=== PATIENT | male | born 1940 | race Caucasian/White ===

== ENCOUNTER → 2016-12-15 | Outpatient (CLI) | payer MEDICARE, OTHER ==
[~2016-12-15] MED LIST: ASPI-587 PO; CLOP75TA PO
== END ==
LOC: CARD 08:43
PROVIDERS: ATTEND Family Medicine
DX: I25.10 Atherosclerotic heart disease of native coronary artery without angina pectoris (principal); R00.1 Bradycardia, unspecified; E03.9 Hypothyroidism, unspecified
CPT/HCPCS: 36415; 84443; 93225; 93226

== ENCOUNTER → 2016-12-23 | Outpatient (CLI) | payer MEDICARE, OTHER | LOC: CARD 08:19 | PROVIDERS: ATTEND Internal Medicine Interventional Cardiology | DX: I49.3 Ventricular premature depolarization (principal); I25.10 Atherosclerotic heart disease of native coronary artery without angina pectoris; E78.5 Hyperlipidemia, unspecified; I70.1 Atherosclerosis of renal artery | CPT/HCPCS: 93225; 93226 ==

== ENCOUNTER 2017-05-19 10:55 | Inpatient (IN) | payer MEDICARE, OTHER ==
[~2017-05-19] VITALS: Ht 190.5 cm; Wt 98.6 kg
[2017-05-19 14:06] VITALS: BP 129/74
[2017-05-19 15:08] VITALS: BP 129/74
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
--- NOTE | 2017-05-19 16:44 | Physical Therapy Evaluation ---
PT Evaluation-General Medical Diagnosis Admission Date May 19, 2017 at 14:00 Medical Diagnosis: s/p subdural hematoma Onset Date: April 07, 2017 Therapy Diagnosis Therapy Diagnosis: impaired mobility, balance, endurance, strength Height/Weight Height (Feet): 6 Height (Inches): 3.00 Weight (Pounds): 224 Weight (Ounces): 0.0 Precautions Precautions/Isolations: Aspiration, Fall Prevention, Standard Precautions, Pressure Ulcer Referral Physician: Tirso Reason for Referral: Evaluation/Treatment Medical History Pertinent Medical History: CAD, HTN, Hypothroidism Additional Medical History CBD, kidney stones, 3rd nerve palsy, surg (carotid endarteretomy, CABG, bladder stone removal, left knee replacement, amputation right thumb) Current History Patient fell, subdural hematoma with evacuation on 04/07/17 Reviewed History: Yes Social History Home: Single Level Current Living Status: Spouse Entry Into Home: Level Entry Prior/Core FIM Prior Level of Function Functional Hawkins Measure 0=Not Assessed/NA 4=Minimal Assistance 1=Total Assistance 5=Supervision or Setup 2=Maximal Assistance 6=Modified Hawkins 3=Moderate Assistance 7=Complete Hawkins Bed Mobility: 7 Transfers (B,C,W/C) (FIM): 7 Gait: 7 PT Evaluation-Current Subjective Patient in bed pre tx, agrees to PT, pleasant and cooperative, no complaints of pain. Pt/Family Goals to be independent at home Objective Patient Orientation: Person, Place, Situation helmet to wear when out of bed ROM/Strength ROM Lower Extremities WNL except patient does not seem to have full knee extension bilaterally Strenght Lower Extremities 4/5 gross bilateral lower extremities Neuromuscular (Tone, Coordination, Reflexes) WNL Sensory Vision: Wears Glasses Hearing: Functional Hand Dominance: Right (but reports he is ambidextrous) Sensation Right Lower Extremit: Intact Sensation Left Lower Extremity: Intact Transfers Functional Hawkins Measure 0=Not Assessed/NA 4=Minimal Assistance 1=Total Assistance 5=Supervision or Setup 2=Maximal Assistance 6=Modified Hawkins 3=Moderate Assistance 7=Complete IndependenceIRFPAI Quality Coding Scale 6 Independent with activity with or without an assistive device 5 Patient requires set up or clean up by helper. Patient completes activity by themselves 4 Supervision or touching assist (CGA). Manson provide cues , steadying assist 3 The helper provides less than half the effort to complete the activity 2 The helper provides more than half the effort to complete the activity 1 Dependent. The helper does all the effort to complete an activity 7 Patient refused to complete or attempt activity 9 The patient did not perform the activity before the current illness or injury 88 Not attempted due to Medical conditions or safety concerns Transfers (B, C, W/C) (FIM): 4 Scootin Rollin Roll Left to Right (QC): 4 Supine to/from Sit: 4 Sit to/from Stand: 3 bed t/f WC(FIM only if WC use): 3 Sit to Lying (QC): 3 Lying to Sitting/Side of Bed(Q: 3 Sit to Stand (QC): 2 Chair/[id number]-Uqpzu Xfer(QC): 2 Car Transfer (QC): 88 Patient performs bed mobility with SBA except for supine <-> sit which is min assist. He can stand with mod to max assist and perform a stand pivot transfer with mod to max assist. Retropulsive and leans a little to the right side. Gait Does the Patient Walk?: Yes Mode of Locomotion: Walk Anticipated Mode of Locomotion: Walk Gait (FIM): 1 Walk 10 feet (QC): 2 Walk 50 ft with 2 Turns(QC): 88 Walk 150 ft (QC): 88 Walking 10ft/uneven surface-QC: 88 Distance: 10' Gait Level of Assist: 2 Gait Persons Needed: 2 Gait Assistive Device: FWW Comments/Gait Description slow, uncoordinated, leans to the right side, needs to sit suddenly so follow with chair Stairs Stairs (FIM): 0 If not tested on admit;explain Patient is not safe to perform stairs due to weakness, balance impairments, and poor mobility Balance Sitting Static: Fair Sitting Dynamic: Fair Standing Static: Poor Standing Dynamic: Poor Picking up an Object (QC): 88 Assessment/Needs Patient has impaired mobility, strength, balance, endurance post subdural hematoma and evacuation. Rehab Potential: Fair PT Short Term Goals Short Term Goals Time Frame: May 26, 2017 Transfers (B,C,W/C) (FIM): 4 Gait (FIM): 2 Gait Distance Comment: 50' Gait Level of Assist: 4 Gait Assistive Device: FWW PT Chcf Goals Chcf Goals PT Chcf Goals Time Frame: Jun 09, 2017 Transfers (B,C,W/C) (FIM): 4 Sit to Lying (QC): 4 Lying-Sitting on Side/Bed(QC): 4 Sit to Stand (QC): 4 Rollin Roll Left to Right (QC): 4 Chair/Drs-df-Koqoz Xfer(QC): 4 Car Transfer (QC): 4 Gait (FIM): 4 Distance: 150' Walk 10 feet (QC): 4 Walk 10ft-Uneven Surface(QC): 4 Walk 50ft with 2 Turns (QC): 4 Walk 150 ft (QC): 4 Gait Level of Assist: 4 Gait Assistive Device: FWW Stairs (FIM): 2 # of Steps: 4 1 Step (curb) (QC): 4 4 Steps (QC): 4 PT Plan Problem List Problem List: Activity Tolerance, Functional Strength, Safety, Balance, Gait, Transfer, Bed Mobility, ROM Treatment/Plan Treatment Plan: Continue Plan of Care Treatment Plan: Bed Mobility, Education, Functional Activity Lela, Functional Strength, Gait, Safety, Therapeutic Exercise, Transfers Treatment Duration: Jun 09, 2017 # of days/week 5-6 Visits Per Week: 10-11 Minutes/Day (M-F): 60-90 Minutes/Day (Sat/Johnson): 15-30 Pt/Family Agrees w/Plan: Yes Safety Risks/Education Patient Education: Gait Training, Transfer Techniques, Correct Positioning, Safety Issues Teaching Recipient: Patient Teaching Methods: Demonstration, Discussion Response to Teaching: Reinforcement Needed Discharge Recommendations Plan Patient will perform bed mobility and transfer training, balance and endurance training, functional strengthening, stair training, gait training, and education , to improve functional mobility and independence at home. Therapy D/C Recommendations: Home w/ Family Support Time/GCodes Time In: 1600 Time Out: 1630 Total Billed Treatment Time: 30 Total Billed Treatment 1 visit EVL20' GT 10' JOSÉ MANUEL WHEELER PT May 19, 2017 16:44
[2017-05-19 18:00] VITALS: BP 130/72
[2017-05-19] MEDS ORDERED: TAMSULOSIN 0.4 MG (FLOMAX) CAP PO SCH (18:00)
[2017-05-19] MEDS: CARVEDILOL 12.5 MG (COREG) TABLET GT SCH (20:37)
[2017-05-19] MEDS: ENOXAPARIN 40 MG/0.4 ML (LOVENOX) SYR SC SCH (20:37)
[2017-05-19] MEDS: FAMOTIDINE 20 MG (PEPCID) TABLET GT SCH (20:37)
[2017-05-19] MEDS: LACTOBACILLUS Acidoph/Bulgar (LACTINEX/FLORANEX) TAB PEG SCH (20:38)
[2017-05-19] MEDS: hydrALAZINE (APRESOLINE) 25 MG TAB GT SCH (20:38)
[2017-05-19] MEDS: guaiFENesin (MUCINEX) 600 MG TAB PO SCH (20:38)
[2017-05-19] MEDS: cloNIDine 0.1 MG (CATAPRES) TAB GT SCH (20:38)
[2017-05-19] MEDS: ALFUZOSIN HCL 10 MG TAB (UROXATRAL) PO SCH (20:38)
[2017-05-19] MEDS: LEVETIRACETAM 500 MG (KEPPRA) TAB PO SCH (20:38)
[2017-05-19] MEDS: POLYETHYLENE GLYCOL 17 GM (MIRALAX) PACK GT SCH (20:47)
[2017-05-19] MEDS: DOCUSATE SODIUM 10 MG/ML 10 ML UDC (COLACE) GT SCH (20:47)
[2017-05-19] MEDS: inSUlin ASPART (NovoLOG) 1 UNIT/0.01 ML (CHARGE PER UNIT) SC SCH (20:53)
[2017-05-19] MEDS: ARTIFICIAL TEARS OINT (LACRI-LUBE) 3.5 GM TUBE OU SCH (20:56)
[2017-05-19] MEDS ORDERED: inSUlin ASPART (NovoLOG) 1 UNIT/0.01 ML (CHARGE PER UNIT) SC SCH (21:00)
[2017-05-20 05:35] VITALS: BP 136/76
[2017-05-20] MEDS: inSUlin ASPART (NovoLOG) 1 UNIT/0.01 ML (CHARGE PER UNIT) SC SCH ×4 (05:54→21:58)
[2017-05-20] MEDS: MULTIVIT W/MINERALS TAB (THERAGRAN M) GT SCH (06:11)
[2017-05-20] MEDS: LEVOTHYROXINE 125 MCG (LEVOTHROID) TABLET GT SCH (06:11)
[2017-05-20 06:16] LABS: BASOPHILS # (AUTO) 0.1 10^3/uL (0.0-0.1); BASOPHILS % (AUTO) 1 % (0-10); EOSINOPHILS # (AUTO) 0.3 10^3/uL (0.0-0.3); EOSINOPHILS % (AUTO) 5 % (0-10); LYMPHOCYTES # (AUTO) 1.3 X 10^3 (1.0-4.0); LYMPHOCYTES % (AUTO) 26 % (12-44); MEAN CORPUSCULAR HEMOGLOBIN 30 PG (25-34); MEAN CORPUSCULAR HGB CONC 33 G/DL (32-36); MEAN CORPUSCULAR VOLUME 93 FL (80-99); MEAN PLATELET VOLUME 9.8 FL (7.4-10.4); MONOCYTES # (AUTO) 0.9 X 10^3 (0.0-1.0); MONOCYTES % (AUTO) 17 % (0-12); NEUTROPHILS # (AUTO) 2.7 X 10^3 (1.8-7.8); NEUTROPHILS % (AUTO) 51 % (42-75); PLATELET COUNT 274 10^3/uL (130-400); RED BLOOD COUNT 3.79 10^6/uL (4.35-5.85); RED CELL DISTRIBUTION WIDTH 14.5 % (10.0-14.5); WHITE BLOOD COUNT 5.2 10^3/uL (4.3-11.0)
[2017-05-20] MEDS ORDERED: LEVOTHYROXINE 150 MCG (LEVOTHROID) TAB PO SCH (06:30)
[2017-05-20 06:44] LABS: ALANINE AMINOTRANSFERASE 89 U/L (0-55); ALBUMIN 3.4 GM/DL (3.2-4.5); ANION GAP 9 MMOL/L (5-14); ASPARTATE AMINO TRANSFERASE 30 U/L (5-34); BILIRUBIN,TOTAL 0.6 MG/DL (0.1-1.0); BLOOD UREA NITROGEN 12 MG/DL (7-18); BUN/CREATININE RATIO 16 (0-20); CALCIUM 9.7 MG/DL (8.5-10.1); CARBON DIOXIDE 28 MMOL/L (21-32); CHLORIDE 102 MMOL/L (98-107); CREATININE SERUM 0.76 MG/DL (0.60-1.30); GFR ESTIMATED > 60; GLUCOSE 102 MG/DL (70-105); HEMOLYSIS 5 (-100-29); ICTERUS 0.9 (-100-1.9); LIPEMIA 3 (-100-49); POTASSIUM 3.5 MMOL/L (3.6-5.0); SODIUM 139 MMOL/L (135-145); TOTAL PROTEIN 6.8 GM/DL (6.4-8.2)
[2017-05-20] MEDS: LEVETIRACETAM 500 MG (KEPPRA) TAB PO SCH ×2 (08:42→20:07)
[2017-05-20] MEDS: LACTOBACILLUS Acidoph/Bulgar (LACTINEX/FLORANEX) TAB PEG SCH ×2 (08:42→20:08)
[2017-05-20] MEDS: FAMOTIDINE 20 MG (PEPCID) TABLET GT SCH ×2 (08:42→20:08)
[2017-05-20] MEDS: FUROSEMIDE 40 MG (LASIX) TAB GT SCH (08:42)
[2017-05-20] MEDS: cloNIDine 0.1 MG (CATAPRES) TAB GT SCH ×3 (08:43→20:07)
[2017-05-20] MEDS: DOCUSATE SODIUM 10 MG/ML 10 ML UDC (COLACE) GT SCH ×2 (08:43→20:08)
[2017-05-20] MEDS: amLODIPine 5 MG (NORVASC) TAB GT SCH (08:43)
[2017-05-20] MEDS: CARVEDILOL 12.5 MG (COREG) TABLET GT SCH ×2 (08:43→20:07)
[2017-05-20] MEDS: guaiFENesin (MUCINEX) 600 MG TAB PO SCH ×2 (08:43→20:07)
[2017-05-20] MEDS: hydrALAZINE (APRESOLINE) 25 MG TAB GT SCH ×3 (08:43→20:08)
--- NOTE | 2017-05-20 08:43 | PM&R Post Admission Assessment ---
Post Admission Physician Asses The preadmission screen agrees with the post admission assessment that the patient is a good candidate for inpatient rehabilitation. The patient will have a comprehensive program of inpatient rehabilitation with a goal of maximizing level of functional independence prior to discharge home with family and HHC. The patient will have PT/OT ninety minutes per day, each discipline, five days a week for gait, strengthening, conditioning, balance, ADLs, any patient/family/caregiver training necessary. Speech therapy to do cognitive,speech and swallow assessment and treat 5 days a week for 30-45 minutes a day for 2-3 weeks. Rehabilitation nursing to assist with bowel, bladder, skin, wound care, medication administration, pain management. [employer] Supervisor to assist with discharge planning, community reentry. SCD's for DVT prophylaxis.Continue with Lovenox for DVT prophylaxis. He appears to be well motivated to participate in three hours of therapy a day. He should be able to tolerate three hours of therapy a day from a medical standpoint.and surgical standpoint. He should benefit from the three hours of therapy a day. He has a reasonable discharge plan, reasonable discharge rehabilitation goals and a supportive family. He has various comorbidities that need to be closely monitored with medications and treatments adjusted on a daily basis as needed. These include: HTN Coronary Art D Barriers to discharge for this patient who had been independent prior to this are for him to be modified independent to supervision for ADLs and mobility skills prior to discharge home with family and HHC, so as to lessen the burden of the caregivers. Risks for this patient include: 1. Fall 2. Fracture 3. DVT 4. Pulmonary embolism 5. Wound infection 6. Skin breakdown 7. Contractures 8. Poorly controlled pain 9. Urinary retention 10. UTI 11. Respiratory infection 12. Aspiration 13. Poorly controlled HTN 14. Angina 15. Cardiac arrythmia Estimated Length of Stay: 21 days Prognosis: Rehab prognosis appears good for goal of discharge home with family and HHC modified independent to supervision for ADLs and mobility skills. SHAHZAD BARROW MD May 20, 2017 08:43
[2017-05-20] MEDS: ARTIFICIAL TEARS OINT (LACRI-LUBE) 3.5 GM TUBE OU SCH ×2 (08:44→20:08)
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
--- NOTE | 2017-05-20 09:57 | Pulmonary Consultation ---
History of Present Illness History of Present Illness Date of Consultation 05/20/17 09:49 Time Seen by Provider: 09:50 Date of Admission History of Present Illness 76 yo with recent hx of acute respiratory failure requiring tracheostomy tube transferred here for inpatient rehabilitation. Pt was s/p fall hitting head and developed a subdural hematoma. Pt underwent surgery and is scheduled for repeat neuro surgery. Pt currently has a size 6.0 cuffless tracheostomy tube in place. He is not requiring supplemental oxygen. There is no current CXR to evaluate. Allergies and Home Medications Allergies Coded Allergies: No Known Drug Allergies (Unverified , 03/30/15) Home Medications Alfuzosin HCl 10 Mg Tab.er.24h, 10 MG PO DAILY@1800 for 30 Days, #30 Prescribed by: SHAHZAD BARROW on 06/08/17 1620 Amlodipine Besylate 5 Mg Tablet, 10 MG PO DAILY for 30 Days, #30 Prescribed by: SHAHZAD BARROW on 06/08/17 1620 Cholecalciferol (Vitamin D3) 2,000 Unit Capsule, 2,000 UNIT PO DAILY, (Reported) Clonidine HCl 0.1 Mg Tablet, 0.1 MG PO TID for 30 Days, #90 Prescribed by: SHAHZAD BARROW on 06/08/17 1620 Clotrimazole/Betamethasone Dip 15 Gm Cream..g., 0 GM TP BID for 30 Days, #1 Prescribed by: SHAHZAD BARROW on 06/08/17 1620 Docusate Sodium 100 Mg Capsule, 100 MG PO BID for 30 Days, #60 Prescribed by: SHAHZAD BARROW on 06/08/17 1620 Famotidine 20 Mg Tablet, 20 MG PO BID for 30 Days, #60 Prescribed by: SHAHZAD BARROW on 06/08/17 1620 Furosemide 40 Mg Tablet, 40 MG PO DAILY for 30 Days, #30 Prescribed by: SHAHZAD BARROW on 06/08/17 1620 Guaifenesin 600 Mg Tab.er.12h, 600 MG PO BID for 30 Days, #60 Prescribed by: SHAHZAD BARROW on 06/08/17 1620 Hydralazine HCl 25 Mg Tablet, 75 MG PO TID for 30 Days, #150 Prescribed by: SHAHZAD BARROW on 06/08/17 1620 L. Acidophilus/Bulgaricus 1 Each Tablet, 1 TAB.CHEW PO BID for 30 Days, #60 Prescribed by: SHAHZAD BARROW on 06/08/17 1620 Levetiracetam 500 Mg Tablet, 500 MG PO BID for 30 Days, #60 Prescribed by: SHAHZAD BARROW on 06/08/17 1620 Levothyroxine Sodium 125 Mcg Tablet, 250 MCG PO DAILY@0630 for 30 Days, #30 Prescribed by: SHAHZAD BARROW on 06/08/17 1620 Mineral Oil/Petrolatum,White 3.5 Gm Oint...g., 0 GM OU BID for 30 Days, #1 Prescribed by: SHAHZAD BARROW on 06/08/17 1620 Multivitamin 1 Each Tablet, 1 TAB PO DAILY, (Reported) [place]-3 Acid Ethyl Esters 1 Gm Capsule, 1 GM PO TID, (Reported) Potassium Chloride 10 Meq Tablet.er, 30 MEQ PO DAILY@0700 for 30 Days, #30 Prescribed by: SHAHZAD BARROW on 06/08/17 1620 Rosuvastatin Calcium 40 Mg Tablet, 40 MG PO HS, (Reported) Past Wvajqza-Zpcyij-Lveubz Hx Patient Social History Alcohol Use: Regular Use Recreational Drug Use: No Smoking Status: Former Smoker Type Used: Cigarettes Recent Foreign Travel: No Contact w/Someone Who Travel: No Recent Infectious Disease Expo: No Recent Hopitalizations: Yes Physical Abuse Screen: No Sexual Abuse: No Immunizations Up To Date Tetanus Booster (TDap): Unknown PED Vaccines UTD: Yes Seasonal Allergies Seasonal Allergies: No Surgeries Surgeries: CABG Respiratory Hx Respiratory Disorders: No Respiratory Disorders: Pneumonia Cardiovascular Hx Cardiac Disorders: Yes Cardiac Disorders: Hypertension Neurological Hx Neurological Disorders: No Reproductive System Hx Reproductive Disorders: No Sexually Transmitted Disease: No HIV/AIDS: No Genitourinary Hx Genitourinary Disorders: No Genitourinary Disorders: Kidney Stones Gastrointestinal Hx Gastrointestinal Disorders: No Gastrointestinal Disorders: Gastroesophageal Reflux Musculoskeletal Hx Musculoskeletal Disorders: No Musculoskeletal Disorders: Amputee Endocrine Hx Endocrine Disorders: No HEENT HX ENT Disorders: No Loss of Vision: Bilateral Hearing Impairment: Hard of Hearing Cancer Hx Cancer: No Psychosocial Hx Psychiatric Problems: No Blood Transfusions Hx Blood Disorders: No Adverse Reaction to a Blood Tr: No Family Medical History Family Medial History: Patient reports no known family medical history. Review of Systems Time Seen by Provider: 13:19 Constitutional: Fever Eyes: Pain Exam Exam Vital Signs Date Time Temp Pulse Resp B/P (MAP) Pulse Ox O2 Delivery O2 Flow Rate FiO2 6/22/17 09:08 94 Room Air 05/20/17 05:35 97.9 67 18 136/76 Room Air 05/19/17 23:32 95 Room Air 05/19/17 20:15 Room Air 05/19/17 19:48 93 Room Air 05/19/17 18:00 98.6 72 18 130/72 93 Room Air 05/19/17 16:07 Room Air 05/19/17 15:15 Room Air 05/19/17 15:08 98.7 70 24 129/74 92 Room Air 05/19/17 14:06 98.7 70 18 129/74 92 Nasal Cannula I & O 05/20/17 07:00 Intake Total 620 ml Output Total 1100 ml Balance -480 ml General Appearance: No Apparent Distress, WD/WN Results Lab Laboratory Tests 05/20/17 06:06 Assessment/Plan Assessment/Plan hx of acute respiratory failure s/p tracheostomy -Check CXR Pt is on RA oxygen -If CXR shows no acute process will d/c tracheostomy 255 45min spent with patient and health care team. Clinical Quality Measures DVT/VTE Risk/Contraindication: Risk Factor Score Per Nursin RFS Level Per Nursing on Admit: 4+=Very High CARLYN NIEVES DO May 20, 2017 09:57
[2017-05-20] MEDS ORDERED: CLOP75TA28 PO (10:15)
[2017-05-20] MEDS ORDERED: ROSU40TA20 PO (10:15)
[2017-05-20] MEDS ORDERED: AMLO5TAB2 PO (10:15)
[2017-05-20] MEDS ORDERED: RAMI5CAP PO (10:15)
[2017-05-20] MEDS ORDERED: MULT1TAB69 PO (10:15)
[2017-05-20] MEDS ORDERED: CHOL20003 PO (10:15)
[2017-05-20] MEDS ORDERED: OMEG-105 PO (10:15)
[2017-05-20] MEDS ORDERED: HYDR12.56 PO (10:15)
[2017-05-20] MEDS ORDERED: CARV6.252 PO (10:15)
[2017-05-20] MEDS ORDERED: LEVO200T6 PO (10:15)
--- NOTE | 2017-05-20 10:21 | PM & R (SOAP) Progress Note ---
Subjective Time Seen by Provider: 08:15 Subjective/Events-last exam Patient was seen in his room this AM Discussed case with ST.She will f/u re need for any modification in diet or need for Meds thru Peg.Mod assist for transfers Objective Exam Last Set of Vital Signs Vital Signs Date Time Temp Pulse Resp B/P (MAP) Pulse Ox O2 Delivery O2 Flow Rate FiO2 05/20/17 09:08 94 Room Air 05/20/17 05:35 97.9 67 18 136/76 Capillary Refill : I&O Bad tableGeneral: Alert, Cooperative, No Acute Distress HEENT: EOMI, Mucous Memb Moist/[place], Other (Rt Crani site healing well) Neck: Supple, No JVD Lungs: Clear to Auscultation Heart: Regular Rate Abdomen: Normal Bowel Sounds, Soft, No Tenderness Extremities: No Edema Neuro: Other (generalized weakness Mild cognitive impairment) Results Lab Laboratory Tests 05/19/17 20:16: Glucometer 179H 05/20/17 04:51: Glucometer 96 05/20/17 06:06: White Blood Count 5.2, Red Blood Count 3.79L, Hemoglobin 11.4L, Hematocrit 35L, Mean Corpuscular Volume 93, Mean Corpuscular Hemoglobin 30, Mean Corpuscular Hemoglobin Concent 33, Red Cell Distribution Width 14.5, Platelet Count 274, Mean Platelet Volume 9.8, Neutrophils (%) (Auto) 51, Lymphocytes (%) (Auto) 26, Monocytes (%) (Auto) 17H, Eosinophils (%) (Auto) 5, Basophils (%) (Auto) 1, Neutrophils # (Auto) 2.7, Lymphocytes # (Auto) 1.3, Monocytes # (Auto) 0.9, Eosinophils # (Auto) 0.3, Basophils # (Auto) 0.1, Sodium Level 139, Potassium Level 3.5L, Chloride Level 102, Carbon Dioxide Level 28, Anion Gap 9, Blood Urea Nitrogen 12, Creatinine 0.76, Estimat Glomerular Filtration Rate > 60, BUN/ Creatinine Ratio 16, Glucose Level 102, Calcium Level 9.7, Total Bilirubin 0.6, Aspartate Amino Transf (AST/SGOT) 30, Alanine Aminotransferase (ALT/SGPT) 89H, Alkaline Phosphatase 75, Total Protein 6.8, Albumin 3.4 Assessment/Plan Assessment Rt SDH s/p evacuation with gait imbalance Blurred vision S/P Trach S/P feeding tube HTN controlled Plan Continue PT/OT/ST Discussed case with Pulm- he will check cxr and then decannulate tomorrow most likely F/U with DR Dowling as per his schedule Appreciate current labs F/U with SHAHZAD Schultz MD May 20, 2017 10:21
--- NOTE | 2017-05-20 11:38 | Physical Therapy Daily Note ---
PT Daily Note-Current Subjective Patient in wheelchair from xray pre tx, has to transfer to a rehab chair. Patient has no complaints of pain. Appearance Patient in wheelchair at bedside with speech post tx. Mental Status Patient Orientation: Person, Place, Situation patient wears helmet when out of bed. Transfers Functional Reynolds Measure 0=Not Assessed/NA 4=Minimal Assistance 1=Total Assistance 5=Supervision or Setup 2=Maximal Assistance 6=Modified Reynolds 3=Moderate Assistance 7=Complete IndependenceIRFPAI Quality Coding Scale 6 Independent with activity with or without an assistive device 5 Patient requires set up or clean up by helper. Patient completes activity by themselves 4 Supervision or touching assist (CGA). [place] provide cues , steadying assist 3 The helper provides less than half the effort to complete the activity 2 The helper provides more than half the effort to complete the activity 1 Dependent. The helper does all the effort to complete an activity 7 Patient refused to complete or attempt activity 9 The patient did not perform the activity before the current illness or injury 88 Not attempted due to Medical conditions or safety concerns Transfers (B, C, W/C) (FIM): 2 Sit to/from Stand: 2 Patient stands with max assist, needs max cues for safety and hand placement. Gait Training Gait (FIM): 1 Distance: 10', 15' Gait Level of Assist: 3 Gait Assistive Device: FWW Patient ambulates slowly, uncoordinated, tends to try to use walker too far out in front of him. Poor safety. Wheelchair Training Wheelchair (FIM): 4 Distance: 150'x2 Wheelchair Level of Assist: 4 Type of Wheelchair: Manual Patient uses both legs to propel. Treatments transfers, wheelchair mobility, ambulation Assessment Current Status: Poor Progress Patient has extremely poor motivation and asked over and over to go back to bed. He needs max encouragement to participate. A lot of time was spent just trying to get the patient to participate. PT Short Term Goals Short Term Goals Time Frame: May 26, 2017 Transfers (B,C,W/C) (FIM): 4 Gait (FIM): 2 Gait Distance Comment: 50' Gait Level of Assist: 4 Gait Assistive Device: FWW PT Alf Goals Production Controller Goals PT Production Controller Goals Time Frame: Jun 09, 2017 Transfers (B,C,W/C) (FIM): 4 Sit to Lying (QC): 4 Lying-Sitting on Side/Bed(QC): 4 Sit to Stand (QC): 4 Rollin Roll Left to Right (QC): 4 Chair/Cfy-oa-Cswoi Xfer(QC): 4 Car Transfer (QC): 4 Gait (FIM): 4 Distance: 150' Walk 10 feet (QC): 4 Walk 10ft-Uneven Surface(QC): 4 Walk 50ft with 2 Turns (QC): 4 Walk 150 ft (QC): 4 Gait Level of Assist: 4 Gait Assistive Device: FWW Stairs (FIM): 2 # of Steps: 4 1 Step (curb) (QC): 4 4 Steps (QC): 4 PT Plan Problem List Problem List: Activity Tolerance, Functional Strength, Safety, Balance, Gait, Transfer, Bed Mobility Treatment/Plan Treatment Plan: Continue Plan of Care Treatment Plan: Bed Mobility, Education, Functional Activity Lela, Functional Strength, Gait, Safety, Therapeutic Exercise, Transfers Treatment Duration: Jun 09, 2017 Visits Per Week: 10-11 Minutes/Day (M-F): 60-90 Minutes/Day (Sat/Johnson): 15-30 Safety Risks/Education Patient Education: Gait Training, Transfer Techniques, Correct Positioning, W/ C Management, Safety Issues Teaching Recipient: Patient Teaching Methods: Demonstration, Discussion Response to Teaching: Reinforcement Needed Time/GCodes Time In: 1045 Time Out: 1130 Total Billed Treatment Time: 45 Total Billed Treatment 1 visit GT 15' [facility] 15' FA 15' JOSÉ MANUEL WHEELER PT May 20, 2017 11:38
--- NOTE | 2017-05-20 12:25 | Consultation ---
History of Present Illness History of Present Illness Patient Consulted On(josue/time) 05/20/17 12:19 Date of Admission History of Present Illness [place] to the emergency room there and had an elevated troponin. Patient was sent to the hospital and refused angiography and stated he'll get up at home . Patient at home had a fall and hit his shoulder but not is head. Patient went to the emergency room and had a large subdural hematoma and had surgery for this. Patient was in respiratory failure and had a trach and PEG tube put in at [facility]. Patient transferred to [place]. Patient now here for rehabilitation. Patient has history of coronary artery disease Allergies and Home Medications Allergies Coded Allergies: No Known Drug Allergies (Unverified , 03/30/15) Home Medications Amlodipine Besylate 5 Mg Tablet, 5 MG PO DAILY, (Reported) Aspirin 81 Mg Tablet.dr, 81 MG PO DAILY, (Reported) Carvedilol 6.25 Mg Tablet, 6.25 MG PO BID, (Reported) Cholecalciferol (Vitamin D3) 2,000 Unit Capsule, 2,000 UNIT PO DAILY, (Reported) Clopidogrel Bisulfate 75 Mg Tablet, 75 MG PO DAILY, (Reported) Hydrochlorothiazide 12.5 Mg Tablet, 12.5 MG PO DAILY, (Reported) Levothyroxine Sodium 200 Mcg Tablet, 200 MCG PO DAILY, (Reported) Multivitamin 1 Each Tablet, 1 TAB PO DAILY, (Reported) [place]-3 Acid Ethyl Esters 1 Gm Capsule, 1 GM PO TID, (Reported) Ramipril 5 Mg Capsule, 10 MG PO DAILY, (Reported) TAKES 2 (5 MG) CAPSULES Rosuvastatin Calcium 40 Mg Tablet, 40 MG PO HS, (Reported) Past Plcjxhf-Sguhcc-Bubbhg Hx Patient Social History Alcohol Use: Regular Use Recreational Drug Use: No Smoking Status: Former Smoker Type Used: Cigarettes Recent Foreign Travel: No Contact w/Someone Who Travel: No Recent Infectious Disease Expo: No Recent Hopitalizations: Yes Physical Abuse Screen: No Sexual Abuse: No Immunizations Up To Date Tetanus Booster (TDap): Unknown PED Vaccines UTD: Yes Seasonal Allergies Seasonal Allergies: No Surgeries Surgeries: CABG Respiratory Hx Respiratory Disorders: No Respiratory Disorders: Pneumonia Cardiovascular Hx Cardiac Disorders: Yes Cardiac Disorders: Hypertension Neurological Hx Neurological Disorders: No Reproductive System Hx Reproductive Disorders: No Sexually Transmitted Disease: No HIV/AIDS: No Genitourinary Hx Genitourinary Disorders: No Genitourinary Disorders: Kidney Stones Gastrointestinal Hx Gastrointestinal Disorders: No Gastrointestinal Disorders: Gastroesophageal Reflux Musculoskeletal Hx Musculoskeletal Disorders: No Musculoskeletal Disorders: Amputee Endocrine Hx Endocrine Disorders: No HEENT HX ENT Disorders: No Loss of Vision: Bilateral Hearing Impairment: Hard of Hearing Cancer Hx Cancer: No Psychosocial Hx Psychiatric Problems: No Blood Transfusions Hx Blood Disorders: No Adverse Reaction to a Blood Tr: No Family Medical History Family Medial History: Patient reports no known family medical history. 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) Genitourinary: other Physical Exam-General Problems Physical Exam Vital Signs Vital Sign - Last 12Hours 05/19/17 14:06 Temp 98.7 Pulse 70 Resp 18 B/P (MAP) 129/74 Pulse Ox 92 O2 Delivery Nasal Cannula Capillary Refill : General Appearance: WD/WN Eyes: Bilateral Eye Normal Inspection HEENT: normal ENT inspection Neck: full range of motion, normal inspection, other (trach) Respiratory: chest non-tender, lungs clear, normal breath sounds, no respiratory distress, no accessory muscle use Cardiovascular: regular rate, rhythm, no murmur Gastrointestinal: non tender, soft, other (PEG tube) Assessment/Plan Assessment/Plan Admission Diagnosis/Plan debility. Trach. PEG tube. Subdural hematoma. Coronary artery disease Clinical Quality Measures DVT/VTE Risk/Contraindication: Risk Factor Score Per Nursin RFS Level Per Nursing on Admit: 4+=Very High JR FUENTES DO May 20, 2017 12:25
--- NOTE | 2017-05-20 13:30 | Diagnostic Imaging Report ---
PA and lateral views of the chest. INDICATION: Shortness of breath. Findings: The heart is moderately enlarged. There is no significant vascular congestion or pulmonary edema. Mild opacity in the left lung base adjacent to the cardiac apex could relate to atelectasis or prominent pericardial fat pad. There is no effusion or pneumothorax. The mediastinum and leeanna appear unremarkable. Post CABG changes with sternotomy wires and tracheostomy tube are seen. Impression: Cardiomegaly. Dictated by: Dictated on workstation # [id number]
--- NOTE | 2017-05-20 13:45 | Consultation-Cardiology ---
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 He had an angiogram a few years with no interventions. He also has history CEA and Renal intervention. He was found to have sinus bradycardia with frequent PVCs. Lowest heart rate was 47bpm on holter monitor. according to the patient, he went to [place] two weeks ago and had chest pain and palpitations and was in atrial fibrillation and had a "heart attack" however the patient did not want angiogram and wanted to come back to [place]. He was started on eliquis. However, on his return, he had a mechanical fall in which he injured his shoulder and had severe headache and was found to have subdural hematoma and surgery was performed. with trach and PEG. all antiplatelet agents and eliquis discontinued. He denies any chest symptoms. Review of Systems-Cardiology Review of Systems Date Seen by Provider: May 20, 2017 Time Seen by Provider: 13:45 Constitutional: No As described under HPI, No no symptoms reported, No chills, No fever, No lightheadedness, No malaise, No tiredness, No weight loss, No weight gain, No other Eyes: No As described under HPI, No no symptoms reported, No blindness, No blurred vision, No contact lenses, No drainage, No decreased acuity, No foreign body sensation, No glasses, No inflammation, No pain, No photophobia, No previous injury, No shadows, No tunnel vision, No other, No vision change Ears/Nose/Throat: No As described under HPI, No no symptoms reported, No chronic hearing loss, No epistaxis, No ear discharge, No ear pain, No loose teeth, No mouth pain, No mouth swelling, No nasal drainage, No nose pain, No recent hearing loss, No throat pain, No throat swelling, No ulcerations, No other Respiratory: No no symptoms reported, No As described under HPI, No cough, No orthopnea, No shortness of breath, No SOB with excertion, No SOB at rest, No stridor, No wheezing, No other Cardiovascular: No no symptoms reported, No As described under HPI, No chest pain, No edema, No irregular heart rate, No lightheadedness, No palpitations, No syncope, No other Gastrointestinal: No no symptoms reported, No As described under HPI, No abdomen distended, No abdominal pain, No blood streaked bowels, No constipation , No diarrhea, No difficulty swallowing, No nausea, No poor appetite, No poor fluid intake, No rectal bleeding, No vomiting, No other, No nausea/vomiting/ diarrhea, No stool coloration changes Genitourinary: No no symptoms reported, No As described under HPI, No burning, No dysuria, No discharge, No frequency, No flank pain, No hematuria, No incontinence, No pain, No urgency, No other, No urine frequency changes, No urine coloration changes Musculoskeletal: No no symptoms reported, No As describe under HPI, No back pain, No gout, No joint pain, No joint swelling, No muscle pain, No muscle stiffness, No neck pain, No other JIJ-Pnlpep-Wnrbds Hx Patient Social History Alcohol Use: Regular Use Recreational Drug Use: No Smoking Status: Former Smoker Type Used: Cigarettes Recent Foreign Travel: No Recent Infectious Disease Expo: No Hospitalization with Isolation: Denies Physical Abuse Screen: No Sexual Abuse: No Immunizations Up To Date Tetanus Booster (TDap): Unknown Past Medical History PMH As described under Assessment. Family Medical History Family History: Patient reports no known family medical history. Allergies and Home Medications Allergies Coded Allergies: No Known Drug Allergies (Unverified , 03/30/15) Home Medications Amlodipine Besylate 5 Mg Tablet, 5 MG PO DAILY, (Reported) Aspirin 81 Mg Tablet.dr, 81 MG PO DAILY, (Reported) Carvedilol 6.25 Mg Tablet, 6.25 MG PO BID, (Reported) Cholecalciferol (Vitamin D3) 2,000 Unit Capsule, 2,000 UNIT PO DAILY, (Reported) Clopidogrel Bisulfate 75 Mg Tablet, 75 MG PO DAILY, (Reported) Hydrochlorothiazide 12.5 Mg Tablet, 12.5 MG PO DAILY, (Reported) Levothyroxine Sodium 200 Mcg Tablet, 200 MCG PO DAILY, (Reported) Multivitamin 1 Each Tablet, 1 TAB PO DAILY, (Reported) Page-3 Acid Ethyl Esters 1 Gm Capsule, 1 GM PO TID, (Reported) Ramipril 5 Mg Capsule, 10 MG PO DAILY, (Reported) TAKES 2 (5 MG) CAPSULES Rosuvastatin Calcium 40 Mg Tablet, 40 MG PO HS, (Reported) Physical Exam-Cardiology Physical Exam Vital Signs/I&O Vital Sign - Last 12Hours 05/20/17 05/20/17 05/20/17 05:35 09:00 09:08 Temp 97.9 Pulse 67 Resp 18 B/P (MAP) 136/76 Pulse Ox 94 O2 Delivery Room Air Room Air Room Air Intake and Output 05/20/17 00:00 Intake Total 120 ml Output Total 100 ml Balance 20 ml Capillary Refill : Constitutional: No appears stated age, No AAO x 3, No apparent distress, No PERRL, No well-developed, No well-nourished, No other HEENT: No PERRL, No normal ENT inspection, No TMs normal, No pharynx normal, No scleral icterus (R), No scleral icterus (L), No pale conjunctivae (R), No pale conjunctivae (L), No photophobia, No TM abnormal (R), No TM abnormal (L), No pharyngeal erythema, No tonsillar exudate, No other, No discharge, No EOMI, No hearing is well preserved, No hard of hearing, No oral hygience is good, No ulceration, No xanthelasmas are seen Neck: other (trach) Respiratory: No accessory muscle use, No respiratory distress, No chest tender , No chest expansion is symmetric, No chest is bilaterally symmetric, No lungs clear to percussion, No lungs clear to auscultation, No crackles, No rhonchi, No rales, No stridor, No wheezing, No pleural rub, No other Cardiovascular: No regular rate-rhythm, No irregularly irregular, No extra beats, No parasternal heave is noted, No JVD, No edema, No bradycardia, No tachycardia, No point of maximal impulse, No cardiac thrills are palpable, No S1 and S2, No gallop/S3, No gallop/S4, No diastolic murmur, No systolic murmur, No friction rub, No click, No other Gastrointestinal: No tender, No soft, No round, No distended, No pulsatile mass , No organomegaly, No guarding, No rebound, No tenderness, No hernia, No mass, No audible bowel sounds, No abnormal bowel sounds, No abdominal bruits, No spleenomegaly, other (PEG) Rectal: deferred Extremities: No normal range of motion, No non-tender, No normal inspection, No pedal edema, No calf tenderness, No normal capillary refill, No pelvis stable , No calf tenderness, No inflammation, No pedal edema, No slow capillary refill , No swelling, No other, No abrasion, No clubbing, No cyanosis, No ecchymosis, No laceration, No no lower extremity edema bilateral, No significant edema, No tenderness, No wound Neurologic/Psychiatric: No professor of journalism II-XII nml as tested, No no motor/sensory deficits, No alert, No normal mood/affect, No oriented x 3, No abnormal cerebellar tests, No abnormal professor of journalism II-XII, No abnormal gait, No aphasia, No EOM palsy, No facial droop, No motor weakness, No sensory deficit, No depressed affect, No disoriented x 3, No other, No grossly intact, No power is 5/5 both on sides Data Review Labs Laboratory Tests 05/19/17 20:16: Glucometer 179H 05/20/17 04:51: Glucometer 96 05/20/17 06:06: White Blood Count 5.2, Red Blood Count 3.79L, Hemoglobin 11.4L, Hematocrit 35L, Mean Corpuscular Volume 93, Mean Corpuscular Hemoglobin 30, Mean Corpuscular Hemoglobin Concent 33, Red Cell Distribution Width 14.5, Platelet Count 274, Mean Platelet Volume 9.8, Neutrophils (%) (Auto) 51, Lymphocytes (%) (Auto) 26, Monocytes (%) (Auto) 17H, Eosinophils (%) (Auto) 5, Basophils (%) (Auto) 1, Neutrophils # (Auto) 2.7, Lymphocytes # (Auto) 1.3, Monocytes # (Auto) 0.9, Eosinophils # (Auto) 0.3, Basophils # (Auto) 0.1, Sodium Level 139, Potassium Level 3.5L, Chloride Level 102, Carbon Dioxide Level 28, Anion Gap 9, Blood Urea Nitrogen 12, Creatinine 0.76, Estimat Glomerular Filtration Rate > 60, BUN/ Creatinine Ratio 16, Glucose Level 102, Calcium Level 9.7, Total Bilirubin 0.6, Aspartate Amino Transf (AST/SGOT) 30, Alanine Aminotransferase (ALT/SGPT) 89H, Alkaline Phosphatase 75, Total Protein 6.8, Albumin 3.4 05/20/17 11:48: Glucometer 140H A/P-Cardiology Assessment/Admission Diagnosis Recent subdural hematoma, recent ACS, AFIB, history of CAD, Carotid disease, renal disease, PVCs Plan We will get all his records from the hospital in [place]. Due to the subdural hematoma, no antiplatelet or oral anticoagulants. He is on low dose enoxaparin. Continue BP meds. no cardiac symptoms, therefore, will defer any invasive cardiac evaluation. will follow. Thank you for your consultation. Please call me if you have any questions. Gisele Melgar MD, FACP, FACC, FSCAI, FHRS, CCDS Interventional Cardiology Cardiac Electrophysiology Vascular Medicine and Endovascular Interventions Clinical Quality Measures DVT/VTE Risk/Contraindication: Risk Factor Score Per Nursin RFS Level Per Nursing on Admit: 4+=Very High Barry MELGAR MD May 20, 2017 13:44
--- NOTE | 2017-05-20 14:04 | Physical Therapy Daily Note ---
PT Daily Note-Current Subjective Agreeable to PT. Reports he is worn out from this morning. "I wish you could feel how I feel, so you would understand when I'm tired. " Transfers Functional [place] Measure 0=Not Assessed/NA 4=Minimal Assistance 1=Total Assistance 5=Supervision or Setup 2=Maximal Assistance 6=Modified [place] 3=Moderate Assistance 7=Complete IndependenceIRFPAI Quality Coding Scale 6 Independent with activity with or without an assistive device 5 Patient requires set up or clean up by helper. Patient completes activity by themselves 4 Supervision or touching assist (CGA). [place] provide cues , steadying assist 3 The helper provides less than half the effort to complete the activity 2 The helper provides more than half the effort to complete the activity 1 Dependent. The helper does all the effort to complete an activity 7 Patient refused to complete or attempt activity 9 The patient did not perform the activity before the current illness or injury 88 Not attempted due to Medical conditions or safety concerns Transfers (B, C, W/C) (FIM): 3 Supine to/from Sit: 3 (assist to lift and lower trunk.) Sit to Stand (QC): 2 (assist of 2 with skilled cues to sequence and place hands correctly.) Chair/Kjr-ix-Nxygf Xfer(QC): 2 (max assist to stand and min assist to transfer ; did not fully turn and sat on the edge of the bed unsafely.) Gait Training Does the Patient Walk?: Yes Gait (FIM): 2 Distance: 10 ft, 15ft, 5 ft. Gait Assistive Device: FWW Tends to walk with forward flexion at hips and head down with short step length and decreased foot clearance. Requires cuing 90% of the time to correct posture and step length. He is able to straighten but needs cues. Treatments Helmet on throughout treatment. Assessment Current Status: Good Progress Talks throughout treatment and needs cues to stay on task. Unsafe with gait without close assist and wheelchair nearby. PT Short Term Goals Short Term Goals Time Frame: May 26, 2017 Transfers (B,C,W/C) (FIM): 4 Gait (FIM): 2 Gait Distance Comment: 50' Gait Level of Assist: 4 Gait Assistive Device: FWW Wheelchair Distance: 150'x2 PT Senior Care Goals Senior Care Goals PT Pediatric Nurse Goals Time Frame: Jun 09, 2017 Transfers (B,C,W/C) (FIM): 4 Sit to Lying (QC): 4 Lying-Sitting on Side/Bed(QC): 4 Sit to Stand (QC): 4 Rollin Roll Left to Right (QC): 4 Chair/Qda-os-Jhjsj Xfer(QC): 4 Car Transfer (QC): 4 Gait (FIM): 4 Distance: 150' Walk 10 feet (QC): 4 Walk 10ft-Uneven Surface(QC): 4 Walk 50ft with 2 Turns (QC): 4 Walk 150 ft (QC): 4 Gait Level of Assist: 4 Gait Assistive Device: FWW Stairs (FIM): 2 # of Steps: 4 1 Step (curb) (QC): 4 4 Steps (QC): 4 PT Plan Problem List Problem List: Activity Tolerance, Functional Strength, Safety, Balance, Gait, Transfer, Bed Mobility Treatment/Plan Treatment Plan: Continue Plan of Care Treatment Plan: Bed Mobility, Education, Functional Activity Lela, Functional Strength, Gait, Safety, Therapeutic Exercise, Transfers Treatment Duration: Jun 09, 2017 Visits Per Week: 10-11 Minutes/Day (M-F): 60-90 Minutes/Day (Sat/Johnson): 15-30 Safety Risks/Education Patient Education: Transfer Techniques, Safety Issues Teaching Recipient: Patient Teaching Methods: Demonstration, Discussion Response to Teaching: Reinforcement Needed Time/GCodes Time In: 1330 Time Out: 1400 Total Billed Treatment Time: 30 Total Billed Treatment visit GT 30 RUMA ABREU PT May 20, 2017 14:04
--- NOTE | 2017-05-20 15:09 | Occupational Ther Daily Note ---
OT Current Status-Daily Note Subjective Pt seen in room, up in bed, agreeable to OT. No pain mentioned. Appearance Alert, cooperative with encouragement Mental Status/Objective Functional [place] Measure 0=Not Assessed/NA 4=Minimal Assistance 1=Total Assistance 5=Supervision or Setup 2=Maximal Assistance 6=Modified [place] 3=Moderate Assistance 7=Complete [place] ADL-Treatment Pt's helmet applied before getting him up and on throughout tx. All ADLs required skilled cueing, some help initiating steps, constant supervision. He tends to "pick at" PEG and helmet and responds to redirection. Pt also needed encouragement to sit back up to EOB to complete tasks. Functional [place] Measure 0=Not Assessed/NA 4=Minimal Assistance 1=Total Assistance 5=Supervision or Setup 2=Maximal Assistance 6=Modified [place] 3=Moderate Assistance 7=Complete IndependenceIRFPAI Quality Coding Scale 6 Independent with activity with or without an assistive device 5 Patient requires set up or clean up by helper. Patient completes activity by themselves 4 Supervision or touching assist (CGA). [place] provide cues , steadying assist 3 The helper provides less than half the effort to complete the activity 2 The helper provides more than half the effort to complete the activity 1 Dependent. The helper does all the effort to complete an activity 7 Patient refused to complete or attempt activity 9 The patient did not perform the activity before the current illness or injury 88 Not attempted due to Medical conditions or safety concerns Bathing (FIM): 4 (Sponge bath, sitting EOB. Pt needed skilled cues for sequencing and for initiation of steps. Able to lean forward to wash shins but not feet. Leaded side to side to wash sagar area and bottom. Cont with catheter with external shield) Bathing Location: L Arm, R Arm, L Upper Leg, R Upper Leg, Chest, Abdomen, Buttocks, Perineal Area Shower/Bathe Self (QC): 3 Upper Body (FIM): 2 (Max assist to don button up shirt, to find sleeve holes, to get shirt over head, to pull it down, to unbutton and button shirt) Upper Body Dressing (QC): 2 Lower Body Dressing (FIM): 1 (Pt was able to lift feet to thread them in pants and to pull pants up to thighs. Unable to take slipper socks off, to put socks on or to put shoes on. Two person help to stand to pull pants up ) Lower Body Dressing (QC): 1 (two person) On/Off Footwear (QC): 1 Toileting (FIM): 1 (Unable to manage clothing or hygiene. Has Brennan. Per nursing) Toileting Hygiene (QC): 1 Transfers (B, C, W/C) (FIM): 1 (Initially mod assist to move from supine to sit EOB Skilled cues and education on how to get up. Pt layed down several times throughout ADLs and had some carryover with getting up, with improvement to closer to min assist. Stood max assist and used FWW to standpivot transfer to w/c at end of tx. Required at least one person to stand by. Cues throughout.) Toilet/Commode Transfer (FIM): 1 (Per nursing) Toilet Transfer (QC): 1 Pt was transferred to w/c at end of tx and taken to radiology. Radiology staff education on his transfers Education OT Patient Education: Modified ADL techniques, Progress toward Goal/Update tx plan, Purpose of tx/functional activities, Reviewed precautions, Safety issues, Transfer techniques Teaching Recipient: Patient, Family Teaching Methods: Discussion Response to Teaching: Verbalize Understanding, Reinforcement Needed OT Short Term Goals Short Term Goals Time Frame: Jun 02, 2017 Grooming(FIM): 5 Upper Body Dressing(FIM): 5 Lower Body Dressing(FIM): 3 Toileting(FIM): 3 Transfers (B,C,W/C) (FIM): 4 Additional Short Term Goals: 2-Verbalize Understanding, 3-ImproveStrength/Lela 1=Demonstrate adherence to instructed precautions during ADL tasks. 2=Patient will verbalize/demonstrate understanding of assistive devices/ modifications for ADL. 3=Patient will improve strength/tolerance for activity to enable patient to perform ADL's. OT Correction Goals Medical Historian Goals Time Frame: Jun 16, 2017 Eating (FIM): 6 Eating (QC): 6 Groomin Oral Hygiene (QC): 6 Bathing(FIM): 6 Shower/Bathe Self (QC): 6 Upper Body Dressing(FIM): 6 Upper Body Dressing (QC): 6 Lower Body Dressing(FIM): 6 Lower Body Dressing (QC): 6 On/Off Footwear (QC): 6 Toileting(FIM): 6 Toileting Hygiene (QC): 6 Toilet/Commode Transfer(FIM): 6 Toilet/Commode Transfer (QC): 6 Shower Transfer(FIM): 6 Additional Goals: 2-Verbalize Understanding, 3-ImproveStrength/Lela 1=Demonstrate adherence to instructed precautions during ADL tasks. 2=Patient will verbalize/demonstrate understanding of assistive devices/ modifications for ADL. 3=Patient will improve strength/tolerance for activity to enable patient to perform ADL's. OT Education/Plan Problem List/Assessment Pt would benefit from skilled OT to increase his independence in basic self care to allow him to safely return to his home to live with his and to decrease caregiver burden. Discharge Recommendations Plan/Recommendations: Continue POC Treatment Plan/Plan of Care Patient would benefit from OT for education, treatment and training to promote independence in ADL's, mobility, safety and/or upper extremity function for ADL' s. Plan of Care: ADL Retraining, Caregiver Training, Functional Mobility, Group Exercise/Act as Ind (education, exercise, socialization, funct activities, activity tolerance), UE Funct Exercise/Act, UE Neuromus Re-Ed/Coord, Visual/ Perceptual Retrain Treatment Duration: Jun 16, 2017 Visits Per Week: 10-11 Minutes/Day (M-F): 75-90 Minutes/Day (Sat/Johnson): PRN Agreement: Yes Rehab Potential: Fair Time/GCodes Start Time: 09:30 Stop Time: 10:30 Total Time Billed (hr/min): 60 Billed Treatment Time visit, 60 minutes ADL JED HAN OT May 20, 2017 15:08
--- NOTE | 2017-05-20 15:27 | Occupational Ther Daily Note ---
OT Current Status-Daily Note Subjective Pt seen in room, up in bed, reluctantly agreeable to OT. No pain mentioned Appearance Alert Mental Status/Objective Functional [place] Measure 0=Not Assessed/NA 4=Minimal Assistance 1=Total Assistance 5=Supervision or Setup 2=Maximal Assistance 6=Modified [place] 3=Moderate Assistance 7=Complete [place] ADL-Treatment Pt's helmet applied before getting him up to sit EOB. Pt was able to get up with min assist and also to scoot himself up in bed. Functional [place] Measure 0=Not Assessed/NA 4=Minimal Assistance 1=Total Assistance 5=Supervision or Setup 2=Maximal Assistance 6=Modified [place] 3=Moderate Assistance 7=Complete IndependenceIRFPAI Quality Coding Scale 6 Independent with activity with or without an assistive device 5 Patient requires set up or clean up by helper. Patient completes activity by themselves 4 Supervision or touching assist (CGA). [place] provide cues , steadying assist 3 The helper provides less than half the effort to complete the activity 2 The helper provides more than half the effort to complete the activity 1 Dependent. The helper does all the effort to complete an activity 7 Patient refused to complete or attempt activity 9 The patient did not perform the activity before the current illness or injury 88 Not attempted due to Medical conditions or safety concerns Eating (FIM): 5 (Pt needed setup to open packages. Food was pureed so no cutting needed. He fed himself with R hand and regular spoon, scooping food and getting it to mouth. He also picked up a glass of juice and was able to drink ( glass only half full) and could drink coffee from cup and with a straw. Sometimes uses two hands. Supervision) Eating (QC): 4 (Supervision) Grooming (FIM): 4 (Able to brush teeth with R hand but had difficulty opening toothpaste and putting it on toothbrush. Could hold cup to rinse mouth. Does not shave. Washed face and hands this am. Able to comb hair.) Oral Hygiene (QC): 3 Pt needed encouragement to get up to EOB and laid himself down twice. Pt was left up in bed, finishing coffee, 4 rails up, bed alarm on, call light present. Education OT Patient Education: Modified ADL techniques, Progress toward Goal/Update tx plan, Safety issues, Transfer techniques Teaching Recipient: Patient Teaching Methods: Discussion Response to Teaching: Verbalize Understanding OT Short Term Goals Short Term Goals Time Frame: Jun 02, 2017 Grooming(FIM): 5 Upper Body Dressing(FIM): 5 Lower Body Dressing(FIM): 3 Toileting(FIM): 3 Transfers (B,C,W/C) (FIM): 4 Additional Short Term Goals: 2-Verbalize Understanding, 3-ImproveStrength/Lela 1=Demonstrate adherence to instructed precautions during ADL tasks. 2=Patient will verbalize/demonstrate understanding of assistive devices/ modifications for ADL. 3=Patient will improve strength/tolerance for activity to enable patient to perform ADL's. OT Assisted Goals Vice President Sales And Marketing Goals Time Frame: Jun 16, 2017 Eating (FIM): 6 Eating (QC): 6 Groomin Oral Hygiene (QC): 6 Bathing(FIM): 6 Shower/Bathe Self (QC): 6 Upper Body Dressing(FIM): 6 Upper Body Dressing (QC): 6 Lower Body Dressing(FIM): 6 Lower Body Dressing (QC): 6 On/Off Footwear (QC): 6 Toileting(FIM): 6 Toileting Hygiene (QC): 6 Toilet/Commode Transfer(FIM): 6 Toilet/Commode Transfer (QC): 6 Shower Transfer(FIM): 6 Additional Goals: 2-Verbalize Understanding, 3-ImproveStrength/Lela 1=Demonstrate adherence to instructed precautions during ADL tasks. 2=Patient will verbalize/demonstrate understanding of assistive devices/ modifications for ADL. 3=Patient will improve strength/tolerance for activity to enable patient to perform ADL's. OT Education/Plan Problem List/Assessment Pt would benefit from skilled OT to increase his independence in basic self care to allow him to safely return to his home to live with his and to decrease caregiver burden. Discharge Recommendations Plan/Recommendations: Continue POC Treatment Plan/Plan of Care Patient would benefit from OT for education, treatment and training to promote independence in ADL's, mobility, safety and/or upper extremity function for ADL' s. Plan of Care: ADL Retraining, Caregiver Training, Functional Mobility, Group Exercise/Act as Ind (education, exercise, socialization, funct activities, activity tolerance), UE Funct Exercise/Act, UE Neuromus Re-Ed/Coord, Visual/ Perceptual Retrain Treatment Duration: Jun 16, 2017 Visits Per Week: 10-11 Minutes/Day (M-F): 75-90 Minutes/Day (Sat/Johnson): PRN Agreement: Yes Rehab Potential: Fair Time/GCodes Start Time: 14:05 Stop Time: 14:55 Total Time Billed (hr/min): 45 Billed Treatment Time visit, 45 minutes ADL JED HAN OT May 20, 2017 15:27
--- NOTE | 2017-05-20 15:34 | ST Cognitive Linguistic Eval ---
Speech Evaluation-General Medical Diagnosis s/p subdural hematoma Onset Date: April 07, 2017 Therapy Diagnosis Therapy Diagnosis: Moderate Cognitive Impairment Precautions Precautions/Isolations: Aspiration, Fall Prevention, Standard Precautions Referral Referring Physician: Dr. Holden Chahal Reason for Referral: Evaluation/Treatment Cognitive Evaluation Medical History Pertinent Medical History: CAD, HTN, Hypothroidism Reviewed History: Yes Social History Current Living Status: Spouse Speech PLF-Current Status Prior Level of Function The patient and denied changes or decreases in the patient's current cognition, speech, language, or swallowing abilities. Subjective The patient was recently admitted to [facility] following evacuation (craniotomy) of a subdural hematoma. The patient greeted the clinician appropriately and was agreeable to participation in the cognitive evaluation. The patient reported frequent fatigue throughout the assessment stating, "Man, I have just never had this happen to me. I am tired and it's like I can't think. " Language Eval: Auditory Comprehends Simple Yes/No Ques: Functional Indent/Objects Multiple Ellis: Functional Ident/Pics in Multiple Ellis: Functional Follows 1-Step Commands: Mild Follows Complex Directions: Moderate Follows General Conversations: Mild Language Eval: Verbal Language Completes Spontaneous Greeting: Functional Produces Auto, Serial Info: Functional Imitates Simple Words/Phrases: Functional Word Finding: Moderate Requests Basic Needs: Functional States Basic Personal Info: Functional Expresses Complex Ideas: Mild Cognitive Patient Orientation The patient was oriented to month, only. The patient was unable to state the city, location, or year. Objective Cognitive Domain Attention: Moderate Memory: Moderate Problem Solving: Moderate Objective Impression The patient demonstrated a moderate cognitive impairment in the areas of functional memory (immediate and delayed recall), problem solving, executive functioning, and attention. The patient's deficits may have been compounded by his verbalized and observed fatigue. Communication/Social Cognition Comprehension: 4 Expression: 5 Social Interaction: 4 Problem Solvin Memory: 3 Speech Patient Assess Expression of Ideas/Wants: Expression (4) Understanding Vebal Content: Usually Understands (3) Brief Interview-Mental Status: Yes Repetition of Three Words: Three (3) Temporal Orientation: Year: Missed by more than 5 yrs (0) Temporal Orientation: Month: Accurate within 5 days(2) Temporal Orientation: Day: Incorrect or No Answer(0) Recall : Wear to say "Sock": No, could not recall (0) Recall : Color: Yes, after cueing (1) Recall : Bed: Yes,after cueing (1) Speech Short Term Goals Short Term Goals Short Term Goals 1. The patient will demonstrate 90% accuracy with simple orientation information with mild clinician verbal prompting. 2. The patient will remain on task for a duration of five minutes with minimal clinician verbal prompting/redirection. 3. The patient will demonstrate adequate sequencing and recall of ADL procedures with 90% accuracy and mild clinician cueing. Time Frame-ST days Speech Mcc Goals Laundry Operator Goals 1. The patient will demonstrate improved cognitive linguistic skills for increased function and safety with ADL's in the least restrictive setting. Time Frame: Two Weeks Comprehension: 5 Expression: 6 Social Interaction: 5 Problem Solvin Memory: 4 Speech-Plan Treatment Plan Speech Therapy Treatment Plan: Continue Plan of Care Continue skilled speech pathology to target functional safety problem solving and memory. Treatment Duration: Jun 03, 2017 # of days/week Five. Visits Per Week: Five. Minutes/Day (M-F): 30 Rehab Potential: Fair Safety Risks/Education Teaching Recipient: Patient Teaching Methods: Discussion Response to Teaching: Reinforcement Needed Education Topics Provided: Results, Recommendations, Plan of Care Time Speech Therapy Time In: 11:30 Speech Therapy Time Out: 11:45 Total Billed Time: 15 Billed Treatment Time 1, AMRIK HAMM May 20, 2017 15:34
--- NOTE | 2017-05-20 15:41 | ST Dysphagia Evaluation ---
Speech Evaluation-General Medical Diagnosis s/p subdural hematoma Onset Date: April 07, 2017 Therapy Diagnosis Therapy Diagnosis: Oropharyngeal Swallow WFL Precautions Precautions/Isolations: Aspiration, Fall Prevention, Standard Precautions Referral Referring Physician: Dr. Holden Chahal Reason for Referral: Evaluation/Treatment Clinical Bedside Swallowing Evaluation Medical History Pertinent Medical History: CAD, HTN, Hypothroidism Reviewed History: Yes Social History Current Living Status: Spouse Speech PLF/Current-Dysphagia Prior Level of Function While the patient has a PEG tube in place, the patient and states the PEG tube is only "flushed" at this time. Per patient, he receives a regular diet with thin liquids and does not report signs/symptoms of aspiration upon consumption. Cognitive Status Patient Orientation: Person, Time, Situation Oral Motor Skills Dentition: Natural Current Food Consistancy: Regular, Thin Liquids Ability to Follow Directions: Good Oral Expression Ability: Mild Impairment Tracheostomy Type: Plugged (The patient's tracheostomy is currently undergoing capping trials.) Other Contributing Factors: PEG Tube (The patient's PEG tube is currently receiving "flushes," only.) Voice Voice Phonatory-Based Quality: Normal Voice Pitch: Normal Voice Loudness: Normal Face Facial Symmetry: Symmetrical Oral-Facial Assessment Oral-Facial Dentition: Normal Labial Seal Description: Normal Smile: Normal Puff Cheeks: Normal Lingual Protrusion: Normal Lingual ROM: Normal Lingual Strength: Normal Pharynx Velopharyngeal Move.: Normal Volitional Dry Swallow: Yes Voluntary Cough: Yes Dysphagia Evaluation Consistencies Presented: Regular, Thin Liquid, Pureed No oral impairments were noted throughout the evaluation. No pharyngeal impairments were noted throughout the evaluation. - No signs/symptoms of aspiration were demonstrated with multiple boluses of thin liquid (water, soda; teaspoon, cup sip, straw), puree, or solid consistencies tested. The patient's vocal quality remained clear throughout the assessment. Dietary Recommendations: Regular Liquid Recommendations: Thin Swallowing Precautions: Small Bites and Sips, Sitting 90 Degrees 30 Post Intake Dysphagia Evaluation Summary The patient demonstrated an oropharyngeal swallow WFL. Speech Short Term Goals Short Term Goals Short Term Goals 1. The patient will demonstrate 90% accuracy with simple orientation information with mild clinician verbal prompting. 2. The patient will remain on task for a duration of five minutes with minimal clinician verbal prompting/redirection. 3. The patient will demonstrate adequate sequencing and recall of ADL procedures with 90% accuracy and mild clinician cueing. Time Frame-ST days Speech Drafter Tool Design Goals Residential Goals 1. The patient will demonstrate improved cognitive linguistic skills for increased function and safety with ADL's in the least restrictive setting. Time Frame: Two Weeks Comprehension: 5 Expression: 6 Social Interaction: 5 Problem Solvin Memory: 4 Speech-Plan Treatment Plan Speech Therapy Treatment Plan: Discontinue ST Evaluation, only. The patient will continue to receive speech pathology cognitive treatment services. Treatment Duration: Jun 03, 2017 # of days/week Five. Visits Per Week: Five. Minutes/Day (M-F): 30 Rehab Potential: Fair Safety Risks/Education Teaching Recipient: Patient Teaching Methods: Discussion Response to Teaching: Verbalize Understanding Education Topics Provided: Recommendations, Plan of Care, Results, Signs/Symptoms of Aspiration, Swallowing Strategies Time Speech Therapy Time In: 11:45 Speech Therapy Time Out: 12:00 Total Billed Time: 15 Billed Treatment Time 1EBEN AMRIK LOMAX May 20, 2017 15:41
[2017-05-20] MEDS: OMEGA 3 (FISH OIL) 1000 MG CAP PO SCH (17:00)
[2017-05-20 18:00] VITALS: BP 120/74
[2017-05-20] MEDS: ALFUZOSIN HCL 10 MG TAB (UROXATRAL) PO SCH (20:07)
[2017-05-20] MEDS: ENOXAPARIN 40 MG/0.4 ML (LOVENOX) SYR SC SCH (20:07)
[2017-05-20] MEDS: POLYETHYLENE GLYCOL 17 GM (MIRALAX) PACK GT SCH (20:08)
[2017-05-21 05:41] VITALS: BP 126/71
[2017-05-21] MEDS: inSUlin ASPART (NovoLOG) 1 UNIT/0.01 ML (CHARGE PER UNIT) SC SCH (06:19)
[2017-05-21] MEDS: OMEGA 3 (FISH OIL) 1000 MG CAP PO SCH ×2 (06:19→18:47)
[2017-05-21] MEDS: MULTIVIT W/MINERALS TAB (THERAGRAN M) GT SCH (06:19)
[2017-05-21] MEDS: LEVOTHYROXINE 125 MCG (LEVOTHROID) TABLET GT SCH (06:19)
[2017-05-21] MEDS: DOCUSATE SODIUM 10 MG/ML 10 ML UDC (COLACE) GT SCH ×3 (07:49→21:47)
[2017-05-21] MEDS: LACTOBACILLUS Acidoph/Bulgar (LACTINEX/FLORANEX) TAB PEG SCH ×2 (07:50→21:41)
[2017-05-21] MEDS: amLODIPine 5 MG (NORVASC) TAB GT SCH (07:50)
[2017-05-21] MEDS: FAMOTIDINE 20 MG (PEPCID) TABLET GT SCH ×2 (07:50→21:44)
[2017-05-21] MEDS: guaiFENesin (MUCINEX) 600 MG TAB PO SCH ×2 (07:50→21:40)
[2017-05-21] MEDS: hydrALAZINE (APRESOLINE) 25 MG TAB GT SCH ×3 (07:50→21:41)
[2017-05-21] MEDS: FUROSEMIDE 40 MG (LASIX) TAB GT SCH (07:50)
[2017-05-21] MEDS: LEVETIRACETAM 500 MG (KEPPRA) TAB PO SCH ×2 (07:50→21:41)
[2017-05-21] MEDS: CARVEDILOL 12.5 MG (COREG) TABLET GT SCH ×2 (07:51→21:41)
[2017-05-21] MEDS: cloNIDine 0.1 MG (CATAPRES) TAB GT SCH ×3 (07:51→21:41)
[2017-05-21] MEDS: ARTIFICIAL TEARS OINT (LACRI-LUBE) 3.5 GM TUBE OU SCH ×2 (07:51→21:46)
--- NOTE | 2017-05-21 08:13 | PM & R (SOAP) Progress Note ---
Subjective Time Seen by Provider: 08:00 Subjective/Events-last exam Patient was seen in his room this AM Appreciate DR Hodgson note Patient decannulated and [place] catheter d/cd Patient using bathroom for toileting.Patient mod assist for transfers.Appreciate ST Notes and dysphagia recs Swallow within functional limits and patient can be on regular consistency solids and thin liquids.Overall progressing well Objective Exam Last Set of Vital Signs Vital Signs Date Time Temp Pulse Resp B/P (MAP) Pulse Ox O2 Delivery O2 Flow Rate FiO2 05/21/17 07:49 92 Room Air 05/21/17 05:41 98.4 63 18 126/71 05/20/17 20:11 2.00 Capillary Refill : I&O Intake and Output 05/21/17 00:00 Intake Total 1220 ml Output Total 2325 ml Balance -1105 ml Intake Oral 1220 ml Output Urine Total 2325 ml # Bowel Movements 2 General: Alert, Cooperative, No Acute Distress HEENT: EOMI, Mucous Memb Moist/[place], Other (Rt Crani site healing well) Neck: Supple, No JVD, Other (decannulated with drssing in place) Lungs: Clear to Auscultation Heart: Regular Rate Abdomen: Normal Bowel Sounds, Soft, No Tenderness Extremities: No Edema Neuro: Other (generalized weakness Mild cognitive impairment) Results Lab Laboratory Tests 05/19/17 20:16: Glucometer 179H 05/20/17 04:51: Glucometer 96 05/20/17 06:06: White Blood Count 5.2, Red Blood Count 3.79L, Hemoglobin 11.4L, Hematocrit 35L, Mean Corpuscular Volume 93, Mean Corpuscular Hemoglobin 30, Mean Corpuscular Hemoglobin Concent 33, Red Cell Distribution Width 14.5, Platelet Count 274, Mean Platelet Volume 9.8, Neutrophils (%) (Auto) 51, Lymphocytes (%) (Auto) 26, Monocytes (%) (Auto) 17H, Eosinophils (%) (Auto) 5, Basophils (%) (Auto) 1, Neutrophils # (Auto) 2.7, Lymphocytes # (Auto) 1.3, Monocytes # (Auto) 0.9, Eosinophils # (Auto) 0.3, Basophils # (Auto) 0.1, Sodium Level 139, Potassium Level 3.5L, Chloride Level 102, Carbon Dioxide Level 28, Anion Gap 9, Blood Urea Nitrogen 12, Creatinine 0.76, Estimat Glomerular Filtration Rate > 60, BUN/ Creatinine Ratio 16, Glucose Level 102, Calcium Level 9.7, Total Bilirubin 0.6, Aspartate Amino Transf (AST/SGOT) 30, Alanine Aminotransferase (ALT/SGPT) 89H, Alkaline Phosphatase 75, Total Protein 6.8, Albumin 3.4 05/20/17 11:48: Glucometer 140H 05/20/17 21:04: Glucometer 198H 05/21/17 05:30: Glucometer 91 Assessment/Plan Assessment Rt SDH s/p evacuation with gait imbalance Blurred vision S/P Trach-decannulation 05/21/17 today S/P feeding tube now on po feeds HTN controlled Dysphagia improved Plan Continue PT/OT/ST F/U with DR Turcios PRJay F/U with DR Dowling as per his schedule Appreciate current labs Team Conference next week SHAHZAD BARROW MD May 21, 2017 08:13
--- NOTE | 2017-05-21 08:24 | Progress Note (SOAP) ---
Subjective Time Seen by Provider: 08:20 Subjective/Events-last exam debility. Trach removed. PEG tube. Subdural hematoma. Coronary artery disease. Patient feeling better today. Patient did a lot of physical therapy and occupational therapy yesterday. Patient pleased with the results Objective Exam Vital Signs Date Time Temp Pulse Resp B/P (MAP) Pulse Ox O2 Delivery O2 Flow Rate FiO2 05/21/17 07:49 92 Room Air 05/21/17 05:41 98.4 63 18 126/71 95 Room Air 05/20/17 20:11 Nasal Cannula 2.00 05/20/17 20:05 Room Air 05/20/17 18:00 98.9 67 18 120/74 90 Room Air 05/20/17 09:08 94 Room Air 05/20/17 09:00 Room Air I & O 05/21/17 07:00 Intake Total 1370 ml Output Total 1825 ml Balance -455 ml Capillary Refill : General Appearance: No Apparent Distress, WD/WN Neck: Full Range of Motion, Normal Inspection Respiratory: Chest Non Tender, Lungs Clear, Normal Breath Sounds, No Accessory Muscle Use, No Respiratory Distress Cardiovascular: Regular Rate, Rhythm, No Murmur Gastrointestinal: non tender, soft, other (PEG tube) Results Lab Laboratory Tests 05/20/17 11:48: Glucometer 140H 05/20/17 21:04: Glucometer 198H 05/21/17 05:30: Glucometer 91 Assessment/Plan Assessment/Plan Assess & Plan/Chief Complaint debility. Trach. PEG tube. Subdural hematoma. Coronary artery disease. . 05/21/17. Debility. Trach. PEG tube. SUBDURAL HEMATOMA Clinical Quality Measures DVT/VTE Risk/Contraindication: Risk Factor Score Per Nursin RFS Level Per Nursing on Admit: 4+=Very High JR FUENTES DO May 21, 2017 08:24
--- NOTE | 2017-05-21 08:28 | Individualized Plan of Care ---
Individualized Plan of Care Rehab Nursing IPOC Order Admission Date May 19, 2017 at 14:00 Current Orders Orders Consult Pulmonology (05/20/17 08:54) [place] 3 Capsule (Fish Oil Capsule) (05/20/17 17:00) Consult Physician (05/20/17 08:54) Chest Pa/Lat (2 View) (05/20/17 09:48) Nursing Communication (Patient (05/20/17 12:24) Patient Visit (05/20/17 ) Dysphagia Evaluation Std (05/20/17 ) Speech Sound Lang Comp (05/20/17 ) Patient Visit (05/20/17 ) Functional Activities, Ea 15 (05/20/17 ) Wheelchair Mgmt/Propulsn 15min (05/20/17 ) Gait Training, Ea 15 Min (05/20/17 ) Patient Visit (05/20/17 ) Gait Training, Ea 15 Min (05/20/17 ) Rehab Nursing Orders: Diseage Management, Edu in Press Rel Techn, Hydration Management, Nutrition Management, Pain Management Toilet every (bladder): (hrs): 2 hours while awake prn PT IPOC Problem List: Activity Tolerance, Functional Strength, Safety, Balance, Gait, Transfer, Bed Mobility Treatment Plan: Continue Plan of Care Bed Mobility, Education, Functional Activity Lela, Functional Strength, Gait, Safety, Therapeutic Exercise, Transfers Treatment Duration: Jun 09, 2017 Visits Per Week: 10-11 Minutes/Day (M-F): 60-90 Minutes/Day (Sat/Johnson): 15-30 OT IPOC Problems: Decreased Activ Tolerance, Decreased Safety Aware, Decreased UE Strength, Dependent Transfers, Impaired Bed Mobility, Impaired Coordination, Impaired Funct Balance, Impaired Self-Care Skills, Restricted Funct UE ROM, Visual-Perceptual Deficit OT Problems Pt would benefit from skilled OT to increase his independence in basic self care to allow him to safely return to his home to live with his and to decrease caregiver burden. Plan of Care: ADL Retraining, Caregiver Training, Functional Mobility, Group Exercise/Act as Ind (education, exercise, socialization, funct activities, activity tolerance), UE Funct Exercise/Act, UE Neuromus Re-Ed/Coord, Visual/ Perceptual Retrain Treatment Duration: Jun 16, 2017 Visits Per Week: 10-11 Minutes/Day (M-F): 75-90 Minutes/Day (Sat/Johnson): PRN ST IPOC Speech Therapy Treatment Plan: Discontinue ST Treatment Duration: Jun 03, 2017 Visits Per Week: Five. Minutes/Day (M-F): 30 Physician IPOC Medical Issues being managed closely and that require the 24 hour availability of a physician:Dyshagia Decannulation of trach HTN Medical Issues: Bowel/Bladder Function, DVT Prophylaxis, Falls Precautions, Fluid/Electrolyte/Nutrition Balance, Infection Protection, Pain Management, Swallowing Precautions, Other (List) (as per above) Brief Synthesis of Preadmission Screen, Post-Admission Evaluation, and Therapy Evaluations: 76 yo male who had been Independent and living with spouse who developed a SDH requiring a Crani and Evac at OSH Postop had resp failure and required trach and Tube feedings Went to [place] for vent weaning and now to [facility] to be closer to home for ongoing Neurorehab.Dr Karolina Calles just decannulated this AM Patient tolerated well [employer] D/cd as well and patient using Bathroom for toileting,Passed Dysphagia eval as well with ST and Feeding tube no longer being used and Diet upgraded to Regular solids and thin liquids.Has a supportive . Medical Prognosis: Good Anticipated Length of Stay: 7-17 Rehab Goals Modified Independent to supervsion for adls and mobility skills with improved cognition and vision Anticipated discharge destinat: Home with spouse and [facility] SHAHZAD BARROW MD May 21, 2017 08:28
--- NOTE | 2017-05-21 09:41 | Cardiology Progress Note ---
Cardiology SOAP Progress Note Subjective: No complaints Objective: I&O/Vital Signs Vital Sign - Last 12Hours 05/21/17 05/21/17 05:41 07:49 Temp 98.4 Pulse 63 Resp 18 B/P (MAP) 126/71 Pulse Ox 95 92 O2 Delivery Room Air Room Air Intake and Output 05/21/17 00:00 Intake Total 720 ml Output Total 1325 ml Balance -605 ml Weight (Pounds): 224 Weight (Ounces): 0.0 Weight (Calculated Kilograms): 101.139346 Constitutional: No appears stated age, No AAO x 3, No apparent distress, No PERRL, No well-developed, No well-nourished, No other Respiratory: No accessory muscle use, No respiratory distress, No chest tender , No chest expansion is symmetric, No chest is bilaterally symmetric, No lungs clear to percussion, No lungs clear to auscultation, No crackles, No rhonchi, No rales, No stridor, No wheezing, No pleural rub, No other Cardiovascular: No regular rate-rhythm, No irregularly irregular, No extra beats, No parasternal heave is noted, No JVD, No edema, No bradycardia, No tachycardia, No point of maximal impulse, No cardiac thrills are palpable, No S1 and S2, No gallop/S3, No gallop/S4, No diastolic murmur, No systolic murmur, No friction rub, No click, No other Gastrointestional: No tender, No soft, No round, No distended, No pulsatile mass, No organomegaly, No guarding, No rebound, No tenderness, No hernia, No mass, No audible bowel sounds, No abnormal bowel sounds, No abdominal bruits, No spleenomegaly, other (PEG) Extremities: No normal range of motion, No non-tender, No normal inspection, No pedal edema, No calf tenderness, No normal capillary refill, No pelvis stable , No calf tenderness, No inflammation, No pedal edema, No slow capillary refill , No swelling, No other, No abrasion, No clubbing, No cyanosis, No ecchymosis, No laceration, No no lower extremity edema bilateral, No significant edema, No tenderness, No wound Neurologic/Psychiatric: No hot kettle tender II-XII nml as tested, No no motor/sensory deficits, No alert, No normal mood/affect, No oriented x 3, No abnormal cerebellar tests, No abnormal hot kettle tender II-XII, No abnormal gait, No aphasia, No EOM palsy, No facial droop, No motor weakness, No sensory deficit, No depressed affect, No disoriented x 3, No other, No grossly intact, No power is 5/5 both on sides Results/Procedures: Labs Laboratory Tests 05/20/17 11:48: Glucometer 140H 05/20/17 21:04: Glucometer 198H 05/21/17 05:30: Glucometer 91 A/P: Assessment/Dx: Recent subdural hematoma, recent ACS, AFIB, history of CAD, Carotid disease, renal disease, PVCs Plan: We will get all his records from the hospital in [place]. Due to the subdural hematoma, no antiplatelet or oral anticoagulants. He is on low dose enoxaparin. Continue BP meds. no cardiac symptoms, therefore, will defer any invasive cardiac evaluation. Dr Lai will cover Cardiology services. Thank you for your consultation. Please call me if you have any questions. Gisele Melgar MD, FACP, FACC, FSCAI, FHRS, CCDS Interventional Cardiology Cardiac Electrophysiology Vascular Medicine and Endovascular Interventions Barry MELGAR MD May 21, 2017 9:41 am
--- NOTE | 2017-05-21 10:33 | Physical Therapy Daily Note ---
PT Daily Note-Current Subjective Patient in bed pre tx, agrees reluctantly to PT, needs max encouragement. Patient has no complaints of pain. Patient needs dressed. Appearance Patient in bed post tx with nurse call, phone, tray, bed alarm on, all needs met. Mental Status Patient Orientation: Person, Place, Situation helmet on when out of bed Transfers Functional Wake Measure 0=Not Assessed/NA 4=Minimal Assistance 1=Total Assistance 5=Supervision or Setup 2=Maximal Assistance 6=Modified Wake 3=Moderate Assistance 7=Complete IndependenceIRFPAI Quality Coding Scale 6 Independent with activity with or without an assistive device 5 Patient requires set up or clean up by helper. Patient completes activity by themselves 4 Supervision or touching assist (CGA). [place] provide cues , steadying assist 3 The helper provides less than half the effort to complete the activity 2 The helper provides more than half the effort to complete the activity 1 Dependent. The helper does all the effort to complete an activity 7 Patient refused to complete or attempt activity 9 The patient did not perform the activity before the current illness or injury 88 Not attempted due to Medical conditions or safety concerns Transfers (B, C, W/C) (FIM): 2 Scootin Rollin Supine to/from Sit: 3 Sit to/from Stand: 2 Bed to/from Chair: 2 cues for safety and hand placement Gait Training Gait (FIM): 1 Distance: 20'x2 Gait Level of Assist: 4 Gait Persons Needed: 1 Gait Assistive Device: FWW wheelchair follow, cues for keeping walker closer to him Wheelchair Training Does the Pt Use a Wheelchair?: Yes Wheelchair (FIM): 5 Distance: 150'x2 Wheelchair Level of Assist: 5 Type of Wheelchair: Manual Cues for direction and safety, patient wanted to propel the wheelchair backward because it requires less effort on his legs. Of course he ran into obstacles but his safety awareness is so poor that he needed cues to turn back around so he can see where he was going. Treatments bed mobility and transfers, ambulation, wheelchair mobility, patient dressed upper and lower (mod assist) Assessment Current Status: Poor Progress Patient has made slight improvements in endurance but his motivation is so poor that he spends a lot of time needing to be encouraged to participate. He always tries to trick the therapist into getting him to lay down. PT Short Term Goals Short Term Goals Time Frame: May 26, 2017 Transfers (B,C,W/C) (FIM): 4 Gait (FIM): 2 Gait Distance Comment: 50' Gait Level of Assist: 4 Gait Assistive Device: FWW Wheelchair Distance: 150'x2 PT Jail Goals Plasterer Spray Gun Goals PT Jail Goals Time Frame: Jun 09, 2017 Transfers (B,C,W/C) (FIM): 4 Sit to Lying (QC): 4 Lying-Sitting on Side/Bed(QC): 4 Sit to Stand (QC): 4 Rollin Roll Left to Right (QC): 4 Chair/[id number]-Zgtlj Xfer(QC): 4 Car Transfer (QC): 4 Gait (FIM): 4 Distance: 150' Walk 10 feet (QC): 4 Walk 10ft-Uneven Surface(QC): 4 Walk 50ft with 2 Turns (QC): 4 Walk 150 ft (QC): 4 Gait Level of Assist: 4 Gait Assistive Device: FWW Stairs (FIM): 2 # of Steps: 4 1 Step (curb) (QC): 4 4 Steps (QC): 4 PT Plan Problem List Problem List: Activity Tolerance, Functional Strength, Safety, Balance, Gait, Transfer, Bed Mobility Treatment/Plan Treatment Plan: Continue Plan of Care Treatment Plan: Bed Mobility, Education, Functional Activity Leal, Functional Strength, Gait, Safety, Therapeutic Exercise, Transfers Treatment Duration: Jun 09, 2017 Visits Per Week: 10-11 Minutes/Day (M-F): 60-90 Minutes/Day (Sat/Johnson): 15-30 Safety Risks/Education Patient Education: Gait Training, Transfer Techniques, Correct Positioning, W/ C Management, Safety Issues Teaching Recipient: Patient Teaching Methods: Demonstration, Discussion Response to Teaching: Reinforcement Needed Time/GCodes Time In: 945 Time Out: 1030 Total Billed Treatment Time: 45 Total Billed Treatment 1 visit FA 15' GT 15' WC 15' JOSÉ MANUEL WHEELER PT May 21, 2017 10:33
--- NOTE | 2017-05-21 11:31 | Speech Therapy Daily Note ---
Speech Daily Progress Note Subjective Date Seen by Provider: May 21, 2017 Time Seen by Provider: 08:45 The patient was laying in bed upon entrance. The patient greeted the clinician appropriately and was agreeable to participation in the cognitive treatment session. Objective Due to the patient's significant fatigue throughout the session on the prior date, the clinician required additional documentation to set additional treatment goals based on the patient's cognitive function, therefore, a standardized screening tool was provided. The patient completed the [place] Cognitive Assessment (MoCA) with the below results. - Naming/Language: The patient was able to name three black and white photographs, as well as, repeat single phrases and provide similarities between two items. - Attention: The patient was able to repeat five digits forward, three digits in reverse, and identify a specific letter in a string of letters. The patient demonstrated two errors with serial seven subtraction. - Memory: The patient was able to recall four of five single words immediately and zero of five following a five minute delay. The patient could identify four of five providing a category cue by the clinician. - Orientation: The patient was oriented to month, day, place, and city. The patient was unable to identify the date or year. The patient displayed a result of + correlating to a moderate cognitive impairment. Assessment Assessment Current Status: Fair Progress Treatment Plan Continue Plan of Care Communication Comprehension: 4 Expression: 5 Social Cognition Social Interaction: 4 Problem Solvin Memory: 3 Speech Short Term Goals Short Term Goals Short Term Goals 1. The patient will demonstrate 90% accuracy with simple orientation information with mild clinician verbal prompting. 2. The patient will remain on task for a duration of five minutes with minimal clinician verbal prompting/redirection. 3. The patient will demonstrate adequate sequencing and recall of ADL procedures with 90% accuracy and mild clinician cueing. Time Frame-ST days Speech Long-Term Goals Long-Term Goals 1. The patient will demonstrate improved cognitive linguistic skills for increased function and safety with ADL's in the least restrictive setting. Time Frame: Two Weeks Comprehension: 5 Expression: 6 Social Interaction: 5 Problem Solvin Memory: 4 Speech-Plan Treatment Plan Speech Therapy Treatment Plan: Continue Plan of Care Continue skilled speech pathology to target functional safety problem solving, attention, and memory. Treatment Duration: Jun 03, 2017 # of days/week Five. Visits Per Week: Five. Minutes/Day (M-F): 30 Rehab Potential: Fair Safety Risks/Education Teaching Recipient: Patient Teaching Methods: Discussion Response to Teaching: Verbalize Understanding Education Topics Provided: Plan of Care, Results Time Speech Therapy Time In: 08:45 Speech Therapy Time Out: 09:15 Total Billed Time: 30 Billed Treatment Time 1[facility] [facility] May 21, 2017 11:31
--- NOTE | 2017-05-21 11:32 | Pulmonary Progress Note ---
Subjective Date Seen by Provider: May 21, 2017 Time Seen by Provider: 11:25 Subjective/Events-last exam Pt was awakened for assessment. Pt states he was not short of breath when he did his PT this morning. He denies any cough and currently is on RA. Exam Exam Vital Signs Date Time Temp Pulse Resp B/P (MAP) Pulse Ox O2 Delivery O2 Flow Rate FiO2 05/21/17 07:49 92 Room Air 05/21/17 05:41 98.4 63 18 126/71 95 Room Air 05/20/17 20:11 Nasal Cannula 2.00 05/20/17 20:05 Room Air 05/20/17 18:00 98.9 67 18 120/74 90 Room Air I & O 05/21/17 07:00 Intake Total 1370 ml Output Total 1825 ml Balance -455 ml General Appearance: No Apparent Distress, WD/WN Neck: Full Range of Motion, Normal Inspection, Other (stoma clean, dry ) Respiratory: Chest Non Tender, Lungs Clear, Normal Breath Sounds, No Accessory Muscle Use, No Respiratory Distress Cardiovascular: Regular Rate, Rhythm, No Murmur Gastrointestinal: normal bowel sounds, non tender, soft, other (PEG tube) Extremity: Normal Capillary Refill Neurologic/Psychiatric: Alert, Oriented x3 Skin: Normal Color, Warm/Dry Results Lab Laboratory Tests 05/20/17 06:06 Assessment/Plan Assessment/Plan hx of acute respiratory failure s/p tracheostomy -CXR- reviewed by Dr. Turcios -Pt is on RA -tracheostomy removed w/o complication Clinical Quality Measures DVT/VTE Risk/Contraindication: Risk Factor Score Per Nursin RFS Level Per Nursing on Admit: 4+=Very High FILOMENA LIMA APRN May 21, 2017 11:32
--- NOTE | 2017-05-21 12:47 | Occupational Ther Daily Note ---
OT Current Status-Daily Note Subjective Pt seen in room, initially agreeable to OT, then needing rest breaks and lots of encouragement to continue. Mental Status/Objective Functional [place] Measure 0=Not Assessed/NA 4=Minimal Assistance 1=Total Assistance 5=Supervision or Setup 2=Maximal Assistance 6=Modified [place] 3=Moderate Assistance 7=Complete [place] ADL-Treatment Pt said he wanted to take a shower and things were set up for him to use wheeled shower chair and go to large shower room. Helmet put on, pt needed mod assist to transfer to edge of bed (he did not recall technique from yesterday). Pt prepped for transfer to shower chair and then he laid himself down with head at foot of bed. He refused to shower but did agree to change clothes if we did it in stages so that he could rest between steps. As he got up and down several times, needed less help and last supine to sit was SBA. He also was able to scoot himself up in bed, with skilled cues for bending knees to push up. He needed mod assist to doff dirty shirt and put clean one on and was unable to manage buttons to take shirt off or put clean one on. He bridged to get pants off his hips and pushed pants down over feet, kicking them off. He was unable to reach far enough to get clean pants over feet but could pull the pants up to hips. Skilled cues for sequencing and participation to roll side to side to pull pants up but he was eventually able to do it. Pt was very interested in talking about jewelry making during dressing. He was also able to brush his teeth with setup and sequence activity correctly with only cues to initiate process. Pt refused to order lunch. Pt left up in bed, helmet off, 4 rails up, bed alarm on, call light in place, all needs met. Functional [place] Measure 0=Not Assessed/NA 4=Minimal Assistance 1=Total Assistance 5=Supervision or Setup 2=Maximal Assistance 6=Modified [place] 3=Moderate Assistance 7=Complete IndependenceIRFPAI Quality Coding Scale 6 Independent with activity with or without an assistive device 5 Patient requires set up or clean up by helper. Patient completes activity by themselves 4 Supervision or touching assist (CGA). [place] provide cues , steadying assist 3 The helper provides less than half the effort to complete the activity 2 The helper provides more than half the effort to complete the activity 1 Dependent. The helper does all the effort to complete an activity 7 Patient refused to complete or attempt activity 9 The patient did not perform the activity before the current illness or injury 88 Not attempted due to Medical conditions or safety concerns Grooming (FIM): 5 Upper Body (FIM): 2 Lower Body Dressing (FIM): 3 Education OT Patient Education: Progress toward Goal/Update tx plan, Purpose of tx/ functional activities, Safety issues Teaching Recipient: Patient Teaching Methods: Discussion Response to Teaching: Verbalize Understanding, Reinforcement Needed OT Short Term Goals Short Term Goals Time Frame: Jun 02, 2017 Grooming(FIM): 5 Upper Body Dressing(FIM): 5 Lower Body Dressing(FIM): 3 Toileting(FIM): 3 Transfers (B,C,W/C) (FIM): 4 Additional Short Term Goals: 2-Verbalize Understanding, 3-ImproveStrength/Lela 1=Demonstrate adherence to instructed precautions during ADL tasks. 2=Patient will verbalize/demonstrate understanding of assistive devices/ modifications for ADL. 3=Patient will improve strength/tolerance for activity to enable patient to perform ADL's. OT M[place] Miner Goals [facility] Goals Time Frame: Jun 16, 2017 Eating (FIM): 6 Eating (QC): 6 Groomin Oral Hygiene (QC): 6 Bathing(FIM): 6 Shower/Bathe Self (QC): 6 Upper Body Dressing(FIM): 6 Upper Body Dressing (QC): 6 Lower Body Dressing(FIM): 6 Lower Body Dressing (QC): 6 On/Off Footwear (QC): 6 Toileting(FIM): 6 Toileting Hygiene (QC): 6 Toilet/Commode Transfer(FIM): 6 Toilet/Commode Transfer (QC): 6 Shower Transfer(FIM): 6 Comprehension(FIM): 5 Expression (FIM): 6 Social Interaction(FIM): 5 Problem Solving(FIM): 4 Memory(FIM): 4 Additional Goals: 2-Verbalize Understanding, 3-ImproveStrength/Lela 1=Demonstrate adherence to instructed precautions during ADL tasks. 2=Patient will verbalize/demonstrate understanding of assistive devices/ modifications for ADL. 3=Patient will improve strength/tolerance for activity to enable patient to perform ADL's. OT Education/Plan Problem List/Assessment Pt would benefit from skilled OT to increase his independence in basic self care to allow him to safely return to his home to live with his and to decrease caregiver burden. Discharge Recommendations Plan/Recommendations: Continue POC Treatment Plan/Plan of Care Patient would benefit from OT for education, treatment and training to promote independence in ADL's, mobility, safety and/or upper extremity function for ADL' s. Plan of Care: ADL Retraining, Caregiver Training, Functional Mobility, Group Exercise/Act as Ind (education, exercise, socialization, funct activities, activity tolerance), UE Funct Exercise/Act, UE Neuromus Re-Ed/Coord, Visual/ Perceptual Retrain Treatment Duration: Jun 16, 2017 Visits Per Week: 10-11 Minutes/Day (M-F): 75-90 Minutes/Day (Sat/Johnson): PRN Agreement: Yes Rehab Potential: Fair Time/GCodes Start Time: 11:15 Stop Time: 12:00 Total Time Billed (hr/min): 45 Billed Treatment Time visit, 45 minutes ADL JED HAN OT May 21, 2017 12:47
--- NOTE | 2017-05-21 14:55 | Occupational Ther Daily Note ---
OT Current Status-Daily Note Subjective Pt refused to go to OT/PT group. Pt wanted to find his so she could take him home. Pt wanted to leave the floor and go home. and NEGRO attempted to redirect pt, pt would not be redirected then reiterated that pt was in the hospital to get better and he needed to stay. Mental Status/Objective Functional [place] Measure 0=Not Assessed/NA 4=Minimal Assistance 1=Total Assistance 5=Supervision or Setup 2=Maximal Assistance 6=Modified [place] 3=Moderate Assistance 7=Complete [place] ADL-Treatment Functional [place] Measure 0=Not Assessed/NA 4=Minimal Assistance 1=Total Assistance 5=Supervision or Setup 2=Maximal Assistance 6=Modified [place] 3=Moderate Assistance 7=Complete IndependenceIRFPAI Quality Coding Scale 6 Independent with activity with or without an assistive device 5 Patient requires set up or clean up by helper. Patient completes activity by themselves 4 Supervision or touching assist (CGA). Bath provide cues , steadying assist 3 The helper provides less than half the effort to complete the activity 2 The helper provides more than half the effort to complete the activity 1 Dependent. The helper does all the effort to complete an activity 7 Patient refused to complete or attempt activity 9 The patient did not perform the activity before the current illness or injury 88 Not attempted due to Medical conditions or safety concerns Other Treatment Pt worked w/c mobility throughout [facility]. Pt fatigued easily required multiple rest breaks, requested that NEGRO push him around. He continued to perseverate on going downstairs and leaving the hospital. Pt could be redirected for 2 min then would be trying to get his keys and find his car. Pt was able to read the signs and knew where to go to get to the elevator and understood what each sign meant. 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 Pt then was tired and decided to go lay down in his bed. Pt was max A x2 for stand pivot transfer from w/c to bed. After therapy, pt lying in bed with call light/phone in reach. All needs met in room. OT Short Term Goals Short Term Goals Time Frame: Jun 02, 2017 Grooming(FIM): 5 Upper Body Dressing(FIM): 5 Lower Body Dressing(FIM): 3 Toileting(FIM): 3 Transfers (B,C,W/C) (FIM): 4 Additional Short Term Goals: 2-Verbalize Understanding, 3-ImproveStrength/Lela 1=Demonstrate adherence to instructed precautions during ADL tasks. 2=Patient will verbalize/demonstrate understanding of assistive devices/ modifications for ADL. 3=Patient will improve strength/tolerance for activity to enable patient to perform ADL's. OT Bulker Goals Bulker Goals Time Frame: Jun 16, 2017 Eating (FIM): 6 Eating (QC): 6 Groomin Oral Hygiene (QC): 6 Bathing(FIM): 6 Shower/Bathe Self (QC): 6 Upper Body Dressing(FIM): 6 Upper Body Dressing (QC): 6 Lower Body Dressing(FIM): 6 Lower Body Dressing (QC): 6 On/Off Footwear (QC): 6 Toileting(FIM): 6 Toileting Hygiene (QC): 6 Toilet/Commode Transfer(FIM): 6 Toilet/Commode Transfer (QC): 6 Shower Transfer(FIM): 6 Comprehension(FIM): 5 Expression (FIM): 6 Social Interaction(FIM): 5 Problem Solving(FIM): 4 Memory(FIM): 4 Additional Goals: 2-Verbalize Understanding, 3-ImproveStrength/Lela 1=Demonstrate adherence to instructed precautions during ADL tasks. 2=Patient will verbalize/demonstrate understanding of assistive devices/ modifications for ADL. 3=Patient will improve strength/tolerance for activity to enable patient to perform ADL's. OT Education/Plan Problem List/Assessment Pt would benefit from skilled OT to increase his independence in basic self care to allow him to safely return to his home to live with his and to decrease caregiver burden. Discharge Recommendations Plan/Recommendations: Continue POC Treatment Plan/Plan of Care Patient would benefit from OT for education, treatment and training to promote independence in ADL's, mobility, safety and/or upper extremity function for ADL' s. Plan of Care: ADL Retraining, Caregiver Training, Functional Mobility, Group Exercise/Act as Ind (education, exercise, socialization, funct activities, activity tolerance), UE Funct Exercise/Act, UE Neuromus Re-Ed/Coord, Visual/ Perceptual Retrain Treatment Duration: Jun 16, 2017 Visits Per Week: 10-11 Minutes/Day (M-F): 75-90 Minutes/Day (Sat/Johnson): PRN Agreement: Yes Rehab Potential: Fair Time/GCodes Start Time: 13:00 Stop Time: 14:10 Total Time Billed (hr/min): 70 Billed Treatment Time 1 visit-FA 5 (70 min) RUMA MALAVE May 21, 2017 14:55
[2017-05-21 17:25] VITALS: BP 124/77
[2017-05-21] MEDS: ALFUZOSIN HCL 10 MG TAB (UROXATRAL) PO SCH (18:48)
[2017-05-21] MEDS: ENOXAPARIN 40 MG/0.4 ML (LOVENOX) SYR SC SCH (18:48)
[2017-05-21] MEDS: POLYETHYLENE GLYCOL 17 GM (MIRALAX) PACK GT SCH (21:41)
[2017-05-22 06:18] VITALS: BP 90/52
[2017-05-22] MEDS: OMEGA 3 (FISH OIL) 1000 MG CAP PO SCH ×2 (06:37→17:32)
[2017-05-22] MEDS: LEVOTHYROXINE 125 MCG (LEVOTHROID) TABLET GT SCH (06:37)
[2017-05-22] MEDS: MULTIVIT W/MINERALS TAB (THERAGRAN M) GT SCH (06:37)
[2017-05-22] MEDS: LEVETIRACETAM 500 MG (KEPPRA) TAB PO SCH ×2 (09:37→20:57)
[2017-05-22] MEDS: guaiFENesin (MUCINEX) 600 MG TAB PO SCH ×2 (09:37→20:56)
[2017-05-22] MEDS: LACTOBACILLUS Acidoph/Bulgar (LACTINEX/FLORANEX) TAB PEG SCH ×2 (09:37→20:57)
[2017-05-22] MEDS: FUROSEMIDE 40 MG (LASIX) TAB GT SCH (09:37)
[2017-05-22] MEDS: DOCUSATE SODIUM 10 MG/ML 10 ML UDC (COLACE) GT SCH ×2 (09:37→20:43)
[2017-05-22] MEDS: amLODIPine 5 MG (NORVASC) TAB GT SCH (09:37)
[2017-05-22] MEDS: FAMOTIDINE 20 MG (PEPCID) TABLET GT SCH ×2 (09:37→20:56)
[2017-05-22] MEDS: cloNIDine 0.1 MG (CATAPRES) TAB GT SCH ×3 (09:37→20:57)
[2017-05-22] MEDS: ARTIFICIAL TEARS OINT (LACRI-LUBE) 3.5 GM TUBE OU SCH ×2 (09:38→20:43)
[2017-05-22] MEDS: CARVEDILOL 12.5 MG (COREG) TABLET GT SCH ×2 (09:38→20:56)
[2017-05-22] MEDS: hydrALAZINE (APRESOLINE) 25 MG TAB GT SCH ×3 (09:45→20:56)
--- NOTE | 2017-05-22 10:02 | Occupational Ther Daily Note ---
OT Current Status-Daily Note Subjective Pt in bed, states he is tired, but agrees to therapy. Pt has no c/o pain. Mental Status/Objective Functional [place] Measure 0=Not Assessed/NA 4=Minimal Assistance 1=Total Assistance 5=Supervision or Setup 2=Maximal Assistance 6=Modified [place] 3=Moderate Assistance 7=Complete [place] ADL-Treatment Pt completed grooming tasks while in bed with HOB raised. Pt able to place toothpaste on toothbrush with cues only for initiation. Pt then able to complete task with SBA. Pt washed face with set up and increased time. Pt then states he is tired and requests to lower HOB to rest. Pt declined further activity. Pt in bed with needs met after session. Functional [place] Measure 0=Not Assessed/NA 4=Minimal Assistance 1=Total Assistance 5=Supervision or Setup 2=Maximal Assistance 6=Modified [place] 3=Moderate Assistance 7=Complete IndependenceIRFPAI Quality Coding Scale 6 Independent with activity with or without an assistive device 5 Patient requires set up or clean up by helper. Patient completes activity by themselves 4 Supervision or touching assist (CGA). [place] provide cues , steadying assist 3 The helper provides less than half the effort to complete the activity 2 The helper provides more than half the effort to complete the activity 1 Dependent. The helper does all the effort to complete an activity 7 Patient refused to complete or attempt activity 9 The patient did not perform the activity before the current illness or injury 88 Not attempted due to Medical conditions or safety concerns Grooming (FIM): 5 OT Short Term Goals Short Term Goals Time Frame: Jun 02, 2017 Grooming(FIM): 5 Upper Body Dressing(FIM): 5 Lower Body Dressing(FIM): 3 Toileting(FIM): 3 Transfers (B,C,W/C) (FIM): 4 Additional Short Term Goals: 2-Verbalize Understanding, 3-ImproveStrength/Lela 1=Demonstrate adherence to instructed precautions during ADL tasks. 2=Patient will verbalize/demonstrate understanding of assistive devices/ modifications for ADL. 3=Patient will improve strength/tolerance for activity to enable patient to perform ADL's. OT [facility] Goals [employer] Goals Time Frame: Jun 16, 2017 Eating (FIM): 6 Eating (QC): 6 Groomin Oral Hygiene (QC): 6 Bathing(FIM): 6 Shower/Bathe Self (QC): 6 Upper Body Dressing(FIM): 6 Upper Body Dressing (QC): 6 Lower Body Dressing(FIM): 6 Lower Body Dressing (QC): 6 On/Off Footwear (QC): 6 Toileting(FIM): 6 Toileting Hygiene (QC): 6 Toilet/Commode Transfer(FIM): 6 Toilet/Commode Transfer (QC): 6 Shower Transfer(FIM): 6 Comprehension(FIM): 5 Expression (FIM): 6 Social Interaction(FIM): 5 Problem Solving(FIM): 4 Memory(FIM): 4 Additional Goals: 2-Verbalize Understanding, 3-ImproveStrength/Lela 1=Demonstrate adherence to instructed precautions during ADL tasks. 2=Patient will verbalize/demonstrate understanding of assistive devices/ modifications for ADL. 3=Patient will improve strength/tolerance for activity to enable patient to perform ADL's. OT Education/Plan Problem List/Assessment Pt would benefit from skilled OT to increase his independence in basic self care to allow him to safely return to his home to live with his and to decrease caregiver burden. Discharge Recommendations Plan/Recommendations: Continue POC Treatment Plan/Plan of Care Patient would benefit from OT for education, treatment and training to promote independence in ADL's, mobility, safety and/or upper extremity function for ADL' s. Plan of Care: ADL Retraining, Caregiver Training, Functional Mobility, Group Exercise/Act as Ind (education, exercise, socialization, funct activities, activity tolerance), UE Funct Exercise/Act, UE Neuromus Re-Ed/Coord, Visual/ Perceptual Retrain Treatment Duration: Jun 16, 2017 Visits Per Week: 10-11 Minutes/Day (M-F): 75-90 Minutes/Day (Sat/Johnson): PRN Agreement: Yes Rehab Potential: Fair Time/GCodes Start Time: 08:30 Stop Time: 08:43 Total Time Billed (hr/min): 13 Billed Treatment Time 1 visit, ADL(13minutes) PHOEBE RAVI OT May 22, 2017 10:02
--- NOTE | 2017-05-22 11:48 | Physical Therapy Daily Note ---
PT Daily Note-Current Subjective Pt sleeping soundly upon arrival. Pt agrees to PT with much coaxing and encouragement. Pt c/o poor strength in his legs. Pt denies pain other than "That knee is grinding" while he is ambulating. Mental Status Patient Orientation: Person, Place, Situation Donned helmet with assist to secure. Transfers Functional [place] Measure 0=Not Assessed/NA 4=Minimal Assistance 1=Total Assistance 5=Supervision or Setup 2=Maximal Assistance 6=Modified [place] 3=Moderate Assistance 7=Complete IndependenceIRFPAI Quality Coding Scale 6 Independent with activity with or without an assistive device 5 Patient requires set up or clean up by helper. Patient completes activity by themselves 4 Supervision or touching assist (CGA). [place] provide cues , steadying assist 3 The helper provides less than half the effort to complete the activity 2 The helper provides more than half the effort to complete the activity 1 Dependent. The helper does all the effort to complete an activity 7 Patient refused to complete or attempt activity 9 The patient did not perform the activity before the current illness or injury 88 Not attempted due to Medical conditions or safety concerns Min A to CGA initially for supine->sit. Pt lay himself back down twice before he would comply with gait training and both bouts was able to transfer to EOB without assist. Pt requires Mod A of 2 for sit->stand transfers due to (B) LE weakness. Gait Training Gait Assistive Device: FWW Pt amb with FWW, CGA and f/u of w/c 1 x 30', 1 x 70ft, 1 x 30ft Wheelchair Training Type of Wheelchair: Manual Pt self propelled w/c in hallway x 120ft with (B) LE Assessment Current Status: Good Progress Pt back to bed with call light, bed rails up and ambu alarm activated. All needs met. Pt able to ambulate further distance today before his legs fatigued. Pt dependent with sit to stand transfers due to LE weakness. Pt able to manage turns during ambulation well. PT Short Term Goals Short Term Goals Time Frame: May 26, 2017 Transfers (B,C,W/C) (FIM): 4 Gait (FIM): 2 Gait Distance Comment: 50' Gait Level of Assist: 4 Gait Assistive Device: FWW Wheelchair Distance: 150'x2 PT Skilled Nursing Goals Skilled Nursing Goals PT High Rigger Goals Time Frame: Jun 09, 2017 Transfers (B,C,W/C) (FIM): 4 Sit to Lying (QC): 4 Lying-Sitting on Side/Bed(QC): 4 Sit to Stand (QC): 4 Rollin Roll Left to Right (QC): 4 Chair/Iis-dj-Vpzch Xfer(QC): 4 Car Transfer (QC): 4 Gait (FIM): 4 Distance: 150' Walk 10 feet (QC): 4 Walk 10ft-Uneven Surface(QC): 4 Walk 50ft with 2 Turns (QC): 4 Walk 150 ft (QC): 4 Gait Level of Assist: 4 Gait Assistive Device: FWW Stairs (FIM): 2 # of Steps: 4 1 Step (curb) (QC): 4 4 Steps (QC): 4 PT Plan Treatment/Plan Treatment Plan: Continue Plan of Care Treatment Plan: Bed Mobility, Education, Functional Activity Lela, Functional Strength, Gait, Safety, Therapeutic Exercise, Transfers Treatment Duration: Jun 09, 2017 Visits Per Week: 10-11 Minutes/Day (M-F): 60-90 Minutes/Day (Sat/Johnson): 15-30 Time/GCodes Time In: 955 Time Out: 1020 Total Billed Treatment Time: 25 Total Billed Treatment 1, gait x 25 min MILAGROS MORGAN CPTA May 22, 2017 11:48
[2017-05-22 17:08] VITALS: BP 132/80
[2017-05-22] MEDS: ALFUZOSIN HCL 10 MG TAB (UROXATRAL) PO SCH (17:32)
[2017-05-22] MEDS: ENOXAPARIN 40 MG/0.4 ML (LOVENOX) SYR SC SCH (18:33)
[2017-05-22] MEDS: POLYETHYLENE GLYCOL 17 GM (MIRALAX) PACK GT SCH (20:43)
[2017-05-23 05:48] VITALS: BP 146/82
[2017-05-23] MEDS: MULTIVIT W/MINERALS TAB (THERAGRAN M) GT SCH (06:25)
[2017-05-23] MEDS: LEVOTHYROXINE 125 MCG (LEVOTHROID) TABLET GT SCH (06:25)
[2017-05-23] MEDS: OMEGA 3 (FISH OIL) 1000 MG CAP PO SCH ×2 (06:25→17:04)
[2017-05-23 08:44] VITALS: BP 142/91
[2017-05-23] MEDS: FUROSEMIDE 40 MG (LASIX) TAB GT SCH (08:45)
[2017-05-23] MEDS: guaiFENesin (MUCINEX) 600 MG TAB PO SCH ×2 (08:45→20:17)
[2017-05-23] MEDS: amLODIPine 5 MG (NORVASC) TAB GT SCH (08:45)
[2017-05-23] MEDS: LACTOBACILLUS Acidoph/Bulgar (LACTINEX/FLORANEX) TAB PEG SCH ×2 (08:45→20:17)
[2017-05-23] MEDS: LEVETIRACETAM 500 MG (KEPPRA) TAB PO SCH ×2 (08:45→20:17)
[2017-05-23] MEDS: FAMOTIDINE 20 MG (PEPCID) TABLET GT SCH ×2 (08:45→20:17)
[2017-05-23] MEDS: cloNIDine 0.1 MG (CATAPRES) TAB GT SCH ×3 (08:45→20:17)
[2017-05-23] MEDS: CARVEDILOL 12.5 MG (COREG) TABLET GT SCH ×2 (08:45→20:17)
[2017-05-23] MEDS: DOCUSATE SODIUM 10 MG/ML 10 ML UDC (COLACE) GT SCH ×2 (08:49→20:17)
[2017-05-23] MEDS: hydrALAZINE (APRESOLINE) 25 MG TAB GT SCH ×3 (08:49→20:17)
[2017-05-23] MEDS: ARTIFICIAL TEARS OINT (LACRI-LUBE) 3.5 GM TUBE OU SCH ×3 (08:51→20:18)
[2017-05-23 13:10] VITALS: BP 115/68
[2017-05-23] MEDS: ALFUZOSIN HCL 10 MG TAB (UROXATRAL) PO SCH (17:04)
[2017-05-23 18:30] VITALS: BP 115/78
[2017-05-23] MEDS: ENOXAPARIN 40 MG/0.4 ML (LOVENOX) SYR SC SCH (18:32)
[2017-05-23] MEDS: POLYETHYLENE GLYCOL 17 GM (MIRALAX) PACK GT SCH (20:18)
[2017-05-24 04:48] VITALS: BP 116/69
[2017-05-24] MEDS: LEVOTHYROXINE 125 MCG (LEVOTHROID) TABLET GT SCH (06:34)
[2017-05-24] MEDS: OMEGA 3 (FISH OIL) 1000 MG CAP PO SCH ×2 (06:34→17:22)
[2017-05-24] MEDS: MULTIVIT W/MINERALS TAB (THERAGRAN M) GT SCH (06:34)
[2017-05-24] MEDS: FAMOTIDINE 20 MG (PEPCID) TABLET GT SCH ×2 (08:22→21:13)
[2017-05-24] MEDS: LEVETIRACETAM 500 MG (KEPPRA) TAB PO SCH ×2 (08:22→21:12)
[2017-05-24] MEDS: cloNIDine 0.1 MG (CATAPRES) TAB GT SCH ×3 (08:22→21:13)
[2017-05-24] MEDS: FUROSEMIDE 40 MG (LASIX) TAB GT SCH (08:22)
[2017-05-24] MEDS: guaiFENesin (MUCINEX) 600 MG TAB PO SCH ×2 (08:22→21:13)
[2017-05-24] MEDS: CARVEDILOL 12.5 MG (COREG) TABLET GT SCH ×2 (08:22→21:12)
[2017-05-24] MEDS: LACTOBACILLUS Acidoph/Bulgar (LACTINEX/FLORANEX) TAB PEG SCH ×2 (08:23→21:12)
[2017-05-24] MEDS: amLODIPine 5 MG (NORVASC) TAB GT SCH (08:25)
[2017-05-24] MEDS: ARTIFICIAL TEARS OINT (LACRI-LUBE) 3.5 GM TUBE OU SCH ×2 (08:25→21:13)
[2017-05-24] MEDS: DOCUSATE SODIUM 10 MG/ML 10 ML UDC (COLACE) GT SCH (08:29)
--- NOTE | 2017-05-24 08:54 | Progress Note (SOAP) ---
Subjective Time Seen by Provider: 08:55 Subjective/Events-last exam patient hallucinated Wednesday and today. Trach. PEG tube. Coronary artery disease. Patient confused today Objective Exam Vital Signs Date Time Temp Pulse Resp B/P (MAP) Pulse Ox O2 Delivery O2 Flow Rate FiO2 05/24/17 04:48 98.9 61 18 116/69 93 Room Air 05/23/17 20:20 Room Air 05/23/17 18:30 98.0 60 14 115/78 96 Room Air 05/23/17 13:10 64 115/68 94 Room Air 05/23/17 09:00 Room Air I & O 05/24/17 07:00 Intake Total 690 ml Output Total 900 ml Balance -210 ml Capillary Refill : General Appearance: No Apparent Distress, WD/WN HEENT: Normal ENT Inspection Neck: Full Range of Motion Respiratory: Chest Non Tender, Lungs Clear, No Accessory Muscle Use, No Respiratory Distress Cardiovascular: Regular Rate, Rhythm, No Murmur Gastrointestinal: other (2) Results Lab Laboratory Tests 05/23/17 18:39: Glucometer 101 Assessment/Plan Assessment/Plan Assess & Plan/Chief Complaint debility. Trach. PEG tube. Subdural hematoma. Coronary artery disease. . 05/21/17. Debility. Trach. PEG tube. SUBDURAL HEMATOMA. . 05/24/17. Debility. Trach. PEG tube. subdural hematoma. Patient confused and hallucinating Clinical Quality Measures DVT/VTE Risk/Contraindication: Risk Factor Score Per Nursin RFS Level Per Nursing on Admit: 4+=Very High JR FUENTES DO May 24, 2017 08:53
--- OUTSIDE RECORDS SUMMARY | 2017-05-24 08:57 | XMS REPORT | Continuity of Care Document ---
Author Author [facility] Organization [facility] Address Unknown Phone Unavailable Allergies Active Description Code Type Severity Reaction Onset Reported/Identified Relationship to Patient Clinical Status Yes No Known Drug Allergies [id number] Drug Allergy Unknown N/ A 03/30/2015 Medications Problems Date Dx Coded Attending Type Code Diagnosis Diagnosed By 03/30/2015 LEATHA LACY APRN Ot 883.1 OPEN WOUND FINGER-COMPL 03/30/2015 LEATHA LACY APRN Ot E000.8 OTHER EXTERNAL CAUSE STATUS 03/30/2015 LEATHA LACY APRN Ot E849.0 ACCIDENT IN HOME 03/30/2015 LEATHA LACY APRN Ot E920.8 ACC-CUTTING INSTRUM NEC 03/30/2015 LEATHA LACY APRN Ot V06.1 [id number], COMBINED [ 12/15/2016 GELLENDER DO, JR Hastings Ot R00.1 BRADYCARDIA, UNSPECIFIED 12/16/2016 GELLENDER JR TANG Ot E03.9 HYPOTHYROIDISM, UNSPECIFIED 12/16/2016 GELLENDER DOJR Ot I25.10 ATHSCL HEART DISEASE OF [place] CORONARY 12/16/2016 GELLENDER DOJR Ot R00.1 BRADYCARDIA, UNSPECIFIED 12/16/2016 GELLENDER JR TANG Ot E03.9 HYPOTHYROIDISM, UNSPECIFIED 12/16/2016 GELLENDER DOJR Ot I25.10 ATHSCL HEART DISEASE OF [place] CORONARY 12/16/2016 GELLENDER DOJR Ot R00.1 BRADYCARDIA, UNSPECIFIED 12/17/2016 ISRRAEL LUCAS, Barry SHANKAR Ot I49.3 VENTRICULAR PREMATURE DEPOLARIZATION 12/23/2016 ISRRAEL LUCAS, Barry SHANKAR Ot E78.5 HYPERLIPIDEMIA, UNSPECIFIED 12/23/2016 ISRRAEL LUCAS, Barry SHANKAR Ot I25.10 ATHSCL HEART DISEASE OF [place] CORONARY 12/23/2016 Barry ARCOS MD Ot I49.3 VENTRICULAR PREMATURE DEPOLARIZATION 12/23/2016 Barry ARCOS MD Ot I70.1 ATHEROSCLEROSIS OF RENAL ARTERY 12/25/2016 Barry ARCOS MD Ot E78.5 HYPERLIPIDEMIA, UNSPECIFIED 12/25/2016 Barry ARCOS MD Ot I25.10 ATHSCL HEART DISEASE OF [place] CORONARY 12/25/2016 Barry ARCOS MD Ot I49.3 VENTRICULAR PREMATURE DEPOLARIZATION 12/25/2016 Barry ARCOS MD Ot I70.1 ATHEROSCLEROSIS OF RENAL ARTERY 01/08/2017 GELLENDER DO, JR A Ot E03.9 HYPOTHYROIDISM, UNSPECIFIED 01/08/2017 GELLENDER DO, JR A Ot I25.10 ATHSCL HEART DISEASE OF [place] CORONARY 01/08/2017 GELLENDER DO, JR A Ot R00.1 BRADYCARDIA, UNSPECIFIED 01/13/2017 Barry ARCOS MD, Ot E78.5 HYPERLIPIDEMIA, UNSPECIFIED 01/13/2017 Barry ARCOS MD, Ot I25.10 ATHSCL HEART DISEASE OF [place] CORONARY 01/13/2017 Barry ARCOS MD Ot I49.3 VENTRICULAR PREMATURE DEPOLARIZATION 01/13/2017 Barry ARCOS MD, Ot I70.1 ATHEROSCLEROSIS OF RENAL ARTERY Procedures Results Test Result Range THYROID STIMULATING HORMONE - 12/15/16 09:01 THYROID STIMULATING HORMONE 0.59 u[iU]/mL 0.35-4.94 Capillary blood glucose measurement by glucometer (mass/volume) - 05/19/17 20: 16 Capillary blood glucose measurement by glucometer (mass/volume) 179 mg/dL 70-110 Capillary blood glucose measurement by glucometer (mass/volume) - 05/20/17 04: 51 Capillary blood glucose measurement by glucometer (mass/volume) 96 mg/dL 70-110 Complete blood count (CBC) with automated white blood cell (WBC) differential - 05/20/17 06:06 Blood leukocytes automated count (number/volume) 5.2 10*3/ uL 4.3-11.0 Blood erythrocytes automated count (number/volume) 3.79 10*6 /uL 4.35-5.85 Venous blood hemoglobin measurement (mass/volume) 11.4 g/dL 13.3-17.7 Blood hematocrit (volume fraction) 35 % 40-54 Automated erythrocyte mean corpuscular volume 93 [foz_us] 80-99 Automated erythrocyte mean corpuscular hemoglobin (mass per erythrocyte) 30 pg 25-34 Automated erythrocyte mean corpuscular hemoglobin concentration measurement ( mass/volume) 33 g/dL 32-36 Automated erythrocyte distribution width ratio 14.5 % 10.0-14.5 Automated blood platelet count (count/volume) 274 10*3/uL 130-400 Automated blood platelet mean volume measurement 9.8 [foz_us ] 7.4-10.4 Automated blood neutrophils/100 leukocytes 51 % 42-75 Automated blood lymphocytes/100 leukocytes 26 % 12-44 Blood monocytes/100 leukocytes 17 % 0-12 Automated blood eosinophils/100 leukocytes 5 % 0-10 Automated blood basophils/100 leukocytes 1 % 0-10 Blood neutrophils automated count (number/volume) 2.7 10*3 1.8-7.8 Blood lymphocytes automated count (number/volume) 1.3 10*3 1.0-4.0 Blood monocytes automated count (number/volume) 0.9 10*3 0.0-1.0 Automated eosinophil count 0.3 10*3/uL 0.0-0.3 Automated blood basophil count (count/volume) 0.1 10*3/uL 0.0-0.1 Comprehensive metabolic panel - 05/20/17 06:06 Serum or plasma sodium measurement (moles/volume) 139 mmol/ L 135-145 Serum or plasma potassium measurement (moles/volume) 3.5 mmol/L 3.6-5.0 Serum or plasma chloride measurement (moles/volume) 102 mmol /L 98-107 Carbon dioxide 28 mmol/L 21-32 Serum or plasma anion gap determination (moles/volume) 9 mmol/L 5-14 Serum or plasma urea nitrogen measurement (mass/volume) 12 mg/dL 7-18 Serum or plasma creatinine measurement (mass/volume) 0.76 mg /dL 0.60-1.30 Serum or plasma urea nitrogen/creatinine mass ratio 16 0-20 Serum or plasma creatinine measurement with calculation of estimated glomerular filtration rate > NRG Serum or plasma glucose measurement (mass/volume) 102 mg/dL 70-105 Serum or plasma calcium measurement (mass/volume) 9.7 mg/dL 8.5-10.1 Serum or plasma total bilirubin measurement (mass/volume) 0.6 mg/dL 0.1-1.0 Serum or plasma alkaline phosphatase measurement (enzymatic activity/volume) 75 U/L 40-136 Serum or plasma aspartate aminotransferase measurement (enzymatic activity/ volume) 30 U/L 5-34 Serum or plasma alanine aminotransferase measurement (enzymatic activity/volume ) 89 U/L 0-55 Serum or plasma protein measurement (mass/volume) 6.8 g/dL 6.4-8.2 Serum or plasma albumin measurement (mass/volume) 3.4 g/dL 3.2-4.5 Capillary blood glucose measurement by glucometer (mass/volume) - 05/20/17 11: 48 Capillary blood glucose measurement by glucometer (mass/volume) 140 mg/dL 70-110 Capillary blood glucose measurement by glucometer (mass/volume) - 05/20/17 21: 04 Capillary blood glucose measurement by glucometer (mass/volume) 198 mg/dL 70-110 Capillary blood glucose measurement by glucometer (mass/volume) - 05/21/17 05: 30 Capillary blood glucose measurement by glucometer (mass/volume) 91 mg/dL 70-110 Encounters ACCT No. Visit Date/Time Discharge Status Pt. Type Provider Facility Loc./Unit Complaint [id number] 03/30/2015 11:50:00 2014 12:10:00 DIS Emergency LEATHA LACY APRN [facility] ER [place] IN HAND [id number] 05/19/2017 14:00:00 ACT Inpatient SHAHZAD BARROW MD [facility] IRF TRACH/PEG [id number] 12/23/2016 08:19:00 ACT Outpatient Barry ARCOS MD [facility] CARD CAD,CAROTID ARTERY STENOSIS,HYPERLIPIDEMIA [id number] 12/15/2016 08:43:00 ACT Outpatient JR FUENTES DO [facility] CARD BRADYCARDIA,HYPOTHYROID
--- NOTE | 2017-05-24 09:00 | Pulmonary Progress Note ---
Standard Progress Note Progress Notes Time Seen by Provider: 08:59 No complications noted Assessment & Plan hx of acute respiratory failure s/p tracheostomy -Pt is on RA -tracheostomy removed w/o complication 231 CARLYN NIEVES DO May 24, 2017 09:00
[2017-05-24 09:19] LABS: MEAN PLATELET VOLUME 9.9 FL (7.4-10.4); RED BLOOD COUNT 4.13 10^6/uL (4.35-5.85); RED CELL DISTRIBUTION WIDTH 14.5 % (10.0-14.5)
[2017-05-24 09:37] LABS: ALANINE AMINOTRANSFERASE 111 U/L (0-55); ALBUMIN 3.5 GM/DL (3.2-4.5); ANION GAP 11 MMOL/L (5-14); ASPARTATE AMINO TRANSFERASE 36 U/L (5-34); BILIRUBIN,TOTAL 0.6 MG/DL (0.1-1.0); BLOOD UREA NITROGEN 12 MG/DL (7-18); BUN/CREATININE RATIO 14 (0-20); CALCIUM 9.9 MG/DL (8.5-10.1); CARBON DIOXIDE 28 MMOL/L (21-32); CHLORIDE 100 MMOL/L (98-107); CREATININE SERUM 0.88 MG/DL (0.60-1.30); GFR ESTIMATED > 60; GLUCOSE 163 MG/DL (70-105); HEMOLYSIS 19 (-100-29); ICTERUS 0.7 (-100-1.9); LIPEMIA 2 (-100-49); POTASSIUM 3.2 MMOL/L (3.6-5.0); SODIUM 139 MMOL/L (135-145)
[2017-05-24] MEDS: DOCUSATE SODIUM 100 MG (COLACE) CAP PO SCH ×2 (10:07→21:13)
--- NOTE | 2017-05-24 10:07 | Diagnostic Imaging Report ---
PROCEDURE: CT head without contrast. TECHNIQUE: Multiple contiguous axial images were obtained through the brain without the use of intravenous contrast. INDICATION: Altered mental status. Confusion. No prior studies are available for comparison. There is a report of a CT head however for correlation dated 05/11/2017. FINDINGS: There is evidence of prior right frontoparietal craniectomy. This is associated with slight brain tissue herniation through the craniectomy defect outside the contour of the intracranial cavity noted. This however doesn't appear to be associated with an acute intracranial hemorrhage and a small chronic subdural hematoma on the right side with maximum thickness of 7 mm appears to be present. Tiny left frontal subdural hygroma is also seen. There is suggestion of a seroma or other fluid attenuation collection measuring 6.3 x 1.9 CM and relatively deep but extra cranial tissues along the right parietal region. This is presumably a postoperative finding. There is no hydrocephalus. There is minimal shift of the midline structures to the right side of about 3 mm. There is no brain edema or mass, mass effect within the parenchyma seen. The visualized portions of the paranasal sinuses and orbits appear grossly unremarkable. When correlated with CT head report dated 05/13/2017, the description of findings is similar overall to the current exam. IMPRESSION: Post right frontoparietal craniectomy findings with a fluid collection along the right operative site seen as described. There is also bilateral relatively small subdural hygromas or chronic hematomas. No evidence of acute intracranial hemorrhage. Dictated by: Dictated on workstation # [id number]
[2017-05-24] MEDS: hydrALAZINE (APRESOLINE) 25 MG TAB GT SCH ×3 (12:09→21:12)
--- NOTE | 2017-05-24 12:21 | Occupational Ther Daily Note ---
OT Current Status-Daily Note Subjective Pt seen in room, in bed, eyes closed. Opened them and agreed to ADLs. No pain mentoned. Mental Status/Objective Functional [place] Measure 0=Not Assessed/NA 4=Minimal Assistance 1=Total Assistance 5=Supervision or Setup 2=Maximal Assistance 6=Modified [place] 3=Moderate Assistance 7=Complete [place] ADL-Treatment Pt needed skilled initiation cues and setup for sponge bath, mostly done supine in bed. He washed different body parts, needing encouragement and skilled cues for bathing each section. He was able to reach both feet to wash them, which he hasn't been able to do before, and rolled side to side to wash backside, with cues. He argued about not putting helmet on when sitting EOB but was compliance. He sat EOB to don shirt and needed max assist to get shirt over head , pulled down in back and buttoned (unable to do any buttons). He moved to supine to put pants on and could get them on over his feet, pull them up over hips while bridging. Needed cues to roll side to side to help with getting pants up. Pt left up in bed, 4 rails up, bed alarm on, all needs met. Functional [place] Measure 0=Not Assessed/NA 4=Minimal Assistance 1=Total Assistance 5=Supervision or Setup 2=Maximal Assistance 6=Modified [place] 3=Moderate Assistance 7=Complete IndependenceIRFPAI Quality Coding Scale 6 Independent with activity with or without an assistive device 5 Patient requires set up or clean up by helper. Patient completes activity by themselves 4 Supervision or touching assist (CGA). [place] provide cues , steadying assist 3 The helper provides less than half the effort to complete the activity 2 The helper provides more than half the effort to complete the activity 1 Dependent. The helper does all the effort to complete an activity 7 Patient refused to complete or attempt activity 9 The patient did not perform the activity before the current illness or injury 88 Not attempted due to Medical conditions or safety concerns Bathing (FIM): 5 (Help washing back, which has a red rash and is itchy, per his report) Upper Body Dressing (QC): 2 Lower Body Dressing (QC): 5 (No socks or shoes today) Education OT Patient Education: Modified ADL techniques, Purpose of tx/functional activities, Safety issues, Transfer techniques Teaching Recipient: Patient Teaching Methods: Discussion Response to Teaching: Verbalize Understanding, Reinforcement Needed OT Short Term Goals Short Term Goals Time Frame: Jun 02, 2017 Grooming(FIM): 5 Upper Body Dressing(FIM): 5 Lower Body Dressing(FIM): 3 Toileting(FIM): 3 Transfers (B,C,W/C) (FIM): 4 Additional Short Term Goals: 2-Verbalize Understanding, 3-ImproveStrength/Lela 1=Demonstrate adherence to instructed precautions during ADL tasks. 2=Patient will verbalize/demonstrate understanding of assistive devices/ modifications for ADL. 3=Patient will improve strength/tolerance for activity to enable patient to perform ADL's. OT Hearing Instrument Specialist Goals Hearing Instrument Specialist Goals Time Frame: Jun 16, 2017 Eating (FIM): 6 Eating (QC): 6 Groomin Oral Hygiene (QC): 6 Bathing(FIM): 6 Shower/Bathe Self (QC): 6 Upper Body Dressing(FIM): 6 Upper Body Dressing (QC): 6 Lower Body Dressing(FIM): 6 Lower Body Dressing (QC): 6 On/Off Footwear (QC): 6 Toileting(FIM): 6 Toileting Hygiene (QC): 6 Toilet/Commode Transfer(FIM): 6 Toilet/Commode Transfer (QC): 6 Shower Transfer(FIM): 6 Comprehension(FIM): 5 Expression (FIM): 6 Social Interaction(FIM): 5 Problem Solving(FIM): 4 Memory(FIM): 4 Additional Goals: 2-Verbalize Understanding, 3-ImproveStrength/Lela 1=Demonstrate adherence to instructed precautions during ADL tasks. 2=Patient will verbalize/demonstrate understanding of assistive devices/ modifications for ADL. 3=Patient will improve strength/tolerance for activity to enable patient to perform ADL's. OT Education/Plan Problem List/Assessment Pt would benefit from skilled OT to increase his independence in basic self care to allow him to safely return to his home to live with his and to decrease caregiver burden. Discharge Recommendations Plan/Recommendations: Continue POC Treatment Plan/Plan of Care Patient would benefit from OT for education, treatment and training to promote independence in ADL's, mobility, safety and/or upper extremity function for ADL' s. Plan of Care: ADL Retraining, Caregiver Training, Functional Mobility, Group Exercise/Act as Ind (education, exercise, socialization, funct activities, activity tolerance), UE Funct Exercise/Act, UE Neuromus Re-Ed/Coord, Visual/ Perceptual Retrain Treatment Duration: Jun 16, 2017 Visits Per Week: 10-11 Minutes/Day (M-F): 75-90 Minutes/Day (Sat/Johnson): PRN Agreement: Yes Rehab Potential: Fair Time/GCodes Start Time: 11:05 Stop Time: 11:50 Total Time Billed (hr/min): 45 Billed Treatment Time visit, 45 min ADL JED HAN OT May 24, 2017 12:21
--- NOTE | 2017-05-24 14:09 | Speech Therapy Daily Note ---
Speech Daily Progress Note Subjective Date Seen by Provider: May 24, 2017 Time Seen by Provider: 09:00 The patient was laying in bed upon entrance. The patient greeted the clinician and intermittently opened eyes. The patient's eyes remained close for a majority of the session. The patient was agreeable to cognitive services on this date. Objective The patient was greatly confused and, somewhat, paranoid on this date. The patient continued to report the clinician the wifi access at the hospital was "tapping" into his phone purposefully. Additionally, the wifi service was "scrambling his phone" which did not allow his phone to work. The patient continuously demonstrated poor topic maintenance, requiring maximum redirection to therapy task and conversation. Conversation frequently returned to the presence of his house being built in the [employer] parking lot. The patient participated in a repeat head CT, however, results demonstrated stability. - Orientation: The patient stated he was at [facility] in [place], [place]. The patient was able to accurately state the month, year, and date. The patient was unable to state the day of week. The patient had "no idea what time it is, between two and four" (the time was 1045). The patient was able to state the appropriate time of day once the accurate time was provided by the clinician (am). Assessment Assessment Current Status: Poor Progress Treatment Plan Continue Plan of Care Communication Comprehension: 2 Expression: 3 Social Cognition Social Interaction: 2 Problem Solvin Memory: 2 Speech Short Term Goals Short Term Goals Short Term Goals 1. The patient will demonstrate 90% accuracy with simple orientation information with mild clinician verbal prompting. 2. The patient will remain on task for a duration of five minutes with minimal clinician verbal prompting/redirection. 3. The patient will demonstrate adequate sequencing and recall of ADL procedures with 90% accuracy and mild clinician cueing. Time Frame-ST days Speech Care Home Goals Insurance Policy Clerk Goals 1. The patient will demonstrate improved cognitive linguistic skills for increased function and safety with ADL's in the least restrictive setting. Time Frame: Two Weeks Comprehension: 5 Expression: 6 Social Interaction: 5 Problem Solvin Memory: 4 Speech-Plan Treatment Plan Speech Therapy Treatment Plan: Continue Plan of Care Continue skilled speech pathology to target functional cognitive skills. Treatment Duration: Jun 03, 2017 # of days/week Five. Visits Per Week: Five. Minutes/Day (M-F): 30 Rehab Potential: Fair Safety Risks/Education Teaching Recipient: Patient Teaching Methods: Discussion Response to Teaching: Reinforcement Needed Education Topics Provided: Orientation Strategies Time Speech Therapy Time In: 09:00 Speech Therapy Time Out: 09:15 Total Billed Time: 30 Billed Treatment Time 1SONNY (8:45 to 9:15 and 10:45 to 11:00) AMRIK LOMAX May 24, 2017 14:09
--- NOTE | 2017-05-24 14:16 | Occupational Ther Daily Note ---
OT Current Status-Daily Note Subjective Pt seen in room, in bed with hospital gown on. Agreeable to ADLs. No pain mentioned. Mental Status/Objective Functional [place] Measure 0=Not Assessed/NA 4=Minimal Assistance 1=Total Assistance 5=Supervision or Setup 2=Maximal Assistance 6=Modified [place] 3=Moderate Assistance 7=Complete [place] ADL-Treatment Pt thought he had wet his shorts and took them off. He reluctantly donned helmet to sit EOB to remove shirt with mod assist and was able to get to EOB with SBA. He continued to report that his back itched and found some relief with OT rubbing lower back, middle part. OT tried three different lotions on his hack to find one that he thought relieved the itching on his back. [employer] senior officer present briefly to check skin on his back. He was able to roll side to side, with cues, for skin inspection, including one reddened area on L buttock. Pt refused to put helmet on to sit EOB to brush teeth so setup provided to pt in bed. He was unable to squeeze toothpaste tube with L hand but, with skilled cue, tried it successfully with R hand. Brushed teeth thoroughly with R hand and rinsed with no difficulty. Pt was able to use urinal without spilling but unable to dump it. All ADLs took longer than usual due to required cues. Pt left up in room, all needs met, 4 rails up, bed alarm on. Functional [place] Measure 0=Not Assessed/NA 4=Minimal Assistance 1=Total Assistance 5=Supervision or Setup 2=Maximal Assistance 6=Modified [place] 3=Moderate Assistance 7=Complete IndependenceIRFPAI Quality Coding Scale 6 Independent with activity with or without an assistive device 5 Patient requires set up or clean up by helper. Patient completes activity by themselves 4 Supervision or touching assist (CGA). [place] provide cues , steadying assist 3 The helper provides less than half the effort to complete the activity 2 The helper provides more than half the effort to complete the activity 1 Dependent. The helper does all the effort to complete an activity 7 Patient refused to complete or attempt activity 9 The patient did not perform the activity before the current illness or injury 88 Not attempted due to Medical conditions or safety concerns Grooming (FIM): 5 Other Treatment Pt refused to do any fine motor coordination activities, even after noting that he couldn't open toothpaste with L hand, Education OT Patient Education: Modified ADL techniques, Purpose of tx/functional activities Teaching Recipient: Patient Teaching Methods: Demonstration, Discussion Response to Teaching: Verbalize Understanding, Reinforcement Needed OT Short Term Goals Short Term Goals Time Frame: Jun 02, 2017 Grooming(FIM): 5 Upper Body Dressing(FIM): 5 Lower Body Dressing(FIM): 3 Toileting(FIM): 3 Transfers (B,C,W/C) (FIM): 4 Additional Short Term Goals: 2-Verbalize Understanding, 3-ImproveStrength/Lela 1=Demonstrate adherence to instructed precautions during ADL tasks. 2=Patient will verbalize/demonstrate understanding of assistive devices/ modifications for ADL. 3=Patient will improve strength/tolerance for activity to enable patient to perform ADL's. OT Skilled Nursing Goals Skilled Nursing Goals Time Frame: Jun 16, 2017 Eating (FIM): 6 Eating (QC): 6 Groomin Oral Hygiene (QC): 6 Bathing(FIM): 6 Shower/Bathe Self (QC): 6 Upper Body Dressing(FIM): 6 Upper Body Dressing (QC): 6 Lower Body Dressing(FIM): 6 Lower Body Dressing (QC): 6 On/Off Footwear (QC): 6 Toileting(FIM): 6 Toileting Hygiene (QC): 6 Toilet/Commode Transfer(FIM): 6 Toilet/Commode Transfer (QC): 6 Shower Transfer(FIM): 6 Comprehension(FIM): 5 Expression (FIM): 6 Social Interaction(FIM): 5 Problem Solving(FIM): 4 Memory(FIM): 4 Additional Goals: 2-Verbalize Understanding, 3-ImproveStrength/Lela 1=Demonstrate adherence to instructed precautions during ADL tasks. 2=Patient will verbalize/demonstrate understanding of assistive devices/ modifications for ADL. 3=Patient will improve strength/tolerance for activity to enable patient to perform ADL's. OT Education/Plan Problem List/Assessment Pt would benefit from skilled OT to increase his independence in basic self care to allow him to safely return to his home to live with his and to decrease caregiver burden. Discharge Recommendations Plan/Recommendations: Continue POC Treatment Plan/Plan of Care Patient would benefit from OT for education, treatment and training to promote independence in ADL's, mobility, safety and/or upper extremity function for ADL' s. Plan of Care: ADL Retraining, Caregiver Training, Functional Mobility, Group Exercise/Act as Ind (education, exercise, socialization, funct activities, activity tolerance), UE Funct Exercise/Act, UE Neuromus Re-Ed/Coord, Visual/ Perceptual Retrain Treatment Duration: Jun 16, 2017 Visits Per Week: 10-11 Minutes/Day (M-F): 75-90 Minutes/Day (Sat/Johnson): PRN Agreement: Yes Rehab Potential: Fair Time/GCodes Start Time: 13:00 Stop Time: 14:00 Total Time Billed (hr/min): 60 Billed Treatment Time visit,60 min ADL JED HAN OT May 24, 2017 14:16
--- NOTE | 2017-05-24 15:13 | Physical Therapy Daily Note ---
PT Daily Note-Current Subjective Pt laying Supine in bed upon arrival with helmet on. Pt needs encouragement to participate during tx. Pt gets off task easily. Pt agrees to PT. Mental Status Patient Orientation: Person, Confused Attachments: Other-See Comments (Helmet to protect head) Transfers Functional [place] Measure 0=Not Assessed/NA 4=Minimal Assistance 1=Total Assistance 5=Supervision or Setup 2=Maximal Assistance 6=Modified [place] 3=Moderate Assistance 7=Complete IndependenceIRFPAI Quality Coding Scale 6 Independent with activity with or without an assistive device 5 Patient requires set up or clean up by helper. Patient completes activity by themselves 4 Supervision or touching assist (CGA). [place] provide cues , steadying assist 3 The helper provides less than half the effort to complete the activity 2 The helper provides more than half the effort to complete the activity 1 Dependent. The helper does all the effort to complete an activity 7 Patient refused to complete or attempt activity 9 The patient did not perform the activity before the current illness or injury 88 Not attempted due to Medical conditions or safety concerns Scootin Rollin Roll Left to Right (QC): 4 Supine to/from Sit: 4 Sit to/from Stand: 4 Sit to Lying (QC): 4 Sit to Stand (QC): 4 Weight Bearing Weight Bearing Restriction: Full Weight Bearing Location Restriction: LE Bilateral Gait Training Does the Patient Walk?: Yes Distance (FIM): 4=998-01 ft Distance: 50' Walk 10 feet (QC): 4 Walk 50 ft with 2 Turns(QC): 4 Walk 150 ft (QC): 88 Gait Level of Assist: 4 Gait Persons Needed: 1 Gait Assistive Device: FWW Pt walks with a slow and unsteady gait pattern. Pt fatigues easy and has to sit after just walking a short distance. Wheelchair Training Does the Pt Use a Wheelchair?: Yes Wheelchair Distance: 3=150 ft Distance: 150' Wheelchair Level of Assist: 4 Wheel 50 ft with 2 turns (QC): 4 Wheel 150 ft (QC): 4 Type of Wheelchair: Manual Pt can only propel WCH for short distance before needing PT to wheel pt back to room. Treatments Pt asks PT to help position helmet better on pt's head because it is sliding and will not stay out of pt's eyes. PT and pt work to position using towels. Pt transfers from Supine to EOB at [facility] then EOB to Standing using FWW at CGA- Min A. Pt ambulates in room before needing to transfer back to [facility] due to fatigue. Pt propels [facility] in hallway before needing PT to wheel pt back to room to rest. Assessment Current Status: Fair Progress Pt is confused and easily distracted during tx. Pt needs encouragement to participate in tx. Pt lacks social awareness and fatigues easy. PT Short Term Goals Short Term Goals Time Frame: May 26, 2017 Transfers (B,C,W/C) (FIM): 4 Gait (FIM): 2 Gait Distance Comment: 50' Gait Level of Assist: 4 Gait Assistive Device: FWW Wheelchair Distance: 150'x2 PT Sewing Demonstrator Goals Sewing Demonstrator Goals PT Halfway Goals Time Frame: Jun 09, 2017 Transfers (B,C,W/C) (FIM): 4 Sit to Lying (QC): 4 Lying-Sitting on Side/Bed(QC): 4 Sit to Stand (QC): 4 Rollin Roll Left to Right (QC): 4 Chair/Gll-bs-[place] Xfer(QC): 4 Car Transfer (QC): 4 Gait (FIM): 4 Distance: 150' Walk 10 feet (QC): 4 Walk 10ft-Uneven Surface(QC): 4 Walk 50ft with 2 Turns (QC): 4 Walk 150 ft (QC): 4 Gait Level of Assist: 4 Gait Assistive Device: FWW Stairs (FIM): 2 # of Steps: 4 1 Step (curb) (QC): 4 4 Steps (QC): 4 PT Plan Problem List Problem List: Activity Tolerance, Functional Strength, Safety, Balance, Gait, Transfer, Bed Mobility Treatment/Plan Treatment Plan: Continue Plan of Care Treatment Plan: Bed Mobility, Education, Functional Activity Lela, Functional Strength, Gait, Safety, Therapeutic Exercise, Transfers Treatment Duration: Jun 09, 2017 Visits Per Week: 10-11 Minutes/Day (M-F): 60-90 Minutes/Day (Sat/Johnson): 15-30 Safety Risks/Education Patient Education: Gait Training, Transfer Techniques, Correct Positioning, Safety Issues Teaching Recipient: Patient Teaching Methods: Discussion Response to Teaching: Reinforcement Needed Time/GCodes Time In: 930 Time Out: 1015 Total Billed Treatment Time: 45 Total Billed Treatment visit, GT (15m), [facility] (15m) & FA (15m) FERNANDO VARGAS INTERIOR DESIGN ASSISTANT May 24, 2017 15:13
[2017-05-24] MEDS: ENOXAPARIN 40 MG/0.4 ML (LOVENOX) SYR SC SCH (17:22)
[2017-05-24] MEDS: ALFUZOSIN HCL 10 MG TAB (UROXATRAL) PO SCH (17:22)
[2017-05-24 17:46] VITALS: BP 113/67
[2017-05-24 19:34] VITALS: BP 121/73
[2017-05-24] MEDS: BETAMETHASONE/CLOTRIM CREAM (LOTRISONE) 45 GM TP SCH (21:13)
[2017-05-24] MEDS: POLYETHYLENE GLYCOL 17 GM (MIRALAX) PACK GT SCH (21:14)
--- NOTE | 2017-05-24 21:30 | PM & R (SOAP) Progress Note ---
Subjective Time Seen by Provider: 20:10 Subjective/Events-last exam Patient was seen in his room this evening RN reports that patient fell to floor while attempting transfer on his own Did not hit head CT Head earlier today showed no rebleed Patient confused and impulsive at times Alarmbot placed in room for patients protection.Patient min assist for transfers Objective Exam Last Set of Vital Signs Vital Signs Date Time Temp Pulse Resp B/P (MAP) Pulse Ox O2 Delivery O2 Flow Rate FiO2 05/24/17 19:34 98.6 74 12 121/73 95 Room Air 05/20/17 20:11 2.00 Capillary Refill : I&O Intake and Output 05/24/17 00:00 Intake Total 1090 ml Output Total 950 ml Balance 140 ml Intake Oral 1090 ml Output Urine Total 950 ml # Voids 3 # Bowel Movements 2 General: Alert, Cooperative, No Acute Distress HEENT: EOMI, Mucous Memb Moist/[place], Other (Rt Crani site healing well) Neck: Supple, No JVD, Other (decannulated with drssing in place) Lungs: Clear to Auscultation Heart: Regular Rate Abdomen: Normal Bowel Sounds, Soft, No Tenderness Extremities: No Edema Neuro: Other (generalized weakness Mild cognitive impairment) Results Lab Laboratory Tests 05/22/17 21:00: Glucometer 139H 05/23/17 18:39: Glucometer 101 05/24/17 09:13: White Blood Count 3.0L, Red Blood Count 4.13L, Hemoglobin 12.4L, Hematocrit 38L , Mean Corpuscular Volume 91, Mean Corpuscular Hemoglobin 30, Mean Corpuscular Hemoglobin Concent 33, Red Cell Distribution Width 14.5, Platelet Count 256, Mean Platelet Volume 9.9, Sodium Level 139, Potassium Level 3.2L, Chloride Level 100, Carbon Dioxide Level 28, Anion Gap 11, Blood Urea Nitrogen 12, Creatinine 0.88, Estimat Glomerular Filtration Rate > 60, BUN/Creatinine Ratio 14, Glucose Level 163H, Calcium Level 9.9, Total Bilirubin 0.6, Aspartate Amino Transf (AST/SGOT) 36H, Alanine Aminotransferase (ALT/SGPT) 111H, Alkaline Phosphatase 68, Total Protein 7.0, Albumin 3.5 Assessment/Plan Assessment Rt SDH s/p evacuation with gait imbalance Blurred vision S/P Trach-decannulation 05/21/17 today S/P feeding tube now on po feeds HTN controlled Dysphagia improved Fall no injury sustained Plan Continue PT/OT/ST F/U with DR Turcios PRN=Appreciate his note F/U with DR Dowling as per his schedule Appreciate current labs Team Conference 05/26/17 Alarmbot for patients protection SHAHZAD BARROW MD May 24, 2017 21:30
--- NOTE | 2017-05-25 08:32 | Progress Note (SOAP) ---
Subjective Time Seen by Provider: 08:30 Subjective/Events-last exam patient has confusion. Patient had CAT scan yesterday of the head. To get in touch with neurosurgeon. Objective Exam Vital Signs Date Time Temp Pulse Resp B/P (MAP) Pulse Ox O2 Delivery O2 Flow Rate FiO2 05/24/17 21:00 Room Air 05/24/17 19:34 98.6 74 12 121/73 95 Room Air 05/24/17 18:56 92 Room Air 05/24/17 17:46 98.4 65 18 113/67 91 Room Air 05/24/17 16:10 92 Room Air 05/24/17 09:00 Room Air I & O 05/25/17 07:00 Intake Total 1400 ml Output Total 1150 ml Balance 250 ml Capillary Refill : General Appearance: No Apparent Distress, WD/WN HEENT: Normal ENT Inspection Respiratory: Chest Non Tender, Lungs Clear, No Accessory Muscle Use, No Respiratory Distress Cardiovascular: Regular Rate, Rhythm, No Murmur Results Lab Laboratory Tests 05/24/17 09:13 Laboratory Tests 05/24/17 09:13: White Blood Count 3.0L, Red Blood Count 4.13L, Hemoglobin 12.4L, Hematocrit 38L , Mean Corpuscular Volume 91, Mean Corpuscular Hemoglobin 30, Mean Corpuscular Hemoglobin Concent 33, Red Cell Distribution Width 14.5, Platelet Count 256, Mean Platelet Volume 9.9, Sodium Level 139, Potassium Level 3.2L, Chloride Level 100, Carbon Dioxide Level 28, Anion Gap 11, Blood Urea Nitrogen 12, Creatinine 0.88, Estimat Glomerular Filtration Rate > 60, BUN/Creatinine Ratio 14, Glucose Level 163H, Calcium Level 9.9, Total Bilirubin 0.6, Aspartate Amino Transf (AST/SGOT) 36H, Alanine Aminotransferase (ALT/SGPT) 111H, Alkaline Phosphatase 68, Total Protein 7.0, Albumin 3.5 Assessment/Plan Assessment/Plan Assess & Plan/Chief Complaint debility. Trach. PEG tube. Subdural hematoma. Coronary artery disease. . 05/21/17. Debility. Trach. PEG tube. SUBDURAL HEMATOMA. . 05/24/17. Debility. Trach. PEG tube. subdural hematoma. Patient confused and hallucinating.. . 05/25/17. Debility. Trach removed. Subdural hematoma.. patient has confusion. Spoke to son Luis about dad Clinical Quality Measures DVT/VTE Risk/Contraindication: Risk Factor Score Per Nursin RFS Level Per Nursing on Admit: 4+=Very High JR FUENTES DO May 25, 2017 08:32
[2017-05-25] MEDS: DOCUSATE SODIUM 100 MG (COLACE) CAP PO SCH ×2 (08:36→20:42)
[2017-05-25] MEDS: LEVOTHYROXINE 125 MCG (LEVOTHROID) TABLET GT SCH (08:36)
[2017-05-25] MEDS: hydrALAZINE (APRESOLINE) 25 MG TAB GT SCH ×3 (08:37→20:42)
[2017-05-25] MEDS: guaiFENesin (MUCINEX) 600 MG TAB PO SCH ×2 (08:37→20:42)
[2017-05-25] MEDS: LACTOBACILLUS Acidoph/Bulgar (LACTINEX/FLORANEX) TAB PEG SCH ×2 (08:37→20:45)
[2017-05-25] MEDS: OMEGA 3 (FISH OIL) 1000 MG CAP PO SCH ×2 (08:37→17:42)
[2017-05-25] MEDS: FUROSEMIDE 40 MG (LASIX) TAB GT SCH (08:38)
[2017-05-25] MEDS: LEVETIRACETAM 500 MG (KEPPRA) TAB PO SCH ×2 (08:38→20:42)
[2017-05-25] MEDS: CARVEDILOL 12.5 MG (COREG) TABLET GT SCH ×2 (08:38→20:42)
[2017-05-25] MEDS: FAMOTIDINE 20 MG (PEPCID) TABLET GT SCH ×2 (08:38→20:42)
[2017-05-25] MEDS: cloNIDine 0.1 MG (CATAPRES) TAB GT SCH ×3 (08:38→20:42)
[2017-05-25] MEDS: amLODIPine 5 MG (NORVASC) TAB GT SCH (08:38)
[2017-05-25] MEDS: MULTIVIT W/MINERALS TAB (THERAGRAN M) GT SCH (08:38)
[2017-05-25 08:40] VITALS: BP 113/84
[2017-05-25] MEDS: BETAMETHASONE/CLOTRIM CREAM (LOTRISONE) 45 GM TP SCH ×2 (09:00→20:47)
[2017-05-25] MEDS: ARTIFICIAL TEARS OINT (LACRI-LUBE) 3.5 GM TUBE OU SCH ×2 (09:00→21:00)
--- NOTE | 2017-05-25 10:43 | Physical Therapy Daily Note ---
PT Daily Note-Current Subjective Pt sitting in recliner upon arrival. Pt agrees to PT. Pt's sp arrives shortly after starting PT. Pain Numeric Pain Scale: 5-Moderate Pain Location: Lower, Dorsal Location Body Site: Back Pain Description: Tightness Comment: Pt reports tightness and fatigue of back especially after upright activity. Mental Status Patient Orientation: Person, Confused Transfers Functional [place] Measure 0=Not Assessed/NA 4=Minimal Assistance 1=Total Assistance 5=Supervision or Setup 2=Maximal Assistance 6=Modified [place] 3=Moderate Assistance 7=Complete IndependenceIRFPAI Quality Coding Scale 6 Independent with activity with or without an assistive device 5 Patient requires set up or clean up by helper. Patient completes activity by themselves 4 Supervision or touching assist (CGA). [place] provide cues , steadying assist 3 The helper provides less than half the effort to complete the activity 2 The helper provides more than half the effort to complete the activity 1 Dependent. The helper does all the effort to complete an activity 7 Patient refused to complete or attempt activity 9 The patient did not perform the activity before the current illness or injury 88 Not attempted due to Medical conditions or safety concerns Scootin Rollin Roll Left to Right (QC): 5 Supine to/from Sit: 5 Sit to/from Stand: 4 Sit to Lying (QC): 5 Sit to Stand (QC): 4 Chair/Vch-bm-Kvzbu Xfer(QC): 4 Bed to/from Chair: 4 Weight Bearing Weight Bearing Restriction: Full Weight Bearing Location Restriction: LE Bilateral Gait Training Does the Patient Walk?: Yes Distance (FIM): 3=150 ft Distance: 350' Walk 10 feet (QC): 4 Walk 50 ft with 2 Turns(QC): 4 Walk 150 ft (QC): 4 Gait Level of Assist: 4 Gait Persons Needed: 1 Gait Assistive Device: FWW Pt has slow alba but steady, no LOB. Pt has improved since yesterday with activity tolerance and balance although still has social awareness deficits. Wheelchair Training Does the Pt Use a Wheelchair?: Yes Wheelchair Distance: 9=274-60 ft Distance: 100' Wheelchair Level of Assist: 5 Wheel 50 ft with 2 turns (QC): 5 Type of Wheelchair: Manual Treatments Pt transferred from recliner to standing using FWW at [facility]-Min A. Pt ambulates in hallway using FWW at [facility]. Pt transferred to [facility] when pt would fatigue to rest after approx. 75-100'. Pt returned to room to rest. Pt transferred from [facility] to standing at SPT to EOB then supine to rest. Pt resting supine in bed at end of tx with all needs met. Assessment Current Status: Fair Progress Pt has improved with activity tolerance and balance but continues to demonstrate social awareness deficits associated with head trauma. PT Short Term Goals Short Term Goals Time Frame: May 26, 2017 Transfers (B,C,W/C) (FIM): 4 Gait (FIM): 2 Gait Distance Comment: 50' Gait Level of Assist: 4 Gait Assistive Device: FWW Wheelchair Distance: 150' PT Jail Goals Jail Goals PT Psychiatry Teacher Goals Time Frame: Jun 09, 2017 Transfers (B,C,W/C) (FIM): 4 Sit to Lying (QC): 4 Lying-Sitting on Side/Bed(QC): 4 Sit to Stand (QC): 4 Rollin Roll Left to Right (QC): 4 Chair/Lea-qj-Cdccf Xfer(QC): 4 Car Transfer (QC): 4 Gait (FIM): 4 Distance: 150' Walk 10 feet (QC): 4 Walk 10ft-Uneven Surface(QC): 4 Walk 50ft with 2 Turns (QC): 4 Walk 150 ft (QC): 4 Gait Level of Assist: 4 Gait Assistive Device: FWW Stairs (FIM): 2 # of Steps: 4 1 Step (curb) (QC): 4 4 Steps (QC): 4 PT Plan Problem List Problem List: Activity Tolerance, Functional Strength, Safety, Balance, Gait, Transfer Treatment/Plan Treatment Plan: Continue Plan of Care Treatment Plan: Bed Mobility, Education, Functional Activity Lela, Functional Strength, Gait, Safety, Therapeutic Exercise, Transfers Treatment Duration: Jun 09, 2017 Visits Per Week: 10-11 Minutes/Day (M-F): 60-90 Minutes/Day (Sat/Johnson): 15-30 Safety Risks/Education Patient Education: Gait Training, Transfer Techniques, Correct Positioning, Safety Issues Teaching Recipient: Patient, Significant Other Teaching Methods: Discussion Response to Teaching: Reinforcement Needed Time/GCodes Time In: 930 Time Out: 1015 Total Billed Treatment Time: 45 Total Billed Treatment visit, FA (15m) & GT x2 (30m) FERNANDO VARGAS ACADEMIC ADMINISTRATOR May 25, 2017 10:43
--- NOTE | 2017-05-25 11:11 | Speech Therapy Daily Note ---
Speech Daily Progress Note Subjective Date Seen by Provider: May 25, 2017 Time Seen by Provider: 08:30 The patient was seated upright in recliner upon entrance. The patient greeted the clinician (by name) and was agreeable to cognitive therapy on this date. The patient was not wearing his helmet as recommended by staff. The patient was asked to wear helmet and politely refused on several occasions. Objective - The patient continues to demonstrate confusion and hallucinations. At this time, the patient's most recent CT scan (05/24/17) will be transported to [facility] for comparison. The patient continues to report his house is built in the parking lot of [place]. He also states he has been "out and about, driving all morning" upon entrance into his room. The patient continues to report his GPS is recording false information and his phone is no longer working because of "the wifi interference." - Orientation: The patient is able to state the month, year, and day of week. The patient stated, "According to you, I am in [place]. According to me, I am in [place], at my home, in the kitchen." The patient was able to recall his recent fall the night prior, as well as, the reasoning behind why he was attempting to move around the room alone. Safety awareness and cues were discussed and reviewed with the patient. Per patient, "I can't stay locked up in here. I'm going to continue to move around. I'm an adult." - Telling Time: The patient displayed 100% accuracy with simple reading of an analog clock (10/10) on this date, independently. Assessment Assessment Current Status: Fair Progress Treatment Plan Continue Plan of Care Communication Comprehension: 2 Expression: 3 Social Cognition Social Interaction: 3 Problem Solvin Memory: 2 Speech Short Term Goals Short Term Goals Short Term Goals 1. The patient will demonstrate 90% accuracy with simple orientation information with mild clinician verbal prompting. 2. The patient will remain on task for a duration of five minutes with minimal clinician verbal prompting/redirection. 3. The patient will demonstrate adequate sequencing and recall of ADL procedures with 90% accuracy and mild clinician cueing. Time Frame-ST days Speech Half-Way Goals Roller Coaster Engineer Goals 1. The patient will demonstrate improved cognitive linguistic skills for increased function and safety with ADL's in the least restrictive setting. Time Frame: Two Weeks Comprehension: 5 Expression: 6 Social Interaction: 5 Problem Solvin Memory: 4 Speech-Plan Treatment Plan Speech Therapy Treatment Plan: Continue Plan of Care Continue skilled speech pathology intervention to target functional problem solving and orientation. Treatment Duration: Jun 03, 2017 # of days/week Five. Visits Per Week: Five. Minutes/Day (M-F): 30 Rehab Potential: Fair Safety Risks/Education Teaching Recipient: Patient Teaching Methods: Demonstration, Discussion Response to Teaching: Reinforcement Needed Education Topics Provided: Orientation Strategies Time Speech Therapy Time In: 08:30 Speech Therapy Time Out: 09:00 Total Billed Time: 30 Billed Treatment Time NurysSONNY ELIZABETH ST May 25, 2017 11:11
[2017-05-25] MEDS: KCL 10 MEQ TAB (MICRO K) PO SCH (11:53)
--- NOTE | 2017-05-25 14:50 | Occupational Ther Daily Note ---
OT Current Status-Daily Note Subjective Pt seen in room, up in bed, agreeable to OT. No pain mentioned. Appearance Alert, cooperative, confused Mental Status/Objective Functional [place] Measure 0=Not Assessed/NA 4=Minimal Assistance 1=Total Assistance 5=Supervision or Setup 2=Maximal Assistance 6=Modified [place] 3=Moderate Assistance 7=Complete [place] ADL-Treatment Pt was agreeable to go to gym but, once he was sitting at EOB, he had to have a BM. Pt stood min assist and did a stand pivot transfer to BSC, needing skilled cues for hand placement, walker management. Min assist on and off BSC, FWW. Pt transferred back to EOB with min assist and few cues. Pt was able to squeeze toothpaste with L hand and brush teeth with SBA, including rinssing mouth and washing face. He transitioned to supine and took helmet off. Helmet continues to not fit well and he pads inside with a towel to be more comfortable. Pt left up in bed, 4 rails up, bed alarm on. Functional [place] Measure 0=Not Assessed/NA 4=Minimal Assistance 1=Total Assistance 5=Supervision or Setup 2=Maximal Assistance 6=Modified [place] 3=Moderate Assistance 7=Complete IndependenceIRFPAI Quality Coding Scale 6 Independent with activity with or without an assistive device 5 Patient requires set up or clean up by helper. Patient completes activity by themselves 4 Supervision or touching assist (CGA). [place] provide cues , steadying assist 3 The helper provides less than half the effort to complete the activity 2 The helper provides more than half the effort to complete the activity 1 Dependent. The helper does all the effort to complete an activity 7 Patient refused to complete or attempt activity 9 The patient did not perform the activity before the current illness or injury 88 Not attempted due to Medical conditions or safety concerns Grooming (FIM): 5 Toileting (FIM): 3 (Pt was able to manage hygiene for BM on BSC but was not thorough. Able to manage clothing) Education OT Patient Education: Modified ADL techniques, Purpose of tx/functional activities, Safety issues, Transfer techniques, Use of adapted equipment Teaching Recipient: Patient Teaching Methods: Demonstration, Discussion Response to Teaching: Reinforcement Needed OT Short Term Goals Short Term Goals Time Frame: Jun 02, 2017 Grooming(FIM): 5 Upper Body Dressing(FIM): 5 Lower Body Dressing(FIM): 3 Toileting(FIM): 3 Transfers (B,C,W/C) (FIM): 4 Additional Short Term Goals: 2-Verbalize Understanding, 3-ImproveStrength/Lela 1=Demonstrate adherence to instructed precautions during ADL tasks. 2=Patient will verbalize/demonstrate understanding of assistive devices/ modifications for ADL. 3=Patient will improve strength/tolerance for activity to enable patient to perform ADL's. OT Mcfp Goals Mcfp Goals Time Frame: Jun 16, 2017 Eating (FIM): 6 Eating (QC): 6 Groomin Oral Hygiene (QC): 6 Bathing(FIM): 6 Shower/Bathe Self (QC): 6 Upper Body Dressing(FIM): 6 Upper Body Dressing (QC): 6 Lower Body Dressing(FIM): 6 Lower Body Dressing (QC): 6 On/Off Footwear (QC): 6 Toileting(FIM): 6 Toileting Hygiene (QC): 6 Toilet/Commode Transfer(FIM): 6 Toilet/Commode Transfer (QC): 6 Shower Transfer(FIM): 6 Comprehension(FIM): 5 Expression (FIM): 6 Social Interaction(FIM): 5 Problem Solving(FIM): 4 Memory(FIM): 4 Additional Goals: 2-Verbalize Understanding, 3-ImproveStrength/Lela 1=Demonstrate adherence to instructed precautions during ADL tasks. 2=Patient will verbalize/demonstrate understanding of assistive devices/ modifications for ADL. 3=Patient will improve strength/tolerance for activity to enable patient to perform ADL's. OT Education/Plan Problem List/Assessment Pt would benefit from skilled OT to increase his independence in basic self care to allow him to safely return to his home to live with his and to decrease caregiver burden. Discharge Recommendations Plan/Recommendations: Continue POC Treatment Plan/Plan of Care Patient would benefit from OT for education, treatment and training to promote independence in ADL's, mobility, safety and/or upper extremity function for ADL' s. Plan of Care: ADL Retraining, Caregiver Training, Functional Mobility, Group Exercise/Act as Ind (education, exercise, socialization, funct activities, activity tolerance), UE Funct Exercise/Act, UE Neuromus Re-Ed/Coord, Visual/ Perceptual Retrain Treatment Duration: Jun 16, 2017 Visits Per Week: 10-11 Minutes/Day (M-F): 75-90 Minutes/Day (Sat/Johnson): PRN Agreement: Yes Rehab Potential: Fair Time/GCodes Start Time: 14:00 Stop Time: 14:30 Total Time Billed (hr/min): 30 Billed Treatment Time visit, ADL 30 minutes JED HAN OT May 25, 2017 14:50
--- NOTE | 2017-05-25 16:24 | Physical Therapy Daily Note ---
PT Daily Note-Current Subjective Pt is laying Supine in bed upon arrival. Pt continues to be confused. Pt agrees to PT. Mental Status Patient Orientation: Person, Confused Transfers Functional [place] Measure 0=Not Assessed/NA 4=Minimal Assistance 1=Total Assistance 5=Supervision or Setup 2=Maximal Assistance 6=Modified [place] 3=Moderate Assistance 7=Complete IndependenceIRFPAI Quality Coding Scale 6 Independent with activity with or without an assistive device 5 Patient requires set up or clean up by helper. Patient completes activity by themselves 4 Supervision or touching assist (CGA). [place] provide cues , steadying assist 3 The helper provides less than half the effort to complete the activity 2 The helper provides more than half the effort to complete the activity 1 Dependent. The helper does all the effort to complete an activity 7 Patient refused to complete or attempt activity 9 The patient did not perform the activity before the current illness or injury 88 Not attempted due to Medical conditions or safety concerns Scootin Exercises Supine Ex: Ankle pumps, Quad Set, Heel Slides, Straight leg raise, Hip abd/add Supine Reps: 20 Treatments Pt completes Supine Ex due to being agitated during tx and wanting to remain in bed. Pt remains Supine at end of tx with all needs met. Assessment Current Status: Fair Progress Pt has moments of agitation and confusion due to Head Trauma. PT Short Term Goals Short Term Goals Time Frame: May 26, 2017 Transfers (B,C,W/C) (FIM): 4 Gait (FIM): 2 Gait Distance Comment: 50' Gait Level of Assist: 4 Gait Assistive Device: FWW Wheelchair Distance: 100' PT Aed Trainer Goals Fci Goals PT Fci Goals Time Frame: Jun 09, 2017 Transfers (B,C,W/C) (FIM): 4 Sit to Lying (QC): 4 Lying-Sitting on Side/Bed(QC): 4 Sit to Stand (QC): 4 Rollin Roll Left to Right (QC): 4 Chair/Kln-sv-Ltfet Xfer(QC): 4 Car Transfer (QC): 4 Gait (FIM): 4 Distance: 150' Walk 10 feet (QC): 4 Walk 10ft-Uneven Surface(QC): 4 Walk 50ft with 2 Turns (QC): 4 Walk 150 ft (QC): 4 Gait Level of Assist: 4 Gait Assistive Device: FWW Stairs (FIM): 2 # of Steps: 4 1 Step (curb) (QC): 4 4 Steps (QC): 4 PT Plan Problem List Problem List: Activity Tolerance, Functional Strength, Safety, Balance, Gait, Transfer Treatment/Plan Treatment Plan: Continue Plan of Care Treatment Plan: Bed Mobility, Education, Functional Activity Lela, Functional Strength, Gait, Safety, Therapeutic Exercise, Transfers Treatment Duration: Jun 09, 2017 Visits Per Week: 10-11 Minutes/Day (M-F): 60-90 Minutes/Day (Sat/Johnson): 15-30 Safety Risks/Education Patient Education: Transfer Techniques, Correct Positioning, Safety Issues Teaching Recipient: Patient Teaching Methods: Discussion Response to Teaching: Verbalize Understanding Time/GCodes Time In: 1430 Time Out: 1500 Total Billed Treatment Time: 30 Total Billed Treatment visit, EX x2 (30m) FERNANDO VARGAS PTA May 25, 2017 16:24
--- NOTE | 2017-05-25 17:23 | Occupational Ther Daily Note ---
OT Current Status-Daily Note Subjective Pt seen in room, in bed, agreeable to OT and shower. No pain mentioned. Appearance Alert, confused at times Mental Status/Objective Functional [place] Measure 0=Not Assessed/NA 4=Minimal Assistance 1=Total Assistance 5=Supervision or Setup 2=Maximal Assistance 6=Modified [place] 3=Moderate Assistance 7=Complete [place] ADL-Treatment Pt wanted to shower in room and was positive he could walk to the bathroom to shower in his room. He had walked farther than that with PT earlier today. Supine to sit EOB with SBA (pt always wants help). Sit to stand with min assist and walked min assist, FWW to bathroom. Shower transfer mod assist in to shower , mod-max out of shower (due to fatigue and bench is lower than bed). Pt was able to wash and dry all parts with close SBA and supervision and skilled initiation cues. Leaned side to side to wash bottom. Pt seated to wash hair, then helmet reapplied. Shower bench, grab bars, hand held shower. Pt required mod assist to walk back to bed, FWW and impulsively attempted to sit before he was positioned safely. Pt needed mod assist to dress lower body in shower and elected not to don shirt at this time. He was able to move to supine without help but some cues to get positioned. Wile in room, bed alarm on, 4 rails up, telesitter on. Functional [place] Measure 0=Not Assessed/NA 4=Minimal Assistance 1=Total Assistance 5=Supervision or Setup 2=Maximal Assistance 6=Modified [place] 3=Moderate Assistance 7=Complete IndependenceIRFPAI Quality Coding Scale 6 Independent with activity with or without an assistive device 5 Patient requires set up or clean up by helper. Patient completes activity by themselves 4 Supervision or touching assist (CGA). [place] provide cues , steadying assist 3 The helper provides less than half the effort to complete the activity 2 The helper provides more than half the effort to complete the activity 1 Dependent. The helper does all the effort to complete an activity 7 Patient refused to complete or attempt activity 9 The patient did not perform the activity before the current illness or injury 88 Not attempted due to Medical conditions or safety concerns Bathing (FIM): 5 Lower Body Dressing (FIM): 3 Transfers (B, C, W/C) (FIM): 4 Shower Transfer(FIM): 2 Education OT Patient Education: Modified ADL techniques, Purpose of tx/functional activities, Transfer techniques Teaching Recipient: Patient Teaching Methods: Demonstration, Discussion Response to Teaching: Reinforcement Needed OT Short Term Goals Short Term Goals Time Frame: Jun 02, 2017 Grooming(FIM): 5 Upper Body Dressing(FIM): 5 Lower Body Dressing(FIM): 3 Toileting(FIM): 3 Transfers (B,C,W/C) (FIM): 4 Additional Short Term Goals: 2-Verbalize Understanding, 3-ImproveStrength/Lela 1=Demonstrate adherence to instructed precautions during ADL tasks. 2=Patient will verbalize/demonstrate understanding of assistive devices/ modifications for ADL. 3=Patient will improve strength/tolerance for activity to enable patient to perform ADL's. OT Fci Goals Fiberglass Product Tester Goals Time Frame: Jun 16, 2017 Eating (FIM): 6 Eating (QC): 6 Groomin Oral Hygiene (QC): 6 Bathing(FIM): 6 Shower/Bathe Self (QC): 6 Upper Body Dressing(FIM): 6 Upper Body Dressing (QC): 6 Lower Body Dressing(FIM): 6 Lower Body Dressing (QC): 6 On/Off Footwear (QC): 6 Toileting(FIM): 6 Toileting Hygiene (QC): 6 Toilet/Commode Transfer(FIM): 6 Toilet/Commode Transfer (QC): 6 Shower Transfer(FIM): 6 Comprehension(FIM): 5 Expression (FIM): 6 Social Interaction(FIM): 5 Problem Solving(FIM): 4 Memory(FIM): 4 Additional Goals: 2-Verbalize Understanding, 3-ImproveStrength/Lela 1=Demonstrate adherence to instructed precautions during ADL tasks. 2=Patient will verbalize/demonstrate understanding of assistive devices/ modifications for ADL. 3=Patient will improve strength/tolerance for activity to enable patient to perform ADL's. OT Education/Plan Problem List/Assessment Pt would benefit from skilled OT to increase his independence in basic self care to allow him to safely return to his home to live with his and to decrease caregiver burden. Discharge Recommendations Plan/Recommendations: Continue POC Treatment Plan/Plan of Care Patient would benefit from OT for education, treatment and training to promote independence in ADL's, mobility, safety and/or upper extremity function for ADL' s. Plan of Care: ADL Retraining, Caregiver Training, Functional Mobility, Group Exercise/Act as Ind (education, exercise, socialization, funct activities, activity tolerance), UE Funct Exercise/Act, UE Neuromus Re-Ed/Coord, Visual/ Perceptual Retrain Treatment Duration: Jun 16, 2017 Visits Per Week: 10-11 Minutes/Day (M-F): 75-90 Minutes/Day (Sat/Johnson): PRN Agreement: Yes Rehab Potential: Fair Time/GCodes Start Time: 10:15 Stop Time: 11:00 Total Time Billed (hr/min): 45 Billed Treatment Time visit, ADL 45 minutes JED HAN OT May 25, 2017 17:23
[2017-05-25] MEDS: ENOXAPARIN 40 MG/0.4 ML (LOVENOX) SYR SC SCH (17:40)
[2017-05-25] MEDS: ALFUZOSIN HCL 10 MG TAB (UROXATRAL) PO SCH (17:42)
[2017-05-25 19:00] VITALS: BP 105/63
--- NOTE | 2017-05-25 19:48 | PM & R (SOAP) Progress Note ---
Subjective Time Seen by Provider: 07:55 Subjective/Events-last exam Patient was seen in in his room Patient doesnt track well and confusion appears worse.Discussed case with DR Dowling and RN and SW and patients son Patients neurosurgeon in [place] will review films done here with his films and f/u re any further recs.Patient SBA for transfers but has impaired safety judgement and is a fall rsik .Robositter in room. Review of Systems Neurological: Confusion Objective Exam Last Set of Vital Signs Vital Signs Date Time Temp Pulse Resp B/P (MAP) Pulse Ox O2 Delivery O2 Flow Rate FiO2 05/25/17 09:43 95 Room Air 05/25/17 08:40 98.9 78 20 113/84 05/20/17 20:11 2.00 Capillary Refill : I&O Intake and Output 05/25/17 00:00 Intake Total 1350 ml Output Total 1350 ml Balance 0 ml Intake Oral 1350 ml Output Urine Total 1350 ml General: Alert, Cooperative, No Acute Distress HEENT: EOMI, Mucous Memb Moist/[place], Other (Rt Crani site healing well) Neck: Supple, No JVD, Other (decannulated with drssing in place) Lungs: Clear to Auscultation Heart: Regular Rate Abdomen: Normal Bowel Sounds, Soft, No Tenderness Extremities: No Edema Neuro: Other (generalized weakness Mild cognitive impairment) Psych/Mental Status: Other (Confused at times) Results Lab Laboratory Tests 05/22/17 21:00: Glucometer 139H 05/23/17 18:39: Glucometer 101 05/24/17 09:13: White Blood Count 3.0L, Red Blood Count 4.13L, Hemoglobin 12.4L, Hematocrit 38L , Mean Corpuscular Volume 91, Mean Corpuscular Hemoglobin 30, Mean Corpuscular Hemoglobin Concent 33, Red Cell Distribution Width 14.5, Platelet Count 256, Mean Platelet Volume 9.9, Sodium Level 139, Potassium Level 3.2L, Chloride Level 100, Carbon Dioxide Level 28, Anion Gap 11, Blood Urea Nitrogen 12, Creatinine 0.88, Estimat Glomerular Filtration Rate > 60, BUN/Creatinine Ratio 14, Glucose Level 163H, Calcium Level 9.9, Total Bilirubin 0.6, Aspartate Amino Transf (AST/SGOT) 36H, Alanine Aminotransferase (ALT/SGPT) 111H, Alkaline Phosphatase 68, Total Protein 7.0, Albumin 3.5 Assessment/Plan Assessment Rt SDH s/p evacuation with gait imbalance Blurred vision S/P Trach-decannulation 05/21/17 S/P feeding tube now on po feeds HTN controlled Dysphagia improved Fall no injury sustained Progressive confusion Hypokalemia Plan Continue PT/OT/ST F/U with DR Turcios PRN=Appreciate his note F/U with DR Dowling as per his schedule Appreciate current labs Team Conference tomorrow 05/26/17 Alarmbot( ramana) for patients protection Replace K F/U with DR Jessica mistry Neurosurgeon in [facility] SHAHZAD Crain MD May 25, 2017 19:48
[2017-05-25] MEDS: POLYETHYLENE GLYCOL 17 GM (MIRALAX) PACK GT SCH (20:41)
[2017-05-26 06:01] VITALS: BP 106/63
[2017-05-26] MEDS: OMEGA 3 (FISH OIL) 1000 MG CAP PO SCH ×2 (06:20→07:59)
[2017-05-26] MEDS: LEVOTHYROXINE 125 MCG (LEVOTHROID) TABLET GT SCH (06:20)
[2017-05-26] MEDS: MULTIVIT W/MINERALS TAB (THERAGRAN M) GT SCH (06:20)
[2017-05-26] MEDS: KCL 10 MEQ TAB (MICRO K) PO SCH (06:20)
[2017-05-26] MEDS: CARVEDILOL 12.5 MG (COREG) TABLET GT SCH ×2 (07:59→20:59)
[2017-05-26] MEDS: guaiFENesin (MUCINEX) 600 MG TAB PO SCH ×2 (07:59→20:58)
[2017-05-26] MEDS: cloNIDine 0.1 MG (CATAPRES) TAB GT SCH ×3 (07:59→21:00)
[2017-05-26] MEDS: amLODIPine 5 MG (NORVASC) TAB GT SCH (07:59)
[2017-05-26] MEDS: FAMOTIDINE 20 MG (PEPCID) TABLET GT SCH ×2 (08:00→21:00)
[2017-05-26] MEDS: FUROSEMIDE 40 MG (LASIX) TAB GT SCH (08:00)
[2017-05-26] MEDS: LACTOBACILLUS Acidoph/Bulgar (LACTINEX/FLORANEX) TAB PEG SCH ×2 (08:00→20:58)
[2017-05-26] MEDS: DOCUSATE SODIUM 100 MG (COLACE) CAP PO SCH ×2 (08:00→20:59)
[2017-05-26] MEDS: hydrALAZINE (APRESOLINE) 25 MG TAB GT SCH ×3 (08:00→20:59)
[2017-05-26] MEDS: LEVETIRACETAM 500 MG (KEPPRA) TAB PO SCH ×2 (08:00→21:00)
--- NOTE | 2017-05-26 08:31 | Progress Note (SOAP) ---
Subjective Time Seen by Provider: 08:30 Subjective/Events-last exam patient is confused today. Patient Thinks he is in [place] Patient feels he has a shop 30 feet from his bed. Objective Exam Vital Signs Date Time Temp Pulse Resp B/P (MAP) Pulse Ox O2 Delivery O2 Flow Rate FiO2 05/26/17 06:01 98.3 69 16 106/63 94 Room Air 05/25/17 20:45 Room Air 05/25/17 19:00 98.6 68 16 105/63 92 Room Air 05/25/17 18:59 Room Air 05/25/17 09:43 95 Room Air 05/25/17 09:00 Room Air 05/25/17 08:40 98.9 78 20 113/84 95 Room Air I & O 05/26/17 07:00 Intake Total 1200 ml Output Total 875 ml Balance 325 ml Capillary Refill : General Appearance: No Apparent Distress, WD/WN, Other (Confusion) HEENT: Normal ENT Inspection Neck: Full Range of Motion, Normal Inspection Respiratory: No Accessory Muscle Use, No Respiratory Distress Assessment/Plan Assessment/Plan Assess & Plan/Chief Complaint debility. Trach. PEG tube. Subdural hematoma. Coronary artery disease. . 05/21/17. Debility. Trach. PEG tube. SUBDURAL HEMATOMA. . 05/24/17. Debility. Trach. PEG tube. subdural hematoma. Patient confused and hallucinating.. . 05/25/17. Debility. Trach removed. Subdural hematoma.. patient has confusion. Spoke to son Luis about dad . 05/26/17. Debility. Confusion. coronary artery disease. Subdural hematoma Clinical Quality Measures DVT/VTE Risk/Contraindication: Risk Factor Score Per Nursin RFS Level Per Nursing on Admit: 4+=Very High JR FUENTES DO May 26, 2017 08:31
--- NOTE | 2017-05-26 08:48 | PM & R (SOAP) Progress Note ---
Subjective Time Seen by Provider: 08:40 Subjective/Events-last exam Patient was seen in his room with ST Quite confused but nonagiated Discussed case with Dr Nitesh Khan Neurosurgery in [place] to review our CT scan and DR Contreras to compare their films here.Patient SBA for transfers Objective Exam Last Set of Vital Signs Vital Signs Date Time Temp Pulse Resp B/P (MAP) Pulse Ox O2 Delivery O2 Flow Rate FiO2 05/26/17 06:01 98.3 69 16 106/63 94 Room Air 05/20/17 20:11 2.00 Capillary Refill : I&O Intake and Output 05/26/17 00:00 Intake Total 700 ml Output Total 575 ml Balance 125 ml Intake Oral 700 ml Output Urine Total 575 ml # Bowel Movements 2 General: Alert, Cooperative, No Acute Distress HEENT: EOMI, Mucous Memb Moist/[place], Other (Rt Crani site healing well) Neck: Supple, No JVD, Other (decannulated with drssing in place) Lungs: Clear to Auscultation Heart: Regular Rate Abdomen: Normal Bowel Sounds, Soft, No Tenderness Extremities: No Edema Neuro: Other (generalized weakness Mild cognitive impairment) Psych/Mental Status: Other (Confused at times) Results Lab Laboratory Tests 05/23/17 18:39: Glucometer 101 05/24/17 09:13: White Blood Count 3.0L, Red Blood Count 4.13L, Hemoglobin 12.4L, Hematocrit 38L , Mean Corpuscular Volume 91, Mean Corpuscular Hemoglobin 30, Mean Corpuscular Hemoglobin Concent 33, Red Cell Distribution Width 14.5, Platelet Count 256, Mean Platelet Volume 9.9, Sodium Level 139, Potassium Level 3.2L, Chloride Level 100, Carbon Dioxide Level 28, Anion Gap 11, Blood Urea Nitrogen 12, Creatinine 0.88, Estimat Glomerular Filtration Rate > 60, BUN/Creatinine Ratio 14, Glucose Level 163H, Calcium Level 9.9, Total Bilirubin 0.6, Aspartate Amino Transf (AST/SGOT) 36H, Alanine Aminotransferase (ALT/SGPT) 111H, Alkaline Phosphatase 68, Total Protein 7.0, Albumin 3.5 Assessment/Plan Assessment Rt SDH s/p evacuation with gait imbalance Blurred vision S/P Trach-decannulation 05/21/17 S/P feeding tube now on po feeds HTN controlled Dysphagia improved Fall no injury sustained Post-op confusion Hypokalemia-replaced Plan Continue PT/OT/ST F/U with DR Turcios PRN=Appreciate his note F/U with DR Dowling as per his schedule Appreciate current labs Alarmbot( robositter) for patients protection Replaced K F/U with DR Jessica mistry Neurosurgeon in [facility] Consult [facility] Check TSH See orders Team Conference to be held later today See report for full functional update and POC SHAHZAD BARROW MD May 26, 2017 08:48
[2017-05-26] MEDS: BETAMETHASONE/CLOTRIM CREAM (LOTRISONE) 45 GM TP SCH ×2 (09:00→19:29)
[2017-05-26] MEDS: ARTIFICIAL TEARS OINT (LACRI-LUBE) 3.5 GM TUBE OU SCH ×2 (09:00→21:00)
[2017-05-26] MEDS ORDERED: ARTIFICAL TEARS 0.4 ML UNIT DOSE (REFRESH PLUS) ONE (11:06)
--- NOTE | 2017-05-26 11:24 | Speech Therapy Daily Note ---
Speech Daily Progress Note Subjective Date Seen by Provider: May 26, 2017 Time Seen by Provider: 08:30 The patient was seated upright in bed for the treatment session. The patient greeted the clinician (by name) and was agreeable to participation in the cognitive treatment session. The patient refused to place helmet on for the clinician. Objective The patient continues to demonstrate increased confusion, poor topic maintenance , impulsivity, and poor safety awareness. The patient required frequent redirection to task and topic, as well as, consistent cues throughout the session for safety recall. - Solving Daily Math Problems: The patient was asked to complete daily simple math problems, such as, figuring a tip, deciding when property taxes were due, paying bills, etc. The patient demonstrated great difficulty with this task, requiring increased time for completion, as well as, frequent repetition of the question by the clinician. The patient stated he was unable to read due to "double vision," however, consistently read the question accurately to the clinician. With the use of pen and paper, the patient demonstrated 64% accuracy with maximum clinician cueing. - Orientation: The patient was oriented to month, year, day of week, and city. The patient continues to state he does not believe he is at [facility] , he is in the middle of [facility] at his home. Assessment Assessment Current Status: Poor Progress Treatment Plan Continue Plan of Care Communication Comprehension: 2 Expression: 3 Social Cognition Social Interaction: 3 Problem Solvin Memory: 2 Speech Short Term Goals Short Term Goals Short Term Goals 1. The patient will demonstrate 90% accuracy with simple orientation information with mild clinician verbal prompting. 2. The patient will remain on task for a duration of five minutes with minimal clinician verbal prompting/redirection. 3. The patient will demonstrate adequate sequencing and recall of ADL procedures with 90% accuracy and mild clinician cueing. Time Frame-ST days Speech Halfway Goals Halfway Goals 1. The patient will demonstrate improved cognitive linguistic skills for increased function and safety with ADL's in the least restrictive setting. Time Frame: Two Weeks Comprehension: 5 Expression: 6 Social Interaction: 5 Problem Solvin Memory: 4 Speech-Plan Treatment Plan Speech Therapy Treatment Plan: Continue Plan of Care Continue skilled speech pathology to target safety problem solving and increased attention. Treatment Duration: Jun 03, 2017 # of days/week Five. Visits Per Week: Five. Minutes/Day (M-F): 30 Rehab Potential: Fair Safety Risks/Education Teaching Recipient: Patient Teaching Methods: Discussion Response to Teaching: Reinforcement Needed Education Topics Provided: Orientation Strategies Time Speech Therapy Time In: 08:30 Speech Therapy Time Out: 09:00 Total Billed Time: 30 Billed Treatment Time SONNY Nuno ELIZABETH ST May 26, 2017 11:24
--- NOTE | 2017-05-26 11:34 | Physical Therapy Daily Note ---
PT Daily Note-Current Subjective Patient in wheelchair pre tx, just got through with OT, in gym. Patient has no complaints of pain. Appearance Patient in wheelchair post tx, behavioral health came to see him so I have to hand him off to her for now. Mental Status Patient Orientation: Confused helmet Transfers Functional [place] Measure 0=Not Assessed/NA 4=Minimal Assistance 1=Total Assistance 5=Supervision or Setup 2=Maximal Assistance 6=Modified [place] 3=Moderate Assistance 7=Complete IndependenceIRFPAI Quality Coding Scale 6 Independent with activity with or without an assistive device 5 Patient requires set up or clean up by helper. Patient completes activity by themselves 4 Supervision or touching assist (CGA). [place] provide cues , steadying assist 3 The helper provides less than half the effort to complete the activity 2 The helper provides more than half the effort to complete the activity 1 Dependent. The helper does all the effort to complete an activity 7 Patient refused to complete or attempt activity 9 The patient did not perform the activity before the current illness or injury 88 Not attempted due to Medical conditions or safety concerns Transfers (B, C, W/C) (FIM): 4 Sit to/from Stand: 4 (CGA) Bed to/from Chair: 4 (CGA) cues for safety and hand placement Gait Training Gait (FIM): 2 Distance: 120' Gait Level of Assist: 4 Gait Persons Needed: 1 Gait Assistive Device: FWW Patient ambulated 120' with a rolling walker with CGA and cues for safety, wheelchair follow. Wheelchair Training Patient had a different wheelchair so I got him a new seat cushion. Treatments transfers, ambulation Assessment Current Status: Fair Progress improved endurance. Patient has poor safety awareness, he has a pair of [place] crutches that apparently his brought and he wants to use them. PT Short Term Goals Short Term Goals Time Frame: May 26, 2017 Transfers (B,C,W/C) (FIM): 4 Gait (FIM): 2 Gait Distance Comment: 50' Gait Level of Assist: 4 Gait Assistive Device: FWW Wheelchair Distance: 100' PT Fixture Relamper Goals Fixture Relamper Goals PT Fixture Relamper Goals Time Frame: Jun 09, 2017 Transfers (B,C,W/C) (FIM): 4 Sit to Lying (QC): 4 Lying-Sitting on Side/Bed(QC): 4 Sit to Stand (QC): 4 Rollin Roll Left to Right (QC): 4 Chair/Xfc-ke-Zmyjl Xfer(QC): 4 Car Transfer (QC): 4 Gait (FIM): 4 Distance: 150' Walk 10 feet (QC): 4 Walk 10ft-Uneven Surface(QC): 4 Walk 50ft with 2 Turns (QC): 4 Walk 150 ft (QC): 4 Gait Level of Assist: 4 Gait Assistive Device: FWW Stairs (FIM): 2 # of Steps: 4 1 Step (curb) (QC): 4 4 Steps (QC): 4 PT Plan Problem List Problem List: Activity Tolerance, Functional Strength, Safety, Balance, Gait, Transfer, Bed Mobility Treatment/Plan Treatment Plan: Continue Plan of Care Treatment Plan: Bed Mobility, Education, Functional Activity Lela, Functional Strength, Gait, Safety, Therapeutic Exercise, Transfers Treatment Duration: Jun 09, 2017 Visits Per Week: 10-11 Minutes/Day (M-F): 60-90 Minutes/Day (Sat/Johnson): 15-30 Safety Risks/Education Patient Education: Gait Training, Transfer Techniques, Safety Issues Teaching Recipient: Patient Teaching Methods: Demonstration, Discussion Response to Teaching: Reinforcement Needed Time/GCodes Time In: 1100 Time Out: 1115 Total Billed Treatment Time: 15 Total Billed Treatment 1 visit GT 15' JOSÉ MANUEL WHEELER PT May 26, 2017 11:34
--- NOTE | 2017-05-26 12:50 | Physical Therapy Daily Note ---
PT Daily Note-Current Subjective Patient pre tx, trying to get back into bed and his is trying to stop him. He just got through with behavioral health. Patient has no complaints of pain. Appearance Patient in bed post tx, has nurse call, phone, tray, all needs met. Mental Status Patient Orientation: Person, Confused Attachments: PEG Tube helmet Transfers Functional [place] Measure 0=Not Assessed/NA 4=Minimal Assistance 1=Total Assistance 5=Supervision or Setup 2=Maximal Assistance 6=Modified [place] 3=Moderate Assistance 7=Complete IndependenceIRFPAI Quality Coding Scale 6 Independent with activity with or without an assistive device 5 Patient requires set up or clean up by helper. Patient completes activity by themselves 4 Supervision or touching assist (CGA). [place] provide cues , steadying assist 3 The helper provides less than half the effort to complete the activity 2 The helper provides more than half the effort to complete the activity 1 Dependent. The helper does all the effort to complete an activity 7 Patient refused to complete or attempt activity 9 The patient did not perform the activity before the current illness or injury 88 Not attempted due to Medical conditions or safety concerns Transfers (B, C, W/C) (FIM): 4 Scootin Rollin Supine to/from Sit: 5 Sit to/from Stand: 4 Bed to/from Chair: 4 Gait Training Gait (FIM): 4 Distance: 200' Gait Level of Assist: 4 Gait Persons Needed: 1 Gait Assistive Device: FWW CGA, wheelchair follow Exercises Standing: Mini squats Standing Reps: 10 LAQ alternating for 5 min Treatments bed mobility and transfers, ambulation, functional strengthening Assessment Current Status: Fair Progress improving endurance, still poor motivation, a lot of time is spent just trying to get the patient to participate, poor safety awareness PT Short Term Goals Short Term Goals Time Frame: May 26, 2017 Transfers (B,C,W/C) (FIM): 4 Gait (FIM): 2 Gait Distance Comment: 50' Gait Level of Assist: 4 Gait Assistive Device: FWW Wheelchair Distance: 100' PT Assisted Goals Substance Abuse Nurse Goals PT Assisted Goals Time Frame: Jun 09, 2017 Transfers (B,C,W/C) (FIM): 4 Sit to Lying (QC): 4 Lying-Sitting on Side/Bed(QC): 4 Sit to Stand (QC): 4 Rollin Roll Left to Right (QC): 4 Chair/[id number] Xfer(QC): 4 Car Transfer (QC): 4 Gait (FIM): 4 Distance: 150' Walk 10 feet (QC): 4 Walk 10ft-Uneven Surface(QC): 4 Walk 50ft with 2 Turns (QC): 4 Walk 150 ft (QC): 4 Gait Level of Assist: 4 Gait Assistive Device: FWW Stairs (FIM): 2 # of Steps: 4 1 Step (curb) (QC): 4 4 Steps (QC): 4 PT Plan Problem List Problem List: Activity Tolerance, Functional Strength, Safety, Balance, Gait, Transfer, Bed Mobility Treatment/Plan Treatment Plan: Continue Plan of Care Treatment Plan: Bed Mobility, Education, Functional Activity Lela, Functional Strength, Gait, Safety, Therapeutic Exercise, Transfers Treatment Duration: Jun 09, 2017 Visits Per Week: 10-11 Minutes/Day (M-F): 60-90 Minutes/Day (Sat/Johnson): 15-30 Safety Risks/Education Patient Education: Gait Training, Transfer Techniques, Safety Issues Teaching Recipient: Patient Teaching Methods: Demonstration, Discussion Response to Teaching: Reinforcement Needed Time/GCodes Time In: 1135 Time Out: 1205 Total Billed Treatment Time: 30 Total Billed Treatment 1 visit GT 20' EX 10' JOSÉ MANUEL WHEELER PT May 26, 2017 12:50
--- NOTE | 2017-05-26 12:59 | Occupational Ther Daily Note ---
OT Current Status-Daily Note Mental Status/Objective Functional [place] Measure 0=Not Assessed/NA 4=Minimal Assistance 1=Total Assistance 5=Supervision or Setup 2=Maximal Assistance 6=Modified [place] 3=Moderate Assistance 7=Complete [place] ADL-Treatment Discussion with patient and his that she needs to be able to manage him in order to take him home, not just physically but behaviorally. Pt does ADLs best if verbally plan tasks before doing them, such as get dressed, get up in w/c, brush teeth. Pt acknowledges that he was impulsive before surgery and is even more now. Pt transported per w/c to gym and started fine motor activity before care transferred to PT. Functional [place] Measure 0=Not Assessed/NA 4=Minimal Assistance 1=Total Assistance 5=Supervision or Setup 2=Maximal Assistance 6=Modified [place] 3=Moderate Assistance 7=Complete IndependenceIRFPAI Quality Coding Scale 6 Independent with activity with or without an assistive device 5 Patient requires set up or clean up by helper. Patient completes activity by themselves 4 Supervision or touching assist (CGA). Gird[place] provide cues , steadying assist 3 The helper provides less than half the effort to complete the activity 2 The helper provides more than half the effort to complete the activity 1 Dependent. The helper does all the effort to complete an activity 7 Patient refused to complete or attempt activity 9 The patient did not perform the activity before the current illness or injury 88 Not attempted due to Medical conditions or safety concerns Grooming (FIM): 5 (Supervision, seated in w/c at sink. Pt sequenced task correctly, able to squeeze toothpaste) Lower Body Dressing (FIM): 5 (Pt put slacks on in bed, pulling them up over hips, rolled and bridging as needed. Unable to put socks on in bed but sat EOB, leaned forward to get socks over toes, then crossed legs to get them up ( struggled a little)) Transfers (B, C, W/C) (FIM): 4 (CGA, FWW. from bed to w/c. Bed elevated) Education OT Patient Education: Modified ADL techniques, Purpose of tx/functional activities, Transfer techniques Teaching Recipient: Patient, Significant Other () Response to Teaching: Reinforcement Needed OT Short Term Goals Short Term Goals Time Frame: Jun 02, 2017 Grooming(FIM): 5 Upper Body Dressing(FIM): 5 Lower Body Dressing(FIM): 3 Toileting(FIM): 3 Transfers (B,C,W/C) (FIM): 4 Additional Short Term Goals: 2-Verbalize Understanding, 3-ImproveStrength/Lela 1=Demonstrate adherence to instructed precautions during ADL tasks. 2=Patient will verbalize/demonstrate understanding of assistive devices/ modifications for ADL. 3=Patient will improve strength/tolerance for activity to enable patient to perform ADL's. OT Deck Engineer Goals Deck Engineer Goals Time Frame: Jun 16, 2017 Eating (FIM): 6 Eating (QC): 6 Groomin Oral Hygiene (QC): 6 Bathing(FIM): 6 Shower/Bathe Self (QC): 6 Upper Body Dressing(FIM): 6 Upper Body Dressing (QC): 6 Lower Body Dressing(FIM): 6 Lower Body Dressing (QC): 6 On/Off Footwear (QC): 6 Toileting(FIM): 6 Toileting Hygiene (QC): 6 Toilet/Commode Transfer(FIM): 6 Toilet/Commode Transfer (QC): 6 Shower Transfer(FIM): 6 Comprehension(FIM): 5 Expression (FIM): 6 Social Interaction(FIM): 5 Problem Solving(FIM): 4 Memory(FIM): 4 Additional Goals: 2-Verbalize Understanding, 3-ImproveStrength/Lela 1=Demonstrate adherence to instructed precautions during ADL tasks. 2=Patient will verbalize/demonstrate understanding of assistive devices/ modifications for ADL. 3=Patient will improve strength/tolerance for activity to enable patient to perform ADL's. OT Education/Plan Problem List/Assessment Pt would benefit from skilled OT to increase his independence in basic self care to allow him to safely return to his home to live with his and to decrease caregiver burden. Discharge Recommendations Plan/Recommendations: Continue POC Treatment Plan/Plan of Care Patient would benefit from OT for education, treatment and training to promote independence in ADL's, mobility, safety and/or upper extremity function for ADL' s. Plan of Care: ADL Retraining, Caregiver Training, Functional Mobility, Group Exercise/Act as Ind (education, exercise, socialization, funct activities, activity tolerance), UE Funct Exercise/Act, UE Neuromus Re-Ed/Coord, Visual/ Perceptual Retrain Treatment Duration: Jun 16, 2017 Visits Per Week: 10-11 Minutes/Day (M-F): 75-90 Minutes/Day (Sat/Johnson): PRN Agreement: Yes Rehab Potential: Fair Time/GCodes Start Time: 10:15 Stop Time: 11:00 Total Time Billed (hr/min): 45 Billed Treatment Time visit, 40 minutes ADL, 5 minutes neuromotor JED HAN OT May 26, 2017 12:59
--- NOTE | 2017-05-26 15:06 | Therapy Group Daily Note ---
Therapy Daily Group Note Patient Education Topic Other List Below Exercises LE Seated Exercise, UE Exercise Other/Notes Prior to group, OT talked with patient about specific goals for group - to be able to be up out of his room and participate for an hour, to walk to and from group and to socialize appropriately with other members of the group. He walked from his room to group with CGA, FWW and skilled cues for walker placement. During group, he introduced himself by naming his favorite summertime activity and then later recalled activities of other participants. He participated in group education/discussion on memory strategies and was able to identify one strategy that he uses successfully. He was able to be up for an hour, walked to and from group and behaved appropriately throughout group, displaying his sense of humor. He was able to stay awake throughout but closed his eyes briefly a couple of times. He walked back to his room after the hour, with CGA and skilled cues to keep walker closer to him. He got back into bed with SBA, took helmet off in bed, was left with 4 rails up and bed alarm on, all needs met. Start Time: 13:00 Stop Time: 14:00 Total Billed Treatment Time: 60 Total Billed Treatment visit, 60 minutes group JED HAN OT May 26, 2017 15:06
[2017-05-26 18:00] VITALS: BP 114/70
[2017-05-26] MEDS: ALFUZOSIN HCL 10 MG TAB (UROXATRAL) PO SCH (18:36)
[2017-05-26] MEDS: ENOXAPARIN 40 MG/0.4 ML (LOVENOX) SYR SC SCH (18:36)
[2017-05-26] MEDS: POLYETHYLENE GLYCOL 17 GM (MIRALAX) PACK GT SCH (19:29)
[2017-05-27] MEDS: MULTIVIT W/MINERALS TAB (THERAGRAN M) GT SCH (05:58)
[2017-05-27] MEDS: OMEGA 3 (FISH OIL) 1000 MG CAP PO SCH ×2 (05:58→16:54)
[2017-05-27] MEDS: KCL 10 MEQ TAB (MICRO K) PO SCH (05:59)
[2017-05-27] MEDS: LEVOTHYROXINE 125 MCG (LEVOTHROID) TABLET GT SCH (05:59)
[2017-05-27 06:14] LABS: ALANINE AMINOTRANSFERASE 74 U/L (0-55); ALBUMIN 3.4 GM/DL (3.2-4.5); ANION GAP 11 MMOL/L (5-14); ASPARTATE AMINO TRANSFERASE 19 U/L (5-34); BILIRUBIN,TOTAL 0.5 MG/DL (0.1-1.0); BLOOD UREA NITROGEN 12 MG/DL (7-18); BUN/CREATININE RATIO 17; CALCIUM 9.4 MG/DL (8.5-10.1); CARBON DIOXIDE 25 MMOL/L (21-32); CHLORIDE 104 MMOL/L (98-107); CREATININE SERUM 0.72 MG/DL (0.60-1.30); GFR ESTIMATED > 60; GLUCOSE 95 MG/DL (70-105); POTASSIUM 3.5 MMOL/L (3.6-5.0); SODIUM 140 MMOL/L (135-145); TOTAL PROTEIN 6.4 GM/DL (6.4-8.2)
[2017-05-27 06:22] VITALS: BP 122/77
--- NOTE | 2017-05-27 08:24 | Progress Note (SOAP) ---
Subjective Time Seen by Provider: 08:15 Subjective/Events-last exam patient talked about 2 houses in [facility] in 1 has in [place] that looks like. Coronary artery disease. Debility. Objective Exam Vital Signs Date Time Temp Pulse Resp B/P (MAP) Pulse Ox O2 Delivery O2 Flow Rate FiO2 05/27/17 06:22 99.6 59 20 122/77 93 Room Air 05/26/17 21:24 Room Air 05/26/17 18:00 98.4 65 20 114/70 96 Room Air 05/26/17 09:00 Room Air I & O 05/27/17 07:00 Intake Total 900 ml Output Total 1450 ml Balance -550 ml Capillary Refill : General Appearance: No Apparent Distress, WD/WN Neck: Normal Inspection Results Lab Laboratory Tests 05/26/17 08:54: Thyroid Stimulating Hormone (TSH) 1.82 05/27/17 05:46: Sodium Level 140, Potassium Level 3.5L, Chloride Level 104, Carbon Dioxide Level 25, Anion Gap 11, Blood Urea Nitrogen 12, Creatinine 0.72, Estimat Glomerular Filtration Rate > 60, BUN/Creatinine Ratio 17, Glucose Level 95, Calcium Level 9.4, Total Bilirubin 0.5, Aspartate Amino Transf (AST/SGOT) 19, Alanine Aminotransferase (ALT/SGPT) 74H, Alkaline Phosphatase 59, Total Protein 6.4, Albumin 3.4 Assessment/Plan Assessment/Plan Assess & Plan/Chief Complaint debility. Trach. PEG tube. Subdural hematoma. Coronary artery disease. . 05/21/17. Debility. Trach. PEG tube. SUBDURAL HEMATOMA. . 05/24/17. Debility. Trach. PEG tube. subdural hematoma. Patient confused and hallucinating.. . 05/25/17. Debility. Trach removed. Subdural hematoma.. patient has confusion. Spoke to son Luis about dad . 05/26/17. Debility. Confusion. coronary artery disease. Subdural hematoma. . 05/27/17 debility. Confusion. Coronary artery disease. Subdural hematoma Clinical Quality Measures DVT/VTE Risk/Contraindication: Risk Factor Score Per Nursin RFS Level Per Nursing on Admit: 4+=Very High JR FUENTES DO May 27, 2017 08:24
[2017-05-27] MEDS ORDERED: KCL 10 MEQ TAB (MICRO K) PO ONE (08:30)
--- NOTE | 2017-05-27 08:53 | PM & R (SOAP) Progress Note ---
Subjective Time Seen by Provider: 08:15 Subjective/Events-last exam Patient was seen in his room this AM More appropriate and less confused Discussed with Dr Dowling who agrees Dr Rahman Radiolgy to compare outside CT head images and compare to ours done at a later time.St indicates that patient also doing better less concused and cognition improving Patient min assist for transfers Objective Exam Last Set of Vital Signs Vital Signs Date Time Temp Pulse Resp B/P (MAP) Pulse Ox O2 Delivery O2 Flow Rate FiO2 05/27/17 06:22 99.6 59 20 122/77 93 Room Air Capillary Refill : I&O Intake and Output 05/27/17 00:00 Intake Total 1300 ml Output Total 1250 ml Balance 50 ml Intake Oral 1300 ml Output Urine Total 1250 ml General: Alert, Cooperative, No Acute Distress HEENT: EOMI, Mucous Memb Moist/[place], Other (Rt Crani site healing well) Neck: Supple, No JVD, Other (decannulated with drssing in place) Lungs: Clear to Auscultation Heart: Regular Rate Abdomen: Normal Bowel Sounds, Soft, No Tenderness Extremities: No Edema Neuro: Other (generalized weakness Mild cognitive impairment) Psych/Mental Status: Other (Confused at times) Results Lab Laboratory Tests 05/24/17 09:13: White Blood Count 3.0L, Red Blood Count 4.13L, Hemoglobin 12.4L, Hematocrit 38L , Mean Corpuscular Volume 91, Mean Corpuscular Hemoglobin 30, Mean Corpuscular Hemoglobin Concent 33, Red Cell Distribution Width 14.5, Platelet Count 256, Mean Platelet Volume 9.9, Sodium Level 139, Potassium Level 3.2L, Chloride Level 100, Carbon Dioxide Level 28, Anion Gap 11, Blood Urea Nitrogen 12, Creatinine 0.88, Estimat Glomerular Filtration Rate > 60, BUN/Creatinine Ratio 14, Glucose Level 163H, Calcium Level 9.9, Total Bilirubin 0.6, Aspartate Amino Transf (AST/SGOT) 36H, Alanine Aminotransferase (ALT/SGPT) 111H, Alkaline Phosphatase 68, Total Protein 7.0, Albumin 3.5 05/26/17 08:54: Thyroid Stimulating Hormone (TSH) 1.82 05/27/17 05:46: Sodium Level 140, Potassium Level 3.5L, Chloride Level 104, Carbon Dioxide Level 25, Anion Gap 11, Blood Urea Nitrogen 12, Creatinine 0.72, Estimat Glomerular Filtration Rate > 60, BUN/Creatinine Ratio 17, Glucose Level 95, Calcium Level 9.4, Total Bilirubin 0.5, Aspartate Amino Transf (AST/SGOT) 19, Alanine Aminotransferase (ALT/SGPT) 74H, Alkaline Phosphatase 59, Total Protein 6.4, Albumin 3.4 Assessment/Plan Assessment Rt SDH s/p evacuation with gait imbalance Blurred vision S/P Trach-decannulation 05/21/17 S/P feeding tube now on po feeds HTN controlled Dysphagia improved Fall no injury sustained Post-op confusion-improving Hypokalemia-replaced Plan Continue PT/OT/ST F/U with DR Turcios PRN=Appreciate his note F/U with DR Dowling as per his schedule Appreciate current labs Alarmbot( robositter) for patients protection Replaced K F/U with DR Jessica mistry Neurosurgeon in [facility] and DR rahman Radiology here for comparison of CT images Consult [facility]-done Checked TSH-WNL See orders Team Conference held yesterday See report for full functional update and POC Patients delirium appears to be much improved SHAHZAD BARROW MD May 27, 2017 08:53
[2017-05-27] MEDS: guaiFENesin (MUCINEX) 600 MG TAB PO SCH ×2 (09:22→20:58)
[2017-05-27] MEDS: FUROSEMIDE 40 MG (LASIX) TAB GT SCH (09:23)
[2017-05-27] MEDS: DOCUSATE SODIUM 100 MG (COLACE) CAP PO SCH ×2 (09:23→20:58)
[2017-05-27] MEDS: amLODIPine 5 MG (NORVASC) TAB GT SCH (09:23)
[2017-05-27] MEDS: FAMOTIDINE 20 MG (PEPCID) TABLET GT SCH ×2 (09:23→21:00)
[2017-05-27] MEDS: cloNIDine 0.1 MG (CATAPRES) TAB GT SCH ×3 (09:23→20:58)
[2017-05-27] MEDS: LEVETIRACETAM 500 MG (KEPPRA) TAB PO SCH ×2 (09:23→20:58)
[2017-05-27] MEDS: hydrALAZINE (APRESOLINE) 25 MG TAB GT SCH ×3 (09:23→20:59)
[2017-05-27] MEDS: LACTOBACILLUS Acidoph/Bulgar (LACTINEX/FLORANEX) TAB PEG SCH ×2 (09:23→20:58)
[2017-05-27] MEDS: CARVEDILOL 12.5 MG (COREG) TABLET GT SCH ×2 (09:23→20:58)
[2017-05-27] MEDS: BETAMETHASONE/CLOTRIM CREAM (LOTRISONE) 45 GM TP SCH ×2 (09:26→21:00)
--- NOTE | 2017-05-27 09:53 | Speech Therapy Daily Note ---
Speech Daily Progress Note Subjective Date Seen by Provider: May 27, 2017 Time Seen by Provider: 08:20 The patient was laying in bed upon entrance. The patient greeted the clinician ( by name) and was agreeable to participation in the cognitive treatment session. The patient politely refused to wear the helmet that was present. Objective - Orientation: The patient remains oriented to simple information (month, day of the week, year), as well as, was able to state his physical location was [place] (first time patient has been able to state his location throughout his stay). The patient stated his was able to clarify his confusion surrounding the GPS, however, his retelling of his explanation continues to demonstrate confusion. The patient additionally recalled his phone call to the Psychodramatist's office and was able to accurately recall why he was confused during the interaction. - Safety Awareness: As the patient consistently requests to leave the Rehabilitation floor and return home, safety precautions and procedures at home were discussed (as well as, barriers to current discharge). The patient stated his confusion was "probably keeping him here." The patient and clinician reviewed his physical strength and the necessity of the patient being able to care for himself (transfer, toilet, dress) for discharge home (per statement). The patient continued to state that there was "zero barriers" to safety at home (poor insight). With moderate clinician verbal prompting, the patient was able to identify safety concerns with his "shop space." The patient stated he has several items on the floor that he will need to organize to avoid tripping and falling. Additionally, the patient was able to identify specific items in the kitchen that are helpful to safe cooking routines, including an induction burner and a freezer located at eye level to avoid bending down to reach for items. Assessment Assessment Current Status: Poor Progress Treatment Plan Continue Plan of Care Communication Comprehension: 2 Expression: 3 Social Cognition Social Interaction: 3 Problem Solvin Memory: 2 Speech Short Term Goals Short Term Goals Short Term Goals 1. The patient will demonstrate 90% accuracy with simple orientation information with mild clinician verbal prompting. 2. The patient will remain on task for a duration of five minutes with minimal clinician verbal prompting/redirection. 3. The patient will demonstrate adequate sequencing and recall of ADL procedures with 90% accuracy and mild clinician cueing. Time Frame-ST days Speech Lathe Setup Operator Goals Prison Goals 1. The patient will demonstrate improved cognitive linguistic skills for increased function and safety with ADL's in the least restrictive setting. Time Frame: Two Weeks Comprehension: 5 Expression: 6 Social Interaction: 5 Problem Solvin Memory: 4 Speech-Plan Treatment Plan Speech Therapy Treatment Plan: Continue Plan of Care Continue skilled speech pathology to target functional problem solving, improved attention, and increased safety awareness. Treatment Duration: Jun 03, 2017 # of days/week Five. Visits Per Week: Five. Minutes/Day (M-F): 30 Rehab Potential: Fair Safety Risks/Education Teaching Recipient: Patient Teaching Methods: Discussion Response to Teaching: Reinforcement Needed Education Topics Provided: Safety Awareness Time Speech Therapy Time In: 08:20 Speech Therapy Time Out: 08:50 Total Billed Time: 30 Billed Treatment Time 1SON[address] EL[address] ST May 27, 2017 09:53
[2017-05-27] MEDS: ARTIFICIAL TEARS OINT (LACRI-LUBE) 3.5 GM TUBE OU SCH ×2 (10:24→21:00)
--- NOTE | 2017-05-27 10:45 | Occupational Ther Daily Note ---
OT Current Status-Daily Note Subjective Pt seen in room, up in bed, agreeable to OT. Pt argues about wearing helmet but responds well to matter of fact explanations. Appearance Pt became confused at the end of tx, talking about having a plank and several boxes in his chest, from building and experiments he did in college. He assured OT that it would be visible in his x rays. 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 Mental Status/Objective Functional [place] Measure 0=Not Assessed/NA 4=Minimal Assistance 1=Total Assistance 5=Supervision or Setup 2=Maximal Assistance 6=Modified [place] 3=Moderate Assistance 7=Complete [place] ADL-Treatment Pt was able to move from supine to sit EOB with SBA and skilled cues for technique (he struggled a little). Sit to stand with min assist. Walked with min assist (help steering FWW), to bathroom. Pt was able to get on low toilet with min assist (cues to use grab bar) but needed mod-max assistance to get off toilet (has difficulty pulling up vs pushing up). Managed hygiene (clothing taken off for shower). Pt walked min assist to shower and needed min assist to sit down on shower bench, using grab bar. Washed and dried all parts except back. He required mod-max assist to get up off shower bench because it required pulling up. Pt also stood mod-max assist to get off bench and then with min assist for balance to wash bottom and sagar area. He was able to problem solve to bring feet closer to bench when standing to dry bottom. Pt's helmet was on throughout except it was taken off for him to wash his hair. After shower, pt needed to toilet again and, with BSC placed over toilet, was able to get on and off with min assist. Pt walked with min assist, skilled cues, back to bed. He laid down to rest and thought his heart was "feeling funny" so nursing checked vitals. Pt able to put shorts on while in bed and role side to side or bridge to pull them up. He was able to get slipper socks on one foot but not the other. At end of tx, while concerned about heart, he talked about plank and boxes in his chest. Otherwise made sense throughout treatment. Care transferred to PT. Functional [place] Measure 0=Not Assessed/NA 4=Minimal Assistance 1=Total Assistance 5=Supervision or Setup 2=Maximal Assistance 6=Modified [place] 3=Moderate Assistance 7=Complete IndependenceIRFPAI Quality Coding Scale 6 Independent with activity with or without an assistive device 5 Patient requires set up or clean up by helper. Patient completes activity by themselves 4 Supervision or touching assist (CGA). [place] provide cues , steadying assist 3 The helper provides less than half the effort to complete the activity 2 The helper provides more than half the effort to complete the activity 1 Dependent. The helper does all the effort to complete an activity 7 Patient refused to complete or attempt activity 9 The patient did not perform the activity before the current illness or injury 88 Not attempted due to Medical conditions or safety concerns Bathing (FIM): 2 (Washed and dried all parts except back, min assist when standing but max-mod assist needed to come to stand to wash sagar and bottom) Lower Body Dressing (FIM): 4 Toileting (FIM): 2 (Managed hygiene but required mod-max assist to get off toilet.) Toilet/Commode Transfer (FIM): 2 Shower Transfer(FIM): 2 Education OT Patient Education: Modified ADL techniques, Purpose of tx/functional activities, Safety issues, Transfer techniques, Use of adapted equipment Teaching Recipient: Patient Teaching Methods: Demonstration, Discussion Response to Teaching: Reinforcement Needed OT Short Term Goals Short Term Goals Time Frame: Jun 02, 2017 Grooming(FIM): 5 Upper Body Dressing(FIM): 5 Lower Body Dressing(FIM): 3 Toileting(FIM): 3 Transfers (B,C,W/C) (FIM): 4 Additional Short Term Goals: 2-Verbalize Understanding, 3-ImproveStrength/Lela 1=Demonstrate adherence to instructed precautions during ADL tasks. 2=Patient will verbalize/demonstrate understanding of assistive devices/ modifications for ADL. 3=Patient will improve strength/tolerance for activity to enable patient to perform ADL's. OT Customer Experience Analyst Goals Customer Experience Analyst Goals Time Frame: Jun 16, 2017 Eating (FIM): 6 Eating (QC): 6 Groomin Oral Hygiene (QC): 6 Bathing(FIM): 6 Shower/Bathe Self (QC): 6 Upper Body Dressing(FIM): 6 Upper Body Dressing (QC): 6 Lower Body Dressing(FIM): 6 Lower Body Dressing (QC): 6 On/Off Footwear (QC): 6 Toileting(FIM): 6 Toileting Hygiene (QC): 6 Toilet/Commode Transfer(FIM): 6 Toilet/Commode Transfer (QC): 6 Shower Transfer(FIM): 6 Comprehension(FIM): 5 Expression (FIM): 6 Social Interaction(FIM): 5 Problem Solving(FIM): 4 Memory(FIM): 4 Additional Goals: 2-Verbalize Understanding, 3-ImproveStrength/Lela 1=Demonstrate adherence to instructed precautions during ADL tasks. 2=Patient will verbalize/demonstrate understanding of assistive devices/ modifications for ADL. 3=Patient will improve strength/tolerance for activity to enable patient to perform ADL's. OT Education/Plan Problem List/Assessment Pt would benefit from skilled OT to increase his independence in basic self care to allow him to safely return to his home to live with his and to decrease caregiver burden. Discharge Recommendations Plan/Recommendations: Continue POC Treatment Plan/Plan of Care Patient would benefit from OT for education, treatment and training to promote independence in ADL's, mobility, safety and/or upper extremity function for ADL' s. Plan of Care: ADL Retraining, Caregiver Training, Functional Mobility, Group Exercise/Act as Ind (education, exercise, socialization, funct activities, activity tolerance), UE Funct Exercise/Act, UE Neuromus Re-Ed/Coord, Visual/ Perceptual Retrain Treatment Duration: Jun 16, 2017 Visits Per Week: 10-11 Minutes/Day (M-F): 75-90 Minutes/Day (Sat/Johnson): PRN Agreement: Yes Rehab Potential: Fair Time/GCodes Start Time: 09:15 Stop Time: 10:15 Total Time Billed (hr/min): 60 Billed Treatment Time visit, 60 minutes ADL JED HAN OT May 27, 2017 10:45
--- NOTE | 2017-05-27 11:22 | Physical Therapy Daily Note ---
PT Daily Note-Current Subjective Pt. needs some encouragement to participate alexandra to stay sitting up after at EOB. pt explains that this really is not a new problem and that he has history of back issues including "blown disc: and now has pain and weakness in his back as well as nueropathy in LEs alexandra RLE. Pain Numeric Pain Scale: 4 Location: Right Location Body Site: Knee Pain Description: Pressure Comment: points to lateral condyle area to show where he has pain in RLE Appearance pt. c/o he cant see with the helmet on and that it pushes his glasses down and worsens his double vision Mental Status Patient Orientation: Person Transfers Functional [place] Measure 0=Not Assessed/NA 4=Minimal Assistance 1=Total Assistance 5=Supervision or Setup 2=Maximal Assistance 6=Modified [place] 3=Moderate Assistance 7=Complete IndependenceIRFPAI Quality Coding Scale 6 Independent with activity with or without an assistive device 5 Patient requires set up or clean up by helper. Patient completes activity by themselves 4 Supervision or touching assist (CGA). [place] provide cues , steadying assist 3 The helper provides less than half the effort to complete the activity 2 The helper provides more than half the effort to complete the activity 1 Dependent. The helper does all the effort to complete an activity 7 Patient refused to complete or attempt activity 9 The patient did not perform the activity before the current illness or injury 88 Not attempted due to Medical conditions or safety concerns Transfers (B, C, W/C) (FIM): 5 Scootin Rollin Supine to/from Sit: 5 Sit to/from Stand: 4 Gait Training Does the Patient Walk?: Yes Gait (FIM): 4 Distance (FIM): 3=150 ft (175x2,100) Gait Level of Assist: 4 Gait Persons Needed: 1 Gait Assistive Device: FWW sloppy this Rx, poor heels strike, likely nueropathy Exercises Supine Ex: Bridging, Ankle pumps, Quad Set, Rolling, Glut sets, Heel Slides, Short Arc Quads, Scooting, Straight leg raise, Hip abd/add Supine Reps: 15 NuStep Minutes: 15 NuStep Workload: 3 Assessment Current Status: Good Progress pt. has difficulty staying upright, wants to lay down frequently but if he is distracted by conversation he enjoys he stays upright and works. Enjoyed Nustep. Nustep for LE reciprocal movement as well as LE ex for coordination to enhance gait safety PT Short Term Goals Short Term Goals Time Frame: May 26, 2017 Transfers (B,C,W/C) (FIM): 4 Gait (FIM): 2 Gait Distance Comment: 50' Gait Level of Assist: 4 Gait Assistive Device: FWW Wheelchair Distance: 100' PT Residential Goals User Experience Researcher Goals PT User Experience Researcher Goals Time Frame: Jun 09, 2017 Transfers (B,C,W/C) (FIM): 4 Sit to Lying (QC): 4 Lying-Sitting on Side/Bed(QC): 4 Sit to Stand (QC): 4 Rollin Roll Left to Right (QC): 4 Chair/Cjr-bl-Ucvwy Xfer(QC): 4 Car Transfer (QC): 4 Gait (FIM): 4 Distance: 150' Walk 10 feet (QC): 4 Walk 10ft-Uneven Surface(QC): 4 Walk 50ft with 2 Turns (QC): 4 Walk 150 ft (QC): 4 Gait Level of Assist: 4 Gait Assistive Device: FWW Stairs (FIM): 2 # of Steps: 4 1 Step (curb) (QC): 4 4 Steps (QC): 4 PT Plan Treatment/Plan Treatment Plan: Continue Plan of Care Treatment Plan: Bed Mobility, Education, Functional Activity Lela, Functional Strength, Gait, Safety, Therapeutic Exercise, Transfers Treatment Duration: Jun 09, 2017 Visits Per Week: 10-11 Minutes/Day (M-F): 60-90 Minutes/Day (Sat/Johnson): 15-30 Safety Risks/Education Patient Education: Gait Training, Transfer Techniques, Reviewed Precautions, Correct Positioning, Reviewed Don/Doff Brace (helmet), Safety Issues Teaching Recipient: Patient Teaching Methods: Demonstration, Discussion Response to Teaching: Unable to Return Demonstration, Unable to Comprehend, Reinforcement Needed Time/GCodes Time In: 1015 Time Out: 1115 Total Billed Treatment Time: 60 Total Billed Treatment 1,EX30m,GT15m,FA15m G Codes Necessary: ISABELLA Lowry VMWARE ADMINISTRATOR May 27, 2017 11:22
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
--- NOTE | 2017-05-27 15:20 | Occupational Ther Daily Note ---
OT Current Status-Daily Note Subjective Pt seen in room, no pain mentioned. Mental Status/Objective Functional [place] Measure 0=Not Assessed/NA 4=Minimal Assistance 1=Total Assistance 5=Supervision or Setup 2=Maximal Assistance 6=Modified [place] 3=Moderate Assistance 7=Complete [place] ADL-Treatment Functional [place] Measure 0=Not Assessed/NA 4=Minimal Assistance 1=Total Assistance 5=Supervision or Setup 2=Maximal Assistance 6=Modified [place] 3=Moderate Assistance 7=Complete IndependenceIRFPAI Quality Coding Scale 6 Independent with activity with or without an assistive device 5 Patient requires set up or clean up by helper. Patient completes activity by themselves 4 Supervision or touching assist (CGA). [place] provide cues , steadying assist 3 The helper provides less than half the effort to complete the activity 2 The helper provides more than half the effort to complete the activity 1 Dependent. 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 Explained to patient multiple times that his needs to be able to manage him physically as well as behaviorally before he could go home. She was present part of the tx time and reiterated same message. He would not do fine motor task brought to his room. He also argued that he could get stronger if he wasn't "in bed 20 hours a day" but would not get up in recliner because he'd have to wear his helmet and have telesitter and chair alarms on (he does not recognize that he is unsafe to walk by himself). Pt left up in bed, 4 rails up, bed alarm on, in room. Education Teaching Recipient: Patient Response to Teaching: Reinforcement Needed OT Short Term Goals Short Term Goals Time Frame: Jun 02, 2017 Grooming(FIM): 5 Upper Body Dressing(FIM): 5 Lower Body Dressing(FIM): 3 Toileting(FIM): 3 Transfers (B,C,W/C) (FIM): 4 Additional Short Term Goals: 2-Verbalize Understanding, 3-ImproveStrength/Lela 1=Demonstrate adherence to instructed precautions during ADL tasks. 2=Patient will verbalize/demonstrate understanding of assistive devices/ modifications for ADL. 3=Patient will improve strength/tolerance for activity to enable patient to perform ADL's. OT [place] Supervisor Goals [place] Supervisor Goals Time Frame: Jun 16, 2017 Eating (FIM): 6 Eating (QC): 6 Groomin Oral Hygiene (QC): 6 Bathing(FIM): 6 Shower/Bathe Self (QC): 6 Upper Body Dressing(FIM): 6 Upper Body Dressing (QC): 6 Lower Body Dressing(FIM): 6 Lower Body Dressing (QC): 6 On/Off Footwear (QC): 6 Toileting(FIM): 6 Toileting Hygiene (QC): 6 Toilet/Commode Transfer(FIM): 6 Toilet/Commode Transfer (QC): 6 Shower Transfer(FIM): 6 Comprehension(FIM): 5 Expression (FIM): 6 Social Interaction(FIM): 5 Problem Solving(FIM): 4 Memory(FIM): 4 Additional Goals: 2-Verbalize Understanding, 3-ImproveStrength/Lela 1=Demonstrate adherence to instructed precautions during ADL tasks. 2=Patient will verbalize/demonstrate understanding of assistive devices/ modifications for ADL. 3=Patient will improve strength/tolerance for activity to enable patient to perform ADL's. OT Education/Plan Problem List/Assessment Pt would benefit from skilled OT to increase his independence in basic self care to allow him to safely return to his home to live with his and to decrease caregiver burden. Discharge Recommendations Plan/Recommendations: Continue POC Treatment Plan/Plan of Care Patient would benefit from OT for education, treatment and training to promote independence in ADL's, mobility, safety and/or upper extremity function for ADL' s. Plan of Care: ADL Retraining, Caregiver Training, Functional Mobility, Group Exercise/Act as Ind (education, exercise, socialization, funct activities, activity tolerance), UE Funct Exercise/Act, UE Neuromus Re-Ed/Coord, Visual/ Perceptual Retrain Treatment Duration: Jun 16, 2017 Visits Per Week: 10-11 Minutes/Day (M-F): 75-90 Minutes/Day (Sat/Johnson): PRN Agreement: Yes Rehab Potential: Fair Time/GCodes Start Time: 13:30 Stop Time: 13:45 Total Time Billed (hr/min): 15 Billed Treatment Time visit, 15 minutes functional activity JED HAN OT May 27, 2017 15:20
[2017-05-27 16:49] VITALS: BP 118/66
[2017-05-27] MEDS: ALFUZOSIN HCL 10 MG TAB (UROXATRAL) PO SCH (16:55)
[2017-05-27] MEDS: ENOXAPARIN 40 MG/0.4 ML (LOVENOX) SYR SC SCH (18:02)
[2017-05-27] MEDS: POLYETHYLENE GLYCOL 17 GM (MIRALAX) PACK GT SCH (19:45)
[2017-05-28] MEDS: LEVOTHYROXINE 125 MCG (LEVOTHROID) TABLET GT SCH (05:55)
[2017-05-28] MEDS: MULTIVIT W/MINERALS TAB (THERAGRAN M) GT SCH (05:55)
[2017-05-28] MEDS: OMEGA 3 (FISH OIL) 1000 MG CAP PO SCH ×2 (05:55→17:56)
[2017-05-28] MEDS: KCL 10 MEQ TAB (MICRO K) PO SCH (05:55)
[2017-05-28 05:56] VITALS: BP 114/70
--- NOTE | 2017-05-28 08:18 | PM & R (SOAP) Progress Note ---
Subjective Time Seen by Provider: 07:35 Subjective/Events-last exam Patient was seen in his room this AM Patient alert and oriented Doing much better Patient indicates that he slept well Patieny CGA for transfers and gait Objective Exam Last Set of Vital Signs Vital Signs Date Time Temp Pulse Resp B/P (MAP) Pulse Ox O2 Delivery O2 Flow Rate FiO2 05/28/17 05:56 97.6 59 16 114/70 94 Room Air Capillary Refill : I&O Intake and Output 05/28/17 00:00 Intake Total 2780 ml Output Total 1200 ml Balance 1580 ml Intake Oral 2780 ml Output Urine Total 1200 ml # Voids 4 General: Alert, Cooperative, No Acute Distress HEENT: EOMI, Mucous Memb Moist/[place], Other (Rt Crani site healing well) Neck: Supple, No JVD, Other (decannulated with drssing in place) Lungs: Clear to Auscultation Heart: Regular Rate Abdomen: Normal Bowel Sounds, Soft, No Tenderness Extremities: No Edema Neuro: Other (generalized weakness Mild cognitive impairment) Psych/Mental Status: Other (Confused at times) Results Lab Laboratory Tests 05/26/17 08:54: Thyroid Stimulating Hormone (TSH) 1.82 05/27/17 05:46: Sodium Level 140, Potassium Level 3.5L, Chloride Level 104, Carbon Dioxide Level 25, Anion Gap 11, Blood Urea Nitrogen 12, Creatinine 0.72, Estimat Glomerular Filtration Rate > 60, BUN/Creatinine Ratio 17, Glucose Level 95, Calcium Level 9.4, Total Bilirubin 0.5, Aspartate Amino Transf (AST/SGOT) 19, Alanine Aminotransferase (ALT/SGPT) 74H, Alkaline Phosphatase 59, Total Protein 6.4, Albumin 3.4 Assessment/Plan Assessment Rt SDH s/p evacuation with gait imbalance Blurred vision-improving S/P Trach-decannulation 05/21/17 S/P feeding tube now on po feeds HTN controlled Dysphagia improved Fall no injury sustained Post-op confusion-much improved Vbfpefoyzxf-odojwfuv-jvdjbakto Plan Continue PT/OT/ST F/U with DR Turcios PRN=Appreciate his note F/U with DR Dowling as per his schedule Appreciate current labs Alarmbot( robositter) for patients protection Replaced K F/U with DR Jessica mistry Neurosurgeon in [facility] and DR suwan Radiology here for comparison of CT images although patient much improved Consult [facility]-done Checked TSH-WNL See orders Team Conference held 05-26-17 See report for full functional update and POC Patients delirium much improved SHAHZAD BARROW MD May 28, 2017 08:18
--- NOTE | 2017-05-28 08:31 | Progress Note (SOAP) ---
Subjective Time Seen by Provider: 08:25 Subjective/Events-last exam PEG tube.. confusion Abdominal hematoma.. Objective Exam Vital Signs Date Time Temp Pulse Resp B/P (MAP) Pulse Ox O2 Delivery O2 Flow Rate FiO2 05/28/17 05:56 97.6 59 16 114/70 94 Room Air 05/27/17 20:46 Room Air 05/27/17 16:49 98.8 67 18 118/66 94 Room Air 05/27/17 09:00 93 Room Air I & O 05/28/17 07:00 Intake Total 2730 ml Output Total 900 ml Balance 1830 ml Capillary Refill : General Appearance: No Apparent Distress, WD/WN HEENT: Normal ENT Inspection Neck: Normal Inspection Cardiovascular: Regular Rate, Rhythm Gastrointestinal: No no organomegaly Assessment/Plan Assessment/Plan Assess & Plan/Chief Complaint debility. Trach. PEG tube. Subdural hematoma. Coronary artery disease. . 05/21/17. Debility. Trach. PEG tube. SUBDURAL HEMATOMA. . 05/24/17. Debility. Trach. PEG tube. subdural hematoma. Patient confused and hallucinating.. . 05/25/17. Debility. Trach removed. Subdural hematoma.. patient has confusion. Spoke to son Luis about dad . 05/26/17. Debility. Confusion. coronary artery disease. Subdural hematoma. . 05/27/17 debility. Confusion. Coronary artery disease. Subdural hematoma. . 05/28/17. Debility. Confusion. coronary artery disease. Subdural hematoma. Patient gets confused at times Patient talked about diplopia today Clinical Quality Measures DVT/VTE Risk/Contraindication: Risk Factor Score Per Nursin RFS Level Per Nursing on Admit: 4+=Very High JR FUENTES DO May 28, 2017 08:31
[2017-05-28] MEDS: LACTOBACILLUS Acidoph/Bulgar (LACTINEX/FLORANEX) TAB PEG SCH ×2 (09:01→20:25)
[2017-05-28] MEDS: guaiFENesin (MUCINEX) 600 MG TAB PO SCH ×2 (09:01→20:25)
[2017-05-28] MEDS: LEVETIRACETAM 500 MG (KEPPRA) TAB PO SCH ×2 (09:01→20:25)
[2017-05-28] MEDS: FUROSEMIDE 40 MG (LASIX) TAB GT SCH (09:01)
[2017-05-28] MEDS: hydrALAZINE (APRESOLINE) 25 MG TAB GT SCH ×3 (09:01→20:25)
[2017-05-28] MEDS: cloNIDine 0.1 MG (CATAPRES) TAB GT SCH ×3 (09:01→20:25)
[2017-05-28] MEDS: amLODIPine 5 MG (NORVASC) TAB GT SCH (09:01)
[2017-05-28] MEDS: DOCUSATE SODIUM 100 MG (COLACE) CAP PO SCH ×2 (09:01→20:25)
[2017-05-28] MEDS: CARVEDILOL 12.5 MG (COREG) TABLET GT SCH ×2 (09:02→20:25)
[2017-05-28] MEDS: BETAMETHASONE/CLOTRIM CREAM (LOTRISONE) 45 GM TP SCH ×2 (09:02→20:25)
[2017-05-28] MEDS: FAMOTIDINE 20 MG (PEPCID) TABLET GT SCH ×2 (09:02→20:25)
[2017-05-28] MEDS: ARTIFICIAL TEARS OINT (LACRI-LUBE) 3.5 GM TUBE OU SCH ×2 (09:06→20:26)
--- NOTE | 2017-05-28 10:31 | Speech Therapy Daily Note ---
Speech Daily Progress Note Subjective Date Seen by Provider: May 28, 2017 Time Seen by Provider: 08:00 The patient was seated upright in bed upon entrance, eating breakfast. The patient greeted the clinician (by name) and was agreeable to the cognitive treatment session. The patient stated he slept well and was "feeling great!" Objective - The patient required maximum redirection throughout the session to maintain topic maintenance for a brief amount of time. The patient demonstrated increased confusion on this date which fluctuates from his level of confusion throughout the prior treatment session. The patient continued to discuss his "GPS" and how "[place]" has built on his land (he believes he owns the land the hospital is currently build on). The patient consistently returned to his "GPS" conversation and how while we continue to insist he is in [place], he knows he is currently in [place], [place]. Dr. Dowling was present for portions of this conversation and attempted to correct the patient's spatial and temporal orientation, as well. 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 Dowling is aware of the patient's reports. Following his vision conversation, the patient requested a knife to alter his helmet. Safety decision making and awareness was discussed in length with this patient. Possible safety concerns with knife use was discussed and reviewed by the clinician, however, the patient was unable to gain insight towards why his vision complaint and current impulsiveness may be unsafe in correlation to using a knife. Nursing staff and the physician are aware of the patient's knife request. The clinician brainstormed additional options for modification of his helmet including the presence of towels to fill the "gap" he explains at the top. This suggestion appeared to satisfy the patient at the current time and he agreed with this plan of care. Assessment Assessment Current Status: Poor Progress Treatment Plan Continue Plan of Care Communication Comprehension: 2 Expression: 3 Social Cognition Social Interaction: 3 Problem Solvin Memory: 2 Speech Short Term Goals Short Term Goals Short Term Goals 1. The patient will demonstrate 90% accuracy with simple orientation information with mild clinician verbal prompting. 2. The patient will remain on task for a duration of five minutes with minimal clinician verbal prompting/redirection. 3. The patient will demonstrate adequate sequencing and recall of ADL procedures with 90% accuracy and mild clinician cueing. Time Frame-ST days Speech Mcfp Goals Electrician Bus Goals 1. The patient will demonstrate improved cognitive linguistic skills for increased function and safety with ADL's in the least restrictive setting. Time Frame: Two Weeks Comprehension: 5 Expression: 6 Social Interaction: 5 Problem Solvin Memory: 4 Speech-Plan Treatment Plan Speech Therapy Treatment Plan: Continue Plan of Care Continue skilled speech pathology to target functional safety problem solving and reduced impulsiveness. Treatment Duration: Jun 03, 2017 # of days/week Five. Visits Per Week: Five. Minutes/Day (M-F): 30 Rehab Potential: Fair Safety Risks/Education Teaching Recipient: Patient Teaching Methods: Discussion Response to Teaching: Unable to Comprehend Education Topics Provided: Spatial Orientation Time Speech Therapy Time In: 08:00 Speech Therapy Time Out: 08:30 Total Billed Time: 30 Billed Treatment Time 1, AMRIK HERMAN May 28, 2017 10:31
--- NOTE | 2017-05-28 11:08 | Physical Therapy Daily Note ---
PT Daily Note-Current Subjective Pt. agrees to Rx. Requires many cues and reminders for TRF technique and safety and to stay sitting up as pt. lays back down many times Pain Numeric Pain Scale: 0-No Pain Mental Status Patient Orientation: Confused Attachments: Other-See Comments (helmet with extra padding again today with pt. stating the fit is finally good) Transfers Functional [place] Measure 0=Not Assessed/NA 4=Minimal Assistance 1=Total Assistance 5=Supervision or Setup 2=Maximal Assistance 6=Modified [place] 3=Moderate Assistance 7=Complete IndependenceIRFPAI Quality Coding Scale 6 Independent with activity with or without an assistive device 5 Patient requires set up or clean up by helper. Patient completes activity by themselves 4 Supervision or touching assist (CGA). [place] provide cues , steadying assist 3 The helper provides less than half the effort to complete the activity 2 The helper provides more than half the effort to complete the activity 1 Dependent. The helper does all the effort to complete an activity 7 Patient refused to complete or attempt activity 9 The patient did not perform the activity before the current illness or injury 88 Not attempted due to Medical conditions or safety concerns Transfers (B, C, W/C) (FIM): 5 Scootin Rollin Supine to/from Sit: 5 Sit to/from Stand: 5 Gait Training Does the Patient Walk?: Yes Gait (FIM): 4 Distance (FIM): 3=150 ft (175x2) Gait Level of Assist: 4 Gait Persons Needed: 1 Gait Assistive Device: FWW kyphotic, needs cues to position self inside the walker correctly, heavy wt bearing onto FWW Exercises Supine Ex: Bridging, Ankle pumps, Pelvic tilt, Quad Set, Rolling, Glut sets, Lower trunk rotation, Heel Slides, Short Arc Quads, Scooting, Straight leg raise , Hip abd/add Supine Reps: 15 worked on core activation and incorporating LE activity in conjunction Assessment Current Status: Good Progress pt. still wants to lay down all the time. still confused at times PT Short Term Goals Short Term Goals Time Frame: May 26, 2017 Transfers (B,C,W/C) (FIM): 4 Gait (FIM): 2 Gait Distance Comment: 50' Gait Level of Assist: 4 Gait Assistive Device: FWW Wheelchair Distance: 100' PT Java Application Developer Goals Shelter Goals PT Shelter Goals Time Frame: Jun 09, 2017 Transfers (B,C,W/C) (FIM): 4 Sit to Lying (QC): 4 Lying-Sitting on Side/Bed(QC): 4 Sit to Stand (QC): 4 Rollin Roll Left to Right (QC): 4 Chair/Kpf-zi-Osztk Xfer(QC): 4 Car Transfer (QC): 4 Gait (FIM): 4 Distance: 150' Walk 10 feet (QC): 4 Walk 10ft-Uneven Surface(QC): 4 Walk 50ft with 2 Turns (QC): 4 Walk 150 ft (QC): 4 Gait Level of Assist: 4 Gait Assistive Device: FWW Stairs (FIM): 2 # of Steps: 4 1 Step (curb) (QC): 4 4 Steps (QC): 4 PT Plan Treatment/Plan Treatment Plan: Continue Plan of Care Treatment Plan: Bed Mobility, Education, Functional Activity Lela, Functional Strength, Gait, Safety, Therapeutic Exercise, Transfers Treatment Duration: Jun 09, 2017 Visits Per Week: 10-11 Minutes/Day (M-F): 60-90 Minutes/Day (Sat/Johnson): 15-30 Safety Risks/Education Patient Education: Gait Training, Transfer Techniques, Reviewed Precautions, Correct Positioning, Safety Issues Teaching Recipient: Patient Teaching Methods: Demonstration, Discussion Response to Teaching: Verbalize Understanding, Return Demonstration, Reinforcement Needed attempted donning of helmet , still needs min assist Time/GCodes Time In: 1000 Time Out: 1100 Total Billed Treatment Time: 60 Total Billed Treatment 1,FA25m,EX20m.GT15m G Codes Necessary: ISABELLA Lowry SALES AND MARKETING DIRECTOR May 28, 2017 11:08
--- NOTE | 2017-05-28 11:19 | Occupational Ther Daily Note ---
OT Current Status-Daily Note Subjective Pt seen in room, up in bed, agreeable to OT. Pt said he was ready for a shower. No pain reported but he said his back was "done" by the end of his shower Appearance Alert, cooperative, occasionally confused but responds to [id number] Mental Status/Objective Functional [place] Measure 0=Not Assessed/NA 4=Minimal Assistance 1=Total Assistance 5=Supervision or Setup 2=Maximal Assistance 6=Modified [place] 3=Moderate Assistance 7=Complete [place] ADL-Treatment Pt had helmet on whenever he was up out of bed except when he was sitting on shower bench to wash hair. Functional [place] Measure 0=Not Assessed/NA 4=Minimal Assistance 1=Total Assistance 5=Supervision or Setup 2=Maximal Assistance 6=Modified [place] 3=Moderate Assistance 7=Complete IndependenceIRFPAI Quality Coding Scale 6 Independent with activity with or without an assistive device 5 Patient requires set up or clean up by helper. Patient completes activity by themselves 4 Supervision or touching assist (CGA). [place] provide cues , steadying assist 3 The helper provides less than half the effort to complete the activity 2 The helper provides more than half the effort to complete the activity 1 Dependent. The helper does all the effort to complete an activity 7 Patient refused to complete or attempt activity 9 The patient did not perform the activity before the current illness or injury 88 Not attempted due to Medical conditions or safety concerns Eating (FIM): 5 (Pt reported his breakfast was "delicious". He has been eating well.) Bathing (FIM): 4 (Pt was able to wash and dry all parts but needed min assist to stand and CGA when standing, along with verbal cues. Folded blanket placed on bench to raise seat about 2 inches and make it easier for sit to stand. Washed hair and then put helmet back on. Shower bench, grab bar, hand held shower. Required supervision and sksilled cues for sequencing and safety) Upper Body (FIM): 5 (Able to get shirt off with SBA and to unbutton shirt) Lower Body Dressing (FIM): 5 (Able to put slippers on, lean forward sitting at EOB to put pants on over feet, pulled pants up while supine in bed. Did not wear slipper socks today) Toileting (FIM): 4 (Managed clothing and hygiene. BSC over toilet. Needed CGA when standing to manage clothing. ) Toilet/Commode Transfer (FIM): 4 (CGA, BSC over toilet, grab bar. Skilled cues for hand and foot placement) Shower Transfer(FIM): 4 (CGA getting in and out of shower. Min assist sit to stand on shower bench, with bedspread on bench, addiing 2" to height. Skilled cues) Pt needed min to CGA when walking to bathroom, FWW and skilled cues to get closer to FWW. Pt left up in bed, 4 rails up, bed alarm on, all needs met. Education OT Patient Education: Modified ADL techniques, Progress toward Goal/Update tx plan, Transfer techniques Teaching Recipient: Patient Teaching Methods: Demonstration, Discussion Response to Teaching: Reinforcement Needed OT Short Term Goals Short Term Goals Time Frame: Jun 02, 2017 Grooming(FIM): 5 Upper Body Dressing(FIM): 5 Lower Body Dressing(FIM): 3 Toileting(FIM): 3 Transfers (B,C,W/C) (FIM): 4 Additional Short Term Goals: 2-Verbalize Understanding, 3-ImproveStrength/Lela 1=Demonstrate adherence to instructed precautions during ADL tasks. 2=Patient will verbalize/demonstrate understanding of assistive devices/ modifications for ADL. 3=Patient will improve strength/tolerance for activity to enable patient to perform ADL's. OT Oracle Hrms Consultant Goals Oracle Hrms Consultant Goals Time Frame: Jun 16, 2017 Eating (FIM): 6 Eating (QC): 6 Groomin Oral Hygiene (QC): 6 Bathing(FIM): 6 Shower/Bathe Self (QC): 6 Upper Body Dressing(FIM): 6 Upper Body Dressing (QC): 6 Lower Body Dressing(FIM): 6 Lower Body Dressing (QC): 6 On/Off Footwear (QC): 6 Toileting(FIM): 6 Toileting Hygiene (QC): 6 Toilet/Commode Transfer(FIM): 6 Toilet/Commode Transfer (QC): 6 Shower Transfer(FIM): 6 Comprehension(FIM): 5 Expression (FIM): 6 Social Interaction(FIM): 5 Problem Solving(FIM): 4 Memory(FIM): 4 Additional Goals: 2-Verbalize Understanding, 3-ImproveStrength/Lela 1=Demonstrate adherence to instructed precautions during ADL tasks. 2=Patient will verbalize/demonstrate understanding of assistive devices/ modifications for ADL. 3=Patient will improve strength/tolerance for activity to enable patient to perform ADL's. OT Education/Plan Problem List/Assessment Pt would benefit from skilled OT to increase his independence in basic self care to allow him to safely return to his home to live with his and to decrease caregiver burden. Discharge Recommendations Plan/Recommendations: Continue POC Treatment Plan/Plan of Care Patient would benefit from OT for education, treatment and training to promote independence in ADL's, mobility, safety and/or upper extremity function for ADL' s. Plan of Care: ADL Retraining, Caregiver Training, Functional Mobility, Group Exercise/Act as Ind (education, exercise, socialization, funct activities, activity tolerance), UE Funct Exercise/Act, UE Neuromus Re-Ed/Coord, Visual/ Perceptual Retrain Treatment Duration: Jun 16, 2017 Visits Per Week: 10-11 Minutes/Day (M-F): 75-90 Minutes/Day (Sat/[place]): PRN Agreement: Yes Rehab Potential: Fair Time/GCodes Start Time: 09:00 Stop Time: 10:00 Total Time Billed (hr/min): 60 Billed Treatment Time visit, 60 minutes ADL JED HAN OT May 28, 2017 11:19
--- NOTE | 2017-05-28 14:44 | Therapy Group Daily Note ---
Therapy Daily Group Note Patient Education Topic Other List Below (nutrition) Exercises LE Seated Exercise, UE Exercise Other/Notes Pt. attended group PT OT session this date. Pt needed much persuasion and encouragement. Pt. ambulated with FWW and needed assist to marli helmet.Pt introduced himself and shared where he lived and commented after that he really enjoyed the social aspect of group etc. Pt. participated in seated U&L extremity ther ex as well as seated activity group for volleyball activity incorporating hand eye coordination and core strengthening. Pt. became restless and asked to get up and walk in the final few minutes and was guided back to his room with assist to bed. [place] at hand, needs met. Start Time: 13:00 Stop Time: 14:15 Total Billed Treatment Time: 75 Total Billed Treatment 1,GRP ISABELLA GEORGE LAY OUT MAKER May 28, 2017 14:44
[2017-05-28] MEDS: ENOXAPARIN 40 MG/0.4 ML (LOVENOX) SYR SC SCH (17:56)
[2017-05-28] MEDS: ALFUZOSIN HCL 10 MG TAB (UROXATRAL) PO SCH (17:56)
[2017-05-28 18:31] VITALS: BP 107/65
[2017-05-28] MEDS: POLYETHYLENE GLYCOL 17 GM (MIRALAX) PACK GT SCH (20:26)
[2017-05-29 04:09] VITALS: BP 116/73
[2017-05-29] MEDS: MULTIVIT W/MINERALS TAB (THERAGRAN M) GT SCH (06:30)
[2017-05-29] MEDS: LEVOTHYROXINE 125 MCG (LEVOTHROID) TABLET GT SCH (06:30)
[2017-05-29] MEDS: OMEGA 3 (FISH OIL) 1000 MG CAP PO SCH ×2 (06:30→17:38)
[2017-05-29] MEDS: KCL 10 MEQ TAB (MICRO K) PO SCH (06:30)
[2017-05-29 08:52] VITALS: BP 124/80
[2017-05-29] MEDS: FUROSEMIDE 40 MG (LASIX) TAB GT SCH (08:53)
[2017-05-29] MEDS: amLODIPine 5 MG (NORVASC) TAB GT SCH (08:53)
[2017-05-29] MEDS: guaiFENesin (MUCINEX) 600 MG TAB PO SCH ×2 (08:53→20:26)
[2017-05-29] MEDS: cloNIDine 0.1 MG (CATAPRES) TAB GT SCH ×3 (08:54→20:26)
[2017-05-29] MEDS: hydrALAZINE (APRESOLINE) 25 MG TAB GT SCH ×3 (08:54→20:26)
[2017-05-29] MEDS: CARVEDILOL 12.5 MG (COREG) TABLET GT SCH ×2 (08:54→20:26)
[2017-05-29] MEDS: LEVETIRACETAM 500 MG (KEPPRA) TAB PO SCH ×2 (08:54→20:26)
[2017-05-29] MEDS: DOCUSATE SODIUM 100 MG (COLACE) CAP PO SCH ×2 (08:54→20:26)
[2017-05-29] MEDS: LACTOBACILLUS Acidoph/Bulgar (LACTINEX/FLORANEX) TAB PEG SCH ×2 (08:54→20:26)
[2017-05-29] MEDS: ARTIFICIAL TEARS OINT (LACRI-LUBE) 3.5 GM TUBE OU SCH ×2 (08:55→20:26)
[2017-05-29] MEDS: BETAMETHASONE/CLOTRIM CREAM (LOTRISONE) 45 GM TP SCH ×2 (08:56→20:27)
[2017-05-29] MEDS: FAMOTIDINE 20 MG (PEPCID) TABLET GT SCH ×2 (08:57→20:26)
--- NOTE | 2017-05-29 13:24 | Physical Therapy Daily Note ---
PT Daily Note-Current Subjective Pt in bed, agreeable. Anxious to get OOB. "I can't just lie here for 23 hours a day. I'm ready to move!" Mental Status Patient Orientation: Person, Place, Time, Situation Helmet Transfers Functional [place] Measure 0=Not Assessed/NA 4=Minimal Assistance 1=Total Assistance 5=Supervision or Setup 2=Maximal Assistance 6=Modified [place] 3=Moderate Assistance 7=Complete IndependenceIRFPAI Quality Coding Scale 6 Independent with activity with or without an assistive device 5 Patient requires set up or clean up by helper. Patient completes activity by themselves 4 Supervision or touching assist (CGA). [place] provide cues , steadying assist 3 The helper provides less than half the effort to complete the activity 2 The helper provides more than half the effort to complete the activity 1 Dependent. The helper does all the effort to complete an activity 7 Patient refused to complete or attempt activity 9 The patient did not perform the activity before the current illness or injury 88 Not attempted due to Medical conditions or safety concerns Transfers (B, C, W/C) (FIM): 5 Supine to/from Sit: 5 Sit to/from Stand: 5 Sit to Lying (QC): 5 Sit to Stand (QC): 5 Weight Bearing Weight Bearing Restriction: Full Weight Bearing Location Restriction: LE Bilateral Gait Training Does the Patient Walk?: Yes Gait (FIM): 4 Distance (FIM): 3=150 ft Distance: 200 Walk 10 feet (QC): 4 Walk 50 ft with 2 Turns(QC): 4 Walk 150 ft (QC): 4 Gait Level of Assist: 4 Gait Persons Needed: 1 Gait Assistive Device: FWW Pt ambulates with SBA->CGA for safety with FWW. Flexed posture, narrow base of support, frequently scuffing feet on one another during swing phase. Quick to turn with walker at times but self-corrected and without LOB. Wheelchair Training Does the Pt Use a Wheelchair?: No Exercises NuStep Minutes: 15 NuStep Workload: 6 Treatments Gait training/safety with FWW, NuStep for functional activity tolerance, functional strengthening. Pt returned to bed with rails up, bed alarm activated and all needs met. Assessment Current Status: Good Progress Pt tolerated very well. Very motivated to get OOB this date. PT Short Term Goals Short Term Goals Time Frame: May 26, 2017 Transfers (B,C,W/C) (FIM): 4 Gait (FIM): 2 Gait Distance Comment: 50' Gait Level of Assist: 4 Gait Assistive Device: FWW Wheelchair Distance: 100' PT Snf Goals Regional Director Of Finance Goals PT Regional Director Of Finance Goals Time Frame: Jun 09, 2017 Transfers (B,C,W/C) (FIM): 4 Sit to Lying (QC): 4 Lying-Sitting on Side/Bed(QC): 4 Sit to Stand (QC): 4 Rollin Roll Left to Right (QC): 4 Chair/Ndr-aw-Cctvu Xfer(QC): 4 Car Transfer (QC): 4 Gait (FIM): 4 Distance: 150' Walk 10 feet (QC): 4 Walk 10ft-Uneven Surface(QC): 4 Walk 50ft with 2 Turns (QC): 4 Walk 150 ft (QC): 4 Gait Level of Assist: 4 Gait Assistive Device: FWW Stairs (FIM): 2 # of Steps: 4 1 Step (curb) (QC): 4 4 Steps (QC): 4 PT Plan Problem List Problem List: Activity Tolerance, Functional Strength, Safety, Balance, Gait, Transfer, Bed Mobility Treatment/Plan Treatment Plan: Continue Plan of Care Treatment Plan: Bed Mobility, Education, Functional Activity Lela, Functional Strength, Gait, Safety, Therapeutic Exercise, Transfers Treatment Duration: Jun 09, 2017 Visits Per Week: 10-11 Minutes/Day (M-F): 60-90 Minutes/Day (Sat/Johnson): 15-30 Pt/Family Agrees w/Plan: Yes Safety Risks/Education Patient Education: Gait Training Teaching Recipient: Patient Teaching Methods: Discussion Response to Teaching: Verbalize Understanding, Reinforcement Needed Time/GCodes Time In: 1146 Time Out: 1220 Total Billed Treatment Time: 34 Total Billed Treatment 1, Gt x 19', Ex x 15' G Codes Necessary: MARILU Randolph DPKeo May 29, 2017 13:24
[2017-05-29 13:43] VITALS: BP 104/66
[2017-05-29] MEDS: ALFUZOSIN HCL 10 MG TAB (UROXATRAL) PO SCH (17:38)
[2017-05-29] MEDS: ENOXAPARIN 40 MG/0.4 ML (LOVENOX) SYR SC SCH (17:38)
[2017-05-29 18:00] VITALS: BP 108/69
[2017-05-29] MEDS: POLYETHYLENE GLYCOL 17 GM (MIRALAX) PACK GT SCH (20:26)
[2017-05-30 04:24] VITALS: BP 129/78
[2017-05-30] MEDS: KCL 10 MEQ TAB (MICRO K) PO SCH (06:07)
[2017-05-30] MEDS: MULTIVIT W/MINERALS TAB (THERAGRAN M) GT SCH (06:07)
[2017-05-30] MEDS: LEVOTHYROXINE 125 MCG (LEVOTHROID) TABLET GT SCH (06:07)
[2017-05-30] MEDS: OMEGA 3 (FISH OIL) 1000 MG CAP PO SCH ×2 (06:07→17:36)
[2017-05-30 09:13] VITALS: BP 122/75
[2017-05-30] MEDS: guaiFENesin (MUCINEX) 600 MG TAB PO SCH ×2 (09:13→19:53)
[2017-05-30] MEDS: LACTOBACILLUS Acidoph/Bulgar (LACTINEX/FLORANEX) TAB PEG SCH ×2 (09:13→19:52)
[2017-05-30] MEDS: amLODIPine 5 MG (NORVASC) TAB GT SCH (09:14)
[2017-05-30] MEDS: LEVETIRACETAM 500 MG (KEPPRA) TAB PO SCH ×2 (09:14→19:52)
[2017-05-30] MEDS: CARVEDILOL 12.5 MG (COREG) TABLET GT SCH ×2 (09:14→19:53)
[2017-05-30] MEDS: hydrALAZINE (APRESOLINE) 25 MG TAB GT SCH ×3 (09:14→19:52)
[2017-05-30] MEDS: FAMOTIDINE 20 MG (PEPCID) TABLET GT SCH ×2 (09:14→19:52)
[2017-05-30] MEDS: cloNIDine 0.1 MG (CATAPRES) TAB GT SCH ×3 (09:14→19:52)
[2017-05-30] MEDS: FUROSEMIDE 40 MG (LASIX) TAB GT SCH (09:14)
[2017-05-30] MEDS: DOCUSATE SODIUM 100 MG (COLACE) CAP PO SCH ×2 (09:14→19:53)
[2017-05-30] MEDS: ARTIFICIAL TEARS OINT (LACRI-LUBE) 3.5 GM TUBE OU SCH ×2 (09:15→19:40)
[2017-05-30] MEDS: BETAMETHASONE/CLOTRIM CREAM (LOTRISONE) 45 GM TP SCH ×2 (09:15→19:54)
[2017-05-30 13:38] VITALS: BP 130/84
[2017-05-30] MEDS: ALFUZOSIN HCL 10 MG TAB (UROXATRAL) PO SCH (17:36)
[2017-05-30] MEDS: ENOXAPARIN 40 MG/0.4 ML (LOVENOX) SYR SC SCH (17:36)
[2017-05-30 17:49] VITALS: BP 118/73
[2017-05-30] MEDS: POLYETHYLENE GLYCOL 17 GM (MIRALAX) PACK GT SCH (19:40)
[2017-05-31 05:04] VITALS: BP 129/75
[2017-05-31] MEDS: OMEGA 3 (FISH OIL) 1000 MG CAP PO SCH ×2 (06:26→17:34)
[2017-05-31] MEDS: LEVOTHYROXINE 125 MCG (LEVOTHROID) TABLET GT SCH (06:26)
[2017-05-31] MEDS: KCL 10 MEQ TAB (MICRO K) PO SCH (06:26)
[2017-05-31] MEDS: MULTIVIT W/MINERALS TAB (THERAGRAN M) GT SCH (06:26)
[2017-05-31 08:50] VITALS: BP 144/81
[2017-05-31] MEDS: LEVETIRACETAM 500 MG (KEPPRA) TAB PO SCH ×2 (08:53→20:11)
[2017-05-31] MEDS: FAMOTIDINE 20 MG (PEPCID) TABLET GT SCH ×2 (08:53→20:11)
[2017-05-31] MEDS: hydrALAZINE (APRESOLINE) 25 MG TAB GT SCH ×3 (08:54→20:11)
[2017-05-31] MEDS: guaiFENesin (MUCINEX) 600 MG TAB PO SCH ×2 (08:54→20:11)
[2017-05-31] MEDS: DOCUSATE SODIUM 100 MG (COLACE) CAP PO SCH ×3 (08:54→20:11)
[2017-05-31] MEDS: CARVEDILOL 12.5 MG (COREG) TABLET GT SCH ×2 (08:54→20:11)
[2017-05-31] MEDS: cloNIDine 0.1 MG (CATAPRES) TAB GT SCH ×3 (08:54→20:11)
[2017-05-31] MEDS: amLODIPine 5 MG (NORVASC) TAB GT SCH (08:54)
[2017-05-31] MEDS: FUROSEMIDE 40 MG (LASIX) TAB GT SCH (08:54)
[2017-05-31] MEDS: LACTOBACILLUS Acidoph/Bulgar (LACTINEX/FLORANEX) TAB PEG SCH ×2 (08:54→20:11)
[2017-05-31] MEDS: ARTIFICIAL TEARS OINT (LACRI-LUBE) 3.5 GM TUBE OU SCH ×2 (09:00→20:12)
[2017-05-31] MEDS: BETAMETHASONE/CLOTRIM CREAM (LOTRISONE) 45 GM TP SCH ×2 (09:00→20:12)
--- NOTE | 2017-05-31 10:45 | Occupational Ther Daily Note ---
OT Current Status-Daily Note Subjective Pt seen in room, up in bed, agreeable to OT. No pain mentioned. Appearance Alert, cooperative. Responds best to matter of fact Mental Status/Objective Patient Orientation: Person, Place, Situation Functional [place] Measure 0=Not Assessed/NA 4=Minimal Assistance 1=Total Assistance 5=Supervision or Setup 2=Maximal Assistance 6=Modified [place] 3=Moderate Assistance 7=Complete [place] ADL-Treatment Functional [place] Measure 0=Not Assessed/NA 4=Minimal Assistance 1=Total Assistance 5=Supervision or Setup 2=Maximal Assistance 6=Modified [place] 3=Moderate Assistance 7=Complete IndependenceIRFPAI Quality Coding Scale 6 Independent with activity with or without an assistive device 5 Patient requires set up or clean up by helper. Patient completes activity by themselves 4 Supervision or touching assist (CGA). [place] provide cues , steadying assist 3 The helper provides less than half the effort to complete the activity 2 The helper provides more than half the effort to complete the activity 1 Dependent. The helper does all the effort to complete an activity 7 Patient refused to complete or attempt activity 9 The patient did not perform the activity before the current illness or injury 88 Not attempted due to Medical conditions or safety concerns Grooming (FIM): 5 (Brushed teeth with setup, sitting EOB. Combed hair setup. Washed face and hands in shower. Has a jeronimo so doesn't shave) Bathing (FIM): 5 (Supervision throughout. Pt was able to wash and dry all parts but needs skilled cues, for example, "Dry your legs before you get up." "Oh yeah, OK. That makes sense." Shower bench, grab bars, hand held shower. He turned water on and off and washed hair. Helmet reapplied. ) Upper Body (FIM): 5 (Pt was able to doff and don t-shirt with setup, supervision. ) Lower Body Dressing (FIM): 5 (Setup, supervision. Pt took shorts off in bed and put them back on in bed. Took socks off in bed. Pt verbalized interest in sock aid) Transfers (B, C, W/C) (FIM): 4 (CGA when getting in and out of bed. Skilled cues to not get up until helmet is on, shoes are on or gait belt is in place. ) Shower Transfer(FIM): 3 (Pt needed CGA when stepping in to shower, used grab bars to sit and stand CGA (did not need additional height on seat) but lost his balance turning to reach for walker and required mod assist to correct. helmet was in place, as well as gait belt. ) At end of tx, pt left up in bed, helmet off, 4 rails up, bed alarm on, telesitter operating, all needs met. Education OT Patient Education: Modified ADL techniques, Safety issues, Transfer techniques Teaching Recipient: Patient Teaching Methods: Discussion Response to Teaching: Verbalize Understanding, Reinforcement Needed OT Short Term Goals Short Term Goals Time Frame: Jun 02, 2017 Grooming(FIM): 5 Upper Body Dressing(FIM): 5 Lower Body Dressing(FIM): 3 Toileting(FIM): 3 Transfers (B,C,W/C) (FIM): 4 Additional Short Term Goals: 2-Verbalize Understanding, 3-ImproveStrength/Lela 1=Demonstrate adherence to instructed precautions during ADL tasks. 2=Patient will verbalize/demonstrate understanding of assistive devices/ modifications for ADL. 3=Patient will improve strength/tolerance for activity to enable patient to perform ADL's. OT Chest Painting And Sealing Supervisor Goals Senior Care Goals Time Frame: Jun 16, 2017 Eating (FIM): 6 Eating (QC): 6 Groomin Oral Hygiene (QC): 6 Bathing(FIM): 6 Shower/Bathe Self (QC): 6 Upper Body Dressing(FIM): 6 Upper Body Dressing (QC): 6 Lower Body Dressing(FIM): 6 Lower Body Dressing (QC): 6 On/Off Footwear (QC): 6 Toileting(FIM): 6 Toileting Hygiene (QC): 6 Toilet/Commode Transfer(FIM): 6 Toilet/Commode Transfer (QC): 6 Shower Transfer(FIM): 6 Comprehension(FIM): 5 Expression (FIM): 6 Social Interaction(FIM): 5 Problem Solving(FIM): 4 Memory(FIM): 4 Additional Goals: 2-Verbalize Understanding, 3-ImproveStrength/Lela 1=Demonstrate adherence to instructed precautions during ADL tasks. 2=Patient will verbalize/demonstrate understanding of assistive devices/ modifications for ADL. 3=Patient will improve strength/tolerance for activity to enable patient to perform ADL's. OT Education/Plan Problem List/Assessment Pt would benefit from skilled OT to increase his independence in basic self care to allow him to safely return to his home to live with his and to decrease caregiver burden. Discharge Recommendations Plan/Recommendations: Continue POC Treatment Plan/Plan of Care Patient would benefit from OT for education, treatment and training to promote independence in ADL's, mobility, safety and/or upper extremity function for ADL' s. Plan of Care: ADL Retraining, Caregiver Training, Functional Mobility, Group Exercise/Act as Ind (education, exercise, socialization, funct activities, activity tolerance), UE Funct Exercise/Act, UE Neuromus Re-Ed/Coord, Visual/ Perceptual Retrain Treatment Duration: Jun 16, 2017 Visits Per Week: 10-11 Minutes/Day (M-F): 75-90 Minutes/Day (Sat/Johnson): PRN Agreement: Yes Rehab Potential: Fair Time/GCodes Start Time: 08:30 Stop Time: 09:15 Total Time Billed (hr/min): 45 Billed Treatment Time visit, 45 minutes ADL JED HAN OT May 31, 2017 10:45
--- NOTE | 2017-05-31 11:00 | Physical Therapy Daily Note ---
PT Daily Note-Current Subjective Pt. continues impulsive and needs constant direction and explanation for activity. pt. found with bed chun in his bed beside him stating this is necessary if he has an urge for BM. present with this BEAN SORTER explaining that the goal of indep includes measurement of the burden of care to others and that he might consider using a brief vs bed chun. agrees. Pt. is given 3 briefs to utilize for poor control. pt. insists on attempting to walk without the FWW and state he needs to use something like the sit to stand to walk. This BEAN SORTER introduced the Solo step Mental Status Patient Orientation: Confused Attachments: Other-See Comments (helmet) Transfers Functional [place] Measure 0=Not Assessed/NA 4=Minimal Assistance 1=Total Assistance 5=Supervision or Setup 2=Maximal Assistance 6=Modified [place] 3=Moderate Assistance 7=Complete IndependenceIRFPAI Quality Coding Scale 6 Independent with activity with or without an assistive device 5 Patient requires set up or clean up by helper. Patient completes activity by themselves 4 Supervision or touching assist (CGA). [place] provide cues , steadying assist 3 The helper provides less than half the effort to complete the activity 2 The helper provides more than half the effort to complete the activity 1 Dependent. The helper does all the effort to complete an activity 7 Patient refused to complete or attempt activity 9 The patient did not perform the activity before the current illness or injury 88 Not attempted due to Medical conditions or safety concerns Transfers (B, C, W/C) (FIM): 4 Scootin Rollin Supine to/from Sit: 4 Sit to/from Stand: 4 still needs occas assist sit to stnad and sup to sit Gait Training Does the Patient Walk?: Yes Gait (FIM): 3 Distance (FIM): 3=150 ft (x3) Gait Level of Assist: 3 Gait Persons Needed: 1 Gait Assistive Device: FWW pt. utilizing FWW states he thinks its time to just walk without a device. This BEAN SORTER gives him a trial of this . Pt has LOB , points to sit to stand lift ans states he wants to use it to walk. This BEAN SORTER then initiating the Solo step . Pt. needing min to mod assist alexandra at turns with glut med gait and fatiguing quickly. then discussed that he needs to master the FWW for safety first. Pt. agrees, c/o fatigue Exercises NuStep Minutes: 10 NuStep Workload: 5 Assessment Current Status: Good Progress PT Short Term Goals Short Term Goals Time Frame: May 26, 2017 Transfers (B,C,W/C) (FIM): 4 Gait (FIM): 2 Gait Distance Comment: 50' Gait Level of Assist: 4 Gait Assistive Device: FWW Wheelchair Distance: 100' PT Tractor Engine Assembler Goals Fdc Goals PT Fdc Goals Time Frame: Jun 09, 2017 Transfers (B,C,W/C) (FIM): 4 Sit to Lying (QC): 4 Lying-Sitting on Side/Bed(QC): 4 Sit to Stand (QC): 4 Rollin Roll Left to Right (QC): 4 Chair/Sup-av-Euckq Xfer(QC): 4 Car Transfer (QC): 4 Gait (FIM): 4 Distance: 150' Walk 10 feet (QC): 4 Walk 10ft-Uneven Surface(QC): 4 Walk 50ft with 2 Turns (QC): 4 Walk 150 ft (QC): 4 Gait Level of Assist: 4 Gait Assistive Device: FWW Stairs (FIM): 2 # of Steps: 4 1 Step (curb) (QC): 4 4 Steps (QC): 4 PT Plan Treatment/Plan Treatment Plan: Continue Plan of Care Treatment Plan: Bed Mobility, Education, Functional Activity Lela, Functional Strength, Gait, Safety, Therapeutic Exercise, Transfers Treatment Duration: Jun 09, 2017 Visits Per Week: 10-11 Minutes/Day (M-F): 60-90 Minutes/Day (Sat/Johnson): 15-30 Safety Risks/Education Patient Education: Gait Training, Transfer Techniques Teaching Recipient: Patient, Primary Caregiver Teaching Methods: Demonstration, Discussion Response to Teaching: Verbalize Understanding, Unable to Comprehend, Reinforcement Needed Time/GCodes Time In: 1000 Time Out: 1100 Total Billed Treatment Time: 60 Total Billed Treatment 1,GT45,EX15m G Codes Necessary: ISABELLA Lowry BEAN SORTER May 31, 2017 11:00
--- NOTE | 2017-05-31 13:31 | Physical Therapy Daily Note ---
PT Daily Note-Current Subjective Pt. 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 This LIQUID FLAVOR COMPOUNDER explained to pt that he cannot leave the facility just yet Pain Numeric Pain Scale: 0-No Pain Comment: c/o double vision Mental Status Patient Orientation: Confused Attachments: Other-See Comments (helmet) Transfers Functional [place] Measure 0=Not Assessed/NA 4=Minimal Assistance 1=Total Assistance 5=Supervision or Setup 2=Maximal Assistance 6=Modified [place] 3=Moderate Assistance 7=Complete IndependenceIRFPAI Quality Coding Scale 6 Independent with activity with or without an assistive device 5 Patient requires set up or clean up by helper. Patient completes activity by themselves 4 Supervision or touching assist (CGA). [place] provide cues , steadying assist 3 The helper provides less than half the effort to complete the activity 2 The helper provides more than half the effort to complete the activity 1 Dependent. The helper does all the effort to complete an activity 7 Patient refused to complete or attempt activity 9 The patient did not perform the activity before the current illness or injury 88 Not attempted due to Medical conditions or safety concerns practiced log roll as pt continues rockin to come sup to sit, was successful with sup to side to sit with direction Gait Training Gait Assistive Device: FWW gait 175x2 FWW CGA and cuing for wider TJ and safe turns Exercises NuStep Minutes: 8 NuStep Workload: 3 Assessment Current Status: Good Progress continues with confusion and cognitive loss PT Short Term Goals Short Term Goals Time Frame: May 26, 2017 Transfers (B,C,W/C) (FIM): 4 Gait (FIM): 2 Gait Distance Comment: 50' Gait Level of Assist: 4 Gait Assistive Device: FWW Wheelchair Distance: 100' PT Nursing Home Goals Edge Sawyer Goals PT Edge Sawyer Goals Time Frame: Jun 09, 2017 Transfers (B,C,W/C) (FIM): 4 Sit to Lying (QC): 4 Lying-Sitting on Side/Bed(QC): 4 Sit to Stand (QC): 4 Rollin Roll Left to Right (QC): 4 Chair/Lon-of-Lonhw Xfer(QC): 4 Car Transfer (QC): 4 Gait (FIM): 4 Distance: 150' Walk 10 feet (QC): 4 Walk 10ft-Uneven Surface(QC): 4 Walk 50ft with 2 Turns (QC): 4 Walk 150 ft (QC): 4 Gait Level of Assist: 4 Gait Assistive Device: FWW Stairs (FIM): 2 # of Steps: 4 1 Step (curb) (QC): 4 4 Steps (QC): 4 PT Plan Treatment/Plan Treatment Plan: Continue Plan of Care Treatment Plan: Bed Mobility, Education, Functional Activity Lela, Functional Strength, Gait, Safety, Therapeutic Exercise, Transfers Treatment Duration: Jun 09, 2017 Visits Per Week: 10-11 Minutes/Day (M-F): 60-90 Minutes/Day (Sat/Johnson): 15-30 Safety Risks/Education Patient Education: Gait Training, Transfer Techniques Time/GCodes Time In: 1300 Time Out: 1320 Total Billed Treatment Time: 20 Total Billed Treatment 1,EX20m G Codes Necessary: ISABELLA Lowry LIQUID FLAVOR COMPOUNDER May 31, 2017 13:31
--- NOTE | 2017-05-31 13:42 | Speech Therapy Daily Note ---
Speech Daily Progress Note Subjective Date Seen by Provider: May 31, 2017 Time Seen by Provider: 09:30 The patient was laying in bed upon entrance. The patient greeted the clinician, by name, and was agreeable to participation in cognitive therapy on this date. Objective To note, the patient appears to remain on topic with increase ease and decreased redirection on this date. The patient demonstrates an overall reduction in broad confusion and delirium. Due to this, a repeat cognitive evaluation was provided to assess progression through treatment. The [place] Cognitive Assessment was provided with the following results: - Visuospatial/Executive Function: The patient was able to complete cube copying and clock drawing. The patient completed trail-making with one erroneous answer. - Naming: The patient was able to name three of three black and white photographs accurately. - Memory: The patient was able to recall five of five single words immediately. The patient was able to recall three of five single words following a category cue. - Attention: The patient was able to repeat five single digits forward, three single digits in reverse, identify a single letter in a string of letters, and complete serial seven subtraction. - Language: The patient was able to repeat single phrases and provide similarities between two items. - Orientation: The patient was oriented to date, month, year, day, place, and city. The patient demonstrate an overall score of +23/30 correlating to a mild cognitive deficit. The patient previously demonstrated a score of +13/22 correlating to a moderate cognitive impairment. Assessment Assessment Current Status: Good Progress Treatment Plan Continue Plan of Care Communication Comprehension: 4 Expression: 4 Social Cognition Social Interaction: 4 Problem Solvin Memory: 3 Speech Short Term Goals Short Term Goals Short Term Goals 1. The patient will demonstrate 90% accuracy with simple orientation information with mild clinician verbal prompting. 2. The patient will remain on task for a duration of five minutes with minimal clinician verbal prompting/redirection. 3. The patient will demonstrate adequate sequencing and recall of ADL procedures with 90% accuracy and mild clinician cueing. Time Frame-ST days Speech Long-Term Goals Structural Mill Supervisor Goals 1. The patient will demonstrate improved cognitive linguistic skills for increased function and safety with ADL's in the least restrictive setting. Time Frame: Two Weeks Comprehension: 5 Expression: 6 Social Interaction: 5 Problem Solvin Memory: 4 Speech-Plan Treatment Plan Speech Therapy Treatment Plan: Continue Plan of Care Continue skilled speech pathology to target functional safety awareness, problem solving, and memory. Treatment Duration: Jun 03, 2017 # of days/week Five. Visits Per Week: Five. Minutes/Day (M-F): 30 Rehab Potential: Fair Safety Risks/Education Teaching Recipient: Patient Teaching Methods: Discussion Response to Teaching: Verbalize Understanding Education Topics Provided: Orientation Strategies, Memory Strategies Time Speech Therapy Time In: 09:00 Speech Therapy Time Out: 09:30 Total Billed Time: 30 Billed Treatment Time 1, AMRIK HERMAN May 31, 2017 13:42
--- NOTE | 2017-05-31 14:38 | Occupational Ther Daily Note ---
OT Current Status-Daily Note Subjective Pt seen in room, up in bed, agreeable to OT. No pain mentioned except, during tx , he said his back was aching. Appearance Alert, cooperative A little confused - thought he was home and then said, "No I' m not. I'm in a hospital room." Mental Status/Objective Functional [place] Measure 0=Not Assessed/NA 4=Minimal Assistance 1=Total Assistance 5=Supervision or Setup 2=Maximal Assistance 6=Modified [place] 3=Moderate Assistance 7=Complete [place] ADL-Treatment Functional [place] Measure 0=Not Assessed/NA 4=Minimal Assistance 1=Total Assistance 5=Supervision or Setup 2=Maximal Assistance 6=Modified [place] 3=Moderate Assistance 7=Complete IndependenceIRFPAI Quality Coding Scale 6 Independent with activity with or without an assistive device 5 Patient requires set up or clean up by helper. Patient completes activity by themselves 4 Supervision or touching assist (CGA). [place] provide cues , steadying assist 3 The helper provides less than half the effort to complete the activity 2 The helper provides more than half the effort to complete the activity 1 Dependent. The helper does all the effort to complete an activity 7 Patient refused to complete or attempt activity 9 The patient did not perform the activity before the current illness or injury 88 Not attempted due to Medical conditions or safety concerns Other Treatment Pt moved supine to sit with a little struggle but recalled modified technique. Sit to stand CGA with bed elevated. Pt walked CGA, FWW to table in commons area. Sat in chair with arms without cues for hand placement. Pt worked on eye hand coordination by searching for items on table top, looking to the left, to the right, away and up close, then picking up specific items at a distance or close. He reported that he had double vision wherever he looked but, after activity/exercise, when he looked up at the clock, he said he could see just one. Pt walked back to room CGA, FWW and was able to sit EOB and lie down with SBA. Pt left in bed, 4 rails up, alarm on, telesitter on, all needs met. Education OT Patient Education: Purpose of tx/functional activities, Safety issues, Transfer techniques Teaching Recipient: Patient Teaching Methods: Discussion Response to Teaching: Return Demonstration, Reinforcement Needed OT Short Term Goals Short Term Goals Time Frame: Jun 02, 2017 Grooming(FIM): 5 Upper Body Dressing(FIM): 5 Lower Body Dressing(FIM): 3 Toileting(FIM): 3 Transfers (B,C,W/C) (FIM): 4 Additional Short Term Goals: 2-Verbalize Understanding, 3-ImproveStrength/Lela 1=Demonstrate adherence to instructed precautions during ADL tasks. 2=Patient will verbalize/demonstrate understanding of assistive devices/ modifications for ADL. 3=Patient will improve strength/tolerance for activity to enable patient to perform ADL's. OT Longterm Goals Underwriting Specialist Goals Time Frame: Jun 16, 2017 Eating (FIM): 6 Eating (QC): 6 Groomin Oral Hygiene (QC): 6 Bathing(FIM): 6 Shower/Bathe Self (QC): 6 Upper Body Dressing(FIM): 6 Upper Body Dressing (QC): 6 Lower Body Dressing(FIM): 6 Lower Body Dressing (QC): 6 On/Off Footwear (QC): 6 Toileting(FIM): 6 Toileting Hygiene (QC): 6 Toilet/Commode Transfer(FIM): 6 Toilet/Commode Transfer (QC): 6 Shower Transfer(FIM): 6 Comprehension(FIM): 5 Expression (FIM): 6 Social Interaction(FIM): 5 Problem Solving(FIM): 4 Memory(FIM): 4 Additional Goals: 2-Verbalize Understanding, 3-ImproveStrength/Lela 1=Demonstrate adherence to instructed precautions during ADL tasks. 2=Patient will verbalize/demonstrate understanding of assistive devices/ modifications for ADL. 3=Patient will improve strength/tolerance for activity to enable patient to perform ADL's. OT Education/Plan Problem List/Assessment Pt would benefit from skilled OT to increase his independence in basic self care to allow him to safely return to his home to live with his and to decrease caregiver burden. Discharge Recommendations Plan/Recommendations: Continue POC Treatment Plan/Plan of Care Patient would benefit from OT for education, treatment and training to promote independence in ADL's, mobility, safety and/or upper extremity function for ADL' s. Plan of Care: ADL Retraining, Caregiver Training, Functional Mobility, Group Exercise/Act as Ind (education, exercise, socialization, funct activities, activity tolerance), UE Funct Exercise/Act, UE Neuromus Re-Ed/Coord, Visual/ Perceptual Retrain Treatment Duration: Jun 16, 2017 Visits Per Week: 10-11 Minutes/Day (M-F): 75-90 Minutes/Day (Sat/Johnson): PRN Agreement: Yes Rehab Potential: Fair Time/GCodes Start Time: 13:50 Stop Time: 14:20 Total Time Billed (hr/min): 30 Billed Treatment Time visit, 30 minutes neuromotor JED HAN OT May 31, 2017 14:38
[2017-05-31 18:18] VITALS: BP 108/69
[2017-05-31] MEDS: ALFUZOSIN HCL 10 MG TAB (UROXATRAL) PO SCH (18:37)
[2017-05-31] MEDS: ENOXAPARIN 40 MG/0.4 ML (LOVENOX) SYR SC SCH (18:38)
[2017-05-31] MEDS: POLYETHYLENE GLYCOL 17 GM (MIRALAX) PACK GT SCH (20:11)
[2017-06-01 03:17] VITALS: BP 128/76
[2017-06-01] MEDS: OMEGA 3 (FISH OIL) 1000 MG CAP PO SCH ×2 (06:40→17:49)
[2017-06-01] MEDS: LEVOTHYROXINE 125 MCG (LEVOTHROID) TABLET GT SCH (06:40)
[2017-06-01] MEDS: KCL 10 MEQ TAB (MICRO K) PO SCH (06:40)
[2017-06-01] MEDS: MULTIVIT W/MINERALS TAB (THERAGRAN M) GT SCH (06:40)
[2017-06-01] MEDS: FUROSEMIDE 40 MG (LASIX) TAB GT SCH (08:53)
[2017-06-01] MEDS: ARTIFICIAL TEARS OINT (LACRI-LUBE) 3.5 GM TUBE OU SCH ×2 (08:53→20:02)
[2017-06-01] MEDS: FAMOTIDINE 20 MG (PEPCID) TABLET GT SCH ×2 (08:53→20:01)
[2017-06-01] MEDS: guaiFENesin (MUCINEX) 600 MG TAB PO SCH ×2 (08:53→20:01)
[2017-06-01] MEDS: LEVETIRACETAM 500 MG (KEPPRA) TAB PO SCH ×2 (08:53→20:01)
[2017-06-01] MEDS: DOCUSATE SODIUM 100 MG (COLACE) CAP PO SCH ×2 (08:53→20:01)
[2017-06-01] MEDS: hydrALAZINE (APRESOLINE) 25 MG TAB GT SCH ×3 (08:53→20:01)
[2017-06-01] MEDS: LACTOBACILLUS Acidoph/Bulgar (LACTINEX/FLORANEX) TAB PEG SCH ×2 (08:53→20:01)
[2017-06-01] MEDS: cloNIDine 0.1 MG (CATAPRES) TAB GT SCH ×3 (08:53→20:01)
[2017-06-01] MEDS: CARVEDILOL 12.5 MG (COREG) TABLET GT SCH ×2 (08:53→20:01)
[2017-06-01] MEDS: amLODIPine 5 MG (NORVASC) TAB GT SCH (08:53)
[2017-06-01] MEDS: BETAMETHASONE/CLOTRIM CREAM (LOTRISONE) 45 GM TP SCH ×2 (09:28→20:03)
--- NOTE | 2017-06-01 11:10 | Physical Therapy Daily Note ---
PT Daily Note-Current Subjective Patient is supine in bed with spouse present and agrees to PT. Pain Numeric Pain Scale: 5-Moderate Pain Location: Right Location Body Site: Knee Pain Description: Chronic Mental Status Patient Orientation: Person, Time, Situation Transfers Functional [place] Measure 0=Not Assessed/NA 4=Minimal Assistance 1=Total Assistance 5=Supervision or Setup 2=Maximal Assistance 6=Modified [place] 3=Moderate Assistance 7=Complete IndependenceIRFPAI Quality Coding Scale 6 Independent with activity with or without an assistive device 5 Patient requires set up or clean up by helper. Patient completes activity by themselves 4 Supervision or touching assist (CGA). [place] provide cues , steadying assist 3 The helper provides less than half the effort to complete the activity 2 The helper provides more than half the effort to complete the activity 1 Dependent. The helper does all the effort to complete an activity 7 Patient refused to complete or attempt activity 9 The patient did not perform the activity before the current illness or injury 88 Not attempted due to Medical conditions or safety concerns Transfers (B, C, W/C) (FIM): 4 Scootin Rollin Roll Left to Right (QC): 5 Supine to/from Sit: 5 Sit to/from Stand: 4 Sit to Lying (QC): 5 Sit to Stand (QC): 4 minimal assist with sit to stand with use of gait belt for safety Gait Training Does the Patient Walk?: Yes Gait (FIM): 2 Distance (FIM): 2=944-36 ft Distance: 125' x 8 Walk 10 feet (QC): 4 Walk 50 ft with 2 Turns(QC): 4 Gait Level of Assist: 4 Gait Persons Needed: 1 Gait Assistive Device: FWW and with use of solo step to improve balance and core strengthening with postural exercises in stand without assistive device. Patient required 90% skilled verbal instruction for posture in stand to extend knees and straighten back. Helmet is in place prior to OOB activities. Exercises Standing: Sit to Stand Standing Reps: 8 with and without arm rests Assessment Patient is progressing with treatment plan and appears to be impatient with progress. Patient was very active PLOF and is having difficulty with slow recovery. Gait, balance and strength training in solo step utilized to encourage patient's independence safely and to allow patient to accept current limitations. Spouse present during treatment. PT Short Term Goals Short Term Goals Time Frame: May 26, 2017 Transfers (B,C,W/C) (FIM): 4 Gait (FIM): 2 Gait Distance Comment: 50' Gait Level of Assist: 4 Gait Assistive Device: FWW Wheelchair Distance: 100' PT Chlorine Cell Tender Goals Half-Way Goals PT Chlorine Cell Tender Goals Time Frame: Jun 09, 2017 Transfers (B,C,W/C) (FIM): 4 Sit to Lying (QC): 4 Lying-Sitting on Side/Bed(QC): 4 Sit to Stand (QC): 4 Rollin Roll Left to Right (QC): 4 Chair/Zgv-yz-Jkrve Xfer(QC): 4 Car Transfer (QC): 4 Gait (FIM): 4 Distance: 150' Walk 10 feet (QC): 4 Walk 10ft-Uneven Surface(QC): 4 Walk 50ft with 2 Turns (QC): 4 Walk 150 ft (QC): 4 Gait Level of Assist: 4 Gait Assistive Device: FWW Stairs (FIM): 2 # of Steps: 4 1 Step (curb) (QC): 4 4 Steps (QC): 4 PT Plan Treatment/Plan Treatment Plan: Continue Plan of Care Treatment Plan: Bed Mobility, Education, Functional Activity Lela, Functional Strength, Gait, Safety, Therapeutic Exercise, Transfers Treatment Duration: Jun 09, 2017 Visits Per Week: 10-11 Minutes/Day (M-F): 60-90 Minutes/Day (Sat/Johnson): 15-30 Time/GCodes Time In: 1000 Time Out: 1100 Total Billed Treatment Time: 60 Total Billed Treatment 1 visit FA x 4 60 min KOJO BARAJAS PT Jun 01, 2017 11:10
--- NOTE | 2017-06-01 13:40 | Occupational Ther Daily Note ---
OT Current Status-Daily Note Subjective Pt seen in room, asleep in bed but agreeable to OT. No pain mentioned today. Appearance Asleep but easily awakened. Less confused today - recognizes and verbalizes that he is not in his room at home Mental Status/Objective Functional [place] Measure 0=Not Assessed/NA 4=Minimal Assistance 1=Total Assistance 5=Supervision or Setup 2=Maximal Assistance 6=Modified [place] 3=Moderate Assistance 7=Complete [place] ADL-Treatment All ADLs took longer than usual. pt is very talkative and frequently needs to be redirected back to task. Helmet on when up except when washing hair, with close supervision. Pt walked to and from bathroom with CGA, FWW and was left up in bed, 4 rails up, alarm on, telesitter on. Functional [place] Measure 0=Not Assessed/NA 4=Minimal Assistance 1=Total Assistance 5=Supervision or Setup 2=Maximal Assistance 6=Modified [place] 3=Moderate Assistance 7=Complete IndependenceIRFPAI Quality Coding Scale 6 Independent with activity with or without an assistive device 5 Patient requires set up or clean up by helper. Patient completes activity by themselves 4 Supervision or touching assist (CGA). [place] provide cues , steadying assist 3 The helper provides less than half the effort to complete the activity 2 The helper provides more than half the effort to complete the activity 1 Dependent. The helper does all the effort to complete an activity 7 Patient refused to complete or attempt activity 9 The patient did not perform the activity before the current illness or injury 88 Not attempted due to Medical conditions or safety concerns Bathing (FIM): 5 (Supervision and setup. Pt was able to wash and dry all parts except his back. He was able to turn the water on. Skilled cues for safety. Pt had helmet on except when seated and washing his hair. Shower bench, grab bars, hand held shower. ) Upper Body (FIM): 5 (Shirt on and off with setup. ) Lower Body Dressing (FIM): 5 (Setup to put pants on, in bed. Able to don shoes without help.) Toileting (FIM): 5 (BSC over toilet, grab bar, FWW) Toilet/Commode Transfer (FIM): 4 (CGA, BSC over toilet, FWW) Shower Transfer(FIM): 4 (CGA stepping in shower and sitting on bench, using grab bar to control descent. Stood up off bench with SBA but needed min assist with slight LOB when turning to reach for walker (narrow base of support). Discussed transfer before getting up so he was aware of situation and did better than yesterday. ) Education OT Patient Education: Progress toward Goal/Update tx plan, Safety issues, Transfer techniques Teaching Recipient: Patient Teaching Methods: Discussion Response to Teaching: Verbalize Understanding, Return Demonstration, Reinforcement Needed OT Short Term Goals Short Term Goals Time Frame: Jun 02, 2017 Grooming(FIM): 5 Upper Body Dressing(FIM): 5 Lower Body Dressing(FIM): 3 Toileting(FIM): 3 Transfers (B,C,W/C) (FIM): 4 Additional Short Term Goals: 2-Verbalize Understanding, 3-ImproveStrength/Lela 1=Demonstrate adherence to instructed precautions during ADL tasks. 2=Patient will verbalize/demonstrate understanding of assistive devices/ modifications for ADL. 3=Patient will improve strength/tolerance for activity to enable patient to perform ADL's. OT Commercial Food Instructor Goals Prison Goals Time Frame: Jun 16, 2017 Eating (FIM): 6 Eating (QC): 6 Groomin Oral Hygiene (QC): 6 Bathing(FIM): 6 Shower/Bathe Self (QC): 6 Upper Body Dressing(FIM): 6 Upper Body Dressing (QC): 6 Lower Body Dressing(FIM): 6 Lower Body Dressing (QC): 6 On/Off Footwear (QC): 6 Toileting(FIM): 6 Toileting Hygiene (QC): 6 Toilet/Commode Transfer(FIM): 6 Toilet/Commode Transfer (QC): 6 Shower Transfer(FIM): 6 Comprehension(FIM): 5 Expression (FIM): 6 Social Interaction(FIM): 5 Problem Solving(FIM): 4 Memory(FIM): 4 Additional Goals: 2-Verbalize Understanding, 3-ImproveStrength/Lela 1=Demonstrate adherence to instructed precautions during ADL tasks. 2=Patient will verbalize/demonstrate understanding of assistive devices/ modifications for ADL. 3=Patient will improve strength/tolerance for activity to enable patient to perform ADL's. OT Education/Plan Problem List/Assessment Pt would benefit from skilled OT to increase his independence in basic self care to allow him to safely return to his home to live with his and to decrease caregiver burden. Discharge Recommendations Plan/Recommendations: Continue POC Treatment Plan/Plan of Care Patient would benefit from OT for education, treatment and training to promote independence in ADL's, mobility, safety and/or upper extremity function for ADL' s. Plan of Care: ADL Retraining, Caregiver Training, Functional Mobility, Group Exercise/Act as Ind (education, exercise, socialization, funct activities, activity tolerance), UE Funct Exercise/Act, UE Neuromus Re-Ed/Coord, Visual/ Perceptual Retrain Treatment Duration: Jun 16, 2017 Visits Per Week: 10-11 Minutes/Day (M-F): 75-90 Minutes/Day (Sat/Johnson): PRN Agreement: Yes Rehab Potential: Fair Time/GCodes Start Time: 08:30 Stop Time: 09:30 Total Time Billed (hr/min): 60 Billed Treatment Time visit, 60 minutes ADL JED HAN OT Jun 01, 2017 13:40
--- NOTE | 2017-06-01 13:48 | Therapy Group Daily Note ---
Therapy Daily Group Note Other/Notes Each patient participated in group therapy in the common area of rehab during lunch. Each patient was either transported or ambulated to the common area of rehab and sat at tables with other patients. Each patient had to answer some orientation questions and use memory recall. Then, they participated in an activity that involved memory, manual dexterity, and problem solving. Patients also participated in upper and lower extremity seated exercises. Finally, patient's were either transported or ambulated back to their room to bed or chair with nurse call, phone, tray, all needs met. Start Time: 13:00 Stop Time: 14:10 Total Billed Treatment Time: 70 Total Billed Treatment 1 visit GRP 70' JOSÉ MANUEL WHEELER PT Jun 01, 2017 13:48
[2017-06-01] MEDS: ENOXAPARIN 40 MG/0.4 ML (LOVENOX) SYR SC SCH (17:49)
[2017-06-01] MEDS: ALFUZOSIN HCL 10 MG TAB (UROXATRAL) PO SCH (17:49)
[2017-06-01 18:42] VITALS: BP 111/69
[2017-06-01] MEDS: POLYETHYLENE GLYCOL 17 GM (MIRALAX) PACK GT SCH (20:02)
[2017-06-02 05:00] VITALS: BP 120/74
[2017-06-02] MEDS: LEVOTHYROXINE 125 MCG (LEVOTHROID) TABLET GT SCH (06:39)
[2017-06-02] MEDS: MULTIVIT W/MINERALS TAB (THERAGRAN M) GT SCH (06:39)
[2017-06-02] MEDS: KCL 10 MEQ TAB (MICRO K) PO SCH (06:39)
[2017-06-02] MEDS: OMEGA 3 (FISH OIL) 1000 MG CAP PO SCH ×2 (06:39→17:28)
[2017-06-02] MEDS: LEVETIRACETAM 500 MG (KEPPRA) TAB PO SCH ×2 (08:20→21:57)
[2017-06-02] MEDS: FUROSEMIDE 40 MG (LASIX) TAB GT SCH (08:20)
[2017-06-02] MEDS: guaiFENesin (MUCINEX) 600 MG TAB PO SCH ×2 (08:20→21:57)
[2017-06-02] MEDS: cloNIDine 0.1 MG (CATAPRES) TAB GT SCH ×3 (08:20→21:57)
[2017-06-02] MEDS: LACTOBACILLUS Acidoph/Bulgar (LACTINEX/FLORANEX) TAB PEG SCH ×2 (08:20→21:57)
[2017-06-02] MEDS: DOCUSATE SODIUM 100 MG (COLACE) CAP PO SCH ×2 (08:20→21:57)
[2017-06-02] MEDS: amLODIPine 5 MG (NORVASC) TAB GT SCH (08:20)
[2017-06-02] MEDS: hydrALAZINE (APRESOLINE) 25 MG TAB GT SCH ×3 (08:20→21:57)
[2017-06-02] MEDS: CARVEDILOL 12.5 MG (COREG) TABLET GT SCH ×2 (08:20→21:57)
[2017-06-02] MEDS: FAMOTIDINE 20 MG (PEPCID) TABLET GT SCH ×2 (08:20→21:57)
[2017-06-02] MEDS: ARTIFICIAL TEARS OINT (LACRI-LUBE) 3.5 GM TUBE OU SCH ×2 (08:21→21:58)
[2017-06-02] MEDS: BETAMETHASONE/CLOTRIM CREAM (LOTRISONE) 45 GM TP SCH ×2 (08:23→21:58)
--- NOTE | 2017-06-02 08:43 | Progress Note (SOAP) ---
Subjective Time Seen by Provider: 08:35 Subjective/Events-last exam subdural hematoma. Diplopia states that is improving some. Consult with application architect. Patient's thought processes improving. Patient's memory is better. Patient is one-person assist. Patient still not steady on his feet. Patient has improved months since admission. Patient realizes he's at the hospital now Objective Exam Vital Signs Date Time Temp Pulse Resp B/P (MAP) Pulse Ox O2 Delivery O2 Flow Rate FiO2 06/02/17 05:00 99.5 56 20 120/74 93 Room Air 06/01/17 20:00 Room Air 06/01/17 18:42 59 19 111/69 92 Room Air 06/01/17 09:00 Room Air I & O 06/02/17 07:00 Intake Total 1310 ml Balance 1310 ml Capillary Refill : General Appearance: No Apparent Distress, WD/WN Neck: Full Range of Motion, Normal Inspection Assessment/Plan Assessment/Plan Assess & Plan/Chief Complaint debility. Trach. PEG tube. Subdural hematoma. Coronary artery disease. . 05/21/17. Debility. Trach. PEG tube. SUBDURAL HEMATOMA. . 05/24/17. Debility. Trach. PEG tube. subdural hematoma. Patient confused and hallucinating.. . 05/25/17. Debility. Trach removed. Subdural hematoma.. patient has confusion. Spoke to son Luis about dad . 05/26/17. Debility. Confusion. coronary artery disease. Subdural hematoma. . 05/27/17 debility. Confusion. Coronary artery disease. Subdural hematoma. . 05/28/17. Debility. Confusion. coronary artery disease. Subdural hematoma. Patient gets confused at times Patient talked about diplopia today.. . 06/02/17. Debility improving. Confusion improving. Subdural hematoma. Coronary artery disease. Diplopia consult with application architect Clinical Quality Measures DVT/VTE Risk/Contraindication: Risk Factor Score Per Nursin RFS Level Per Nursing on Admit: 4+=Very High JR FUENTES DO Jun 02, 2017 08:43
--- NOTE | 2017-06-02 11:21 | Speech Therapy Daily Note ---
Speech Daily Progress Note Subjective Date Seen by Provider: Jun 02, 2017 Time Seen by Provider: 10:15 The patient was seated upright in bed upon entrance. The patient's was present and remained present for the treatment session on this date. The patient greeted the clinician appropriately and was agreeable to participation in cognitive therapy on this date. Objective Assessment of Language Related Functional Activities (VANESSA) was continued on this date. Due to the patient's increased confusion in the past, "solving daily math problems" was provided for a second time on this date with excellent improvement. The results are as follows: - Solving Daily Math Problems: The patient demonstrated 90% accuracy, independently, with simple math problems including coin and bill addition, calendar dates, and bill payments. - Reading Instructions: The patient demonstrated 100% accuracy, independently with reading instructions on medicine labels and recipes. Assessment Assessment Current Status: Fair Progress Communication Comprehension: 4 Expression: 5 Social Cognition Social Interaction: 4 Problem Solvin Memory: 3 Speech Short Term Goals Short Term Goals Short Term Goals 1. The patient will demonstrate 90% accuracy with simple orientation information with mild clinician verbal prompting. 2. The patient will remain on task for a duration of five minutes with minimal clinician verbal prompting/redirection. 3. The patient will demonstrate adequate sequencing and recall of ADL procedures with 90% accuracy and mild clinician cueing. Time Frame-ST days Speech Longterm Goals Senior Budget Analyst Goals 1. The patient will demonstrate improved cognitive linguistic skills for increased function and safety with ADL's in the least restrictive setting. Time Frame: Two Weeks Comprehension: 5 Expression: 6 Social Interaction: 5 Problem Solvin Memory: 4 Speech-Plan Treatment Plan Speech Therapy Treatment Plan: Continue Plan of Care Continue skilled speech pathology to target safety awareness and problem solving. Treatment Duration: Jun 03, 2017 # of days/week Five. Visits Per Week: Five. Minutes/Day (M-F): 30 Rehab Potential: Fair Safety Risks/Education Teaching Recipient: Patient Teaching Methods: Discussion Response to Teaching: Verbalize Understanding Education Topics Provided: Plan of Care, Progression Time Speech Therapy Time In: 10:15 Speech Therapy Time Out: 10:45 Total Billed Time: 30 Billed Treatment Time SONNY Nuno [facility]IZ[facility] ST Jun 02, 2017 11:21
--- NOTE | 2017-06-02 11:21 | Occupational Ther Daily Note ---
OT Current Status-Daily Note Subjective Pt seen in room, up in bed, agreeable to OT. Pt does not want to do ADLs until he has coffee so OT called diet office and arranged scheduled morning coffee delivery. No pain mentioned. Mental Status/Objective Functional [place] Measure 0=Not Assessed/NA 4=Minimal Assistance 1=Total Assistance 5=Supervision or Setup 2=Maximal Assistance 6=Modified [place] 3=Moderate Assistance 7=Complete [place] ADL-Treatment Pt sat edge of bed and also supine in bed to wash up with bath pack (partial bath). CGA to stand to wash bottom. He needed some skilled cues to remember to wash some areas. He also doffed and donned t-shirt seated edge of bed and pt educ provided for modified technique to remove t-shirt. He sat EOB to put pants on but chose to lie down to pull them up and button them. Pt educ on why he continued to need help for ADLs, such as walking to the bathroom to toilet or getting dressed, because he is still unsteady on his feet, especially when turning, and has decreased safety awareness. Helmet on when seated EOB except when donning shirt. Pt left up in bed, 4 rails up, bed alarm on, all needs met. Functional [place] Measure 0=Not Assessed/NA 4=Minimal Assistance 1=Total Assistance 5=Supervision or Setup 2=Maximal Assistance 6=Modified [place] 3=Moderate Assistance 7=Complete IndependenceIRFPAI Quality Coding Scale 6 Independent with activity with or without an assistive device 5 Patient requires set up or clean up by helper. Patient completes activity by themselves 4 Supervision or touching assist (CGA). [place] provide cues , steadying assist 3 The helper provides less than half the effort to complete the activity 2 The helper provides more than half the effort to complete the activity 1 Dependent. The helper does all the effort to complete an activity 7 Patient refused to complete or attempt activity 9 The patient did not perform the activity before the current illness or injury 88 Not attempted due to Medical conditions or safety concerns Upper Body (FIM): 5 Other Treatment For vision, pt practiced looking at objects at different distances and also watching items as they were moved closer and farther and noted that there are now points where he does not have double vision. This was interspersed between ADL steps. He also said that sometimes he has double vision with just L eye (R eye closed) but doesn't have same problem with R eye. Education OT Patient Education: Modified ADL techniques, Progress toward Goal/Update tx plan, Safety issues Teaching Recipient: Patient Teaching Methods: Demonstration, Discussion Response to Teaching: Verbalize Understanding, Return Demonstration, Reinforcement Needed OT Short Term Goals Short Term Goals Time Frame: Jun 02, 2017 Grooming(FIM): 5 Upper Body Dressing(FIM): 5 Lower Body Dressing(FIM): 3 Toileting(FIM): 3 Transfers (B,C,W/C) (FIM): 4 Additional Short Term Goals: 2-Verbalize Understanding, 3-ImproveStrength/Lela 1=Demonstrate adherence to instructed precautions during ADL tasks. 2=Patient will verbalize/demonstrate understanding of assistive devices/ modifications for ADL. 3=Patient will improve strength/tolerance for activity to enable patient to perform ADL's. OT Fiberglass Tube Molder Goals Nursing Home Goals Time Frame: Jun 16, 2017 Eating (FIM): 6 Eating (QC): 6 Groomin Oral Hygiene (QC): 6 Bathing(FIM): 6 Shower/Bathe Self (QC): 6 Upper Body Dressing(FIM): 6 Upper Body Dressing (QC): 6 Lower Body Dressing(FIM): 6 Lower Body Dressing (QC): 6 On/Off Footwear (QC): 6 Toileting(FIM): 6 Toileting Hygiene (QC): 6 Toilet/Commode Transfer(FIM): 6 Toilet/Commode Transfer (QC): 6 Shower Transfer(FIM): 6 Comprehension(FIM): 5 Expression (FIM): 6 Social Interaction(FIM): 5 Problem Solving(FIM): 4 Memory(FIM): 4 Additional Goals: 2-Verbalize Understanding, 3-ImproveStrength/Lela 1=Demonstrate adherence to instructed precautions during ADL tasks. 2=Patient will verbalize/demonstrate understanding of assistive devices/ modifications for ADL. 3=Patient will improve strength/tolerance for activity to enable patient to perform ADL's. OT Education/Plan Problem List/Assessment Pt would benefit from skilled OT to increase his independence in basic self care to allow him to safely return to his home to live with his and to decrease caregiver burden. Discharge Recommendations Plan/Recommendations: Continue POC Treatment Plan/Plan of Care Patient would benefit from OT for education, treatment and training to promote independence in ADL's, mobility, safety and/or upper extremity function for ADL' s. Plan of Care: ADL Retraining, Caregiver Training, Functional Mobility, Group Exercise/Act as Ind (education, exercise, socialization, funct activities, activity tolerance), UE Funct Exercise/Act, UE Neuromus Re-Ed/Coord, Visual/ Perceptual Retrain Treatment Duration: Jun 16, 2017 Visits Per Week: 10-11 Minutes/Day (M-F): 75-90 Minutes/Day (Sat/Johnson): PRN Agreement: Yes Rehab Potential: Fair Time/GCodes Start Time: 08:30 Stop Time: 09:15 Total Time Billed (hr/min): 45 Billed Treatment Time visit, 45 minutes ADL JED HAN OT Jun 02, 2017 11:20
--- NOTE | 2017-06-02 11:23 | Speech Therapy Rehab Re-Cert ---
Speech Re-Certification Form Treatment Duration: 10 days (additional) Speech Therapy Treatment Plan: Continue Plan of Care # of days/week Five. Visits Per Week: Five. Minutes/Day (M-F): 30 Rehab Potential: Fair Barriers to Learning: Impulsivity Patient and/or Family Agrees t: Yes Speech Short Term Goals Short Term Goals Short Term Goals 1. The patient will demonstrate 90% accuracy with simple orientation information with mild clinician verbal prompting. MET. 2. The patient will remain on task for a duration of five minutes with minimal clinician verbal prompting/redirection. PROGRESSING. 3. The patient will demonstrate adequate sequencing and recall of ADL procedures with 90% accuracy and mild clinician cueing. PROGRESSING 4. Patient will demonstrate safety problem solving with 90% accuracy, independently. Time Frame-ST days Speech Assisted Goals Assisted Goals 1. The patient will demonstrate improved cognitive linguistic skills for increased function and safety with ADL's in the least restrictive setting. Time Frame: Ten Days Comprehension: 5 Expression: 6 Social Interaction: 5 Problem Solvin Memory: 4 AMRIK LOMAX Jun 02, 2017 11:23
--- NOTE | 2017-06-02 12:06 | Physical Therapy Daily Note ---
PT Daily Note-Current Subjective Pt. and state they are ready for him to go home today! After Rx and several observations of near LOB requiring assist pt. and agree tht he is wtill making progress and would be safer if he stayed a few more days to gain balance and strength Pain Numeric Pain Scale: 0-No Pain Mental Status Patient Orientation: Person, Place Attachments: Other-See Comments (helmet) Transfers Functional [place] Measure 0=Not Assessed/NA 4=Minimal Assistance 1=Total Assistance 5=Supervision or Setup 2=Maximal Assistance 6=Modified [place] 3=Moderate Assistance 7=Complete IndependenceIRFPAI Quality Coding Scale 6 Independent with activity with or without an assistive device 5 Patient requires set up or clean up by helper. Patient completes activity by themselves 4 Supervision or touching assist (CGA). [place] provide cues , steadying assist 3 The helper provides less than half the effort to complete the activity 2 The helper provides more than half the effort to complete the activity 1 Dependent. The helper does all the effort to complete an activity 7 Patient refused to complete or attempt activity 9 The patient did not perform the activity before the current illness or injury 88 Not attempted due to Medical conditions or safety concerns Transfers (B, C, W/C) (FIM): 5 Scootin Rollin Supine to/from Sit: 5 Sit to/from Stand: 5 Gait Training Does the Patient Walk?: Yes Gait (FIM): 3 Distance (FIM): 3=150 ft (200x4) Gait Level of Assist: 3 Gait Persons Needed: 1 Gait Assistive Device: FWW Pt. with FWW, hurry cane and on Solo step required mod assist x 2 episodes with turning secondary to LOB. Pt. continues impulsive and has narrow TJ at turns Stair Training Stair Training: Handrails/: 2 handrails Stairs (FIM): 2 #of Steps: 4 Stairs: Pattern: Reciprocal Level of Assist: 4 Exercises Supine Ex: Heel Slides, Straight leg raise, Hip abd/add Supine Reps: 12 Treatments much education with and pt. this date RE: gait and TRFs and safety Assessment Current Status: Good Progress progress noted, increased cognition, better gait quality, improved endurance PT Short Term Goals Short Term Goals Time Frame: May 26, 2017 Transfers (B,C,W/C) (FIM): 4 Gait (FIM): 2 Gait Distance Comment: 50' Gait Level of Assist: 4 Gait Assistive Device: FWW Wheelchair Distance: 100' PT Retirement Goals Health Policy Nurse Goals PT Health Policy Nurse Goals Time Frame: Jun 09, 2017 Transfers (B,C,W/C) (FIM): 4 Sit to Lying (QC): 4 Lying-Sitting on Side/Bed(QC): 4 Sit to Stand (QC): 4 Rollin Roll Left to Right (QC): 4 Chair/[id number] Xfer(QC): 4 Car Transfer (QC): 4 Gait (FIM): 4 Distance: 150' Walk 10 feet (QC): 4 Walk 10ft-Uneven Surface(QC): 4 Walk 50ft with 2 Turns (QC): 4 Walk 150 ft (QC): 4 Gait Level of Assist: 4 Gait Assistive Device: FWW Stairs (FIM): 2 # of Steps: 4 1 Step (curb) (QC): 4 4 Steps (QC): 4 PT Plan Treatment/Plan Treatment Plan: Continue Plan of Care Treatment Plan: Bed Mobility, Education, Functional Activity Lela, Functional Strength, Gait, Safety, Therapeutic Exercise, Transfers Treatment Duration: Jun 09, 2017 Visits Per Week: 10-11 Minutes/Day (M-F): 60-90 Minutes/Day (Sat/Johnson): 15-30 Safety Risks/Education Patient Education: Gait Training, Transfer Techniques, Steps, Correct Positioning, Safety Issues Teaching Recipient: Patient, Primary Caregiver, Family Teaching Methods: Demonstration, Discussion Response to Teaching: Verbalize Understanding, Return Demonstration, Reinforcement Needed educated RE: gait, steps, and TRFs, use of gait belt etc Time/GCodes Time In: 1100 Time Out: 1200 Total Billed Treatment Time: 60 Total Billed Treatment 1,NM15m,GT25m,FA20m G Codes Necessary: ISABELLA Lowry WELDING MACHINE OPERATOR [employer]LECTRON [employer] Jun 02, 2017 12:06
--- NOTE | 2017-06-02 14:49 | Occupational Ther Daily Note ---
OT Current Status-Daily Note Subjective Pt seen in room, up in bed, agreeable to OT. No pain mentioned. Appearance Alert, cooperative Mental Status/Objective Functional [place] Measure 0=Not Assessed/NA 4=Minimal Assistance 1=Total Assistance 5=Supervision or Setup 2=Maximal Assistance 6=Modified [place] 3=Moderate Assistance 7=Complete [place] ADL-Treatment Functional [place] Measure 0=Not Assessed/NA 4=Minimal Assistance 1=Total Assistance 5=Supervision or Setup 2=Maximal Assistance 6=Modified [place] 3=Moderate Assistance 7=Complete IndependenceIRFPAI Quality Coding Scale 6 Independent with activity with or without an assistive device 5 Patient requires set up or clean up by helper. Patient completes activity by themselves 4 Supervision or touching assist (CGA). [place] provide cues , steadying assist 3 The helper provides less than half the effort to complete the activity 2 The helper provides more than half the effort to complete the activity 1 Dependent. The helper does all the effort to complete an activity 7 Patient refused to complete or attempt activity 9 The patient did not perform the activity before the current illness or injury 88 Not attempted due to Medical conditions or safety concerns Other Treatment Pt was able to move to EOB and stand with SBA, FWW, with cues for hand placement. Walked to commons area with CGA, FWW and no LOB. Sat in chair with arms with CGA, no cues for hand placement. Pt did visual focusing activity at tabletop, requiring him to look near and far, left and right, down and up. He verbalized amazement that there were many times when his vision was focused and not double. Also worked on eye hand coordination, involving reaching for objects of various sizes, many of them tiny. Pt was able to get out of chair with arms and walked CGA, FWW to room, getting back in bed from sitting EOB by himself. Pt left up in bed, 4 rails up, bed alarm on, telesitter present, all needs met. Education OT Patient Education: Progress toward Goal/Update tx plan Teaching Methods: Demonstration, Discussion Response to Teaching: Verbalize Understanding OT Short Term Goals Short Term Goals Time Frame: Jun 02, 2017 Grooming(FIM): 5 Upper Body Dressing(FIM): 5 Lower Body Dressing(FIM): 3 Toileting(FIM): 3 Transfers (B,C,W/C) (FIM): 4 Additional Short Term Goals: 2-Verbalize Understanding, 3-ImproveStrength/Llea 1=Demonstrate adherence to instructed precautions during ADL tasks. 2=Patient will verbalize/demonstrate understanding of assistive devices/ modifications for ADL. 3=Patient will improve strength/tolerance for activity to enable patient to perform ADL's. OT Assisted Goals [employer] Tutor Goals Time Frame: Jun 16, 2017 Eating (FIM): 6 Eating (QC): 6 Groomin Oral Hygiene (QC): 6 Bathing(FIM): 6 Shower/Bathe Self (QC): 6 Upper Body Dressing(FIM): 6 Upper Body Dressing (QC): 6 Lower Body Dressing(FIM): 6 Lower Body Dressing (QC): 6 On/Off Footwear (QC): 6 Toileting(FIM): 6 Toileting Hygiene (QC): 6 Toilet/Commode Transfer(FIM): 6 Toilet/Commode Transfer (QC): 6 Shower Transfer(FIM): 6 Comprehension(FIM): 5 Expression (FIM): 6 Social Interaction(FIM): 5 Problem Solving(FIM): 4 Memory(FIM): 4 Additional Goals: 2-Verbalize Understanding, 3-ImproveStrength/Lela 1=Demonstrate adherence to instructed precautions during ADL tasks. 2=Patient will verbalize/demonstrate understanding of assistive devices/ modifications for ADL. 3=Patient will improve strength/tolerance for activity to enable patient to perform ADL's. OT Education/Plan Problem List/Assessment Pt would benefit from skilled OT to increase his independence in basic self care to allow him to safely return to his home to live with his and to decrease caregiver burden. Discharge Recommendations Plan/Recommendations: Continue POC Treatment Plan/Plan of Care Patient would benefit from OT for education, treatment and training to promote independence in ADL's, mobility, safety and/or upper extremity function for ADL' s. Plan of Care: ADL Retraining, Caregiver Training, Functional Mobility, Group Exercise/Act as Ind (education, exercise, socialization, funct activities, activity tolerance), UE Funct Exercise/Act, UE Neuromus Re-Ed/Coord, Visual/ Perceptual Retrain Treatment Duration: Jun 16, 2017 Visits Per Week: 10-11 Minutes/Day (M-F): 75-90 Minutes/Day (Sat/Johnson): PRN Agreement: Yes Rehab Potential: Fair Time/GCodes Start Time: 13:30 Stop Time: 14:00 Total Time Billed (hr/min): 30 Billed Treatment Time visit, 30 minutes neuromotor JED HAN OT Jun 02, 2017 14:48
--- NOTE | 2017-06-02 14:58 | Physical Therapy Daily Note ---
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 Cant heel raise in standing Pain Numeric Pain Scale: 0-No Pain Mental Status Attachments: Other-See Comments (helmet) Transfers Functional [place] Measure 0=Not Assessed/NA 4=Minimal Assistance 1=Total Assistance 5=Supervision or Setup 2=Maximal Assistance 6=Modified [place] 3=Moderate Assistance 7=Complete IndependenceIRFPAI Quality Coding Scale 6 Independent with activity with or without an assistive device 5 Patient requires set up or clean up by helper. Patient completes activity by themselves 4 Supervision or touching assist (CGA). [place] provide cues , steadying assist 3 The helper provides less than half the effort to complete the activity 2 The helper provides more than half the effort to complete the activity 1 Dependent. The helper does all the effort to complete an activity 7 Patient refused to complete or attempt activity 9 The patient did not perform the activity before the current illness or injury 88 Not attempted due to Medical conditions or safety concerns sup to sit with CGA and instruction for log roll Gait Training Gait Assistive Device: FWW gait with some LOB as pt. does not heed instruction to be mindful of safety Exercises Standing: Hip Abduction, Hamstring curls, Heel/toe raises (seated), Marching ( with sway), Mini squats Assessment Current Status: Good Progress PT Short Term Goals Short Term Goals Time Frame: May 26, 2017 Transfers (B,C,W/C) (FIM): 4 Gait (FIM): 2 Gait Distance Comment: 50' Gait Level of Assist: 4 Gait Assistive Device: FWW Wheelchair Distance: 100' PT Fdc Goals Strip Cutting Machine Operator Goals PT Strip Cutting Machine Operator Goals Time Frame: Jun 09, 2017 Transfers (B,C,W/C) (FIM): 4 Sit to Lying (QC): 4 Lying-Sitting on Side/Bed(QC): 4 Sit to Stand (QC): 4 Rollin Roll Left to Right (QC): 4 Chair/Euc-xi-Cecxs Xfer(QC): 4 Car Transfer (QC): 4 Gait (FIM): 4 Distance: 150' Walk 10 feet (QC): 4 Walk 10ft-Uneven Surface(QC): 4 Walk 50ft with 2 Turns (QC): 4 Walk 150 ft (QC): 4 Gait Level of Assist: 4 Gait Assistive Device: FWW Stairs (FIM): 2 # of Steps: 4 1 Step (curb) (QC): 4 4 Steps (QC): 4 PT Plan Treatment/Plan Treatment Plan: Continue Plan of Care Treatment Plan: Bed Mobility, Education, Functional Activity Lela, Functional Strength, Gait, Safety, Therapeutic Exercise, Transfers Treatment Duration: Jun 09, 2017 Visits Per Week: 10-11 Minutes/Day (M-F): 60-90 Minutes/Day (Sat/Johnson): 15-30 Safety Risks/Education Patient Education: Gait Training, Transfer Techniques, Issued Written HEP Teaching Recipient: Patient Teaching Methods: Demonstration, Discussion Response to Teaching: Verbalize Understanding, Return Demonstration, Reinforcement Needed Time/GCodes Time In: 1435 Time Out: 1455 Total Billed Treatment Time: 20 Total Billed Treatment 1,EX20m G Codes Necessary: ISABELLA Lowry SHELL MAKER LOCKSTITCH Jun 02, 2017 14:58
[2017-06-02] MEDS: ALFUZOSIN HCL 10 MG TAB (UROXATRAL) PO SCH (17:28)
[2017-06-02] MEDS: ENOXAPARIN 40 MG/0.4 ML (LOVENOX) SYR SC SCH (17:29)
[2017-06-02 18:51] VITALS: BP 108/67
--- NOTE | 2017-06-02 20:02 | PM & R (SOAP) Progress Note ---
Subjective Time Seen by Provider: 13:50 Subjective/Events-last exam Patient was seen in his room Earlier this afternoon.Patient CGA for transfers due to LOSS of Balance Objective Exam Last Set of Vital Signs Vital Signs Date Time Temp Pulse Resp B/P (MAP) Pulse Ox O2 Delivery O2 Flow Rate FiO2 06/02/17 09:00 Room Air 06/02/17 05:00 99.5 56 20 120/74 93 Capillary Refill : I&O Intake and Output 06/02/17 00:00 Intake Total 1410 ml Balance 1410 ml Intake Oral 1410 ml # Voids 8 # Bowel Movements 1 General: Alert, Cooperative, No Acute Distress HEENT: EOMI, Mucous Memb Moist/[place], Other (Rt Crani site healing well) Neck: Supple, No JVD, Other (decannulated with drssing in place) Lungs: Clear to Auscultation Heart: Regular Rate Abdomen: Normal Bowel Sounds, Soft, No Tenderness Extremities: No Edema Neuro: Other (generalized weakness Mild cognitive impairment) Psych/Mental Status: Other (Confused at times) Assessment/Plan Assessment Rt SDH s/p evacuation with gait imbalance Blurred vision-improving S/P Trach-decannulation 05/21/17 S/P feeding tube now on po feeds HTN controlled Dysphagia improved Fall no injury sustained Post-op confusion-much improved Kduezilniay-rhrcgoyh-[id number] Plan Continue PT/OT/ST F/U with DR Turcios PRN=Appreciate his note F/U with DR Dowling as per his schedule Appreciate current labs Alarmbot( robositter) for patients protection Replaced K F/U with DR Jessica mistry Neurosurgeon in [facility] and DR rahman Radiology here for comparison of CT images although patient much improved-done Consult [facility]-done Checked TSH-WNL See orders Team Conference held earlier today See report for full functional update and POC Discharge tentatively set for 06-09-17 Patients delirium much improved Patients diplopia improving gradually Will ask Dr Hurd OD and assoc to assess See Orders SHAHZAD BARROW MD Jun 02, 2017 20:02
[2017-06-02] MEDS: POLYETHYLENE GLYCOL 17 GM (MIRALAX) PACK GT SCH (21:57)
[2017-06-03 05:00] VITALS: BP 132/75
[2017-06-03] MEDS: KCL 10 MEQ TAB (MICRO K) PO SCH (06:38)
[2017-06-03] MEDS: LEVOTHYROXINE 125 MCG (LEVOTHROID) TABLET GT SCH (06:38)
[2017-06-03] MEDS: OMEGA 3 (FISH OIL) 1000 MG CAP PO SCH ×2 (06:38→17:42)
[2017-06-03] MEDS: MULTIVIT W/MINERALS TAB (THERAGRAN M) GT SCH (06:38)
--- NOTE | 2017-06-03 08:36 | Progress Note (SOAP) ---
Subjective Time Seen by Provider: 08:26 Subjective/Events-last exam patient mentally is improving. Patient's blood processes better. Debility. Diplopia patient to see eye doctor Objective Exam Vital Signs Date Time Temp Pulse Resp B/P (MAP) Pulse Ox O2 Delivery O2 Flow Rate FiO2 06/03/17 05:00 99.8 69 20 132/75 95 Room Air 06/02/17 20:20 Room Air 06/02/17 18:51 98.0 70 14 108/67 92 06/02/17 09:00 Room Air I & O 06/03/17 07:00 Intake Total 1670 ml Output Total 600 ml Balance 1070 ml Capillary Refill : General Appearance: No Apparent Distress, WD/WN HEENT: Normal ENT Inspection Neck: Full Range of Motion, Normal Inspection Respiratory: Chest Non Tender, No Accessory Muscle Use, No Respiratory Distress Cardiovascular: Regular Rate, Rhythm, No Murmur Gastrointestinal: other (PEG tube) Assessment/Plan Assessment/Plan Assess & Plan/Chief Complaint debility. Trach. PEG tube. Subdural hematoma. Coronary artery disease. . 05/21/17. Debility. Trach. PEG tube. SUBDURAL HEMATOMA. . 05/24/17. Debility. Trach. PEG tube. subdural hematoma. Patient confused and hallucinating.. . 05/25/17. Debility. Trach removed. Subdural hematoma.. patient has confusion. Spoke to son Luis about dad . 05/26/17. Debility. Confusion. coronary artery disease. Subdural hematoma. . 05/27/17 debility. Confusion. Coronary artery disease. Subdural hematoma. . 05/28/17. Debility. Confusion. coronary artery disease. Subdural hematoma. Patient gets confused at times Patient talked about diplopia today.. . 06/02/17. Debility improving. Confusion improving. Subdural hematoma. Coronary artery disease. Diplopia consult with vice president of talent acquisition. . 06/03/17. Patient's confusion is less. Subdural hematoma. Debility. coronary artery disease. Patient making more sense Clinical Quality Measures DVT/VTE Risk/Contraindication: Risk Factor Score Per Nursin RFS Level Per Nursing on Admit: 4+=Very High JR FUENTES DO Jun 03, 2017 08:36
--- NOTE | 2017-06-03 08:41 | PM & R (SOAP) Progress Note ---
Subjective Time Seen by Provider: 07:25 Subjective/Events-last exam Patient was seen in his room this AM, Patient CGA for transfers Patient wants to get rid of his Robositter It goes off when he fidgets with his G Tube Patient feels that he wll do better when he goes home Encouraged patient to use call lite and helmet so as to avoid falls and injury Objective Exam Last Set of Vital Signs Vital Signs Date Time Temp Pulse Resp B/P (MAP) Pulse Ox O2 Delivery O2 Flow Rate FiO2 06/03/17 05:00 99.8 69 20 132/75 95 Room Air Capillary Refill : I&O Intake and Output 06/03/17 00:00 Intake Total 1170 ml Output Total 600 ml Balance 570 ml Intake Oral 1170 ml Output Urine Total 600 ml # Voids 2 General: Alert, Cooperative, No Acute Distress HEENT: EOMI, Mucous Memb Moist/[place], Other (Rt Crani site healing well) Neck: Supple, No JVD, Other (decannulated with drssing in place) Lungs: Clear to Auscultation Heart: Regular Rate Abdomen: Normal Bowel Sounds, Soft, No Tenderness Extremities: No Edema Neuro: Other (generalized weakness Mild cognitive impairment) Psych/Mental Status: Other (Confused at times) Assessment/Plan Assessment Rt SDH s/p evacuation with gait imbalance Contusion and hemorrhage rt cerebral cortex Blurred vision-improving S/P Trach-decannulation 05/21/17 S/P feeding tube now on po feeds HTN controlled Dysphagia improved Fall no injury sustained Post-op confusion-much improved Xtzfiutttaw-qosumutf-qovugvjsh Plan Continue PT/OT/ST F/U with DR Turcios PRN=Appreciate his note F/U with DR Dowling as per his schedule Appreciate current labs Alarmbot( robositter) for patients protection Replaced K F/U with DR Jessica mistry Neurosurgeon in [facility] and DR rahman Radiology here for comparison of CT images although patient much improved-done Consult [facility]-done Checked TSH-WNL See orders Team Conference held earlier today See report for full functional update and POC Discharge tentatively set for 06-09-17 Patients delirium much improved Patients diplopia improving gradually Awaiting Optometrists consult and rec re diplopia SHAHZAD BARROW MD Jun 03, 2017 08:41
--- NOTE | 2017-06-03 09:07 | Speech Therapy Daily Note ---
Speech Daily Progress Note Subjective Date Seen by Provider: Jun 03, 2017 Time Seen by Provider: 08:25 The patient was laying in bed upon entrance. The patient stated he was fatigued due to "little sleep" the night prior. The patient greeted the clinician and was agreeable to participation in the cognitive treatment session. Objective - Safety Awareness: As the patient consistently requests to "leave this place," the clinician reviewed his home environment and possible safety issues present. The patient described his "shop" to the clinician in detail. The shop has concrete floor and "lots of stuff everywhere." The patient additionally stated he has steel tubing "around on the floors." The clinician attempted to review safety issues in his environment, however, the patient remained hesitant towards suggestions. The patient continuously stated, "yeah but I'm going to be careful." The concrete floors were addressed, however, the patient stated any additional material would make the area more dangerous. The patient was agreeable to organizing his steel pipes off of the floor, as well as, switching his footwear to tennis shoes instead of "crocs" to provide more anti-slip material. 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 Additionally, the patient was able to locate specific items on the menu and provide nutritional information to the clinician. The patient reported his double vision is improving ("sometimes"), however, it remains difficult for him to read long passages. Assessment Assessment Current Status: Fair Progress Treatment Plan Continue Plan of Care Communication Comprehension: 3 Expression: 4 Social Cognition Social Interaction: 4 Problem Solvin Memory: 3 Speech Short Term Goals Short Term Goals Short Term Goals 1. The patient will demonstrate 90% accuracy with simple orientation information with mild clinician verbal prompting. MET. 2. The patient will remain on task for a duration of five minutes with minimal clinician verbal prompting/redirection. PROGRESSING. 3. The patient will demonstrate adequate sequencing and recall of ADL procedures with 90% accuracy and mild clinician cueing. PROGRESSING 4. Patient will demonstrate safety problem solving with 90% accuracy, independently. Time Frame-ST days Speech Food Production Associate Goals Food Production Associate Goals 1. The patient will demonstrate improved cognitive linguistic skills for increased function and safety with ADL's in the least restrictive setting. Time Frame: Ten Days Comprehension: 5 Expression: 6 Social Interaction: 5 Problem Solvin Memory: 4 Speech-Plan Treatment Plan Speech Therapy Treatment Plan: Continue Plan of Care Continue skilled speech pathology to target functional safety problem solving and awareness. Treatment Duration: Jun 03, 2017 # of days/week Five. Visits Per Week: Five. Minutes/Day (M-F): 30 Rehab Potential: Fair Safety Risks/Education Teaching Recipient: Patient Teaching Methods: Discussion Response to Teaching: Reinforcement Needed Education Topics Provided: Safety Issues in his Environment Time Speech Therapy Time In: 08:25 Speech Therapy Time Out: 08:55 Total Billed Time: 30 Billed Treatment Time [address] Jun 03, 2017 09:07
[2017-06-03] MEDS: guaiFENesin (MUCINEX) 600 MG TAB PO SCH ×2 (09:24→21:29)
[2017-06-03] MEDS: cloNIDine 0.1 MG (CATAPRES) TAB GT SCH ×3 (09:24→21:29)
[2017-06-03] MEDS: FAMOTIDINE 20 MG (PEPCID) TABLET GT SCH ×2 (09:24→21:29)
[2017-06-03] MEDS: amLODIPine 5 MG (NORVASC) TAB GT SCH (09:24)
[2017-06-03] MEDS: hydrALAZINE (APRESOLINE) 25 MG TAB GT SCH ×3 (09:24→21:28)
[2017-06-03] MEDS: CARVEDILOL 12.5 MG (COREG) TABLET GT SCH ×2 (09:24→21:29)
[2017-06-03] MEDS: DOCUSATE SODIUM 100 MG (COLACE) CAP PO SCH ×2 (09:24→21:28)
[2017-06-03] MEDS: FUROSEMIDE 40 MG (LASIX) TAB GT SCH (09:24)
[2017-06-03] MEDS: BETAMETHASONE/CLOTRIM CREAM (LOTRISONE) 45 GM TP SCH ×2 (09:25→21:30)
[2017-06-03] MEDS: ARTIFICIAL TEARS OINT (LACRI-LUBE) 3.5 GM TUBE OU SCH ×2 (09:25→21:29)
[2017-06-03] MEDS: LEVETIRACETAM 500 MG (KEPPRA) TAB PO SCH ×2 (09:32→21:29)
[2017-06-03] MEDS: LACTOBACILLUS Acidoph/Bulgar (LACTINEX/FLORANEX) TAB PEG SCH ×2 (09:32→21:29)
--- NOTE | 2017-06-03 12:06 | Physical Therapy Daily Note ---
PT Daily Note-Current Subjective Patient agrees to PT. No c/o at this time. Pain Numeric Pain Scale: 0-No Pain Location: No Pain Reported Mental Status Patient Orientation: Person, Time, Situation Attachments: PEG Tube Transfers Functional [place] Measure 0=Not Assessed/NA 4=Minimal Assistance 1=Total Assistance 5=Supervision or Setup 2=Maximal Assistance 6=Modified [place] 3=Moderate Assistance 7=Complete IndependenceIRFPAI Quality Coding Scale 6 Independent with activity with or without an assistive device 5 Patient requires set up or clean up by helper. Patient completes activity by themselves 4 Supervision or touching assist (CGA). [place] provide cues , steadying assist 3 The helper provides less than half the effort to complete the activity 2 The helper provides more than half the effort to complete the activity 1 Dependent. The helper does all the effort to complete an activity 7 Patient refused to complete or attempt activity 9 The patient did not perform the activity before the current illness or injury 88 Not attempted due to Medical conditions or safety concerns Transfers (B, C, W/C) (FIM): 4 Scootin Rollin Roll Left to Right (QC): 5 Supine to/from Sit: 5 Sit to/from Stand: 4 Sit to Lying (QC): 5 Sit to Stand (QC): 4 Chair/Suu-nq-Gfhgn Xfer(QC): 4 Bed to/from Chair: 4 Car Transfer (QC): 5 CGA with use of gait belt for safety Gait Training Does the Patient Walk?: Yes Gait (FIM): 4 Distance (FIM): 3=150 ft Distance: 225' x 4 Walk 10 feet (QC): 4 Walk 50 ft with 2 Turns(QC): 4 Walk 150 ft (QC): 4 Gait Level of Assist: 4 Gait Persons Needed: 1 Gait Assistive Device: FWW CGA for safety with use of gait belt/patient is impulsive and slightly aware of safety concerns Exercises Supine Ex: Bridging (25 reps x 2 sets), Rolling (6 reps), Lower trunk rotation (25 reps x 2 sets), Hip abd/add (sidelying 25 reps x 2 sets) NuStep Minutes: 15 (reciprocal movement with added resistance to improve gait sequence) NuStep Workload: 10 Assessment Patient appears to impatient with progress and requires redirection to remain on task and to address realistic sequence of events to progress with functional mobility in a safe manner. PT Short Term Goals Short Term Goals Time Frame: May 26, 2017 Transfers (B,C,W/C) (FIM): 4 Gait (FIM): 2 Gait Distance Comment: 50' Gait Level of Assist: 4 Gait Assistive Device: FWW Wheelchair Distance: 100' PT Penitentiary Goals Asset Protection Detective Goals PT Penitentiary Goals Time Frame: Jun 09, 2017 Transfers (B,C,W/C) (FIM): 4 Sit to Lying (QC): 4 Lying-Sitting on Side/Bed(QC): 4 Sit to Stand (QC): 4 Rollin Roll Left to Right (QC): 4 Chair/Wsf-or-Xmnbf Xfer(QC): 4 Car Transfer (QC): 4 Gait (FIM): 4 Distance: 150' Walk 10 feet (QC): 4 Walk 10ft-Uneven Surface(QC): 4 Walk 50ft with 2 Turns (QC): 4 Walk 150 ft (QC): 4 Gait Level of Assist: 4 Gait Assistive Device: FWW Stairs (FIM): 2 # of Steps: 4 1 Step (curb) (QC): 4 4 Steps (QC): 4 PT Plan Treatment/Plan Treatment Plan: Continue Plan of Care Treatment Plan: Bed Mobility, Education, Functional Activity Lela, Functional Strength, Gait, Safety, Therapeutic Exercise, Transfers Treatment Duration: Jun 09, 2017 Frequency: At least 5-7 days/Wk (IRF) Estimated Hrs Per Day: 1.5 hours per day Patient and/or Family Agrees t: Yes Time/GCodes Time In: 1100 Time Out: 1200 Total Billed Treatment Time: 60 Total Billed Treatment 1 visit EX x 3 45 min GT 15 min KOJO BARAJAS PT Jun 03, 2017 12:06
--- NOTE | 2017-06-03 12:54 | Occupational Ther Daily Note ---
OT Current Status-Daily Note Subjective Pt seen in room, up in bed, agreeable to OT. No pain mentioned. Appearance Alert, cooperative. Very verbal and needs to be redirected at times Mental Status/Objective Functional [place] Measure 0=Not Assessed/NA 4=Minimal Assistance 1=Total Assistance 5=Supervision or Setup 2=Maximal Assistance 6=Modified [place] 3=Moderate Assistance 7=Complete [place] ADL-Treatment Pt did not require cues for sequencing shower or dressing. Helmet on except when in bed or previously mentioned. Pt left up in bed, 4 rails up, bed alarm on , telesitter present. Functional [place] Measure 0=Not Assessed/NA 4=Minimal Assistance 1=Total Assistance 5=Supervision or Setup 2=Maximal Assistance 6=Modified [place] 3=Moderate Assistance 7=Complete IndependenceIRFPAI Quality Coding Scale 6 Independent with activity with or without an assistive device 5 Patient requires set up or clean up by helper. Patient completes activity by themselves 4 Supervision or touching assist (CGA). [place] provide cues , steadying assist 3 The helper provides less than half the effort to complete the activity 2 The helper provides more than half the effort to complete the activity 1 Dependent. The helper does all the effort to complete an activity 7 Patient refused to complete or attempt activity 9 The patient did not perform the activity before the current illness or injury 88 Not attempted due to Medical conditions or safety concerns Grooming (FIM): 5 (Brushed teeth with setup. No difficuties squeezing toothpaste out of tube. Washed face and hands in shower) Bathing (FIM): 5 (Pt washed and dried all parts, turned water on and off, retrieved towel. Required supervision for safety. helmet off while he was seated and washed hair. Shower bench, grab bar, hand held shower) Upper Body (FIM): 5 (Setup to don shirt, supervision to doff and don because helmet is off) Lower Body Dressing (FIM): 5 (Pt able to get feet into pants while seated EOB, then lies down to pull pants up. Slip on shoes) Toileting (FIM): 5 (Supervision, BSC over toilet, grab bar, FWW. Managed clothing and hygiene) Toilet/Commode Transfer (FIM): 4 (CGA, BSC over toilet, grab bar, FWW) Shower Transfer(FIM): 4 (CGA. Slight LOB when turning to come out of shower and reaching for FWW. SHower bench, grab bar, FWW) Education OT Patient Education: Progress toward Goal/Update tx plan, Purpose of tx/ functional activities, Safety issues, Transfer techniques Teaching Recipient: Patient Teaching Methods: Discussion Response to Teaching: Verbalize Understanding, Return Demonstration, Reinforcement Needed OT Short Term Goals Short Term Goals Time Frame: Jun 02, 2017 Grooming(FIM): 5 Upper Body Dressing(FIM): 5 Lower Body Dressing(FIM): 3 Toileting(FIM): 3 Transfers (B,C,W/C) (FIM): 4 Additional Short Term Goals: 2-Verbalize Understanding, 3-ImproveStrength/Lela 1=Demonstrate adherence to instructed precautions during ADL tasks. 2=Patient will verbalize/demonstrate understanding of assistive devices/ modifications for ADL. 3=Patient will improve strength/tolerance for activity to enable patient to perform ADL's. OT Snf Goals Senior Game Developer Goals Time Frame: Jun 16, 2017 Eating (FIM): 6 Eating (QC): 6 Groomin Oral Hygiene (QC): 6 Bathing(FIM): 6 Shower/Bathe Self (QC): 6 Upper Body Dressing(FIM): 6 Upper Body Dressing (QC): 6 Lower Body Dressing(FIM): 6 Lower Body Dressing (QC): 6 On/Off Footwear (QC): 6 Toileting(FIM): 6 Toileting Hygiene (QC): 6 Toilet/Commode Transfer(FIM): 6 Toilet/Commode Transfer (QC): 6 Shower Transfer(FIM): 6 Comprehension(FIM): 5 Expression (FIM): 6 Social Interaction(FIM): 5 Problem Solving(FIM): 4 Memory(FIM): 4 Additional Goals: 2-Verbalize Understanding, 3-ImproveStrength/Lela 1=Demonstrate adherence to instructed precautions during ADL tasks. 2=Patient will verbalize/demonstrate understanding of assistive devices/ modifications for ADL. 3=Patient will improve strength/tolerance for activity to enable patient to perform ADL's. OT Education/Plan Problem List/Assessment Pt would benefit from skilled OT to increase his independence in basic self care to allow him to safely return to his home to live with his and to decrease caregiver burden. Discharge Recommendations Plan/Recommendations: Continue POC Treatment Plan/Plan of Care Patient would benefit from OT for education, treatment and training to promote independence in ADL's, mobility, safety and/or upper extremity function for ADL' s. Plan of Care: ADL Retraining, Caregiver Training, Functional Mobility, Group Exercise/Act as Ind (education, exercise, socialization, funct activities, activity tolerance), UE Funct Exercise/Act, UE Neuromus Re-Ed/Coord, Visual/ Perceptual Retrain Treatment Duration: Jun 16, 2017 Frequency: Twice Daily Estimated Hrs Per Day: 1.5 hours per day Agreement: Yes Rehab Potential: Fair Time/GCodes Start Time: 09:45 Stop Time: 10:45 Total Time Billed (hr/min): 60 Billed Treatment Time visit, 60 minutes ADL JED HAN OT Jun 03, 2017 12:54
--- NOTE | 2017-06-03 14:11 | Occupational Ther Daily Note ---
OT Current Status-Daily Note Subjective Pt seen in room, up in bed, agreeable to OT.No pain mentioned Appearance Alert, cooperative Mental Status/Objective Functional [place] Measure 0=Not Assessed/NA 4=Minimal Assistance 1=Total Assistance 5=Supervision or Setup 2=Maximal Assistance 6=Modified [place] 3=Moderate Assistance 7=Complete [place] ADL-Treatment Functional [place] Measure 0=Not Assessed/NA 4=Minimal Assistance 1=Total Assistance 5=Supervision or Setup 2=Maximal Assistance 6=Modified [place] 3=Moderate Assistance 7=Complete IndependenceIRFPAI Quality Coding Scale 6 Independent with activity with or without an assistive device 5 Patient requires set up or clean up by helper. Patient completes activity by themselves 4 Supervision or touching assist (CGA). [place] provide cues , steadying assist 3 The helper provides less than half the effort to complete the activity 2 The helper provides more than half the effort to complete the activity 1 Dependent. The helper does all the effort to complete an activity 7 Patient refused to complete or attempt activity 9 The patient did not perform the activity before the current illness or injury 88 Not attempted due to Medical conditions or safety concerns Other Treatment Pt sat EOB to work on sorting nuts and bolts at table top, working on visual focusing near and far, left and right, up and down. OT talked with sales consultant residential manager who said to continue with activities of these types to help decrease double vision. Pt reported periods of good focusing. Also talked about different types of shower chair with pt and his . Pt left up in bed, 4 rails up, alarm on, all needs met. OT Short Term Goals Short Term Goals Time Frame: Jun 02, 2017 Grooming(FIM): 5 Upper Body Dressing(FIM): 5 Lower Body Dressing(FIM): 3 Toileting(FIM): 3 Transfers (B,C,W/C) (FIM): 4 Additional Short Term Goals: 2-Verbalize Understanding, 3-ImproveStrength/Lela 1=Demonstrate adherence to instructed precautions during ADL tasks. 2=Patient will verbalize/demonstrate understanding of assistive devices/ modifications for ADL. 3=Patient will improve strength/tolerance for activity to enable patient to perform ADL's. OT Chcf Goals Chcf Goals Time Frame: Jun 16, 2017 Eating (FIM): 6 Eating (QC): 6 Groomin Oral Hygiene (QC): 6 Bathing(FIM): 6 Shower/Bathe Self (QC): 6 Upper Body Dressing(FIM): 6 Upper Body Dressing (QC): 6 Lower Body Dressing(FIM): 6 Lower Body Dressing (QC): 6 On/Off Footwear (QC): 6 Toileting(FIM): 6 Toileting Hygiene (QC): 6 Toilet/Commode Transfer(FIM): 6 Toilet/Commode Transfer (QC): 6 Shower Transfer(FIM): 6 Comprehension(FIM): 5 Expression (FIM): 6 Social Interaction(FIM): 5 Problem Solving(FIM): 4 Memory(FIM): 4 Additional Goals: 2-Verbalize Understanding, 3-ImproveStrength/Lela 1=Demonstrate adherence to instructed precautions during ADL tasks. 2=Patient will verbalize/demonstrate understanding of assistive devices/ modifications for ADL. 3=Patient will improve strength/tolerance for activity to enable patient to perform ADL's. OT Education/Plan Problem List/Assessment Pt would benefit from skilled OT to increase his independence in basic self care to allow him to safely return to his home to live with his and to decrease caregiver burden. Discharge Recommendations Plan/Recommendations: Continue POC Treatment Plan/Plan of Care Patient would benefit from OT for education, treatment and training to promote independence in ADL's, mobility, safety and/or upper extremity function for ADL' s. Plan of Care: ADL Retraining, Caregiver Training, Functional Mobility, Group Exercise/Act as Ind (education, exercise, socialization, funct activities, activity tolerance), UE Funct Exercise/Act, UE Neuromus Re-Ed/Coord, Visual/ Perceptual Retrain Treatment Duration: Jun 16, 2017 Frequency: Twice Daily Estimated Hrs Per Day: 1.5 hours per day Agreement: Yes Rehab Potential: Fair Time/GCodes Start Time: 13:00 Stop Time: 13:15 Total Time Billed (hr/min): 15 Billed Treatment Time visit, 15 minutes neuromotor JED HAN OT Jun 03, 2017 14:11
--- NOTE | 2017-06-03 14:20 | Physical Therapy Daily Note ---
PT Daily Note-Current Subjective Patient is in bed and very agreeable to participate with PT. Spouse present. Pain Numeric Pain Scale: 0-No Pain Location: No Pain Reported Mental Status Patient Orientation: Person, Time, Situation Attachments: PEG Tube Transfers Functional [place] Measure 0=Not Assessed/NA 4=Minimal Assistance 1=Total Assistance 5=Supervision or Setup 2=Maximal Assistance 6=Modified [place] 3=Moderate Assistance 7=Complete IndependenceIRFPAI Quality Coding Scale 6 Independent with activity with or without an assistive device 5 Patient requires set up or clean up by helper. Patient completes activity by themselves 4 Supervision or touching assist (CGA). [place] provide cues , steadying assist 3 The helper provides less than half the effort to complete the activity 2 The helper provides more than half the effort to complete the activity 1 Dependent. The helper does all the effort to complete an activity 7 Patient refused to complete or attempt activity 9 The patient did not perform the activity before the current illness or injury 88 Not attempted due to Medical conditions or safety concerns Transfers (B, C, W/C) (FIM): 4 Scootin Rollin Roll Left to Right (QC): 5 Supine to/from Sit: 5 Sit to/from Stand: 4 Sit to Lying (QC): 5 Sit to Stand (QC): 4 Chair/Ujh-gv-Vkstk Xfer(QC): 4 Bed to/from Chair: 4 Gait Training Does the Patient Walk?: Yes Gait (FIM): 4 Distance (FIM): 3=150 ft Distance: 150' x 6 Walk 10 feet (QC): 4 Walk 50 ft with 2 Turns(QC): 4 Walk 150 ft (QC): 4 Gait Level of Assist: 4 Gait Persons Needed: 1 Gait Assistive Device: FWW solo step utilized to facilitate postural control in standing erect and for facilitating reciprocal gait pattern with and without FWW use Assessment Patient tolerated treatment well and fatigues with treatment. Patient and spouse are highly motivated with progress and plan dismissal to home next week. PT Short Term Goals Short Term Goals Time Frame: May 26, 2017 Transfers (B,C,W/C) (FIM): 4 Gait (FIM): 2 Gait Distance Comment: 50' Gait Level of Assist: 4 Gait Assistive Device: FWW Wheelchair Distance: 100' PT Nursing Home Goals Show Host Or Hostess Goals PT Nursing Home Goals Time Frame: Jun 09, 2017 Transfers (B,C,W/C) (FIM): 4 Sit to Lying (QC): 4 Lying-Sitting on Side/Bed(QC): 4 Sit to Stand (QC): 4 Rollin Roll Left to Right (QC): 4 Chair/Vwi-um-Pvrpj Xfer(QC): 4 Car Transfer (QC): 4 Gait (FIM): 4 Distance: 150' Walk 10 feet (QC): 4 Walk 10ft-Uneven Surface(QC): 4 Walk 50ft with 2 Turns (QC): 4 Walk 150 ft (QC): 4 Gait Level of Assist: 4 Gait Assistive Device: FWW Stairs (FIM): 2 # of Steps: 4 1 Step (curb) (QC): 4 4 Steps (QC): 4 PT Plan Treatment/Plan Treatment Plan: Continue Plan of Care Treatment Plan: Bed Mobility, Education, Functional Activity Lela, Functional Strength, Gait, Safety, Therapeutic Exercise, Transfers Treatment Duration: Jun 09, 2017 Frequency: At least 5-7 days/Wk (IRF) Estimated Hrs Per Day: 1.5 hours per day Patient and/or Family Agrees t: Yes Safety Risks/Education Patient Education: Gait Training Teaching Recipient: Patient, Significant Other Teaching Methods: Demonstration, Discussion Response to Teaching: Return Demonstration, Reinforcement Needed Discharge Recommendations Therapy D/C Recommendations: Home w/ Family Support, Physical Therapy Home Care Time/GCodes Time In: 1331 Time Out: 1401 Total Billed Treatment Time: 30 Total Billed Treatment 1 visit GT x 2 30 min KOJO BARAJAS PT Jun 03, 2017 14:20
[2017-06-03] MEDS: ALFUZOSIN HCL 10 MG TAB (UROXATRAL) PO SCH (17:42)
[2017-06-03] MEDS: ENOXAPARIN 40 MG/0.4 ML (LOVENOX) SYR SC SCH (17:43)
[2017-06-03 18:32] VITALS: BP 111/69
[2017-06-03] MEDS: POLYETHYLENE GLYCOL 17 GM (MIRALAX) PACK GT SCH (21:29)
[2017-06-04 06:19] VITALS: BP 129/76
[2017-06-04] MEDS: KCL 10 MEQ TAB (MICRO K) PO SCH (06:22)
[2017-06-04] MEDS: LEVOTHYROXINE 125 MCG (LEVOTHROID) TABLET GT SCH (06:22)
[2017-06-04] MEDS: OMEGA 3 (FISH OIL) 1000 MG CAP PO SCH ×2 (06:23→17:11)
[2017-06-04] MEDS: MULTIVIT W/MINERALS TAB (THERAGRAN M) GT SCH (06:23)
--- NOTE | 2017-06-04 08:35 | Progress Note (SOAP) ---
Subjective Time Seen by Provider: 08:35 Subjective/Events-last exam patient much improved. Patient doing better with speech . Patient doing better with thought Process. Debility. PEG tube. Objective Exam Vital Signs Date Time Temp Pulse Resp B/P (MAP) Pulse Ox O2 Delivery O2 Flow Rate FiO2 06/04/17 06:19 97.6 59 20 129/76 93 Room Air 06/03/17 21:00 Room Air 06/03/17 18:32 97.9 60 16 111/69 94 06/03/17 09:00 Room Air I & O 06/04/17 07:00 Intake Total 1600 ml Output Total 1060 ml Balance 540 ml Capillary Refill : General Appearance: No Apparent Distress, WD/WN HEENT: Normal ENT Inspection Neck: Full Range of Motion, Normal Inspection Results Lab Laboratory Tests 06/03/17 11:21: Glucometer 210H Assessment/Plan Assessment/Plan Assess & Plan/Chief Complaint debility. Trach. PEG tube. Subdural hematoma. Coronary artery disease. . 05/21/17. Debility. Trach. PEG tube. SUBDURAL HEMATOMA. . 05/24/17. Debility. Trach. PEG tube. subdural hematoma. Patient confused and hallucinating.. . 05/25/17. Debility. Trach removed. Subdural hematoma.. patient has confusion. Spoke to son Luis about dad . 05/26/17. Debility. Confusion. coronary artery disease. Subdural hematoma. . 05/27/17 debility. Confusion. Coronary artery disease. Subdural hematoma. . 05/28/17. Debility. Confusion. coronary artery disease. Subdural hematoma. Patient gets confused at times Patient talked about diplopia today.. . 06/02/17. Debility improving. Confusion improving. Subdural hematoma. Coronary artery disease. Diplopia consult with farmer cash grain. . 06/03/17. Patient's confusion is less. Subdural hematoma. Debility. coronary artery disease. Patient making more sense.. . 06/04/17. Debility. Subdural hematoma. Coronary artery disease. Patient doing much better with his thought process Clinical Quality Measures DVT/VTE Risk/Contraindication: Risk Factor Score Per Nursin RFS Level Per Nursing on Admit: 4+=Very High JR FUENTES DO Jun 04, 2017 08:35
--- NOTE | 2017-06-04 08:56 | PM & R (SOAP) Progress Note ---
Subjective Time Seen by Provider: 07:55 Subjective/Events-last exam Patient was seen in his room this AM Progressing well with therapies Slept better last evening Patient CGA to min assist for transfers Balance still impaired Patient looking forward to discharge next week Patient pleased with Optometrists POC for his diplopia Review of Systems HEENT: Visual Changes Objective Exam Last Set of Vital Signs Vital Signs Date Time Temp Pulse Resp B/P (MAP) Pulse Ox O2 Delivery O2 Flow Rate FiO2 06/04/17 06:19 97.6 59 20 129/76 93 Room Air Capillary Refill : I&O Intake and Output 06/04/17 00:00 Intake Total 1650 ml Output Total 660 ml Balance 990 ml Intake Oral 1650 ml Output Urine Total 660 ml # Voids 2 General: Alert, Cooperative, No Acute Distress HEENT: EOMI, Mucous Memb Moist/[place], Other (Rt Crani site healing well) Neck: Supple, No JVD, Other (decannulated with drssing in place) Lungs: Clear to Auscultation Heart: Regular Rate Abdomen: Normal Bowel Sounds, Soft, No Tenderness Extremities: No Edema Neuro: Other (generalized weakness Mild cognitive impairment) Psych/Mental Status: Other (Confused at times) Results Lab Laboratory Tests 06/03/17 11:21: Glucometer 210H Assessment/Plan Assessment Rt SDH s/p evacuation with gait imbalance Contusion and hemorrhage rt cerebral cortex Blurred vision-improving S/P Trach-decannulation 05/21/17 S/P feeding tube now on po feeds HTN controlled Dysphagia improved Fall no injury sustained Post-op confusion-much improved Pwhnjcbwybj-euatocru-ujswcpubg Plan Continue PT/OT/ST F/U with DR Turcios PRN=Appreciate his note F/U with DR Dowling as per his schedule Appreciate current labs Alarmbot( robositter) for patients protection Replaced K F/U with DR Jessica mistry Neurosurgeon in [facility] and DR rahman Radiology here for comparison of CT images although patient much improved-done Consult [facility]-done Checked TSH-WNL See orders Team Conference held 06-02-17 See report for full functional update and POC Discharge tentatively set for 06-09-17 Patients delirium much improved Patients diplopia improving gradually Appreciate optometrists input SHAHZAD BARROW MD Jun 04, 2017 08:55
--- NOTE | 2017-06-04 09:31 | Speech Therapy Daily Note ---
Speech Daily Progress Note Subjective Date Seen by Provider: Jun 04, 2017 Time Seen by Provider: 08:20 The patient was laying in bed upon entrance. The patient greeted the clinician appropriately and was agreeable to participation in the speech and language treatment session. The patient remained pleasant and cooperative throughout the treatment. Objective Orientation: The patient remains independently oriented to location, city, month , day, date, and year. The patient recently purchased a new clock to keep in his room as he was having difficult reading the clock on his wall due to his double vision. Safety Awareness: Specific safety recommendations and sequencing tasks were discussed in detail with the patient on this date. The patient verbalized high accuracy with walker safety information, stating the importance of "staying in the square." Additionally, the patient stated he tends to loose his balance to the right and behind so he needs to modify his environment to continue to watch this area for safety concerns should a fall occur. The patient demonstrated increased insight on this date regarding his impulsivity and safety. Functional Memory: The patient was read short paragraphs and asked specific questions regarding the paragraph following. The patient demonstrated high accuracy with minimal clinician verbal prompting (88%). Assessment Assessment Current Status: Good Progress Treatment Plan Continue Plan of Care Communication Comprehension: 4 Expression: 5 Social Cognition Social Interaction: 4 Problem Solvin Memory: 3 Speech Short Term Goals Short Term Goals Short Term Goals 1. The patient will demonstrate 90% accuracy with simple orientation information with mild clinician verbal prompting. MET. 2. The patient will remain on task for a duration of five minutes with minimal clinician verbal prompting/redirection. PROGRESSING. 3. The patient will demonstrate adequate sequencing and recall of ADL procedures with 90% accuracy and mild clinician cueing. PROGRESSING 4. Patient will demonstrate safety problem solving with 90% accuracy, independently. Time Frame-ST days Speech Alf Goals Alf Goals 1. The patient will demonstrate improved cognitive linguistic skills for increased function and safety with ADL's in the least restrictive setting. Time Frame: Ten Days Comprehension: 5 Expression: 6 Social Interaction: 5 Problem Solvin Memory: 4 Speech-Plan Treatment Plan Speech Therapy Treatment Plan: Continue Plan of Care Continue skilled speech pathology to target functional communication and safety awareness. Treatment Duration: Jun 14, 2017 Frequency: At least 5-7 days/Wk (IRF) Estimated Hrs Per Day: .5 hour per day Rehab Potential: Fair Safety Risks/Education Teaching Recipient: Patient Teaching Methods: Discussion Response to Teaching: Verbalize Understanding Education Topics Provided: Safety Modifications in Home Environment Time Speech Therapy Time In: 08:20 Speech Therapy Time Out: 08:50 Total Billed Time: 30 Billed Treatment Time 1, AMRIK HERMAN Jun 04, 2017 09:31
[2017-06-04] MEDS: LACTOBACILLUS Acidoph/Bulgar (LACTINEX/FLORANEX) TAB PEG SCH ×2 (09:40→20:40)
[2017-06-04] MEDS: guaiFENesin (MUCINEX) 600 MG TAB PO SCH ×2 (09:40→20:40)
[2017-06-04] MEDS: FUROSEMIDE 40 MG (LASIX) TAB GT SCH (09:41)
[2017-06-04] MEDS: cloNIDine 0.1 MG (CATAPRES) TAB GT SCH ×3 (09:41→20:40)
[2017-06-04] MEDS: FAMOTIDINE 20 MG (PEPCID) TABLET GT SCH ×2 (09:41→20:40)
[2017-06-04] MEDS: hydrALAZINE (APRESOLINE) 25 MG TAB GT SCH ×3 (09:41→20:39)
[2017-06-04] MEDS: DOCUSATE SODIUM 100 MG (COLACE) CAP PO SCH ×2 (09:41→20:40)
[2017-06-04] MEDS: CARVEDILOL 12.5 MG (COREG) TABLET GT SCH ×2 (09:41→20:40)
[2017-06-04] MEDS: amLODIPine 5 MG (NORVASC) TAB GT SCH (09:41)
[2017-06-04] MEDS: LEVETIRACETAM 500 MG (KEPPRA) TAB PO SCH ×2 (09:41→20:40)
[2017-06-04] MEDS: BETAMETHASONE/CLOTRIM CREAM (LOTRISONE) 45 GM TP SCH ×2 (10:58→20:40)
[2017-06-04] MEDS: ARTIFICIAL TEARS OINT (LACRI-LUBE) 3.5 GM TUBE OU SCH ×2 (10:58→20:40)
--- NOTE | 2017-06-04 11:20 | Occupational Ther Daily Note ---
OT Current Status-Daily Note Subjective Pt seen inroom, up in bed, agreeable to OT. Pt's is here for education on ADL management. No pain mentioned. Appearance Alert, cooperative. Becomes easily distracted by talking and needs to be redirected, for safety Mental Status/Objective Functional [place] Measure 0=Not Assessed/NA 4=Minimal Assistance 1=Total Assistance 5=Supervision or Setup 2=Maximal Assistance 6=Modified [place] 3=Moderate Assistance 7=Complete [place] ADL-Treatment Education patient and on how to put on gait belt, how and when to use it. Helped pt verbalize ADL plans, incl toilet transfer and shower, and discussed safety needs during these activities, especially for getting out of shower where he tends to lose his balance. Pt was able to move from supine to sit EOB with a little difficulty. Sit to stand with CGA. Pt walked to bathroom with , CGA and FWW and got on and off BSC over toilet with CGA/SBA. Pt able to verbalize and tell his safety steps but, on one occasion, became distracted by talking and did not pay attention to his position in space. He responds best to matter of fact directions. supervised him on BSC and in shower. He walked back to bed with CGA, FWW but sat before it was safe. was able to correct him and he also recognized unsafe transfer after the fact. He was able to dress seated EOB and knew when he needed his helmet on. Pt education modified technique for donning socks and he was able to put both of them on without assistive devices. Pt walked again to bathroom with his to brush his teeth at the sink, CGA, FWW but stood at the sink with SBA, balancing with FWW or countertop. Throughout ADLs, pt and his problem-solved adaptations needed for home. Pt returned to bed, 4 rails up, alarm on, all needs met. Pt and verbalized comfort with transfers and management. Functional [place] Measure 0=Not Assessed/NA 4=Minimal Assistance 1=Total Assistance 5=Supervision or Setup 2=Maximal Assistance 6=Modified [place] 3=Moderate Assistance 7=Complete IndependenceIRFPAI Quality Coding Scale 6 Independent with activity with or without an assistive device 5 Patient requires set up or clean up by helper. Patient completes activity by themselves 4 Supervision or touching assist (CGA). [place] provide cues , steadying assist 3 The helper provides less than half the effort to complete the activity 2 The helper provides more than half the effort to complete the activity 1 Dependent. The helper does all the effort to complete an activity 7 Patient refused to complete or attempt activity 9 The patient did not perform the activity before the current illness or injury 88 Not attempted due to Medical conditions or safety concerns Grooming (FIM): 5 (SBA at sink,FWW to brush teeth. Washed face and hands in shower) Bathing (FIM): 5 (Supervision - cues needed to stand, to turn water off. Washed and dried all parts, shower bench, grab bars, hand held shower.) Upper Body (FIM): 5 (Setup, t shirt) Lower Body Dressing (FIM): 5 (Setup, supervision. Pt educ mod technique for socks) Toileting (FIM): 4 (SBA, BSC over toilet. Manages hygiene and clothing (CGA when standing)) Toilet/Commode Transfer (FIM): 4 (CGA, FWW, BSC) Shower Transfer(FIM): 4 (CGA, shower bench, grab bars. before standing, skilled cues to recall what he was going to do to manage balance when moving from seat to FWW. Pt followed his own plan and did not lose balance) Other Treatment Pt and anticipate discharge to home next Wednesday. Education OT Patient Education: Instructions to caregiver, Modified ADL techniques, Progress toward Goal/Update tx plan, Purpose of tx/functional activities, Reviewed precautions, Safety issues, Transfer techniques, Use of adapted equipment Teaching Recipient: Patient (and ) Teaching Methods: Demonstration, Discussion Response to Teaching: Verbalize Understanding, Return Demonstration, Reinforcement Needed OT Short Term Goals Short Term Goals Time Frame: Jun 02, 2017 Grooming(FIM): 5 Upper Body Dressing(FIM): 5 Lower Body Dressing(FIM): 3 Toileting(FIM): 3 Transfers (B,C,W/C) (FIM): 4 Additional Short Term Goals: 2-Verbalize Understanding, 3-ImproveStrength/Lela 1=Demonstrate adherence to instructed precautions during ADL tasks. 2=Patient will verbalize/demonstrate understanding of assistive devices/ modifications for ADL. 3=Patient will improve strength/tolerance for activity to enable patient to perform ADL's. OT Correction Goals Client Engagement Specialist Goals Time Frame: Jun 16, 2017 Eating (FIM): 6 Eating (QC): 6 Groomin Oral Hygiene (QC): 6 Bathing(FIM): 6 Shower/Bathe Self (QC): 6 Upper Body Dressing(FIM): 6 Upper Body Dressing (QC): 6 Lower Body Dressing(FIM): 6 Lower Body Dressing (QC): 6 On/Off Footwear (QC): 6 Toileting(FIM): 6 Toileting Hygiene (QC): 6 Toilet/Commode Transfer(FIM): 6 Toilet/Commode Transfer (QC): 6 Shower Transfer(FIM): 6 Comprehension(FIM): 5 Expression (FIM): 6 Social Interaction(FIM): 5 Problem Solving(FIM): 4 Memory(FIM): 4 Additional Goals: 2-Verbalize Understanding, 3-ImproveStrength/Lela 1=Demonstrate adherence to instructed precautions during ADL tasks. 2=Patient will verbalize/demonstrate understanding of assistive devices/ modifications for ADL. 3=Patient will improve strength/tolerance for activity to enable patient to perform ADL's. OT Education/Plan Problem List/Assessment Pt would benefit from skilled OT to increase his independence in basic self care to allow him to safely return to his home to live with his and to decrease caregiver burden. Discharge Recommendations Plan/Recommendations: Continue POC Treatment Plan/Plan of Care Patient would benefit from OT for education, treatment and training to promote independence in ADL's, mobility, safety and/or upper extremity function for ADL' s. Plan of Care: ADL Retraining, Caregiver Training, Functional Mobility, Group Exercise/Act as Ind (education, exercise, socialization, funct activities, activity tolerance), UE Funct Exercise/Act, UE Neuromus Re-Ed/Coord, Visual/ Perceptual Retrain Treatment Duration: Jun 16, 2017 Frequency: Twice Daily Estimated Hrs Per Day: 1.5 hours per day Agreement: Yes Rehab Potential: Fair Time/GCodes Start Time: 09:30 Stop Time: 10:30 Total Time Billed (hr/min): 60 Billed Treatment Time visit, 60 minutes ADL JED HAN OT Jun 04, 2017 11:20
--- NOTE | 2017-06-04 12:03 | Physical Therapy Daily Note ---
PT Daily Note-Current Subjective Patient and spouse agrees to PT. Spouse is present to family train with patient with ambulation and transfers. Pain Numeric Pain Scale: 0-No Pain Location: No Pain Reported Mental Status Patient Orientation: Person, Time, Situation Attachments: PEG Tube Transfers Functional [place] Measure 0=Not Assessed/NA 4=Minimal Assistance 1=Total Assistance 5=Supervision or Setup 2=Maximal Assistance 6=Modified [place] 3=Moderate Assistance 7=Complete IndependenceIRFPAI Quality Coding Scale 6 Independent with activity with or without an assistive device 5 Patient requires set up or clean up by helper. Patient completes activity by themselves 4 Supervision or touching assist (CGA). [place] provide cues , steadying assist 3 The helper provides less than half the effort to complete the activity 2 The helper provides more than half the effort to complete the activity 1 Dependent. The helper does all the effort to complete an activity 7 Patient refused to complete or attempt activity 9 The patient did not perform the activity before the current illness or injury 88 Not attempted due to Medical conditions or safety concerns Transfers (B, C, W/C) (FIM): 5 Scootin Rollin Roll Left to Right (QC): 6 Supine to/from Sit: 6 Sit to/from Stand: 5 Sit to Lying (QC): 5 Sit to Stand (QC): 5 close SBA with gait belt in place to assist if LOB Gait Training Does the Patient Walk?: Yes Gait (FIM): 5 Distance (FIM): 3=150 ft Distance: 150' x 6 Walk 10 feet (QC): 5 Walk 50 ft with 2 Turns(QC): 5 Walk 150 ft (QC): 5 Gait Level of Assist: 5 Gait Persons Needed: 1 patient performed gait training in solo step without assistive device and ability to self correct with LOB and with turns. Patient presents with improve posture and gait sequence and ability to problem solve with gait by following track and turning to sit in chair without cues. Spouse had to leave during this time for personal issues and was unable to continue with family training. Assessment Patient fatigues with activity, however, is improving with tolerance to increase in activity. Patient continues to be limited with safe ambulation without assistive device. PT Short Term Goals Short Term Goals Time Frame: May 26, 2017 Transfers (B,C,W/C) (FIM): 4 Gait (FIM): 2 Gait Distance Comment: 50' Gait Level of Assist: 4 Gait Assistive Device: FWW Wheelchair Distance: 100' PT Director Transportation Goals Fdc Goals PT Fdc Goals Time Frame: Jun 09, 2017 Transfers (B,C,W/C) (FIM): 4 Sit to Lying (QC): 4 Lying-Sitting on Side/Bed(QC): 4 Sit to Stand (QC): 4 Rollin Roll Left to Right (QC): 4 Chair/Sln-rn-Smhwl Xfer(QC): 4 Car Transfer (QC): 4 Gait (FIM): 4 Distance: 150' Walk 10 feet (QC): 4 Walk 10ft-Uneven Surface(QC): 4 Walk 50ft with 2 Turns (QC): 4 Walk 150 ft (QC): 4 Gait Level of Assist: 4 Gait Assistive Device: FWW Stairs (FIM): 2 # of Steps: 4 1 Step (curb) (QC): 4 4 Steps (QC): 4 PT Plan Treatment/Plan Treatment Plan: Continue Plan of Care Treatment Plan: Bed Mobility, Education, Functional Activity Lela, Functional Strength, Gait, Safety, Therapeutic Exercise, Transfers Treatment Duration: Jun 09, 2017 Frequency: At least 5-7 days/Wk (IRF) Estimated Hrs Per Day: 1.5 hours per day Patient and/or Family Agrees t: Yes Time/GCodes Time In: 1100 Time Out: 1145 Total Billed Treatment Time: 45 Total Billed Treatment 1 visit GT x 3 45 min KOJO BARAJAS PT Jun 04, 2017 12:03
--- NOTE | 2017-06-04 14:24 | Therapy Group Daily Note ---
Therapy Daily Group Note Other/Notes Each patient participated in group therapy in the common area of the rehab floor. Each patient ambulated or was transported to the common area to sit with the other patients. Then, each patient had to introduce themselves, state where they were from and answer a group question that involves memory and socialization. Then, each patient had to perform several upper extremity and shoulder exercises. Finally, patient had to participate in an activity/game that involved UE ROM, digital manipulation, memory, and problem solving. At the end of group therapy, each patient ambulated or was transported back to their room and put in bed or chair with nurse call, phone, tray, all needs met. Start Time: 13:00 Stop Time: 14:15 Total Billed Treatment Time: 75 Total Billed Treatment 1 visit GRP 75' JOSÉ MANUEL WHEELER PT Jun 04, 2017 14:23
[2017-06-04] MEDS: ALFUZOSIN HCL 10 MG TAB (UROXATRAL) PO SCH (17:11)
[2017-06-04 18:19] VITALS: BP 133/75
[2017-06-04] MEDS: ENOXAPARIN 40 MG/0.4 ML (LOVENOX) SYR SC SCH (18:32)
[2017-06-04] MEDS: POLYETHYLENE GLYCOL 17 GM (MIRALAX) PACK GT SCH (20:41)
[2017-06-05 06:04] VITALS: BP 144/81
[2017-06-05] MEDS: OMEGA 3 (FISH OIL) 1000 MG CAP PO SCH ×2 (06:07→16:45)
[2017-06-05] MEDS: LEVOTHYROXINE 125 MCG (LEVOTHROID) TABLET GT SCH (06:07)
[2017-06-05] MEDS: MULTIVIT W/MINERALS TAB (THERAGRAN M) GT SCH (06:07)
[2017-06-05] MEDS: KCL 10 MEQ TAB (MICRO K) PO SCH (06:07)
[2017-06-05 09:40] VITALS: BP 124/81
[2017-06-05] MEDS: hydrALAZINE (APRESOLINE) 25 MG TAB GT SCH ×3 (09:41→20:28)
[2017-06-05] MEDS: amLODIPine 5 MG (NORVASC) TAB GT SCH (09:41)
[2017-06-05] MEDS: LEVETIRACETAM 500 MG (KEPPRA) TAB PO SCH ×2 (09:42→20:28)
[2017-06-05] MEDS: cloNIDine 0.1 MG (CATAPRES) TAB GT SCH ×3 (09:42→20:28)
[2017-06-05] MEDS: FAMOTIDINE 20 MG (PEPCID) TABLET GT SCH ×2 (09:42→20:28)
[2017-06-05] MEDS: LACTOBACILLUS Acidoph/Bulgar (LACTINEX/FLORANEX) TAB PEG SCH ×2 (09:42→20:28)
[2017-06-05] MEDS: FUROSEMIDE 40 MG (LASIX) TAB GT SCH (09:43)
[2017-06-05] MEDS: CARVEDILOL 12.5 MG (COREG) TABLET GT SCH ×2 (09:43→20:28)
[2017-06-05] MEDS: guaiFENesin (MUCINEX) 600 MG TAB PO SCH ×2 (09:43→20:28)
[2017-06-05] MEDS: ARTIFICIAL TEARS OINT (LACRI-LUBE) 3.5 GM TUBE OU SCH ×2 (09:44→20:29)
[2017-06-05] MEDS: BETAMETHASONE/CLOTRIM CREAM (LOTRISONE) 45 GM TP SCH ×2 (09:45→20:29)
[2017-06-05] MEDS: DOCUSATE SODIUM 100 MG (COLACE) CAP PO SCH ×3 (09:48→20:28)
--- NOTE | 2017-06-05 10:51 | Physical Therapy Daily Note ---
PT Daily Note-Current Subjective Patient agrees to PT. Pain Numeric Pain Scale: 0-No Pain Location: No Pain Reported Mental Status Patient Orientation: Normal For Age Transfers Functional [place] Measure 0=Not Assessed/NA 4=Minimal Assistance 1=Total Assistance 5=Supervision or Setup 2=Maximal Assistance 6=Modified [place] 3=Moderate Assistance 7=Complete IndependenceIRFPAI Quality Coding Scale 6 Independent with activity with or without an assistive device 5 Patient requires set up or clean up by helper. Patient completes activity by themselves 4 Supervision or touching assist (CGA). [place] provide cues , steadying assist 3 The helper provides less than half the effort to complete the activity 2 The helper provides more than half the effort to complete the activity 1 Dependent. The helper does all the effort to complete an activity 7 Patient refused to complete or attempt activity 9 The patient did not perform the activity before the current illness or injury 88 Not attempted due to Medical conditions or safety concerns Transfers (B, C, W/C) (FIM): 5 Scootin Rollin Roll Left to Right (QC): 5 Supine to/from Sit: 6 Sit to/from Stand: 5 Sit to Lying (QC): 5 Sit to Stand (QC): 5 Gait Training Does the Patient Walk?: Yes Gait (FIM): 5 Distance (FIM): 3=150 ft Distance: 150' x 4 Walk 10 feet (QC): 5 Walk 50 ft with 2 Turns(QC): 5 Walk 150 ft (QC): 5 Gait Level of Assist: 5 Gait Persons Needed: 1 Gait Assistive Device: None close SBA for safety with use of solo step with loose slack (requiring no assistance) with reciprocal pattern and self correction with 2 episodes of LOB Assessment Patient is highly motivated and much improved with gait without AD. Gait training in solo step to facilitate postural musculature to improve balance and safe ambulation with and without assistive device. PT Short Term Goals Short Term Goals Time Frame: May 26, 2017 Transfers (B,C,W/C) (FIM): 4 Gait (FIM): 2 Gait Distance Comment: 50' Gait Level of Assist: 4 Gait Assistive Device: FWW Wheelchair Distance: 100' PT Plastic Maker Goals Penitentiary Goals PT Penitentiary Goals Time Frame: Jun 09, 2017 Transfers (B,C,W/C) (FIM): 4 Sit to Lying (QC): 4 Lying-Sitting on Side/Bed(QC): 4 Sit to Stand (QC): 4 Rollin Roll Left to Right (QC): 4 Chair/Peg-bp-[place] Xfer(QC): 4 Car Transfer (QC): 4 Gait (FIM): 4 Distance: 150' Walk 10 feet (QC): 4 Walk 10ft-Uneven Surface(QC): 4 Walk 50ft with 2 Turns (QC): 4 Walk 150 ft (QC): 4 Gait Level of Assist: 4 Gait Assistive Device: FWW Stairs (FIM): 2 # of Steps: 4 1 Step (curb) (QC): 4 4 Steps (QC): 4 PT Plan Treatment/Plan Treatment Plan: Continue Plan of Care Treatment Plan: Bed Mobility, Education, Functional Activity Lela, Functional Strength, Gait, Safety, Therapeutic Exercise, Transfers Treatment Duration: Jun 09, 2017 Frequency: At least 5-7 days/Wk (IRF) Estimated Hrs Per Day: 1.5 hours per day Patient and/or Family Agrees t: Yes Time/GCodes Time In: 1000 Time Out: 1025 Total Billed Treatment Time: 25 Total Billed Treatment 1 visit GT x 2 25 min KOJO BARAJAS PT Jun 05, 2017 10:51
[2017-06-05] MEDS: ALFUZOSIN HCL 10 MG TAB (UROXATRAL) PO SCH (16:45)
[2017-06-05] MEDS: ENOXAPARIN 40 MG/0.4 ML (LOVENOX) SYR SC SCH (16:46)
[2017-06-05 18:41] VITALS: BP 103/64
[2017-06-05] MEDS: POLYETHYLENE GLYCOL 17 GM (MIRALAX) PACK GT SCH (20:28)
[2017-06-06 05:34] VITALS: BP 119/76
[2017-06-06] MEDS: OMEGA 3 (FISH OIL) 1000 MG CAP PO SCH ×2 (06:32→17:44)
[2017-06-06] MEDS: LEVOTHYROXINE 125 MCG (LEVOTHROID) TABLET GT SCH (06:32)
[2017-06-06] MEDS: MULTIVIT W/MINERALS TAB (THERAGRAN M) GT SCH (06:32)
[2017-06-06] MEDS: KCL 10 MEQ TAB (MICRO K) PO SCH (06:32)
[2017-06-06] MEDS: CARVEDILOL 12.5 MG (COREG) TABLET GT SCH ×2 (08:56→20:11)
[2017-06-06] MEDS: cloNIDine 0.1 MG (CATAPRES) TAB GT SCH ×3 (08:56→20:11)
[2017-06-06] MEDS: hydrALAZINE (APRESOLINE) 25 MG TAB GT SCH ×3 (08:56→20:11)
[2017-06-06] MEDS: FUROSEMIDE 40 MG (LASIX) TAB GT SCH (08:56)
[2017-06-06] MEDS: guaiFENesin (MUCINEX) 600 MG TAB PO SCH ×2 (08:56→20:11)
[2017-06-06] MEDS: FAMOTIDINE 20 MG (PEPCID) TABLET GT SCH ×2 (08:56→20:11)
[2017-06-06] MEDS: LEVETIRACETAM 500 MG (KEPPRA) TAB PO SCH ×2 (08:56→20:11)
[2017-06-06] MEDS: BETAMETHASONE/CLOTRIM CREAM (LOTRISONE) 45 GM TP SCH ×2 (08:57→20:12)
[2017-06-06] MEDS: amLODIPine 5 MG (NORVASC) TAB GT SCH (08:57)
[2017-06-06] MEDS: LACTOBACILLUS Acidoph/Bulgar (LACTINEX/FLORANEX) TAB PEG SCH ×2 (08:57→20:11)
[2017-06-06] MEDS: ARTIFICIAL TEARS OINT (LACRI-LUBE) 3.5 GM TUBE OU SCH ×2 (08:57→20:11)
[2017-06-06] MEDS: DOCUSATE SODIUM 100 MG (COLACE) CAP PO SCH ×2 (08:58→20:11)
[2017-06-06 08:59] VITALS: BP 119/68
[2017-06-06] MEDS: ALFUZOSIN HCL 10 MG TAB (UROXATRAL) PO SCH (17:44)
[2017-06-06] MEDS: ENOXAPARIN 40 MG/0.4 ML (LOVENOX) SYR SC SCH (17:44)
[2017-06-06 18:21] VITALS: BP 135/77
[2017-06-06] MEDS: POLYETHYLENE GLYCOL 17 GM (MIRALAX) PACK GT SCH (20:11)
[2017-06-07 05:50] VITALS: BP 135/83
[2017-06-07] MEDS: OMEGA 3 (FISH OIL) 1000 MG CAP PO SCH ×2 (06:36→19:39)
[2017-06-07] MEDS: LEVOTHYROXINE 125 MCG (LEVOTHROID) TABLET GT SCH (06:36)
[2017-06-07] MEDS: MULTIVIT W/MINERALS TAB (THERAGRAN M) GT SCH (06:36)
[2017-06-07] MEDS: KCL 10 MEQ TAB (MICRO K) PO SCH (06:36)
--- NOTE | 2017-06-07 08:22 | Progress Note (SOAP) ---
Subjective Time Seen by Provider: 08:15 Subjective/Events-last exam debility. Trach. PEG tube. Trach removed. Patient not confused. Patient sitting up and eating. Patient not confused Objective Exam Vital Signs Date Time Temp Pulse Resp B/P (MAP) Pulse Ox O2 Delivery O2 Flow Rate FiO2 06/07/17 05:50 99.3 60 18 135/83 94 Room Air 06/06/17 20:10 Room Air 06/06/17 18:21 97.9 62 16 135/77 95 06/06/17 09:00 Room Air 06/06/17 08:59 62 119/68 I & O 06/07/17 07:00 Intake Total 1400 ml Output Total 900 ml Balance 500 ml Capillary Refill : General Appearance: No Apparent Distress, WD/WN HEENT: Normal ENT Inspection Neck: Full Range of Motion, Normal Inspection Respiratory: No Accessory Muscle Use, No Respiratory Distress Cardiovascular: Regular Rate, Rhythm, No Murmur Assessment/Plan Assessment/Plan Assess & Plan/Chief Complaint debility. Trach. PEG tube. Subdural hematoma. Coronary artery disease. . 05/21/17. Debility. Trach. PEG tube. SUBDURAL HEMATOMA. . 05/24/17. Debility. Trach. PEG tube. subdural hematoma. Patient confused and hallucinating.. . 05/25/17. Debility. Trach removed. Subdural hematoma.. patient has confusion. Spoke to son Luis about dad . 05/26/17. Debility. Confusion. coronary artery disease. Subdural hematoma. . 05/27/17 debility. Confusion. Coronary artery disease. Subdural hematoma. . 05/28/17. Debility. Confusion. coronary artery disease. Subdural hematoma. Patient gets confused at times Patient talked about diplopia today.. . 06/02/17. Debility improving. Confusion improving. Subdural hematoma. Coronary artery disease. Diplopia consult with etl tester. . 06/03/17. Patient's confusion is less. Subdural hematoma. Debility. coronary artery disease. Patient making more sense.. . 06/04/17. Debility. Subdural hematoma. Coronary artery disease. Patient doing much better with his thought process. . 06/07/17. Debility. Subdural hematoma. Confusion and arm. Patient sitting up in bed. Patient getting around better Clinical Quality Measures DVT/VTE Risk/Contraindication: Risk Factor Score Per Nursin RFS Level Per Nursing on Admit: 4+=Very High JR FUENTES DO Jun 07, 2017 08:22
[2017-06-07] MEDS: hydrALAZINE (APRESOLINE) 25 MG TAB GT SCH ×3 (09:00→20:06)
[2017-06-07] MEDS: guaiFENesin (MUCINEX) 600 MG TAB PO SCH ×2 (09:00→20:06)
[2017-06-07] MEDS: ARTIFICIAL TEARS OINT (LACRI-LUBE) 3.5 GM TUBE OU SCH ×2 (09:00→20:06)
[2017-06-07] MEDS: cloNIDine 0.1 MG (CATAPRES) TAB GT SCH ×3 (09:00→20:06)
[2017-06-07] MEDS: LEVETIRACETAM 500 MG (KEPPRA) TAB PO SCH ×2 (09:00→20:06)
[2017-06-07] MEDS: FUROSEMIDE 40 MG (LASIX) TAB GT SCH (09:00)
[2017-06-07] MEDS: LACTOBACILLUS Acidoph/Bulgar (LACTINEX/FLORANEX) TAB PEG SCH ×2 (09:00→20:06)
[2017-06-07] MEDS: FAMOTIDINE 20 MG (PEPCID) TABLET GT SCH ×2 (09:00→20:06)
[2017-06-07] MEDS: CARVEDILOL 12.5 MG (COREG) TABLET GT SCH ×2 (09:00→20:06)
[2017-06-07] MEDS: amLODIPine 5 MG (NORVASC) TAB GT SCH (09:00)
--- NOTE | 2017-06-07 09:57 | Speech Therapy Daily Note ---
Speech Daily Progress Note Subjective Date Seen by Provider: Jun 07, 2017 Time Seen by Provider: 08:53 The patient was laying in bed upon entrance. The patient greeted the clinician appropriately and was agreeable to participation in the cognitive treatment session. To note, the patient's was present at bedside on this date. Objective Safety Problem Solving: The patient was provided photographs containing specific safety problem solving issues and was asked to identify the safety issue and provide an appropriate solution to make the situation more safe. The patient demonstrated 100% accuracy with this task with minimal clinician verbal cueing. Orientation: The patient remains oriented to month, city, day of week, date and year (independently). Assessment Assessment Current Status: Fair Progress Treatment Plan Continue Plan of Care Communication Comprehension: 4 Expression: 5 Social Cognition Social Interaction: 4 Problem Solvin Memory: 3 Speech Short Term Goals Short Term Goals Short Term Goals 1. The patient will demonstrate 90% accuracy with simple orientation information with mild clinician verbal prompting. MET. 2. The patient will remain on task for a duration of five minutes with minimal clinician verbal prompting/redirection. PROGRESSING. 3. The patient will demonstrate adequate sequencing and recall of ADL procedures with 90% accuracy and mild clinician cueing. PROGRESSING 4. Patient will demonstrate safety problem solving with 90% accuracy, independently. Time Frame-ST days Speech Senior Living Goals Senior Living Goals 1. The patient will demonstrate improved cognitive linguistic skills for increased function and safety with ADL's in the least restrictive setting. Time Frame: Ten Days Comprehension: 5 Expression: 6 Social Interaction: 5 Problem Solvin Memory: 4 Speech-Plan Treatment Plan Speech Therapy Treatment Plan: Continue Plan of Care Continue skilled speech pathology to target safety problem solving, safety awareness, and impulsivity. Treatment Duration: Jun 14, 2017 Frequency: 5 times per week Estimated Hrs Per Day: .5 hour per day Rehab Potential: Fair Safety Risks/Education Teaching Recipient: Patient, Significant Other Teaching Methods: Discussion Response to Teaching: Verbalize Understanding Education Topics Provided: Plan of Care, Progression Towards Goals Time Speech Therapy Time In: 08:53 Speech Therapy Time Out: 09:23 Total Billed Time: 30 Billed Treatment Time SONNY Nuno ELIZABEAMADO COLÓN Jun 07, 2017 09:57
--- NOTE | 2017-06-07 12:01 | Occupational Ther Daily Note ---
OT Current Status-Daily Note Subjective Pt seen in room, up in bed, agreeable to OT. No pain mentioned. Appearance Alert, cooperative Mental Status/Objective Functional [place] Measure 0=Not Assessed/NA 4=Minimal Assistance 1=Total Assistance 5=Supervision or Setup 2=Maximal Assistance 6=Modified [place] 3=Moderate Assistance 7=Complete [place] ADL-Treatment in room and assisted some with pt care. Pt needed skilled cues to remember to put helmet on and not get up without gait belt. Walked with CGA, FWW to bathroom to groom, toilet, bathe. No LOB when getting out of shower, with verbal cues prior to transfer. At end of tx, pt left up in bed, 4 rails up, bed alarm on, all needs met, present. Functional [place] Measure 0=Not Assessed/NA 4=Minimal Assistance 1=Total Assistance 5=Supervision or Setup 2=Maximal Assistance 6=Modified [place] 3=Moderate Assistance 7=Complete IndependenceIRFPAI Quality Coding Scale 6 Independent with activity with or without an assistive device 5 Patient requires set up or clean up by helper. Patient completes activity by themselves 4 Supervision or touching assist (CGA). [place] provide cues , steadying assist 3 The helper provides less than half the effort to complete the activity 2 The helper provides more than half the effort to complete the activity 1 Dependent. The helper does all the effort to complete an activity 7 Patient refused to complete or attempt activity 9 The patient did not perform the activity before the current illness or injury 88 Not attempted due to Medical conditions or safety concerns Grooming (FIM): 5 (Stood at sink to brush teeth, balancing with hand on counter top. Washed hands and face in shower.) Bathing (FIM): 5 (Turned water on and off, retrieved towel. Washed and dried all parts except back. Required supervision for safety since helmet off to wash hair. Shower bench, grab bar, hand held shower. No cues needed for sequencing) Upper Body (FIM): 5 (Donned button down shirt with setup. Able to get buttons but very slow and multiple trials) Lower Body Dressing (FIM): 5 (Donned pants with setup, pulling them up by rolling side to side in bed. Donned socks, recalling modified technique learned last week. ) Toileting (FIM): 4 (CGA when managing clothing. BSc over toilet, grab bar, FWW) Transfers (B, C, W/C) (FIM): 5 (Sit to stand from bed, with FWW. then CGA for getting to bathroom) Toilet/Commode Transfer (FIM): 4 (CGA, betting off/on BSC over toilet, FWW) Shower Transfer(FIM): 4 (CGA, shower bench, grab bar. Able to get up fairly easily from bench) OT Short Term Goals Short Term Goals Time Frame: Jun 02, 2017 Grooming(FIM): 5 Upper Body Dressing(FIM): 5 Lower Body Dressing(FIM): 3 Toileting(FIM): 3 Transfers (B,C,W/C) (FIM): 4 Additional Short Term Goals: 2-Verbalize Understanding, 3-ImproveStrength/Lela 1=Demonstrate adherence to instructed precautions during ADL tasks. 2=Patient will verbalize/demonstrate understanding of assistive devices/ modifications for ADL. 3=Patient will improve strength/tolerance for activity to enable patient to perform ADL's. OT Skilled Nursing Goals Skilled Nursing Goals Time Frame: Jun 16, 2017 Eating (FIM): 6 Eating (QC): 6 Groomin Oral Hygiene (QC): 6 Bathing(FIM): 6 Shower/Bathe Self (QC): 6 Upper Body Dressing(FIM): 6 Upper Body Dressing (QC): 6 Lower Body Dressing(FIM): 6 Lower Body Dressing (QC): 6 On/Off Footwear (QC): 6 Toileting(FIM): 6 Toileting Hygiene (QC): 6 Toilet/Commode Transfer(FIM): 6 Toilet/Commode Transfer (QC): 6 Shower Transfer(FIM): 6 Comprehension(FIM): 5 Expression (FIM): 6 Social Interaction(FIM): 5 Problem Solving(FIM): 4 Memory(FIM): 4 Additional Goals: 2-Verbalize Understanding, 3-ImproveStrength/Lela 1=Demonstrate adherence to instructed precautions during ADL tasks. 2=Patient will verbalize/demonstrate understanding of assistive devices/ modifications for ADL. 3=Patient will improve strength/tolerance for activity to enable patient to perform ADL's. OT Education/Plan Problem List/Assessment Pt would benefit from skilled OT to increase his independence in basic self care to allow him to safely return to his home to live with his and to decrease caregiver burden. Discharge Recommendations Plan/Recommendations: Continue POC Treatment Plan/Plan of Care Patient would benefit from OT for education, treatment and training to promote independence in ADL's, mobility, safety and/or upper extremity function for ADL' s. Plan of Care: ADL Retraining, Caregiver Training, Functional Mobility, Group Exercise/Act as Ind (education, exercise, socialization, funct activities, activity tolerance), UE Funct Exercise/Act, UE Neuromus Re-Ed/Coord, Visual/ Perceptual Retrain Treatment Duration: Jun 16, 2017 Frequency: Twice Daily Estimated Hrs Per Day: 1.5 hours per day Agreement: Yes Rehab Potential: Fair Time/GCodes Start Time: 09:30 Stop Time: 10:30 Total Time Billed (hr/min): 60 Billed Treatment Time visit, 60 minutes JED ROBLEDO OT Jun 07, 2017 12:01
--- NOTE | 2017-06-07 12:15 | Physical Therapy Daily Note ---
PT Daily Note-Current Subjective Pt. and present. Both very anxious to DC. Want to purchase a w/c before leaving. Want to do a car TRF today and try walking with angolan crutches Pain Numeric Pain Scale: 0-No Pain Mental Status Patient Orientation: Person, Place, Situation Attachments: Other-See Comments (helmet) pt. is impulsive and scattered in thoughts, unrealistic, poor safety judgement, Transfers Functional [place] Measure 0=Not Assessed/NA 4=Minimal Assistance 1=Total Assistance 5=Supervision or Setup 2=Maximal Assistance 6=Modified [place] 3=Moderate Assistance 7=Complete IndependenceIRFPAI Quality Coding Scale 6 Independent with activity with or without an assistive device 5 Patient requires set up or clean up by helper. Patient completes activity by themselves 4 Supervision or touching assist (CGA). [place] provide cues , steadying assist 3 The helper provides less than half the effort to complete the activity 2 The helper provides more than half the effort to complete the activity 1 Dependent. The helper does all the effort to complete an activity 7 Patient refused to complete or attempt activity 9 The patient did not perform the activity before the current illness or injury 88 Not attempted due to Medical conditions or safety concerns Transfers (B, C, W/C) (FIM): 5 Scootin Rollin Supine to/from Sit: 5 (needs step by step instruction to roll to side and log roll instead of from back with rocking momentum) Sit to/from Stand: 5 Bed to/from Chair: 5 much time spent in log roll training step by step with present and trained as well. car TRF this date training and pt in approach to car and exit, all with gait belt etc, no incident Gait Training Does the Patient Walk?: Yes Gait (FIM): 5 Distance (FIM): 3=150 ft (x2) Gait Level of Assist: 5 Gait Persons Needed: 1 Gait Assistive Device: FWW this date pt. used FWW, pushed w/c , used [place] crutches and walked with solo step all at his request with this MECHANOTHERAPIST recommending FWW at least until his cranium replace Sx and futher gait and balance PT at home Wheelchair Training Does the Pt Use a Wheelchair?: Yes Wheelchair (FIM): 2 Wheelchair Distance: 3=784-68 ft Wheelchair Level of Assist: 4 Type of Wheelchair: Manual pt. needs instruction for all, brakes direction and how to propel Stair Training Stair Training: Handrails/: 2 handrails Stairs (FIM): 2 #of Steps: 4 Stairs: Pattern: Reciprocal Level of Assist: 4 Assessment Current Status: Good Progress impulsiveness and poor safety awareness limits progress, FT caregiver and appears to understand all and demonstrates safety in managing pt. PT Short Term Goals Short Term Goals Time Frame: May 26, 2017 Transfers (B,C,W/C) (FIM): 4 Gait (FIM): 2 Gait Distance Comment: 50' Gait Level of Assist: 4 Gait Assistive Device: FWW Wheelchair Distance: 100' PT Unemployment Inspector Goals Jail Goals PT Jail Goals Time Frame: Jun 09, 2017 Transfers (B,C,W/C) (FIM): 4 Sit to Lying (QC): 4 Lying-Sitting on Side/Bed(QC): 4 Sit to Stand (QC): 4 Rollin Roll Left to Right (QC): 4 Chair/Emk-jh-Vfccn Xfer(QC): 4 Car Transfer (QC): 4 Gait (FIM): 4 Distance: 150' Walk 10 feet (QC): 4 Walk 10ft-Uneven Surface(QC): 4 Walk 50ft with 2 Turns (QC): 4 Walk 150 ft (QC): 4 Gait Level of Assist: 4 Gait Assistive Device: FWW Stairs (FIM): 2 # of Steps: 4 1 Step (curb) (QC): 4 4 Steps (QC): 4 PT Plan Treatment/Plan Treatment Plan: Continue Plan of Care Treatment Plan: Bed Mobility, Education, Functional Activity Lela, Functional Strength, Gait, Safety, Therapeutic Exercise, Transfers Treatment Duration: Jun 09, 2017 Frequency: At least 5-7 days/Wk (IRF) Estimated Hrs Per Day: 1.5 hours per day Patient and/or Family Agrees t: Yes Safety Risks/Education Patient Education: Gait Training, Transfer Techniques, Steps, Correct Positioning, W/C Management, Disease Process, Safety Issues Teaching Recipient: Patient Teaching Methods: Demonstration, Discussion Response to Teaching: Verbalize Understanding, Return Demonstration, Reinforcement Needed needs repeated demo and verbal instruction while working a task Time/GCodes Time In: 1105 Time Out: 1215 Total Billed Treatment Time: 70 Total Billed Treatment 1,GT25,WC15,FA30m G Codes Necessary: No LUEBBER, ISABELLA A MECHANOTHERAPIST Jun 07, 2017 12:15
[2017-06-07] MEDS: DOCUSATE SODIUM 100 MG (COLACE) CAP PO SCH ×2 (13:01→20:07)
[2017-06-07] MEDS: BETAMETHASONE/CLOTRIM CREAM (LOTRISONE) 45 GM TP SCH ×2 (13:02→20:07)
--- NOTE | 2017-06-07 13:31 | Occupational Ther Daily Note ---
OT Current Status-Daily Note Subjective Pt seen in room, up in bed, agreeable to OT. No pain reported but said he was tired from a "good workout this morning". Mental Status/Objective Functional [place] Measure 0=Not Assessed/NA 4=Minimal Assistance 1=Total Assistance 5=Supervision or Setup 2=Maximal Assistance 6=Modified [place] 3=Moderate Assistance 7=Complete [place] ADL-Treatment Functional [place] Measure 0=Not Assessed/NA 4=Minimal Assistance 1=Total Assistance 5=Supervision or Setup 2=Maximal Assistance 6=Modified [place] 3=Moderate Assistance 7=Complete IndependenceIRFPAI Quality Coding Scale 6 Independent with activity with or without an assistive device 5 Patient requires set up or clean up by helper. Patient completes activity by themselves 4 Supervision or touching assist (CGA). [place] provide cues , steadying assist 3 The helper provides less than half the effort to complete the activity 2 The helper provides more than half the effort to complete the activity 1 Dependent. The helper does all the effort to complete an activity 7 Patient refused to complete or attempt activity 9 The patient did not perform the activity before the current illness or injury 88 Not attempted due to Medical conditions or safety concerns Other Treatment Pt worked on visual-perceptual activity, requiring focusing near and far and eye -hand coordination. Pt had no difficulty with perceptual component but noted that his vision was "lousy" when not at a "focus point". Also able to grasp objects with either hand. Pt said he feels prepared for discharge to home. Pt left up in bed, 4 rails up, bed alarm on, telesitter in place. Education OT Patient Education: Progress toward Goal/Update tx plan, Purpose of tx/ functional activities Teaching Recipient: Patient Teaching Methods: Discussion Response to Teaching: Verbalize Understanding OT Short Term Goals Short Term Goals Time Frame: Jun 02, 2017 Grooming(FIM): 5 Upper Body Dressing(FIM): 5 Lower Body Dressing(FIM): 3 Toileting(FIM): 3 Transfers (B,C,W/C) (FIM): 4 Additional Short Term Goals: 2-Verbalize Understanding, 3-ImproveStrength/Lela 1=Demonstrate adherence to instructed precautions during ADL tasks. 2=Patient will verbalize/demonstrate understanding of assistive devices/ modifications for ADL. 3=Patient will improve strength/tolerance for activity to enable patient to perform ADL's. OT Pipe Straightener Goals Care Home Goals Time Frame: Jun 16, 2017 Eating (FIM): 6 Eating (QC): 6 Groomin Oral Hygiene (QC): 6 Bathing(FIM): 6 Shower/Bathe Self (QC): 6 Upper Body Dressing(FIM): 6 Upper Body Dressing (QC): 6 Lower Body Dressing(FIM): 6 Lower Body Dressing (QC): 6 On/Off Footwear (QC): 6 Toileting(FIM): 6 Toileting Hygiene (QC): 6 Toilet/Commode Transfer(FIM): 6 Toilet/Commode Transfer (QC): 6 Shower Transfer(FIM): 6 Comprehension(FIM): 5 Expression (FIM): 6 Social Interaction(FIM): 5 Problem Solving(FIM): 4 Memory(FIM): 4 Additional Goals: 2-Verbalize Understanding, 3-ImproveStrength/Lela 1=Demonstrate adherence to instructed precautions during ADL tasks. 2=Patient will verbalize/demonstrate understanding of assistive devices/ modifications for ADL. 3=Patient will improve strength/tolerance for activity to enable patient to perform ADL's. OT Education/Plan Problem List/Assessment Pt would benefit from skilled OT to increase his independence in basic self care to allow him to safely return to his home to live with his and to decrease caregiver burden. Discharge Recommendations Plan/Recommendations: Continue POC Treatment Plan/Plan of Care Patient would benefit from OT for education, treatment and training to promote independence in ADL's, mobility, safety and/or upper extremity function for ADL' s. Plan of Care: ADL Retraining, Caregiver Training, Functional Mobility, Group Exercise/Act as Ind (education, exercise, socialization, funct activities, activity tolerance), UE Funct Exercise/Act, UE Neuromus Re-Ed/Coord, Visual/ Perceptual Retrain Treatment Duration: Jun 16, 2017 Frequency: Twice Daily Estimated Hrs Per Day: 1.5 hours per day Agreement: Yes Rehab Potential: Fair Time/GCodes Start Time: 13:00 Stop Time: 13:15 Total Time Billed (hr/min): 15 Billed Treatment Time visit, 15 minutes neuromotor JED HAN OT Jun 07, 2017 13:31
[2017-06-07 13:33] VITALS: BP 114/61
--- NOTE | 2017-06-07 13:46 | Occupational Ther Daily Note ---
OT Current Status-Daily Note Subjective Pt reported he is leaving tomorrow morning instead of Wednesday. FIM scores added in this note Mental Status/Objective Functional [place] Measure 0=Not Assessed/NA 4=Minimal Assistance 1=Total Assistance 5=Supervision or Setup 2=Maximal Assistance 6=Modified [place] 3=Moderate Assistance 7=Complete [place] ADL-Treatment Functional [place] Measure 0=Not Assessed/NA 4=Minimal Assistance 1=Total Assistance 5=Supervision or Setup 2=Maximal Assistance 6=Modified [place] 3=Moderate Assistance 7=Complete IndependenceIRFPAI Quality Coding Scale 6 Independent with activity with or without an assistive device 5 Patient requires set up or clean up by helper. Patient completes activity by themselves 4 Supervision or touching assist (CGA). [place] provide cues , steadying assist 3 The helper provides less than half the effort to complete the activity 2 The helper provides more than half the effort to complete the activity 1 Dependent. The helper does all the effort to complete an activity 7 Patient refused to complete or attempt activity 9 The patient did not perform the activity before the current illness or injury 88 Not attempted due to Medical conditions or safety concerns Eating (FIM): 7 (Can open packages and feed self. Needs help ordering. No dentures) Eating (QC): 6 Grooming (FIM): 5 (Stood at sink to brush teeth, balancing with hand on counter top, SBA. Washed hands and face in shower.) Oral Hygiene (QC): 4 (SBA) Bathing (FIM): 5 (Turned water on and off, retrieved towel. Washed and dried all parts except back. Required supervision for safety since helmet off to wash hair. Shower bench, grab bar, hand held shower. No cues needed for sequencing) Shower/Bathe Self (QC): 4 Upper Body (FIM): 5 (Donned button down shirt with setup. Able to get buttons but very slow and multiple trials. Supervision when sitting EOB and helmet on) Upper Body Dressing (QC): 4 Lower Body Dressing (FIM): 5 (Donned pants with setup, pulling them up by rolling side to side in bed. Donned socks, recalling modified technique learned last week. Supervision when sitting EOB with helmet on) Lower Body Dressing (QC): 4 On/Off Footwear (QC): 4 (supervision) Toileting (FIM): 4 (CGA when managing clothing. BSc over toilet, grab bar, FWW) Toileting Hygiene (QC): 4 Transfers (B, C, W/C) (FIM): 5 (Sit to stand from bed, with FWW. then CGA for getting to bathroom) Toilet/Commode Transfer (FIM): 4 (CGA, getting off/on BSC over toilet, FWW) Toilet Transfer (QC): 4 Shower Transfer(FIM): 4 (CGA, shower bench, grab bar. Able to get up fairly easily from bench) OT Short Term Goals Short Term Goals Time Frame: Jun 02, 2017 Grooming(FIM): 5 Upper Body Dressing(FIM): 5 Lower Body Dressing(FIM): 3 Toileting(FIM): 3 Transfers (B,C,W/C) (FIM): 4 Additional Short Term Goals: 2-Verbalize Understanding, 3-ImproveStrength/Lela 1=Demonstrate adherence to instructed precautions during ADL tasks. 2=Patient will verbalize/demonstrate understanding of assistive devices/ modifications for ADL. 3=Patient will improve strength/tolerance for activity to enable patient to perform ADL's. OT Rn Bsn Goals Rn Bsn Goals Time Frame: Jun 16, 2017 Eating (FIM): 6 Eating (QC): 6 Groomin Oral Hygiene (QC): 6 Bathing(FIM): 6 Shower/Bathe Self (QC): 6 Upper Body Dressing(FIM): 6 Upper Body Dressing (QC): 6 Lower Body Dressing(FIM): 6 Lower Body Dressing (QC): 6 On/Off Footwear (QC): 6 Toileting(FIM): 6 Toileting Hygiene (QC): 6 Toilet/Commode Transfer(FIM): 6 Toilet/Commode Transfer (QC): 6 Shower Transfer(FIM): 6 Comprehension(FIM): 5 Expression (FIM): 6 Social Interaction(FIM): 5 Problem Solving(FIM): 4 Memory(FIM): 4 Additional Goals: 2-Verbalize Understanding, 3-ImproveStrength/Lela 1=Demonstrate adherence to instructed precautions during ADL tasks. 2=Patient will verbalize/demonstrate understanding of assistive devices/ modifications for ADL. 3=Patient will improve strength/tolerance for activity to enable patient to perform ADL's. OT Education/Plan Problem List/Assessment Pt would benefit from skilled OT to increase his independence in basic self care to allow him to safely return to his home to live with his and to decrease caregiver burden. Discharge Recommendations Plan/Recommendations: Continue POC Treatment Plan/Plan of Care Patient would benefit from OT for education, treatment and training to promote independence in ADL's, mobility, safety and/or upper extremity function for ADL' s. Plan of Care: ADL Retraining, Caregiver Training, Functional Mobility, Group Exercise/Act as Ind (education, exercise, socialization, funct activities, activity tolerance), UE Funct Exercise/Act, UE Neuromus Re-Ed/Coord, Visual/ Perceptual Retrain Treatment Duration: Jun 16, 2017 Frequency: Twice Daily Estimated Hrs Per Day: 1.5 hours per day Agreement: Yes Rehab Potential: Fair Time/GCodes Start Time: 00:00 Stop Time: 00:00 Total Time Billed (hr/min): 0 Billed Treatment Time FIM scores only JED HAN OT Jun 07, 2017 13:46
--- NOTE | 2017-06-07 14:13 | Physical Therapy Daily Note ---
PT Daily Note-Current Subjective Patient is very motivated to participate with therapy. Pain Numeric Pain Scale: 0-No Pain Location: No Pain Reported Mental Status Patient Orientation: Normal For Age Transfers Functional [place] Measure 0=Not Assessed/NA 4=Minimal Assistance 1=Total Assistance 5=Supervision or Setup 2=Maximal Assistance 6=Modified [place] 3=Moderate Assistance 7=Complete IndependenceIRFPAI Quality Coding Scale 6 Independent with activity with or without an assistive device 5 Patient requires set up or clean up by helper. Patient completes activity by themselves 4 Supervision or touching assist (CGA). [place] provide cues , steadying assist 3 The helper provides less than half the effort to complete the activity 2 The helper provides more than half the effort to complete the activity 1 Dependent. The helper does all the effort to complete an activity 7 Patient refused to complete or attempt activity 9 The patient did not perform the activity before the current illness or injury 88 Not attempted due to Medical conditions or safety concerns Transfers (B, C, W/C) (FIM): 5 Scootin Rollin Roll Left to Right (QC): 5 Supine to/from Sit: 6 Sit to/from Stand: 5 Sit to Lying (QC): 5 Sit to Stand (QC): 5 Gait Training Does the Patient Walk?: Yes Gait (FIM): 5 Distance (FIM): 3=150 ft Distance: 200' x 3 Walk 10 feet (QC): 5 Walk 50 ft with 2 Turns(QC): 5 Walk 150 ft (QC): 5 Gait Level of Assist: 5 Gait Assistive Device: Walker 4 Wheeled Safe and functional with 4WW; able to comprehend instruction on use of hand breaks and safety concern with minimal reminders Assessment Patient is very motivated with progress and is highly excited with use of 4WW vs. FWW and/or w/c. Plan to dismiss this week. PT Short Term Goals Short Term Goals Time Frame: May 26, 2017 Transfers (B,C,W/C) (FIM): 4 Gait (FIM): 2 Gait Distance Comment: 50' Gait Level of Assist: 4 Gait Assistive Device: FWW Wheelchair Distance: 100' PT Mcc Goals Electronic Commerce Specialist Goals PT Electronic Commerce Specialist Goals Time Frame: Jun 09, 2017 Transfers (B,C,W/C) (FIM): 4 Sit to Lying (QC): 4 Lying-Sitting on Side/Bed(QC): 4 Sit to Stand (QC): 4 Rollin Roll Left to Right (QC): 4 Chair/Xkw-an-Lfgdo Xfer(QC): 4 Car Transfer (QC): 4 Gait (FIM): 4 Distance: 150' Walk 10 feet (QC): 4 Walk 10ft-Uneven Surface(QC): 4 Walk 50ft with 2 Turns (QC): 4 Walk 150 ft (QC): 4 Gait Level of Assist: 4 Gait Assistive Device: FWW Stairs (FIM): 2 # of Steps: 4 1 Step (curb) (QC): 4 4 Steps (QC): 4 PT Plan Treatment/Plan Treatment Plan: Continue Plan of Care Treatment Plan: Bed Mobility, Education, Functional Activity Lela, Functional Strength, Gait, Safety, Therapeutic Exercise, Transfers Treatment Duration: Jun 09, 2017 Frequency: At least 5-7 days/Wk (IRF) Estimated Hrs Per Day: 1.5 hours per day Patient and/or Family Agrees t: Yes Safety Risks/Education Patient Education: Gait Training (4WW), Safety Issues Discharge Recommendations Therapy D/C Recommendations: Home w/ Family Support, Physical Therapy Home Care Time/GCodes Time In: 1330 Time Out: 1400 Total Billed Treatment Time: 30 Total Billed Treatment 1 visit GT x 2 30 min KOJO BARAJAS PT Jun 07, 2017 14:13
[2017-06-07 18:14] VITALS: BP 138/72
--- NOTE | 2017-06-07 19:08 | PM & R (SOAP) Progress Note ---
Subjective Time Seen by Provider: 11:40 Subjective/Events-last exam Patient was seen on unit in common area and out at Hospital entrance anticipating discharge on 06/09/17 performing car transfers with PT Objective Exam Last Set of Vital Signs Vital Signs Date Time Temp Pulse Resp B/P (MAP) Pulse Ox O2 Delivery O2 Flow Rate FiO2 06/07/17 18:14 75 19 138/72 95 Room Air 06/07/17 13:33 98.7 Capillary Refill : I&O Intake and Output 06/07/17 00:00 Intake Total 1200 ml Output Total 1400 ml Balance -200 ml Intake Oral 1200 ml Output Urine Total 1400 ml # Bowel Movements 2 General: Alert, Cooperative, No Acute Distress HEENT: EOMI, Mucous Memb Moist/[place], Other (Rt Crani site healing well) Neck: Supple, No JVD, Other (decannulated with drssing in place) Lungs: Clear to Auscultation Heart: Regular Rate Abdomen: Normal Bowel Sounds, Soft, No Tenderness Extremities: No Edema Neuro: Other (generalized weakness Mild cognitive impairment) Psych/Mental Status: Other (Confused at times) Assessment/Plan Assessment Rt SDH s/p evacuation with gait imbalance Contusion and hemorrhage rt cerebral cortex Blurred vision-improving S/P Trach-decannulation 05/21/17 S/P feeding tube now on po feeds HTN controlled Dysphagia improved Fall no injury sustained Post-op confusion-much improved Gesfosavuhw-suczugsx-[id number] Plan Continue PT/OT/ST F/U with DR Turcios PRN=Appreciate his note F/U with DR Dowling as per his schedule Appreciate current labs Alarmbot( robositter) for patients protection Replaced K F/U with DR Jessica mistry Neurosurgeon in [facility] and DR rahman Radiology here for comparison of CT images although patient much improved-done Consult [facility]-done Checked TSH-WNL See orders Discharge remains set for 06-09-17 Patients delirium much improved Patients diplopia improving gradually Appreciate optometrists input Patient and Patients spouse inquiring about DME for home referred to for details SHAHZAD BARROW MD Jun 07, 2017 19:08
[2017-06-07] MEDS: ALFUZOSIN HCL 10 MG TAB (UROXATRAL) PO SCH (19:34)
[2017-06-07] MEDS: ENOXAPARIN 40 MG/0.4 ML (LOVENOX) SYR SC SCH (19:39)
[2017-06-07] MEDS: POLYETHYLENE GLYCOL 17 GM (MIRALAX) PACK GT SCH (20:06)
[2017-06-08 03:51] VITALS: BP 131/78
[2017-06-08] MEDS: MULTIVIT W/MINERALS TAB (THERAGRAN M) GT SCH (06:25)
[2017-06-08] MEDS: KCL 10 MEQ TAB (MICRO K) PO SCH (06:25)
[2017-06-08] MEDS: OMEGA 3 (FISH OIL) 1000 MG CAP PO SCH ×2 (06:25→17:09)
[2017-06-08] MEDS: LEVOTHYROXINE 125 MCG (LEVOTHROID) TABLET GT SCH (06:25)
--- NOTE | 2017-06-08 08:07 | Progress Note (SOAP) ---
Subjective Time Seen by Provider: 08:00 Subjective/Events-last exam patient doing better and more coherent. Patient to be discharged tomorrow. Debility. Coronary artery disease. Objective Exam Vital Signs Date Time Temp Pulse Resp B/P (MAP) Pulse Ox O2 Delivery O2 Flow Rate FiO2 06/08/17 03:51 99.5 56 18 131/78 95 Room Air 06/07/17 20:00 Room Air 06/07/17 18:14 75 19 138/72 95 Room Air 06/07/17 13:33 98.7 69 20 114/61 92 Room Air I & O 06/08/17 07:00 Intake Total 1230 ml Balance 1230 ml Capillary Refill : General Appearance: No Apparent Distress, WD/WN HEENT: Normal ENT Inspection Neck: Full Range of Motion, Normal Inspection Respiratory: Chest Non Tender, Lungs Clear, Normal Breath Sounds, No Accessory Muscle Use, No Respiratory Distress Cardiovascular: Regular Rate, Rhythm, No Murmur Assessment/Plan Assessment/Plan Assess & Plan/Chief Complaint debility. Trach. PEG tube. Subdural hematoma. Coronary artery disease. . 05/21/17. Debility. Trach. PEG tube. SUBDURAL HEMATOMA. . 05/24/17. Debility. Trach. PEG tube. subdural hematoma. Patient confused and hallucinating.. . 05/25/17. Debility. Trach removed. Subdural hematoma.. patient has confusion. Spoke to son Luis about dad . 05/26/17. Debility. Confusion. coronary artery disease. Subdural hematoma. . 05/27/17 debility. Confusion. Coronary artery disease. Subdural hematoma. . 05/28/17. Debility. Confusion. coronary artery disease. Subdural hematoma. Patient gets confused at times Patient talked about diplopia today.. . 06/02/17. Debility improving. Confusion improving. Subdural hematoma. Coronary artery disease. Diplopia consult with blind stitch machine operator. . 06/03/17. Patient's confusion is less. Subdural hematoma. Debility. coronary artery disease. Patient making more sense.. . 06/04/17. Debility. Subdural hematoma. Coronary artery disease. Patient doing much better with his thought process. . 06/07/17. Debility. Subdural hematoma. Confusion and arm. Patient sitting up in bed. Patient getting around better. . 06/08/17. Debility. subdural hematoma. Confusion better. Patient has improved much Clinical Quality Measures DVT/VTE Risk/Contraindication: Risk Factor Score Per Nursin RFS Level Per Nursing on Admit: 4+=Very High JR FUENTES DO Jun 08, 2017 08:07
--- NOTE | 2017-06-08 08:40 | PM & R (SOAP) Progress Note ---
Subjective Time Seen by Provider: 08:30 Subjective/Events-last exam Patient was seen in his room this AM Patient looking forward to discharge tomorrow Has progressed well Patient SBA for much of his adls.Gait with min assist CGA for transfers Current meds reviewed Lovenox d/cd due to improved mobility.and pending discharge tomorrow Objective Exam Last Set of Vital Signs Vital Signs Date Time Temp Pulse Resp B/P (MAP) Pulse Ox O2 Delivery O2 Flow Rate FiO2 06/08/17 03:51 99.5 56 18 131/78 95 Room Air Capillary Refill : I&O Intake and Output 06/08/17 00:00 Intake Total 1380 ml Balance 1380 ml Intake Oral 1380 ml # Voids 6 General: Alert, Cooperative, No Acute Distress HEENT: EOMI, Mucous Memb Moist/[place], Other (Rt Crani site healing well) Neck: Supple, No JVD, Other (decannulated with drssing in place) Lungs: Clear to Auscultation Heart: Regular Rate Abdomen: Normal Bowel Sounds, Soft, No Tenderness Extremities: No Edema Neuro: Other (generalized weakness Mild cognitive impairment) Psych/Mental Status: Other (Confused at times) Assessment/Plan Assessment Rt SDH s/p evacuation with gait imbalance Contusion and hemorrhage rt cerebral cortex Blurred vision-improving S/P Trach-decannulation 05/21/17 S/P feeding tube now on po feeds HTN controlled Dysphagia improved Fall no injury sustained Post-op confusion-much improved Vvomufjkycn-tosxqwfp-[id number] Plan Continue PT/OT/ST F/U with DR Turcios PRN=Appreciate his note F/U with DR Dowling as per his schedule Appreciate current labs Alarmbot( robositter) for patients protection Replaced K F/U with DR Jessica mistry Neurosurgeon in [facility] and DR rahman Radiology here for comparison of CT images although patient much improved-done Consult [facility]-done Checked TSH-WNL See orders Patients delirium much improved Patients blurred improving gradually Appreciate optometrists input Patient and Patients spouse inquired about DME for home yesterday referred to SW for details Discharge remains set for tomorrow 06/09/17 SHAHZAD BARROW MD Jun 08, 2017 08:40
--- NOTE | 2017-06-08 09:29 | Speech Therapy Daily Note ---
Speech Daily Progress Note Subjective Date Seen by Provider: Jun 08, 2017 Time Seen by Provider: 08:45 The patient was laying in bed upon entrance. The patient greeted the clinician upon entrance and was agreeable to participation in the cognitive treatment session. Objective As the patient prepares to discharge tomorrow, 06/09/17, speech pathology will repeat his initial cognitive evaluation. The patient was provided the Conrad Cognitive Assessment (MoCA) Version Two with the following results: - Memory/Delayed Recall: The patient was able to recall five of five single words immediately. The patient was able to recall two of five single words following a five minute delay. - Attention: The patient was able to repeat five single digits forward and three single digits in reverse order. Additionally, the patient accurately completed serial seven subtraction and letter identification. - Language: The patient was able to repeat single phrases and short sentences, as well as, identify common characteristics between two items. The patient was unable to complete word-finding task. - Orientation: The patient was oriented to date, month, year, day, place, and city. The patient demonstrated a score of +18/22 correlating to a minimal to mild cognitive impairment. The patient has demonstrated great improvement since admission, where a moderate cognitive impairment was displayed. Treatment Plan Discontinue ST As the patient plans to discharge tomorrow, 06/09/17. Communication Comprehension: 4 Expression: 5 Social Cognition Social Interaction: 4 Problem Solvin Memory: 4 Speech Short Term Goals Short Term Goals Short Term Goals 1. The patient will demonstrate 90% accuracy with simple orientation information with mild clinician verbal prompting. MET. 2. The patient will remain on task for a duration of five minutes with minimal clinician verbal prompting/redirection. PROGRESSING. 3. The patient will demonstrate adequate sequencing and recall of ADL procedures with 90% accuracy and mild clinician cueing. PROGRESSING 4. Patient will demonstrate safety problem solving with 90% accuracy, independently. Time Frame-ST days Speech Prison Goals Prison Goals 1. The patient will demonstrate improved cognitive linguistic skills for increased function and safety with ADL's in the least restrictive setting. Time Frame: Ten Days Comprehension: 5 (NOT MET) Expression: 6 (NOT MET) Social Interaction: 5 (NOT MET) Problem Solvin (MET) Memory: 4 (MET) Speech-Plan Treatment Plan Speech Therapy Treatment Plan: Discontinue ST The patient is scheduled to discharge tomorrow, 06/09/17. Treatment Duration: Jun 14, 2017 Frequency: 5 times per week Estimated Hrs Per Day: .5 hour per day Rehab Potential: Fair Safety Risks/Education Teaching Recipient: Patient Teaching Methods: Discussion Response to Teaching: Verbalize Understanding Education Topics Provided: Results, Plan of Care, Recommendations Time Speech Therapy Time In: 08:45 Speech Therapy Time Out: 09:15 Total Billed Time: 30 Billed Treatment Time 1, AMRIK HERMAN Jun 08, 2017 09:29
--- NOTE | 2017-06-08 09:37 | Therapy Team Discharge Summary ---
Therapy Discharge Summary Discharge Recommendations Date of Discharge Therapy D/C Recommendations: Home w/ Family Support, Physical Therapy Home Care Speech-Language Pathology The patient was recently admitted to [facility] following a subdural hematoma resulting in a craniotomy. Upon admission, the patient demonstrated moderate cognitive impairments, most notably in the area of memory , problem solving, attention, and executive functioning. Skilled speech pathology focused on safety problem solving, safety awareness, reduced impulsivity, and functional memory strategies. The patient met memory and problem solving goals placed by the clinician, however, continues to demonstrate impulsivity. The patient will discharge home with spouse at this time. Continued supervision is recommended for improved safety at home. PT Quarrying Specialist Goals Quarrying Specialist Goals PT Quarrying Specialist Goals Time Frame: Jun 09, 2017 Transfers (B,C,W/C) (FIM): 4 Roll Left to Right (QC): 4 Sit to Lying (QC): 4 Lying-Sitting on Side/Bed(QC): 4 Sit to Stand (QC): 4 Chair/Tiu-gt-Vuyak Xfer(QC): 4 Car Transfer (QC): 4 Gait (FIM): 4 Distance: 150' Walk 10 feet (QC): 4 Walk 10ft-Uneven Surface(QC): 4 Walk 50ft with 2 Turns (QC): 4 Walk 150 ft (QC): 4 Gait Level of Assist: 4 Gait Assistive Device: FWW Stairs (FIM): 2 # of Steps: 4 1 Step (curb) (QC): 4 4 Steps (QC): 4 OT Quarrying Specialist Goals Nursing Home Goals Time Frame: Jun 16, 2017 Eating (FIM): 6 Eating (QC): 6 Oral Hygiene (QC): 6 Grooming(FIM): 6 Bathing(FIM): 6 Shower/Bathe Self (QC): 6 Upper Body Dressing(FIM): 6 Upper Body Dressing (QC): 6 Lower Body Dressing(FIM): 6 Lower Body Dressing (QC): 6 On/Off Footwear (QC): 6 Toileting(FIM): 6 Toileting Hygiene (QC): 6 Toilet/Commode Transfer(FIM): 6 Toilet/Commode Transfer (QC): 6 Shower Transfer(FIM): 6 Comprehension(FIM): 5 (NOT MET) Expression (FIM): 6 (NOT MET) Social Interaction(FIM): 5 (NOT MET) Problem Solving(FIM): 4 (MET) Memory(FIM): 4 (MET) Additional Goals: 2-Verbalize Understanding, 3-ImproveStrength/Lela 1=Demonstrate adherence to instructed precautions during ADL tasks. 2=Patient will verbalize/demonstrate understanding of assistive devices/ modifications for ADL. 3=Patient will improve strength/tolerance for activity to enable patient to perform ADL's. Speech Nursing Home Goals Quarrying Specialist Goals 1. The patient will demonstrate improved cognitive linguistic skills for increased function and safety with ADL's in the least restrictive setting. Time Frame: Ten Days Comprehension: 5 (NOT MET) Expression: 6 (NOT MET) Social Interaction: 5 (NOT MET) Problem Solvin (MET) Memory: 4 (MET) AMRIK LOMAX Jun 08, 2017 09:37
[2017-06-08] MEDS: guaiFENesin (MUCINEX) 600 MG TAB PO SCH ×2 (10:06→20:40)
[2017-06-08] MEDS: LEVETIRACETAM 500 MG (KEPPRA) TAB PO SCH ×2 (10:06→20:41)
[2017-06-08] MEDS: FUROSEMIDE 40 MG (LASIX) TAB GT SCH (10:06)
[2017-06-08] MEDS: DOCUSATE SODIUM 100 MG (COLACE) CAP PO SCH ×2 (10:07→20:25)
[2017-06-08] MEDS: CARVEDILOL 12.5 MG (COREG) TABLET GT SCH ×2 (10:07→20:41)
[2017-06-08] MEDS: LACTOBACILLUS Acidoph/Bulgar (LACTINEX/FLORANEX) TAB PEG SCH ×2 (10:07→20:40)
[2017-06-08] MEDS: FAMOTIDINE 20 MG (PEPCID) TABLET GT SCH ×2 (10:07→20:41)
[2017-06-08] MEDS: hydrALAZINE (APRESOLINE) 25 MG TAB GT SCH ×3 (10:07→20:41)
[2017-06-08] MEDS: cloNIDine 0.1 MG (CATAPRES) TAB GT SCH ×3 (10:07→20:40)
[2017-06-08] MEDS: amLODIPine 5 MG (NORVASC) TAB GT SCH (10:07)
[2017-06-08] MEDS: ARTIFICIAL TEARS OINT (LACRI-LUBE) 3.5 GM TUBE OU SCH ×2 (10:18→20:41)
[2017-06-08] MEDS: BETAMETHASONE/CLOTRIM CREAM (LOTRISONE) 45 GM TP SCH ×2 (10:19→20:42)
--- NOTE | 2017-06-08 12:22 | Physical Therapy Daily Note ---
PT Daily Note-Current Subjective Pt is laying Supine in bed just finishing with OT. Pt agrees to PT. Pain Location: No Pain Reported Mental Status Patient Orientation: Person, Confused, Place Attachments: Other-See Comments (Helmet) Transfers Functional [place] Measure 0=Not Assessed/NA 4=Minimal Assistance 1=Total Assistance 5=Supervision or Setup 2=Maximal Assistance 6=Modified [place] 3=Moderate Assistance 7=Complete IndependenceIRFPAI Quality Coding Scale 6 Independent with activity with or without an assistive device 5 Patient requires set up or clean up by helper. Patient completes activity by themselves 4 Supervision or touching assist (CGA). [place] provide cues , steadying assist 3 The helper provides less than half the effort to complete the activity 2 The helper provides more than half the effort to complete the activity 1 Dependent. The helper does all the effort to complete an activity 7 Patient refused to complete or attempt activity 9 The patient did not perform the activity before the current illness or injury 88 Not attempted due to Medical conditions or safety concerns Scootin Rollin Roll Left to Right (QC): 5 Supine to/from Sit: 5 Sit to/from Stand: 5 Sit to Lying (QC): 5 Sit to Stand (QC): 5 Chair/Lwu-qi-Qbuto Xfer(QC): 5 Bed to/from Chair: 5 Weight Bearing Weight Bearing Restriction: Full Weight Bearing Location Restriction: LE Bilateral Gait Training Does the Patient Walk?: Yes Distance (FIM): 3=150 ft Distance: 150' x3 Walk 10 feet (QC): 5 Walk 50 ft with 2 Turns(QC): 5 Walk 150 ft (QC): 5 Walking 10ft/uneven surface-QC: 5 Gait Level of Assist: 5 Gait Persons Needed: 1 Gait Assistive Device: Walker 4 Wheeled Pt walks with normalized gait pattern, no LOB. Wheelchair Training Does the Pt Use a Wheelchair?: No Stair Training Stair Training: Handrails/: 2 handrails Stairs (FIM): 2 #of Steps: 4 1 Step (curb) (QC): 5 4 Steps (QC): 5 12 Steps (QC): 88 Stairs: Pattern: Reciprocal Level of Assist: 4 Balance Picking up an Object (QC): 4 Special Test Comments Pt needs VC for safety. Exercises NuStep Minutes: 8 NuStep Workload: 5 Treatments Pt completes all transfers at A using 4WW. Pt ambulates using 4WW at close SBA for safety. Pt completed bed mobility work on mat in Therapy Gym. Pt completed 1 set of 4 stairs, walked on varying surface for at least 10', picked up object from floor and used NuStep to work on strength, activity tolerance and improve balance. Pt also used restroom before returning to laying Supine in bed at end of tx with all needs met. Assessment Current Status: Good Progress Pt has made improvements with strength, activity tolerance and balance with upright activity although still struggles with cognitive awareness and safe decision making. PT Short Term Goals Short Term Goals Time Frame: May 26, 2017 Transfers (B,C,W/C) (FIM): 4 Gait (FIM): 2 Gait Distance Comment: 50' Gait Level of Assist: 4 Gait Assistive Device: FWW Wheelchair Distance: 100' PT Halfway Goals Halfway Goals PT Halfway Goals Time Frame: Jun 09, 2017 Transfers (B,C,W/C) (FIM): 4 Sit to Lying (QC): 4 Lying-Sitting on Side/Bed(QC): 4 Sit to Stand (QC): 4 Rollin Roll Left to Right (QC): 4 Chair/Aqh-js-Zsmdp Xfer(QC): 4 Car Transfer (QC): 4 Gait (FIM): 4 Distance: 150' Walk 10 feet (QC): 4 Walk 10ft-Uneven Surface(QC): 4 Walk 50ft with 2 Turns (QC): 4 Walk 150 ft (QC): 4 Gait Level of Assist: 4 Gait Assistive Device: FWW Stairs (FIM): 2 # of Steps: 4 1 Step (curb) (QC): 4 4 Steps (QC): 4 PT Plan Problem List Problem List: Activity Tolerance, Safety, Balance, Gait Treatment/Plan Treatment Plan: Continue Plan of Care Treatment Plan: Bed Mobility, Education, Functional Activity Lela, Functional Strength, Gait, Safety, Therapeutic Exercise, Transfers Treatment Duration: Jun 09, 2017 Frequency: At least 5-7 days/Wk (IRF) Estimated Hrs Per Day: 1.5 hours per day Patient and/or Family Agrees t: Yes Safety Risks/Education Patient Education: Gait Training, Transfer Techniques, Steps, Correct Positioning, Safety Issues Teaching Recipient: Patient Teaching Methods: Discussion Response to Teaching: Verbalize Understanding Time/GCodes Time In: 1100 Time Out: 1145 Total Billed Treatment Time: 45 Total Billed Treatment visit, FA (15m), GT (15m) & EX (15m) FERNANDO VARGAS BOARD LINING MACHINE OPERATOR Jun 08, 2017 12:22
--- NOTE | 2017-06-08 12:55 | Occupational Ther Daily Note ---
OT Current Status-Daily Note Subjective Pt seen in room, up in bed, agreeable to OT. No pain mentioned. Appearance Alert, cooperative. Pt still with decreased safety awareness. Attempted to get up without helmet and with bedrail still up. Mental Status/Objective Functional [place] Measure 0=Not Assessed/NA 4=Minimal Assistance 1=Total Assistance 5=Supervision or Setup 2=Maximal Assistance 6=Modified [place] 3=Moderate Assistance 7=Complete [place] ADL-Treatment All ADLs took longer than usual. Pt very verbal and needs occasional redirecting. Pt left up in bed, 4 rails up, bed alarm on, all needs met. Telesitter present Functional [place] Measure 0=Not Assessed/NA 4=Minimal Assistance 1=Total Assistance 5=Supervision or Setup 2=Maximal Assistance 6=Modified [place] 3=Moderate Assistance 7=Complete IndependenceIRFPAI Quality Coding Scale 6 Independent with activity with or without an assistive device 5 Patient requires set up or clean up by helper. Patient completes activity by themselves 4 Supervision or touching assist (CGA). [place] provide cues , steadying assist 3 The helper provides less than half the effort to complete the activity 2 The helper provides more than half the effort to complete the activity 1 Dependent. The helper does all the effort to complete an activity 7 Patient refused to complete or attempt activity 9 The patient did not perform the activity before the current illness or injury 88 Not attempted due to Medical conditions or safety concerns Eating (FIM): 7 (Pt ordered own food and opened packages. Able to feed himself without help) Eating (QC): 6 Bathing (FIM): 5 (Turned water on and off, retrieved towel. Washed and dried all parts. Required supervision for safety since helmet off to wash hair. Shower bench, grab bars, hand held shower. No cues needed for sequencing.) Shower/Bathe Self (QC): 4 (Supervision) Upper Body (FIM): 5 (Setup. Donned button down shirt. Able to get buttons but very slow. Supervision when sitting EOB and helmet on. ) Upper Body Dressing (QC): 4 (Supervision) Lower Body Dressing (FIM): 5 (Donned pants with setup, rolling side to side to get them up over hips. Supervision when sitting EOB with helmet on. Able to don socks with setup and put on slip-on shoes ) Lower Body Dressing (QC): 4 (supervision) On/Off Footwear (QC): 4 (supervision) Toileting (FIM): 5 (SBA when standing to manage clothing. Manages hygiene. BSC over toilet, grab bar, FWW) Toileting Hygiene (QC): 4 (Supervision) Transfers (B, C, W/C) (FIM): 5 (SBA) Toilet/Commode Transfer (FIM): 5 (SBA, on and off BSC over toilet. FWW, grab bar) Toilet Transfer (QC): 4 (SBA) Shower Transfer(FIM): 5 (SBA, getting in and out of shower. Supervision for safety, with helmet, FWW, shower bench. Slight LOB but able to self correct) Education OT Patient Education: Modified ADL techniques, Progress toward Goal/Update tx plan, Safety issues, Transfer techniques Teaching Recipient: Patient Teaching Methods: Discussion Response to Teaching: Verbalize Understanding, Return Demonstration, Reinforcement Needed OT Short Term Goals Short Term Goals Time Frame: Jun 02, 2017 Grooming(FIM): 5 Upper Body Dressing(FIM): 5 Lower Body Dressing(FIM): 3 Toileting(FIM): 3 Transfers (B,C,W/C) (FIM): 4 Additional Short Term Goals: 2-Verbalize Understanding, 3-ImproveStrength/Lela 1=Demonstrate adherence to instructed precautions during ADL tasks. 2=Patient will verbalize/demonstrate understanding of assistive devices/ modifications for ADL. 3=Patient will improve strength/tolerance for activity to enable patient to perform ADL's. OT Skilled Nursing Goals Skilled Nursing Goals Time Frame: Jun 16, 2017 Eating (FIM): 6 Eating (QC): 6 Groomin Oral Hygiene (QC): 6 Bathing(FIM): 6 Shower/Bathe Self (QC): 6 Upper Body Dressing(FIM): 6 Upper Body Dressing (QC): 6 Lower Body Dressing(FIM): 6 Lower Body Dressing (QC): 6 On/Off Footwear (QC): 6 Toileting(FIM): 6 Toileting Hygiene (QC): 6 Toilet/Commode Transfer(FIM): 6 Toilet/Commode Transfer (QC): 6 Shower Transfer(FIM): 6 Comprehension(FIM): 5 (NOT MET) Expression (FIM): 6 (NOT MET) Social Interaction(FIM): 5 (NOT MET) Problem Solving(FIM): 4 (MET) Memory(FIM): 4 (MET) Additional Goals: 2-Verbalize Understanding, 3-ImproveStrength/Lela 1=Demonstrate adherence to instructed precautions during ADL tasks. 2=Patient will verbalize/demonstrate understanding of assistive devices/ modifications for ADL. 3=Patient will improve strength/tolerance for activity to enable patient to perform ADL's. OT Education/Plan Problem List/Assessment Pt would benefit from skilled OT to increase his independence in basic self care to allow him to safely return to his home to live with his and to decrease caregiver burden. Discharge Recommendations Plan/Recommendations: Continue POC Treatment Plan/Plan of Care Patient would benefit from OT for education, treatment and training to promote independence in ADL's, mobility, safety and/or upper extremity function for ADL' s. Plan of Care: ADL Retraining, Caregiver Training, Functional Mobility, Group Exercise/Act as Ind (education, exercise, socialization, funct activities, activity tolerance), UE Funct Exercise/Act, UE Neuromus Re-Ed/Coord, Visual/ Perceptual Retrain Treatment Duration: Jun 16, 2017 Frequency: Twice Daily Estimated Hrs Per Day: 1.5 hours per day Agreement: Yes Rehab Potential: Fair Time/GCodes Start Time: 10:00 Stop Time: 11:00 Total Time Billed (hr/min): 60 Billed Treatment Time visit, 60 minutes ADL JED HAN OT Jun 08, 2017 12:55
--- NOTE | 2017-06-08 14:33 | Physical Therapy Daily Note ---
PT Daily Note-Current Subjective Patient agrees to PT. Pain Numeric Pain Scale: 0-No Pain Location: No Pain Reported Mental Status Patient Orientation: Normal For Age Transfers Functional [place] Measure 0=Not Assessed/NA 4=Minimal Assistance 1=Total Assistance 5=Supervision or Setup 2=Maximal Assistance 6=Modified [place] 3=Moderate Assistance 7=Complete IndependenceIRFPAI Quality Coding Scale 6 Independent with activity with or without an assistive device 5 Patient requires set up or clean up by helper. Patient completes activity by themselves 4 Supervision or touching assist (CGA). [place] provide cues , steadying assist 3 The helper provides less than half the effort to complete the activity 2 The helper provides more than half the effort to complete the activity 1 Dependent. The helper does all the effort to complete an activity 7 Patient refused to complete or attempt activity 9 The patient did not perform the activity before the current illness or injury 88 Not attempted due to Medical conditions or safety concerns Transfers (B, C, W/C) (FIM): 6 Scootin Rollin Roll Left to Right (QC): 6 Supine to/from Sit: 6 Sit to/from Stand: 5 Sit to Lying (QC): 6 Sit to Stand (QC): 5 Gait Training Does the Patient Walk?: Yes Gait (FIM): 5 Distance (FIM): 3=150 ft Distance: 150' x 8 Walk 10 feet (QC): 5 Walk 50 ft with 2 Turns(QC): 5 Walk 150 ft (QC): 5 Gait Level of Assist: 5 Gait Assistive Device: Crutches Forearm slack (no tension) solo step use for gait training with forearm crutches patient uses previously Assessment Patient much improved with gait with 4WW and forearm crutches. Patient will dismiss to home with spouse tomorrow. PT Short Term Goals Short Term Goals Time Frame: May 26, 2017 Transfers (B,C,W/C) (FIM): 4 Gait (FIM): 2 Gait Distance Comment: 50' Gait Level of Assist: 4 Gait Assistive Device: FWW Wheelchair Distance: 100' PT Snf Goals Fuel Technician Goals PT Snf Goals Time Frame: Jun 09, 2017 Transfers (B,C,W/C) (FIM): 4 Sit to Lying (QC): 4 Lying-Sitting on Side/Bed(QC): 4 Sit to Stand (QC): 4 Rollin Roll Left to Right (QC): 4 Chair/Lnl-di-Zkcwq Xfer(QC): 4 Car Transfer (QC): 4 Gait (FIM): 4 Distance: 150' Walk 10 feet (QC): 4 Walk 10ft-Uneven Surface(QC): 4 Walk 50ft with 2 Turns (QC): 4 Walk 150 ft (QC): 4 Gait Level of Assist: 4 Gait Assistive Device: FWW Stairs (FIM): 2 # of Steps: 4 1 Step (curb) (QC): 4 4 Steps (QC): 4 PT Plan Treatment/Plan Treatment Plan: Continue Plan of Care Treatment Plan: Bed Mobility, Education, Functional Activity Lela, Functional Strength, Gait, Safety, Therapeutic Exercise, Transfers Treatment Duration: Jun 09, 2017 Frequency: At least 5-7 days/Wk (IRF) Estimated Hrs Per Day: 1.5 hours per day Patient and/or Family Agrees t: Yes Time/GCodes Time In: 1350 Time Out: 1420 Total Billed Treatment Time: 30 Total Billed Treatment 1 visit GT x 2 30 min KOJO BARAJAS PT Jun 08, 2017 14:33
--- NOTE | 2017-06-08 14:58 | Occupational Ther Daily Note ---
OT Current Status-Daily Note Subjective Pt seen in room, up in bed, agreeable to OT. Mental Status/Objective Functional [place] Measure 0=Not Assessed/NA 4=Minimal Assistance 1=Total Assistance 5=Supervision or Setup 2=Maximal Assistance 6=Modified [place] 3=Moderate Assistance 7=Complete [place] ADL-Treatment Supine to sit without assistance. Sometimes struggles and skilled cues needed for technique. Sit to stand from EOB with SBA, then walked to bathroom with SBA , 4WW. pt education to lock brakes when he stopped at sink because he use the handles for balancing. Pt brushed teeth with SBA at sink, balancing with hand on counter tup. Pt walked back to bed with SBA, 4WW, helmet in place. Pt was able to read smaller print on a form, reporting pretty good focusing visually. Pt verbalized he is ready for discharge to home tomorrow. Home health OT recommended. Pt' has arranged for all needed equipment, including shower chair and BSC over toilet. Pt left up in bed, 4 rails up, bed alarm on, telesitter. Functional [place] Measure 0=Not Assessed/NA 4=Minimal Assistance 1=Total Assistance 5=Supervision or Setup 2=Maximal Assistance 6=Modified [place] 3=Moderate Assistance 7=Complete IndependenceIRFPAI Quality Coding Scale 6 Independent with activity with or without an assistive device 5 Patient requires set up or clean up by helper. Patient completes activity by themselves 4 Supervision or touching assist (CGA). [place] provide cues , steadying assist 3 The helper provides less than half the effort to complete the activity 2 The helper provides more than half the effort to complete the activity 1 Dependent. The helper does all the effort to complete an activity 7 Patient refused to complete or attempt activity 9 The patient did not perform the activity before the current illness or injury 88 Not attempted due to Medical conditions or safety concerns Education OT Patient Education: Purpose of tx/functional activities, Safety issues, Transfer techniques Teaching Recipient: Patient Teaching Methods: Demonstration, Discussion Response to Teaching: Verbalize Understanding, Reinforcement Needed OT Short Term Goals Short Term Goals Time Frame: Jun 02, 2017 Grooming(FIM): 5 Upper Body Dressing(FIM): 5 Lower Body Dressing(FIM): 3 Toileting(FIM): 3 Transfers (B,C,W/C) (FIM): 4 Additional Short Term Goals: 2-Verbalize Understanding, 3-ImproveStrength/Lela 1=Demonstrate adherence to instructed precautions during ADL tasks. 2=Patient will verbalize/demonstrate understanding of assistive devices/ modifications for ADL. 3=Patient will improve strength/tolerance for activity to enable patient to perform ADL's. OT Fdc Goals Restaurant Shift Supervisor Goals Time Frame: Jun 16, 2017 Eating (FIM): 6 (met 06-08-17) Eating (QC): 6 (met 06-08-17) Groomin (not met 06-08-17) Oral Hygiene (QC): 6 (not met 06-08-17) Bathing(FIM): 6 (not met 06-08-17) Shower/Bathe Self (QC): 6 (not met 06-08-17) Upper Body Dressing(FIM): 6 (not met 06-08-17) Upper Body Dressing (QC): 6 (not met 06-08-17) Lower Body Dressing(FIM): 6 (not met 06-08-17) Lower Body Dressing (QC): 6 (not met 06-08-17) On/Off Footwear (QC): 6 (not met 06-08-17) Toileting(FIM): 6 (not met 06-08-17) Toileting Hygiene (QC): 6 (not met 06-08-17) Toilet/Commode Transfer(FIM): 6 (not met 06-08-17) Toilet/Commode Transfer (QC): 6 (not met 06-08-17) Shower Transfer(FIM): 6 (not met 06-08-17) Comprehension(FIM): 5 (NOT MET) Expression (FIM): 6 (NOT MET) Social Interaction(FIM): 5 (NOT MET) Problem Solving(FIM): 4 (MET) Memory(FIM): 4 (MET) Additional Goals: 2-Verbalize Understanding, 3-ImproveStrength/Lela 1=Demonstrate adherence to instructed precautions during ADL tasks. 2=Patient will verbalize/demonstrate understanding of assistive devices/ modifications for ADL. 3=Patient will improve strength/tolerance for activity to enable patient to perform ADL's. OT Education/Plan Problem List/Assessment Pt would benefit from skilled OT to increase his independence in basic self care to allow him to safely return to his home to live with his and to decrease caregiver burden. Discharge Recommendations Plan/Recommendations: Continue POC (anticipate DC to home tomorrow) Treatment Plan/Plan of Care Patient would benefit from OT for education, treatment and training to promote independence in ADL's, mobility, safety and/or upper extremity function for ADL' s. Plan of Care: ADL Retraining, Caregiver Training, Functional Mobility, Group Exercise/Act as Ind (education, exercise, socialization, funct activities, activity tolerance), UE Funct Exercise/Act, UE Neuromus Re-Ed/Coord, Visual/ Perceptual Retrain Treatment Duration: Jun 16, 2017 Frequency: Twice Daily Estimated Hrs Per Day: 1.5 hours per day Agreement: Yes Rehab Potential: Fair Time/GCodes Start Time: 13:00 Stop Time: 13:15 Total Time Billed (hr/min): 15 Billed Treatment Time visit, 15 minutes ADL JED HAN OT Jun 08, 2017 14:58
[2017-06-08] MEDS ORDERED: POTA10TA6 PO (16:20)
[2017-06-08] MEDS ORDERED: FURO40TA4 PO (16:20)
[2017-06-08] MEDS ORDERED: HYDR-3923 PO (16:20)
[2017-06-08] MEDS ORDERED: MINE3.5O29 OU (16:20)
[2017-06-08] MEDS ORDERED: AMLO5TAB2 PO (16:20)
[2017-06-08] MEDS ORDERED: LEVO125T PO (16:20)
[2017-06-08] MEDS ORDERED: FAMO20TA5 PO (16:20)
[2017-06-08] MEDS ORDERED: LEVE500T6 PO (16:20)
[2017-06-08] MEDS ORDERED: CLON0.1T PO (16:20)
[2017-06-08] MEDS ORDERED: DOCU100C37 PO (16:20)
[2017-06-08] MEDS ORDERED: GUAI600T43 PO (16:20)
[2017-06-08] MEDS ORDERED: ALFU10TA11 PO (16:20)
[2017-06-08] MEDS ORDERED: ACID1TAB PO (16:20)
[2017-06-08] MEDS ORDERED: CLOT15CR6 TP (16:20)
[2017-06-08] MEDS: ALFUZOSIN HCL 10 MG TAB (UROXATRAL) PO SCH ×2 (17:09→17:23)
[2017-06-08 17:32] VITALS: BP 126/71
[2017-06-08 19:32] VITALS: BP 126/71
[2017-06-08] MEDS: POLYETHYLENE GLYCOL 17 GM (MIRALAX) PACK GT SCH (20:24)
[2017-06-09 06:00] VITALS: BP 125/74
[2017-06-09] MEDS: MULTIVIT W/MINERALS TAB (THERAGRAN M) GT SCH (06:31)
[2017-06-09] MEDS: KCL 10 MEQ TAB (MICRO K) PO SCH (06:31)
[2017-06-09] MEDS: LEVOTHYROXINE 125 MCG (LEVOTHROID) TABLET GT SCH (06:32)
[2017-06-09] MEDS: OMEGA 3 (FISH OIL) 1000 MG CAP PO SCH (06:32)
--- NOTE | 2017-06-09 07:53 | Progress Note (SOAP) ---
Subjective Time Seen by Provider: 07:40 Subjective/Events-last exam debility. Subdural hematoma. Coronary artery disease. Patient be discharged today. Patient resting comfortably. Patient to come to the office in 1 week with his medicines. Patient much improved and alert Objective Exam Vital Signs Date Time Temp Pulse Resp B/P (MAP) Pulse Ox O2 Delivery O2 Flow Rate FiO2 06/09/17 06:00 97.8 62 20 125/74 96 Room Air 06/08/17 21:00 Room Air 06/08/17 19:32 58 19 126/71 94 Room Air 06/08/17 17:32 58 19 126/71 94 Room Air 06/08/17 09:00 Room Air I & O 06/09/17 07:00 Intake Total 1150 ml Output Total 600 ml Balance 550 ml Capillary Refill : General Appearance: No Apparent Distress, WD/WN HEENT: Normal ENT Inspection Neck: Full Range of Motion, Normal Inspection Respiratory: Chest Non Tender, Lungs Clear, Normal Breath Sounds, No Accessory Muscle Use, No Respiratory Distress Cardiovascular: Regular Rate, Rhythm, No Murmur Gastrointestinal: other (PEG tube) Assessment/Plan Assessment/Plan Assess & Plan/Chief Complaint debility. Trach. PEG tube. Subdural hematoma. Coronary artery disease. . 05/21/17. Debility. Trach. PEG tube. SUBDURAL HEMATOMA. . 05/24/17. Debility. Trach. PEG tube. subdural hematoma. Patient confused and hallucinating.. . 05/25/17. Debility. Trach removed. Subdural hematoma.. patient has confusion. Spoke to son Luis about dad . 05/26/17. Debility. Confusion. coronary artery disease. Subdural hematoma. . 05/27/17 debility. Confusion. Coronary artery disease. Subdural hematoma. . 05/28/17. Debility. Confusion. coronary artery disease. Subdural hematoma. Patient gets confused at times Patient talked about diplopia today.. . 06/02/17. Debility improving. Confusion improving. Subdural hematoma. Coronary artery disease. Diplopia consult with branch chief. . 06/03/17. Patient's confusion is less. Subdural hematoma. Debility. coronary artery disease. Patient making more sense.. . 06/04/17. Debility. Subdural hematoma. Coronary artery disease. Patient doing much better with his thought process. . 06/07/17. Debility. Subdural hematoma. Confusion and arm. Patient sitting up in bed. Patient getting around better. . 06/08/17. Debility. subdural hematoma. Confusion better. Patient has improved much. . 06/09/17. Patient much improved. No confusion. Subdural hematoma. Coronary artery disease. Debility better Clinical Quality Measures DVT/VTE Risk/Contraindication: Risk Factor Score Per Nursin RFS Level Per Nursing on Admit: 4+=Very High JR FUENTES DO Jun 09, 2017 07:53
--- NOTE | 2017-06-09 08:19 | PM & R (SOAP) Progress Note ---
Subjective Time Seen by Provider: 07:30 Subjective/Events-last exam Patient was seen in his room this AM.All set for discharge today Current labs and meds reviewed. Patient has progressed well Objective Exam Last Set of Vital Signs Vital Signs Date Time Temp Pulse Resp B/P (MAP) Pulse Ox O2 Delivery O2 Flow Rate FiO2 06/09/17 06:00 97.8 62 20 125/74 96 Room Air Capillary Refill : I&O Intake and Output 06/09/17 00:00 Intake Total 1450 ml Balance 1450 ml Intake Oral 1450 ml # Voids 7 General: Alert, Cooperative, No Acute Distress HEENT: EOMI, Mucous Memb Moist/[place], Other (Rt Crani site healing well) Neck: Supple, No JVD, Other (decannulated with drssing in place) Lungs: Clear to Auscultation Heart: Regular Rate Abdomen: Normal Bowel Sounds, Soft, No Tenderness Extremities: No Edema Neuro: Other (generalized weakness Mild cognitive impairment) Psych/Mental Status: Other (Confused at times) Assessment/Plan Assessment Rt SDH s/p evacuation with gait imbalance Contusion and hemorrhage rt cerebral cortex Blurred vision-improving S/P Trach-decannulation 05/21/17 S/P feeding tube now on po feeds HTN controlled Dysphagia improved Fall no injury sustained Post-op confusion-much improved Cfzagjlchcm-[id number]-zooaniaxw Plan Discharge today to home with spouse and HHC Continue with Helmet when up F/U with DR Khan Neurosurgeon and DR Dowling PCP See orders. SHAHZAD BARROW MD Jun 09, 2017 08:19
[2017-06-09] MEDS: guaiFENesin (MUCINEX) 600 MG TAB PO SCH (08:52)
[2017-06-09] MEDS: LACTOBACILLUS Acidoph/Bulgar (LACTINEX/FLORANEX) TAB PEG SCH (08:52)
[2017-06-09] MEDS: LEVETIRACETAM 500 MG (KEPPRA) TAB PO SCH (08:52)
[2017-06-09] MEDS: cloNIDine 0.1 MG (CATAPRES) TAB GT SCH (08:52)
[2017-06-09] MEDS: DOCUSATE SODIUM 100 MG (COLACE) CAP PO SCH (08:53)
[2017-06-09] MEDS: CARVEDILOL 12.5 MG (COREG) TABLET GT SCH (08:53)
[2017-06-09] MEDS: hydrALAZINE (APRESOLINE) 25 MG TAB GT SCH (08:53)
[2017-06-09] MEDS: amLODIPine 5 MG (NORVASC) TAB GT SCH (08:53)
[2017-06-09] MEDS: FAMOTIDINE 20 MG (PEPCID) TABLET GT SCH (08:53)
[2017-06-09] MEDS: FUROSEMIDE 40 MG (LASIX) TAB GT SCH (08:53)
[2017-06-09] MEDS: BETAMETHASONE/CLOTRIM CREAM (LOTRISONE) 45 GM TP SCH (08:53)
[2017-06-09] MEDS: ARTIFICIAL TEARS OINT (LACRI-LUBE) 3.5 GM TUBE OU SCH (08:54)
--- NOTE | 2017-06-09 09:06 | Therapy Team Discharge Summary ---
Therapy Discharge Summary Discharge Recommendations Date of Discharge Therapy D/C Recommendations: Home w/ Family Support, Physical Therapy Home Care Physical Therapy Patient came to rehab following a subdural hematoma. Upon evaluation patient performed bed mobility with SBA except for supine <-> sit which was min assist. He could stand with mod to max assist and perform a stand pivot transfer with mod to max assist. He could ambulate 10' with a rolling walker with max assist. No stairs at that time. Patient has been performing bed mobility and transfer training, balance and endurance training, functional strengthening, stair training, gait training, and education. 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 Now, patient performs bed mobility and transfers with SBA, ambulates 150' with a rolling walker with SBA (including 50 ' with at least 2 turns of 90 degrees and 10' over an uneven surface), and can go up and down 4 steps using 2 handrails with SBA. Patient is being discharged from this facility today and will be discharged from PT at this time. PT Bed Spring Maker Goals Bed Spring Maker Goals PT Custodial Goals Time Frame: Jun 09, 2017 Transfers (B,C,W/C) (FIM): 4 Roll Left to Right (QC): 4 Sit to Lying (QC): 4 Lying-Sitting on Side/Bed(QC): 4 Sit to Stand (QC): 4 Chair/Gma-uz-Arblq Xfer(QC): 4 Car Transfer (QC): 4 Gait (FIM): 4 Distance: 150' Walk 10 feet (QC): 4 Walk 10ft-Uneven Surface(QC): 4 Walk 50ft with 2 Turns (QC): 4 Walk 150 ft (QC): 4 Gait Level of Assist: 4 Gait Assistive Device: FWW Stairs (FIM): 2 # of Steps: 4 1 Step (curb) (QC): 4 4 Steps (QC): 4 OT Custodial Goals Bed Spring Maker Goals Time Frame: Jun 16, 2017 Eating (FIM): 6 (met 06-08-17) Eating (QC): 6 (met 06-08-17) Oral Hygiene (QC): 6 (not met 06-08-17) Grooming(FIM): 6 (not met 06-08-17) Bathing(FIM): 6 (not met 06-08-17) Shower/Bathe Self (QC): 6 (not met 06-08-17) Upper Body Dressing(FIM): 6 (not met 06-08-17) Upper Body Dressing (QC): 6 (not met 06-08-17) Lower Body Dressing(FIM): 6 (not met 06-08-17) Lower Body Dressing (QC): 6 (not met 06-08-17) On/Off Footwear (QC): 6 (not met 06-08-17) Toileting(FIM): 6 (not met 06-08-17) Toileting Hygiene (QC): 6 (not met 06-08-17) Toilet/Commode Transfer(FIM): 6 (not met 06-08-17) Toilet/Commode Transfer (QC): 6 (not met 06-08-17) Shower Transfer(FIM): 6 (not met 06-08-17) Comprehension(FIM): 5 (NOT MET) Expression (FIM): 6 (NOT MET) Social Interaction(FIM): 5 (NOT MET) Problem Solving(FIM): 4 (MET) Memory(FIM): 4 (MET) Additional Goals: 2-Verbalize Understanding, 3-ImproveStrength/Lela 1=Demonstrate adherence to instructed precautions during ADL tasks. 2=Patient will verbalize/demonstrate understanding of assistive devices/ modifications for ADL. 3=Patient will improve strength/tolerance for activity to enable patient to perform ADL's. Speech Bed Spring Maker Goals Bed Spring Maker Goals 1. The patient will demonstrate improved cognitive linguistic skills for increased function and safety with ADL's in the least restrictive setting. Time Frame: Ten Days Comprehension: 5 (NOT MET) Expression: 6 (NOT MET) Social Interaction: 5 (NOT MET) Problem Solvin (MET) Memory: 4 (MET) JOSÉ MANUEL WHEELER PT Jun 09, 2017 09:06
[2017-06-09 11:30] VITALS: BP 125/74
--- NOTE | 2017-06-10 08:49 | Therapy Team Discharge Summary ---
Therapy Discharge Summary Discharge Recommendations Date of Discharge Jun 09, 2017 at 11:30 Therapy D/C Recommendations: Home w/ Family Support, Occupational Therapy Home Care, Physical Therapy Home Care Occupational Therapy Pt seen for skilled OT to increase his independence in basic self care to allow him to safely return to his home to live with his . On admission he needed two people to stand him for dressing and transfers. He needed supervision for eating, min assist with grooming and bathing, max assist upper body dressing and was dependent with lower body dressing and toileting. By discharge he was independent with eating, and needed setup or supervision for all other basic ADLs. He still needed cues to put on his helmet and wait for gait belt. Equipment used included BSC over toilet, grab bars, shower chair, hand held shower, FWW. Recommend home health OT. See tx plan for goals met. DC OT PT Senior Living Goals Account Development Associate Goals PT Senior Living Goals Time Frame: Jun 09, 2017 Transfers (B,C,W/C) (FIM): 4 Roll Left to Right (QC): 4 Sit to Lying (QC): 4 Lying-Sitting on Side/Bed(QC): 4 Sit to Stand (QC): 4 Chair/Rea-zx-Rjgxl Xfer(QC): 4 Car Transfer (QC): 4 Gait (FIM): 4 Distance: 150' Walk 10 feet (QC): 4 Walk 10ft-Uneven Surface(QC): 4 Walk 50ft with 2 Turns (QC): 4 Walk 150 ft (QC): 4 Gait Level of Assist: 4 Gait Assistive Device: FWW Stairs (FIM): 2 # of Steps: 4 1 Step (curb) (QC): 4 4 Steps (QC): 4 OT Senior Living Goals Senior Living Goals Time Frame: Jun 16, 2017 Eating (FIM): 6 (met 06-08-17) Eating (QC): 6 (met 06-08-17) Oral Hygiene (QC): 6 (not met 06-08-17) Grooming(FIM): 6 (not met 06-08-17) Bathing(FIM): 6 (not met 06-08-17) Shower/Bathe Self (QC): 6 (not met 06-08-17) Upper Body Dressing(FIM): 6 (not met 06-08-17) Upper Body Dressing (QC): 6 (not met 06-08-17) Lower Body Dressing(FIM): 6 (not met 06-08-17) Lower Body Dressing (QC): 6 (not met 06-08-17) On/Off Footwear (QC): 6 (not met 06-08-17) Toileting(FIM): 6 (not met 06-08-17) Toileting Hygiene (QC): 6 (not met 06-08-17) Toilet/Commode Transfer(FIM): 6 (not met 06-08-17) Toilet/Commode Transfer (QC): 6 (not met 06-08-17) Shower Transfer(FIM): 6 (not met 06-08-17) Comprehension(FIM): 5 (NOT MET) Expression (FIM): 6 (NOT MET) Social Interaction(FIM): 5 (NOT MET) Problem Solving(FIM): 4 (MET) Memory(FIM): 4 (MET) Additional Goals: 2-Verbalize Understanding, 3-ImproveStrength/Lela 1=Demonstrate adherence to instructed precautions during ADL tasks. 2=Patient will verbalize/demonstrate understanding of assistive devices/ modifications for ADL. 3=Patient will improve strength/tolerance for activity to enable patient to perform ADL's. Speech Senior Living Goals Senior Living Goals 1. The patient will demonstrate improved cognitive linguistic skills for increased function and safety with ADL's in the least restrictive setting. Time Frame: Ten Days Comprehension: 5 (NOT MET) Expression: 6 (NOT MET) Social Interaction: 5 (NOT MET) Problem Solvin (MET) Memory: 4 (MET) JED HAN OT Jun 10, 2017 08:49
== END 2017-06-09 11:30 | disposition home health service (06) | DRG 950 ==
LOC: ENPENDDIS 06-09 09:00
PROVIDERS: ADMIT Physical Medicine & Rehabilitation; ATTEND Physical Medicine & Rehabilitation
DX: S06.319D Contusion and laceration of right cerebrum with loss of consciousness of unspecified duration, subsequent encounter (principal); S06.5X9D Traumatic subdural hemorrhage with loss of consciousness of unspecified duration, subsequent encounter; R26.2 Difficulty in walking, not elsewhere classified; G83.34 Monoplegia, unspecified affecting left nondominant side; G31.84 Mild cognitive impairment of uncertain or unknown etiology; R41.3 Other amnesia; R13.10 Dysphagia, unspecified; H53.2 Diplopia; I25.10 Atherosclerotic heart disease of native coronary artery without angina pectoris; I10 Essential (primary) hypertension; E78.5 Hyperlipidemia, unspecified; E03.9 Hypothyroidism, unspecified; E87.6 Hypokalemia; Z93.0 Tracheostomy status; Z93.1 Gastrostomy status; Z87.01 Personal history of pneumonia (recurrent); Z95.1 Presence of aortocoronary bypass graft
CPT/HCPCS: 36415; 70450; 71020; 80053; 82962; 84443; 85025; 85027; 94760

== ENCOUNTER 2017-06-11 16:32 | Observation (INO) | payer MEDICARE, OTHER ==
[~2017-06-11] VITALS: Ht 185.4 cm; Wt 81.6 kg
[~2017-06-11 16:32] MED LIST changes: +ACID1TAB PO; +ALFU10TA11 PO; +AMLO5TAB2 PO; +CARV6.252 PO; +CHOL20003 PO; +CLON0.1T PO; +CLOP75TA28 PO; +CLOT15CR6 TP; +DOCU100C37 PO; +FAMO20TA5 PO; +FURO40TA4 PO; +GUAI600T43 PO; +HYDR-3923 PO; +HYDR12.56 PO; +LEVE500T6 PO; +LEVO125T PO; +LEVO200T6 PO; +MINE3.5O29 OU; +MULT1TAB69 PO; +OMEG-105 PO; +POTA10TA6 PO; +RAMI5CAP PO; +ROSU40TA20 PO
--- OUTSIDE RECORDS SUMMARY | 2017-06-11 16:39 | XMS REPORT | Continuity of Care Document ---
Author Author [facility] Organization [facility] Address Unknown Phone Unavailable Allergies Active Description Code Type Severity Reaction Onset Reported/Identified Relationship to Patient Clinical Status Yes No Known Drug Allergies [id number] Drug Allergy Unknown N/ A 03/30/2015 Medications Problems Date Dx Coded Attending Type Code Diagnosis Diagnosed By 03/30/2015 LEATHA LACY APRN Ot 883.1 OPEN WOUND FINGER-COMPL 03/30/2015 LEATHA LACY APRN Ot E000.8 OTHER EXTERNAL CAUSE STATUS 03/30/2015 LEATHA LACY APRN Ot E849.0 ACCIDENT IN HOME 03/30/2015 LEATHA LACY APRN Ot E920.8 ACC-CUTTING INSTRUM NEC 03/30/2015 LEATHA LACY APRN Ot V06.1 [id number], COMBINED [ 12/15/2016 GELLENDER DO, JR Hastings Ot R00.1 BRADYCARDIA, UNSPECIFIED 12/16/2016 GELLENDER JR TANG Ot E03.9 HYPOTHYROIDISM, UNSPECIFIED 12/16/2016 GELLENDER DOJR Ot I25.10 ATHSCL HEART DISEASE OF [place] CORONARY 12/16/2016 GELLENDER DOJR Ot R00.1 BRADYCARDIA, UNSPECIFIED 12/16/2016 GELLENDER JR TANG Ot E03.9 HYPOTHYROIDISM, UNSPECIFIED 12/16/2016 GELLENDER DOJR Ot I25.10 ATHSCL HEART DISEASE OF [place] CORONARY 12/16/2016 GELLENDER DOJR Ot R00.1 BRADYCARDIA, UNSPECIFIED 12/17/2016 ISRRAEL LUCAS, Barry SHANKAR Ot I49.3 VENTRICULAR PREMATURE DEPOLARIZATION 12/23/2016 ISRRAEL LUCAS, Barry SHANKAR Ot E78.5 HYPERLIPIDEMIA, UNSPECIFIED 12/23/2016 ISRRAEL LUCAS, Barry SHANKAR Ot I25.10 ATHSCL HEART DISEASE OF [place] CORONARY 12/23/2016 Barry ARCOS MD Ot I49.3 VENTRICULAR PREMATURE DEPOLARIZATION 12/23/2016 ISRRAEL LUCAS, Barry SHANKAR Ot I70.1 ATHEROSCLEROSIS OF [place] 12/25/2016 Barry ARCOS MD Ot E78.5 HYPERLIPIDEMIA, UNSPECIFIED 12/25/2016 Barry ARCOS MD Ot I25.10 ATHSCL HEART DISEASE OF [place] CORONARY 12/25/2016 Barry ARCOS MD Ot I49.3 VENTRICULAR PREMATURE DEPOLARIZATION 12/25/2016 Barry ARCOS MD Ot I70.1 ATHEROSCLEROSIS OF RENAL ARTERY 01/08/2017 ALFREDO TANG JR A Ot E03.9 HYPOTHYROIDISM, UNSPECIFIED 01/08/2017 GELLENDER DO JR A Ot I25.10 ATHSCL HEART DISEASE OF [place] CORONARY 01/08/2017 ALFREDO TANG JR A Ot R00.1 BRADYCARDIA, UNSPECIFIED 01/13/2017 Barry ARCOS MD Ot E78.5 HYPERLIPIDEMIA, UNSPECIFIED 01/13/2017 Barry ARCOS MD Ot I25.10 ATHSCL HEART DISEASE OF [place] CORONARY 01/13/2017 Barry ARCOS MD Ot I49.3 VENTRICULAR PREMATURE DEPOLARIZATION 01/13/2017 Barry ARCOS MD Ot I70.1 ATHEROSCLEROSIS OF RENAL ARTERY 05/26/2017 SHAHZAD BARROW MD Ot E03.9 HYPOTHYROIDISM, UNSPECIFIED 05/26/2017 SHAHZAD BARROW MD Ot E78.5 HYPERLIPIDEMIA, UNSPECIFIED 05/26/2017 SHAHZAD BARROW MD Ot G31.84 MILD COGNITIVE IMPAIRMENT, SO STATED 05/26/2017 SHAHZAD BARROW MD Ot G83.34 MONOPLEGIA, UNSPECIFIED AFFECTING LEFT N 05/26/2017 SHAHZAD BARROW MD Ot I10 ESSENTIAL (PRIMARY) HYPERTENSION 05/26/2017 SHAHZAD BARROW MD Ot I25.10 ATHSCL HEART DISEASE OF [place] CORONARY 05/26/2017 SHAHZAD BARROW MD Ot R26.2 DIFFICULTY IN WALKING, NOT ELSEWHERE CLA 05/26/2017 SHAHZAD BARROW MD Ot R41.3 OTHER AMNESIA 05/26/2017 SHAHZAD BARROW MD Ot S06.5X9D TRAUM SUBDR HEM W LOC OF UNSP DURATION, 05/26/2017 SHAHZAD BARROW MD Ot Z87.01 PERSONAL HISTORY OF PNEUMONIA (RECURRENT 05/26/2017 SHAHZAD BARROW MD Ot Z93.0 TRACHEOSTOMY STATUS 05/26/2017 SHAHZAD BARROW MD Ot Z93.1 GASTROSTOMY STATUS 05/26/2017 SHAHZAD BARROW MD Ot Z95.1 PRESENCE OF AORTOCORONARY BYPASS GRAFT 06/02/2017 SHAHZAD BARROW MD Ot E03.9 HYPOTHYROIDISM, UNSPECIFIED 06/02/2017 SHAHZAD BARROW MD Ot E78.5 HYPERLIPIDEMIA, UNSPECIFIED 06/02/2017 SHAHZAD BARROW MD Ot G31.84 MILD COGNITIVE IMPAIRMENT, SO STATED 06/02/2017 SHAHZAD BARROW MD Ot G83.34 MONOPLEGIA, UNSPECIFIED AFFECTING LEFT N 06/02/2017 SHAHZAD BARROW MD Ot I10 ESSENTIAL (PRIMARY) HYPERTENSION 06/02/2017 SHAHZAD BARROW MD Ot I25.10 ATHSCL HEART DISEASE OF [place] CORONARY 06/02/2017 SHAHZAD BARROW MD Ot R26.2 DIFFICULTY IN WALKING, NOT ELSEWHERE CLA 06/02/2017 SHAHZAD BARROW MD Ot R41.3 OTHER AMNESIA 06/02/2017 SHAHZAD BARROW MD Ot S06.5X9D TRAUM SUBDR HEM W LOC OF UNSP DURATION, 06/02/2017 SHAHZAD BARROW MD Ot Z87.01 PERSONAL HISTORY OF PNEUMONIA (RECURRENT 06/02/2017 SHAHZAD BARROW MD Ot Z93.0 TRACHEOSTOMY STATUS 06/02/2017 SHAHZAD BARROW MD Ot Z93.1 GASTROSTOMY STATUS 06/02/2017 SHAHZAD BARROW MD Ot Z95.1 PRESENCE OF AORTOCORONARY BYPASS GRAFT 06/02/2017 SHAHZAD BARROW MD Ot E03.9 HYPOTHYROIDISM, UNSPECIFIED 06/02/2017 SHAHZAD BARROW MD Ot E78.5 HYPERLIPIDEMIA, UNSPECIFIED 06/02/2017 SHAHZAD BARROW MD Ot G31.84 MILD COGNITIVE IMPAIRMENT, SO STATED 06/02/2017 SHAHZAD BARROW MD Ot G83.34 MONOPLEGIA, UNSPECIFIED AFFECTING LEFT N 06/02/2017 SHAHZAD BARROW MD Ot I10 ESSENTIAL (PRIMARY) HYPERTENSION 06/02/2017 SHAHZAD BARROW MD E Ot I25.10 ATHSCL HEART DISEASE OF [place] CORONARY 06/02/2017 SHAHZAD BARROW MD Ot R26.2 DIFFICULTY IN WALKING, NOT ELSEWHERE CLA 06/02/2017 SHAHZAD BARROW MD Ot R41.3 OTHER AMNESIA 06/02/2017 SHAHZAD BARROW MD Ot S06.319D CONTUS/LAC RIGHT CEREBRUM W LOC OF UNSP 06/02/2017 SHAHZAD BARROW MD Ot S06.5X9D TRAUM SUBDR HEM W LOC OF UNSP DURATION, 06/02/2017 SHAHZAD BARROW MD Ot Z87.01 PERSONAL HISTORY OF PNEUMONIA (RECURRENT 06/02/2017 SHAHZAD BARROW MD Ot Z93.0 TRACHEOSTOMY STATUS 06/02/2017 SHAHZAD BARROW MD Ot Z93.1 GASTROSTOMY STATUS 06/02/2017 SHAHZAD BARROW MD Ot Z95.1 PRESENCE OF AORTOCORONARY BYPASS GRAFT 06/09/2017 SHAHZAD BARROW MD Ot E03.9 HYPOTHYROIDISM, UNSPECIFIED 06/09/2017 SHAHZAD BARROW MD Ot E78.5 HYPERLIPIDEMIA, UNSPECIFIED 06/09/2017 SHAHZAD BARROW MD Ot G31.84 MILD COGNITIVE IMPAIRMENT, SO STATED 06/09/2017 SHAHZAD BARROW MD Ot G83.34 MONOPLEGIA, UNSPECIFIED AFFECTING LEFT N 06/09/2017 SHAHZAD BARROW MD Ot I10 ESSENTIAL (PRIMARY) HYPERTENSION 06/09/2017 SHAHZAD BARROW MD Ot I25.10 ATHSCL HEART DISEASE OF [place] CORONARY 06/09/2017 SHAHZAD BARROW MD Ot R26.2 DIFFICULTY IN WALKING, NOT ELSEWHERE CLA 06/09/2017 SHAHZAD BARROW MD Ot R41.3 OTHER AMNESIA 06/09/2017 SHAHZAD BARROW MD Ot S06.319D CONTUS/LAC RIGHT CEREBRUM W LOC OF UNSP 06/09/2017 SHAHZAD BARROW MD Ot S06.5X9D TRAUM SUBDR HEM W LOC OF UNSP DURATION, 06/09/2017 SHAHZAD BARROW MD Ot Z87.01 PERSONAL HISTORY OF PNEUMONIA (RECURRENT 06/09/2017 SHAHZAD BARROW MD Ot Z93.0 TRACHEOSTOMY STATUS 06/09/2017 SHAHZAD BARROW MD Ot Z93.1 GASTROSTOMY STATUS 06/09/2017 SHAHZAD BARROW MD Ot Z95.1 PRESENCE OF AORTOCORONARY BYPASS GRAFT Procedures Results Test Result Range THYROID STIMULATING [...] measurement by glucometer (mass/volume) 91 mg/dL 70-110 Capillary blood glucose measurement by glucometer (mass/volume) - 05/22/17 21: 00 Capillary blood glucose measurement by glucometer (mass/volume) 139 mg/dL 70-110 Capillary blood glucose measurement by glucometer (mass/volume) - 05/23/17 18: 39 Capillary blood glucose measurement by glucometer (mass/volume) 101 mg/dL 70-110 Automated blood complete blood count (hemogram) panel - 05/24/17 09:13 Blood leukocytes automated count (number/volume) 3.0 10*3/ uL 4.3-11.0 Blood erythrocytes automated count (number/volume) 4.13 10*6 /uL 4.35-5.85 Venous blood hemoglobin measurement (mass/volume) 12.4 g/dL 13.3-17.7 Blood hematocrit (volume fraction) 38 % 40-54 Automated erythrocyte mean corpuscular volume 91 [foz_us] 80-99 Automated erythrocyte mean corpuscular hemoglobin (mass per erythrocyte) 30 pg 25-34 Automated erythrocyte mean corpuscular hemoglobin concentration measurement ( mass/volume) 33 g/dL 32-36 Automated erythrocyte distribution width ratio 14.5 % 10.0-14.5 Automated blood platelet count (count/volume) 256 10*3/uL 130-400 Automated blood platelet mean volume measurement 9.9 [foz_us ] 7.4-10.4 Comprehensive metabolic panel - 05/24/17 09:13 Serum or plasma sodium measurement (moles/volume) 139 mmol/ L 135-145 Serum or plasma potassium measurement (moles/volume) 3.2 mmol/L 3.6-5.0 Serum or plasma chloride measurement (moles/volume) 100 mmol /L 98-107 Carbon dioxide 28 mmol/L 21-32 Serum or plasma anion gap determination (moles/volume) 11 mmol/L 5-14 Serum or plasma urea nitrogen measurement (mass/volume) 12 mg/dL 7-18 Serum or plasma creatinine measurement (mass/volume) 0.88 mg /dL 0.60-1.30 Serum or plasma urea nitrogen/creatinine mass ratio 14 0-20 Serum or plasma creatinine measurement with calculation of estimated glomerular filtration rate > NRG Serum or plasma glucose measurement (mass/volume) 163 mg/dL 70-105 Serum or plasma calcium measurement (mass/volume) 9.9 mg/dL 8.5-10.1 Serum or plasma total bilirubin measurement (mass/volume) 0.6 mg/dL 0.1-1.0 Serum or plasma alkaline phosphatase measurement (enzymatic activity/volume) 68 U/L 40-136 Serum or plasma aspartate aminotransferase measurement (enzymatic activity/ volume) 36 U/L 5-34 Serum or plasma alanine aminotransferase measurement (enzymatic activity/volume ) 111 U/L 0-55 Serum or plasma protein measurement (mass/volume) 7.0 g/dL 6.4-8.2 Serum or plasma albumin measurement (mass/volume) 3.5 g/dL 3.2-4.5 THYROID STIMULATING HORMONE - 05/26/17 08:54 THYROID STIMULATING HORMONE 1.82 u[iU]/mL 0.35-4.94 Comprehensive metabolic panel - 05/27/17 05:46 Serum or plasma sodium measurement (moles/volume) 140 mmol/ L 135-145 Serum or plasma potassium measurement (moles/volume) 3.5 mmol/L 3.6-5.0 Serum or plasma chloride measurement (moles/volume) 104 mmol /L 98-107 Carbon dioxide 25 mmol/L 21-32 Serum or plasma anion gap determination (moles/volume) 11 mmol/L 5-14 Serum or plasma urea nitrogen measurement (mass/volume) 12 mg/dL 7-18 Serum or plasma creatinine measurement (mass/volume) 0.72 mg /dL 0.60-1.30 Serum or plasma urea nitrogen/creatinine mass ratio 17 NRG Serum or plasma creatinine measurement with calculation of estimated glomerular filtration rate > NRG Serum or plasma glucose measurement (mass/volume) 95 mg/dL 70-105 Serum or plasma calcium measurement (mass/volume) 9.4 mg/dL 8.5-10.1 Serum or plasma total bilirubin measurement (mass/volume) 0.5 mg/dL 0.1-1.0 Serum or plasma alkaline phosphatase measurement (enzymatic activity/volume) 59 U/L 40-136 Serum or plasma aspartate aminotransferase measurement (enzymatic activity/ volume) 19 U/L 5-34 Serum or plasma alanine aminotransferase measurement (enzymatic activity/volume ) 74 U/L 0-55 Serum or plasma protein measurement (mass/volume) 6.4 g/dL 6.4-8.2 Serum or plasma albumin measurement (mass/volume) 3.4 g/dL 3.2-4.5 Capillary blood glucose measurement by glucometer (mass/volume) - 06/03/17 11: 21 Capillary blood glucose measurement by glucometer (mass/volume) 210 mg/dL 70-110 Encounters ACCT No. Visit Date/Time Discharge Status Pt. Type Provider Facility Loc./Unit Complaint [id number] 05/19/2017 14:00:00 2016 11:30:00 DIS Inpatient DANIAL LUCAS, SHAHZAD Mcclure [facility] IRF TRACH/PEG [id number] 03/30/2015 11:50:00 2014 12:10:00 DIS Emergency LEATHA LACY CERTIFIED WELLNESS PROGRAM MANAGER [facility] ER [place] IN HAND [id number] 05/28/2017 13:37:00 PEN [id number] 12/[facility]/2016 08:19:00 ACT Outpatient Barry ARCOS MD [facility] CARD CAD,CAROTID ARTERY STENOSIS,HYPERLIPIDEMIA [id number] 12/15/2016 08:43:00 ACT Outpatient JR FUENTES DO [facility] CARD BRADYCARDIA,HYPOTHYROID
--- NOTE | 2017-06-11 17:05 | ED Cardiac General ---
History of Present Illness General Stated Complaint: HIGH BLOOD PRESSURE Source: patient, family History of Present Illness Time seen by provider: 16:55 Initial Comments This 76-year-old white male presents with a history of high blood pressure which was noted today. Patient's been referred to the emergency department by his primary care physician for EKG and laboratory evaluation. Patient is status post bypass surgery for coronary artery disease. Patient has had craniotomy for subdural hematoma, questionably secondary to Eliquis 2 months ago. Patient severs from hypertension. Patient denies lateralizing or localizing neurologic complaints. He has had no associated headache or stiff neck. There is been no loss of visual acuity or visual field loss. He denies chest pain, shortness of breath, or palpitations. The patient has had an episode of atrial fibrillation the past. Allergies and Home Medications Allergies Coded Allergies: No Known Drug Allergies (Unverified , 03/30/15) Home Medications Alfuzosin HCl 10 Mg Tab.er.24h, 10 MG PO DAILY@1800 for 30 Days, #30 Prescribed by: SHAHZAD BARROW on 06/08/17 1620 Amlodipine Besylate 5 Mg Tablet, 10 MG PO DAILY for 30 Days, #30 Prescribed by: SHAHZAD BARROW on 06/08/17 1620 Cholecalciferol (Vitamin D3) 2,000 Unit Capsule, 2,000 UNIT PO DAILY, (Reported) Clonidine HCl 0.1 Mg Tablet, 0.1 MG PO TID for 30 Days, #90 Prescribed by: SHAHZAD BARROW on 06/08/17 1620 Clotrimazole/Betamethasone Dip 15 Gm Cream..g., 0 GM TP BID for 30 Days, #1 Prescribed by: SHAHZAD BARROW on 06/08/17 1620 Docusate Sodium 100 Mg Capsule, 100 MG PO BID for 30 Days, #60 Prescribed by: SHAHZAD BARROW on 06/08/17 1620 Famotidine 20 Mg Tablet, 20 MG PO BID for 30 Days, #60 Prescribed by: SHAHZAD BARROW on 06/08/17 1620 Furosemide 40 Mg Tablet, 40 MG PO DAILY for 30 Days, #30 Prescribed by: SHAHZAD BARROW on 06/08/17 1620 Guaifenesin 600 Mg Tab.er.12h, 600 MG PO BID for 30 Days, #60 Prescribed by: SHAHZAD BARROW on 06/08/17 1620 Hydralazine HCl 25 Mg Tablet, 75 MG PO TID for 30 Days, #150 Prescribed by: SHAHZAD BARROW on 06/08/17 1620 L. Acidophilus/Bulgaricus 1 Each Tablet, 1 TAB.CHEW PO BID for 30 Days, #60 Prescribed by: SHAHZAD BARROW on 06/08/17 1620 Levetiracetam 500 Mg Tablet, 500 MG PO BID for 30 Days, #60 Prescribed by: SHAHZAD BARROW on 06/08/17 1620 Levothyroxine Sodium 125 Mcg Tablet, 250 MCG PO DAILY@0630 for 30 Days, #30 Prescribed by: SHAHZAD BARROW on 06/08/17 1620 Mineral Oil/Petrolatum,White 3.5 Gm Oint...g., 0 GM OU BID for 30 Days, #1 Prescribed by: SHAHZAD BARROW on 06/08/17 1620 Multivitamin 1 Each Tablet, 1 TAB PO DAILY, (Reported) [place]-3 Acid Ethyl Esters 1 Gm Capsule, 1 GM PO TID, (Reported) Potassium Chloride 10 Meq Tablet.er, 30 MEQ PO DAILY@0700 for 30 Days, #30 Prescribed by: SHAHZAD BARROW on 06/08/17 1620 Rosuvastatin Calcium 40 Mg Tablet, 40 MG PO HS, (Reported) Review of Systems Constitutional: No chills, No fever EENTM: No Blurred Vision, No Double Vision Respiratory: Denies Cough, Denies Shortness of Air Cardiovascular: Denies Chest Pain, Palpitations Gastrointestinal: Denies Abdominal Pain, Denies Diarrhea, Denies Nausea, Denies Vomiting Genitourinary: Denies Burning, Denies Frequency Musculoskeletal: No back pain Skin: No rash Psychiatric/Neurological: Denies Anxiety, Denies Depressed Endocrine: Denies Excessive Sweating Hematologic/Lymphatic: Denies Anemia Past Hmobrlh-Qpjqvh-Qzducp Hx Patient Social History Type Used: Cigarettes Recent Foreign Travel: No Contact w/Someone Who Travel: No Recent Hopitalizations: Yes Immunizations Up To Date Tetanus Booster (TDap): Unknown PED Vaccines UTD: Yes Seasonal Allergies Seasonal Allergies: No Surgeries Surgeries: CABG Respiratory Hx Respiratory Disorders: No Respiratory Disorders: Pneumonia Cardiovascular Hx Cardiac Disorders: Yes Cardiac Disorders: Atrial Fibrillation, Hypertension Neurological Hx Neurological Disorders: No Reproductive System Hx Reproductive Disorders: No Sexually Transmitted Disease: No HIV/AIDS: No Genitourinary Hx Genitourinary Disorders: No Genitourinary Disorders: Kidney Stones Gastrointestinal Hx Gastrointestinal Disorders: No Gastrointestinal Disorders: Gastroesophageal Reflux Musculoskeletal Hx Musculoskeletal Disorders: No Musculoskeletal Disorders: Amputee Endocrine Hx Endocrine Disorders: No HEENT HX ENT Disorders: No Loss of Vision: Bilateral Hearing Impairment: Hard of Hearing Cancer Hx Cancer: No Psychosocial Hx Psychiatric Problems: No Blood Transfusions Hx Blood Disorders: No Adverse Reaction to a Blood Tr: No Reviewed Nursing Assessment Reviewed/Agree w Nursing PMH: Yes Family Medical History Family Medial History: Patient reports no known family medical history. Physical Exam Vital Signs Vital Sign - Last 12Hours 06/11/17 16:32 Temp 97.2 Pulse 68 B/P (MAP) 139/83 Pulse Ox 98 O2 Delivery Room Air Capillary Refill : General Appearance: No Apparent Distress, WD/WN HEENT: PERRL/EOMI, Normal ENT Inspection Neck: Normal Inspection Respiratory: Lungs Clear Cardiovascular: Systolic Murmur (01/04 to August murmur heard best apex.), Extra Beats Gastrointestinal: Normal Bowel Sounds Extremity: Normal Inspection, Normal Range of Motion Neurologic/Psychiatric: Alert, Oriented x3, Motor Weakness (right upper extremity) Skin: Normal Color, Warm/Dry Progress/Results/Core Measures Results/Orders Lab Results Laboratory Tests Test 06/11/17 17:05 Range/Units White Blood Count 4.7 4.3-11.0 10^3/uL Red Blood Count 4.81 4.35-5.85 10^6/uL Hemoglobin 14.3 13.3-17.7 G/DL Hematocrit 43 40-54 % Mean Corpuscular Volume 89 80-99 FL Mean Corpuscular Hemoglobin 30 25-34 PG Mean Corpuscular Hemoglobin Concent 34 32-36 G/DL Red Cell Distribution Width 13.9 10.0-14.5 % Platelet Count 281 130-400 10^3/uL Mean Platelet Volume 9.8 7.4-10.4 FL Neutrophils (%) (Auto) 52 42-75 % Lymphocytes (%) (Auto) 26 12-44 % Monocytes (%) (Auto) 18 H 0-12 % Eosinophils (%) (Auto) 4 0-10 % Basophils (%) (Auto) 1 0-10 % Neutrophils # (Auto) 2.5 1.8-7.8 X 10^3 Lymphocytes # (Auto) 1.2 1.0-4.0 X 10^3 Monocytes # (Auto) 0.8 0.0-1.0 X 10^3 Eosinophils # (Auto) 0.2 0.0-0.3 10^3/uL Basophils # (Auto) 0.0 0.0-0.1 10^3/uL Prothrombin Time 13.9 12.2-14.7 SEC INR Comment 1.1 0.8-1.4 Activated Partial Thromboplast Time 27 24-35 SEC Sodium Level 139 135-145 MMOL/L Potassium Level 3.8 3.6-5.0 MMOL/L Chloride Level 106 98-107 MMOL/L Carbon Dioxide Level 20 L 21-32 MMOL/L Anion Gap 13 5-14 MMOL/L Blood Urea Nitrogen 11 7-18 MG/DL Creatinine 0.73 0.60-1.30 MG/DL Estimat Glomerular Filtration Rate > 60 BUN/Creatinine Ratio 15 Glucose Level 107 H 70-105 MG/DL Calcium Level 9.7 8.5-10.1 MG/DL Magnesium Level 1.9 1.8-2.4 MG/DL Total Bilirubin 0.6 0.1-1.0 MG/DL Aspartate Amino Transf (AST/SGOT) 37 H 5-34 U/L Alanine Aminotransferase (ALT/SGPT) 98 H 0-55 U/L Alkaline Phosphatase 59 40-136 U/L Myoglobin 22.6 10.0-92.0 NG/ML Troponin I < 0.30 <0.30 NG/ML Total Protein 7.1 6.4-8.2 GM/DL Albumin 3.9 3.2-4.5 GM/DL My Orders Orders - PAULINA, MAKSIM Rowe MD Cbc With Automated Diff (06/11/17 16:43) Magnesium (06/11/17 16:43) Chest 1 View, Ap/Pa Only (06/11/17 16:43) Ekg Tracing (06/11/17 16:43) Cardiac Profile 1 (06/11/17 16:43) Comprehensive Metabolic Panel (06/11/17 16:43) Myoglobin Serum (06/11/17 16:43) Protime With Inr (06/11/17 16:43) Partial Thromboplastin Time (06/11/17 16:43) O2 (06/11/17 16:43) Monitor-Rhythm Ecg Trace Only (06/11/17 16:43) Lipid Panel (06/12/17 06:00) Saline Lock/Iv-Start (06/11/17 16:43) BNP (06/11/17 16:43) Fibrin Degradation Products (06/11/17 16:43) Thyroid Stimulating Hormone (06/11/17 16:43) Free T4 (Free Thyroxine) (06/11/17 16:43) Triiodothryonine T3 Free (06/11/17 16:43) Vital Signs/I&O Vital Sign - Last 12Hours 06/11/17 16:32 Temp 97.2 Pulse 68 B/P (MAP) 139/83 Pulse Ox 98 O2 Delivery Room Air Progress Note : Time: 17:52 Progress Note The patient's blood pressure normalized while in the emergency department. The patient after telephone consultation with Dr. Fuentes was admitted for observation overnight and orders were written. Departure Communication Time/Spoke to Admitting Phy: 17:[address] Fuentes. Time/Spoke to Consulting Physi: 17:53 Communication/Consulting Dr. Melgar. Impression Impression: Primary Impression: Hypertension Qualified Codes: I10 - Essential (primary) hypertension Disposition: ADMITTED INPATIENT Condition: Improved Decision to Admit Reason: Admit from ER (General) Decision to Admit/Date: Jun 11, 2017 Time/Decision to Admit Time: 17:53 Departure-Patient Inst. Referrals: JR FUENTES DO (PCP/Family) Primary Care Physician MAKSIM GALLARDO MD Jun 11, 2017 17:05
--- NOTE | 2017-06-11 17:07 | Diagnostic Imaging Report ---
INDICATION: Hypertension, heart palpitations and chest pressure. Comparison is made with prior examination from 05/20/17. FINDINGS: There is cardiomegaly. There has been previous median sternotomy and coronary bypass graft. There is no pleural effusion or pneumothorax. Mediastinum is unremarkable. IMPRESSION: 1. No acute cardiopulmonary abnormality. 2. Cardiomegaly. Dictated by: Dictated on workstation # [id number]
[2017-06-11 17:13] LABS: BASOPHILS % (AUTO) 1 % (0-10); EOSINOPHILS # (AUTO) 0.2 10^3/uL (0.0-0.3); EOSINOPHILS % (AUTO) 4 % (0-10); LYMPHOCYTES # (AUTO) 1.2 X 10^3 (1.0-4.0); LYMPHOCYTES % (AUTO) 26 % (12-44); MEAN CORPUSCULAR HEMOGLOBIN 30 PG (25-34); MEAN CORPUSCULAR HGB CONC 34 G/DL (32-36); MEAN CORPUSCULAR VOLUME 89 FL (80-99); MEAN PLATELET VOLUME 9.8 FL (7.4-10.4); MONOCYTES # (AUTO) 0.8 X 10^3 (0.0-1.0); MONOCYTES % (AUTO) 18 % (0-12); NEUTROPHILS # (AUTO) 2.5 X 10^3 (1.8-7.8); NEUTROPHILS % (AUTO) 52 % (42-75); PLATELET COUNT 281 10^3/uL (130-400); RED BLOOD COUNT 4.81 10^6/uL (4.35-5.85); RED CELL DISTRIBUTION WIDTH 13.9 % (10.0-14.5); WHITE BLOOD COUNT 4.7 10^3/uL (4.3-11.0)
[2017-06-11 17:23] LABS: INR 1.1 (0.8-1.4); PROTHROMBIN TIME PATIENT 13.9 SEC (12.2-14.7)
[2017-06-11 17:34] LABS: ALANINE AMINOTRANSFERASE 98 U/L (0-55); ALBUMIN 3.9 GM/DL (3.2-4.5); ANION GAP 13 MMOL/L (5-14); ASPARTATE AMINO TRANSFERASE 37 U/L (5-34); BILIRUBIN,TOTAL 0.6 MG/DL (0.1-1.0); BLOOD UREA NITROGEN 11 MG/DL (7-18); BUN/CREATININE RATIO 15; CALCIUM 9.7 MG/DL (8.5-10.1); CARBON DIOXIDE 20 MMOL/L (21-32); CHLORIDE 106 MMOL/L (98-107); CREATININE SERUM 0.73 MG/DL (0.60-1.30); GFR ESTIMATED > 60; GLUCOSE 107 MG/DL (70-105); MAGNESIUM 1.9 MG/DL (1.8-2.4); POTASSIUM 3.8 MMOL/L (3.6-5.0); SODIUM 139 MMOL/L (135-145); TOTAL PROTEIN 7.1 GM/DL (6.4-8.2)
[2017-06-11 17:42] LABS: MYOGLOBIN SERUM 22.6 NG/ML (10.0-92.0)
[2017-06-11 17:55] LABS: THYROID STIMULATING HORMONE 0.29 UIU/ML (0.35-4.94)
--- OUTSIDE RECORDS SUMMARY | 2017-06-11 18:04 | XMS REPORT | Continuity of Care Document ---
Author Author [facility] Organization [facility] Address Unknown Phone Unavailable Allergies Active Description Code Type Severity Reaction Onset Reported/Identified Relationship to Patient Clinical Status Yes No Known Drug Allergies [id number] Drug Allergy Unknown N/ A 03/30/2015 Medications Problems Date Dx Coded Attending Type Code Diagnosis Diagnosed By 03/30/2015 LEATHA LACY APRN Ot 883.1 OPEN WOUND FINGER-COMPL 03/30/2015 LEATHA LACY APRN Ot E000.8 OTHER EXTERNAL CAUSE STATUS 03/30/2015 LEATHA LACY APRN Ot E849.0 ACCIDENT IN HOME 03/30/2015 LEATHA LACY APRN Ot E920.8 ACC-CUTTING INSTRUM NEC 03/30/2015 LEATHA LACY APRN Ot V06.1 [id number], COMBINED [ 12/15/2016 GELLENDER DO, JR Hastings Ot R00.1 BRADYCARDIA, UNSPECIFIED 12/16/2016 GELLENDER JR TANG Ot E03.9 HYPOTHYROIDISM, UNSPECIFIED 12/16/2016 GELLENDER DOJR Ot I25.10 ATHSCL HEART DISEASE OF [place] CORONARY 12/16/2016 GELLENDER DOJR Ot R00.1 BRADYCARDIA, UNSPECIFIED 12/16/2016 GELLENDER JR TANG Ot E03.9 HYPOTHYROIDISM, UNSPECIFIED 12/16/2016 GELLENDER DOJR Ot I25.10 ATHSCL HEART DISEASE OF [place] CORONARY 12/16/2016 GELLENDER DOJR Ot R00.1 BRADYCARDIA, UNSPECIFIED 12/17/2016 ISRRAEL LUCAS, Barry SHANKAR Ot I49.3 VENTRICULAR PREMATURE DEPOLARIZATION 12/23/2016 ISRRAEL LUCAS, Barry SHANKAR Ot E78.5 HYPERLIPIDEMIA, UNSPECIFIED 12/23/2016 ISRRAEL LUCAS, Barry SHANKAR Ot I25.10 ATHSCL HEART DISEASE OF [place] CORONARY 12/23/2016 Barry ARCOS MD Ot I49.3 VENTRICULAR PREMATURE DEPOLARIZATION 12/23/2016 ISRRAEL LUCAS, Barry SHANKAR Ot I70.1 ATHEROSCLEROSIS OF RENAL ARTERY 12/25/2016 Barry ARCOS MD Ot E78.5 HYPERLIPIDEMIA, UNSPECIFIED 12/25/2016 Barry ARCOS MD Ot I25.10 ATHSCL HEART DISEASE OF [place] CORONARY 12/25/2016 Barry ARCOS MD Ot I49.3 VENTRICULAR PREMATURE DEPOLARIZATION 12/25/2016 Barry ARCOS MD Ot I70.1 ATHEROSCLEROSIS OF RENAL ARTERY 01/08/2017 ALFREDO TANG JR A Ot E03.9 HYPOTHYROIDISM, UNSPECIFIED 01/08/2017 GELLENDER DO JR A Ot I25.10 ATHSCL HEART DISEASE OF [place] CORONARY 01/08/2017 ALFREDO TANG JR A Ot R00.1 BRADYCARDIA, UNSPECIFIED 01/13/2017 Barry ARCOS MD Ot E78.5 HYPERLIPIDEMIA, UNSPECIFIED 01/13/2017 Barry ARCOS MD Ot I25.10 ATHSCL HEART DISEASE OF [place] CORONARY 01/13/2017 Barry ARCOS MD Ot I49.3 [...] MD Ot I25.10 ATHSCL HEART DISEASE OF [place] CORONARY 05/26/2017 SHAHZAD BARROW MD Ot R26.2 [...] MD Ot I25.10 ATHSCL HEART DISEASE OF [place] CORONARY 06/02/2017 SHAHZAD BARROW MD Ot R26.2 [...] E Ot I25.10 ATHSCL HEART DISEASE OF [place] CORONARY 06/02/2017 SHAHZAD BARROW MD Ot R26.2 [...] MD Ot I25.10 ATHSCL HEART DISEASE OF [place] CORONARY 06/09/2017 SHAHZAD BARROW MD Ot R26.2 [...] measurement by glucometer (mass/volume) 210 mg/dL 70-110 Complete blood count (CBC) with automated white blood cell (WBC) differential - 06/11/17 17:05 Blood leukocytes automated count (number/volume) 4.7 10*3/ uL 4.3-11.0 Blood erythrocytes automated count (number/volume) 4.81 10*6 /uL 4.35-5.85 Venous blood hemoglobin measurement (mass/volume) 14.3 g/dL 13.3-17.7 Blood hematocrit (volume fraction) 43 % 40-54 Automated erythrocyte mean corpuscular volume 89 [foz_us] 80-99 Automated erythrocyte mean corpuscular hemoglobin (mass per erythrocyte) 30 pg 25-34 Automated erythrocyte mean corpuscular hemoglobin concentration measurement ( mass/volume) 34 g/dL 32-36 Automated erythrocyte distribution width ratio 13.9 % 10.0-14.5 Automated blood platelet count (count/volume) 281 10*3/uL 130-400 Automated blood platelet mean volume measurement 9.8 [foz_us ] 7.4-10.4 Automated blood neutrophils/100 leukocytes 52 % 42-75 Automated blood lymphocytes/100 leukocytes 26 % 12-44 Blood monocytes/100 leukocytes 18 % 0-12 Automated blood eosinophils/100 leukocytes 4 % 0-10 Automated blood basophils/100 leukocytes 1 % 0-10 Blood neutrophils automated count (number/volume) 2.5 10*3 1.8-7.8 Blood lymphocytes automated count (number/volume) 1.2 10*3 1.0-4.0 Blood monocytes automated count (number/volume) 0.8 10*3 0.0-1.0 Automated eosinophil count 0.2 10*3/uL 0.0-0.3 Automated blood basophil count (count/volume) 0.0 10*3/uL 0.0-0.1 PT panel in platelet poor plasma by coagulation assay - 06/11/17 17:05 Prothrombin time (PT) in platelet poor plasma by coagulation assay 13.9 s 12.2-14.7 INR in platelet poor plasma or blood by coagulation assay 1.1 0.8-1.4 Activated partial thromboplastin time (aPTT) in platelet poor plasma bycoagulation assay - 06/11/17 17:05 Activated partial thromboplastin time (aPTT) in platelet poor plasma bycoagulation assay 27 s 24-35 Comprehensive metabolic panel - 06/11/17 17:05 Serum or plasma sodium measurement (moles/volume) 139 mmol/ L 135-145 Serum or plasma potassium measurement (moles/volume) 3.8 mmol/L 3.6-5.0 Serum or plasma chloride measurement (moles/volume) 106 mmol /L 98-107 Carbon dioxide 20 mmol/L 21-32 Serum or plasma anion gap determination (moles/volume) 13 mmol/L 5-14 Serum or plasma urea nitrogen measurement (mass/volume) 11 mg/dL 7-18 Serum or plasma creatinine measurement (mass/volume) 0.73 mg /dL 0.60-1.30 Serum or plasma urea nitrogen/creatinine mass ratio 15 NRG Serum or plasma creatinine measurement with calculation of estimated glomerular filtration rate > NRG Serum or plasma glucose measurement (mass/volume) 107 mg/dL 70-105 Serum or plasma calcium measurement (mass/volume) 9.7 mg/dL 8.5-10.1 Serum or plasma total bilirubin measurement (mass/volume) 0.6 mg/dL 0.1-1.0 Serum or plasma alkaline phosphatase measurement (enzymatic activity/volume) 59 U/L 40-136 Serum or plasma aspartate aminotransferase measurement (enzymatic activity/ volume) 37 U/L 5-34 Serum or plasma alanine aminotransferase measurement (enzymatic activity/volume ) 98 U/L 0-55 Serum or plasma protein measurement (mass/volume) 7.1 g/dL 6.4-8.2 Serum or plasma albumin measurement (mass/volume) 3.9 g/dL 3.2-4.5 Magnesium - 06/11/17 17:05 Magnesium 1.9 mg/dL 1.8-2.4 Serum or plasma troponin i.cardiac measurement (mass/volume) - 06/11/17 17:05 Serum or plasma troponin i.cardiac measurement (mass/volume) < ng/mL <0.30 Myoglobin, serum - 06/11/17 17:05 Myoglobin, serum 22.6 ng/mL 10.0-92.0 Fibrin D-dimer FEU measurement in platelet poor plasma (mass/volume) - 17:05 Fibrin D-dimer FEU measurement in platelet poor plasma (mass/volume) 0.69 ug/mL 0.00-0.49 THYROID STIMULATING HORMONE - 06/11/17 17:05 THYROID STIMULATING HORMONE 0.29 u[iU]/mL 0.35-4.94 Serum or plasma thyroxine (T4) free measurement (mass/volume) - 06/11/17 17:05 Serum or plasma thyroxine (T4) free measurement (mass/volume) 1.73 ng/dL 0.70-1.48 Serum or plasma lithium measurement (moles/volume) - 06/11/17 17:05 BNP level 16.0 pg/mL <100.0 Encounters ACCT No. Visit Date/Time Discharge Status Pt. Type Provider Facility Loc./Unit Complaint [id number] 05/19/2017 14:00:00 2016 11:30:00 DIS Inpatient DANIAL LUCAS, SHAHZAD Mcclure [facility] IRF TRACH/PEG [id number] 03/30/2015 11:50:00 2014 12:10:00 DIS Emergency LEATHA LACY APRN [facility] ER FISHHOOK IN HAND [id number] 06/11/2017 17:14:00 Document Registration [id number] 05/28/2017 13:37:00 PEN Preadmit BINH MENSAH MD [facility] [id number] 12/23/2016 08:19:00 ACT Outpatient Barry ARCOS MD [facility] CARD CAD,CAROTID ARTERY STENOSIS,HYPERLIPIDEMIA [id number] 12/15/2016 08:43:00 ACT Outpatient JR FUENTES DO [facility] CARD BRADYCARDIA,HYPOTHYROID
[2017-06-11] MEDS ORDERED: CATHETER FLUSH 10 ML SYR IV PRN (18:30)
[2017-06-11] MEDS: NS IV 1000 ML 1,000 ML IV SCH (18:39)
[2017-06-11 18:54] VITALS: BP 148/93
[2017-06-11 19:15] VITALS: BP 151/91
[2017-06-11] MEDS ORDERED: DOCU-143 PO (22:33)
[2017-06-11] MEDS ORDERED: DOCUSATE SODIUM 100 MG (COLACE) CAP PO PRN (22:45)
[2017-06-11] MEDS ORDERED: LEVETIRACETAM 500 MG (KEPPRA) TAB PO ONE (22:46)
[2017-06-11] MEDS ORDERED: cloNIDine 0.1 MG (CATAPRES) TAB ONE (22:46)
[2017-06-11] MEDS ORDERED: hydrALAZINE (APRESOLINE) 25 MG TAB ONE (22:51)
[2017-06-11 23:35] VITALS: BP 151/84
[2017-06-12 03:25] VITALS: BP 129/72
[2017-06-12 04:36] LABS: BASOPHILS % (AUTO) 1 % (0-10); EOSINOPHILS # (AUTO) 0.2 10^3/uL (0.0-0.3); EOSINOPHILS % (AUTO) 5 % (0-10); LYMPHOCYTES # (AUTO) 1.5 X 10^3 (1.0-4.0); LYMPHOCYTES % (AUTO) 33 % (12-44); MEAN CORPUSCULAR HEMOGLOBIN 30 PG (25-34); MEAN CORPUSCULAR HGB CONC 33 G/DL (32-36); MEAN CORPUSCULAR VOLUME 90 FL (80-99); MEAN PLATELET VOLUME 10.1 FL (7.4-10.4); MONOCYTES # (AUTO) 0.8 X 10^3 (0.0-1.0); MONOCYTES % (AUTO) 19 % (0-12); NEUTROPHILS # (AUTO) 1.9 X 10^3 (1.8-7.8); NEUTROPHILS % (AUTO) 42 % (42-75); PLATELET COUNT 253 10^3/uL (130-400); RED CELL DISTRIBUTION WIDTH 13.8 % (10.0-14.5); WHITE BLOOD COUNT 4.5 10^3/uL (4.3-11.0)
[2017-06-12 05:03] LABS: ALANINE AMINOTRANSFERASE 87 U/L (0-55); ALBUMIN 3.5 GM/DL (3.2-4.5); ANION GAP 10 MMOL/L (5-14); ASPARTATE AMINO TRANSFERASE 30 U/L (5-34); BILIRUBIN,TOTAL 0.4 MG/DL (0.1-1.0); BLOOD UREA NITROGEN 15 MG/DL (7-18); BUN/CREATININE RATIO 21; CALCIUM 9.3 MG/DL (8.5-10.1); CARBON DIOXIDE 24 MMOL/L (21-32); CHLORIDE 107 MMOL/L (98-107); CREATININE SERUM 0.73 MG/DL (0.60-1.30); GFR ESTIMATED > 60; GLUCOSE 115 MG/DL (70-105); POTASSIUM 3.4 MMOL/L (3.6-5.0); SODIUM 141 MMOL/L (135-145); TOTAL PROTEIN 6.4 GM/DL (6.4-8.2)
[2017-06-12 05:06] LABS: CHOLESTEROL 191 MG/DL (< 200); DIRECT LDL 148 MG/DL (1-129); TRIGLYCERIDES 97 MG/DL (<150); VLDL CHOLESTEROL 19 MG/DL (5-40)
[2017-06-12 05:12] LABS: TROPONIN I < 0.30 NG/ML (<0.30)
[2017-06-12] MEDS: LEVOTHYROXINE 125 MCG (LEVOTHROID) TABLET PO SCH (06:14)
[2017-06-12] MEDS: KCL 10 MEQ TAB (MICRO K) PO SCH (06:14)
[2017-06-12 08:00] VITALS: BP 155/91
[2017-06-12] MEDS: OMEGA 3 (FISH OIL) 1000 MG CAP PO SCH (08:02)
[2017-06-12] MEDS ORDERED: OMEGA-3 ACID ETHYL ESTERS 1 GM (LOVAZA) NON-FORMULARY PO SCH (09:00)
[2017-06-12] MEDS ORDERED: KCL 10 MEQ TAB (MICRO K) PO NR (09:00)
--- NOTE | 2017-06-12 09:11 | History & Physicial ---
History of Present Illness History of Present Illness Reason for visit/HPI hypertension and irregular heartbeats. 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 Patient has diplopia. Patient being take care of by home health care. I received a call from his nurse that his blood pressure is high and heart irregular. Patient has a history of coronary artery disease with bypass. Hyperlipidemia history. Patient sent out to the emergency room where EKG showed PVCs. Patient not sure what medicines to take. Patient admitted. Patient perla velazquez for his subdural. Patient is a risk for fall. Patient has been in rehabilitation for his CVA. Patient told not to get out of bed by himself. When patient gets out of bed by self patient has to catch himself from falling at times Date of Admission Jun 11, 2017 at 17:59 Time Seen by Provider: 09:00 I consulted on this patient on 06/12/17 09:06 Attending Physician Barney Fuentes DO Admitting Physician Barney Fuentes DO Consult Allergies and Home Medications Allergies Coded Allergies: No Known Drug Allergies (Unverified , 03/30/15) Home Medications Alfuzosin HCl 10 Mg Tab.er.24h, 10 MG PO DAILY@1800 for 30 Days, #30 Prescribed by: SHAHZAD BARROW on 06/08/17 1620 Amlodipine Besylate 5 Mg Tablet, 10 MG PO DAILY for 30 Days, #30 Prescribed by: SHAHZAD BARROW on 06/08/17 1620 Cholecalciferol (Vitamin D3) 2,000 Unit Capsule, 2,000 UNIT PO DAILY, (Reported) Clonidine HCl 0.1 Mg Tablet, 0.1 MG PO TID for 30 Days, #90 Prescribed by: SHAHZAD BARROW on 06/08/17 1620 Clotrimazole/Betamethasone Dip 15 Gm Cream..g., 0 GM TP BID for 30 Days, #1 Prescribed by: SHAHZAD BARROW on 06/08/17 1620 Docusate Sodium 100 Mg Capsule, 100 MG PO BID PRN for CONSTIPATION-1ST LINE, ( Reported) Famotidine 20 Mg Tablet, 20 MG PO BID for 30 Days, #60 Prescribed by: SHAHZAD BARROW on 06/08/17 1620 Furosemide 40 Mg Tablet, 40 MG PO DAILY for 30 Days, #30 Prescribed by: SHAHZAD BARROW on 06/08/17 1620 Guaifenesin 600 Mg Tab.er.12h, 600 MG PO BID for 30 Days, #60 Prescribed by: SHAHZAD BARROW on 06/08/17 1620 Hydralazine HCl 25 Mg Tablet, 75 MG PO TID for 30 Days, #150 Prescribed by: SHAHZAD BARROW on 06/08/17 1620 L. Acidophilus/Bulgaricus 1 Each Tablet, 1 TAB.CHEW PO BID for 30 Days, #60 Prescribed by: SHAHZAD BARROW on 06/08/17 1620 Levetiracetam 500 Mg Tablet, 500 MG PO BID for 30 Days, #60 Prescribed by: SHAHZAD BARROW on 06/08/17 1620 Levothyroxine Sodium 125 Mcg Tablet, 250 MCG PO DAILY@0630 for 30 Days, #30 Prescribed by: SHAHZAD BARROW on 06/08/17 1620 Mineral Oil/Petrolatum,White 3.5 Gm Oint...g., 0 GM OU BID for 30 Days, #1 Prescribed by: SHAHZAD BARROW on 06/08/17 1620 Multivitamin 1 Each Tablet, 1 TAB PO DAILY, (Reported) [place]-3 Acid Ethyl Esters 1 Gm Capsule, 1 GM PO DAILY, (Reported) Potassium Chloride 10 Meq Tablet.er, 30 MEQ PO DAILY@0700 for 30 Days, #30 Prescribed by: SHAHZAD BARROW on 06/08/17 1620 Rosuvastatin Calcium 40 Mg Tablet, 40 MG PO HS, (Reported) Past Vabukiz-Wwmuan-Evlqzq Hx Patient Social History Marrital Status: Employed/Student: unemployed Alcohol Use: Occasionally Uses Recreational Drug Use: No Smoking Status: Former Smoker Type Used: Cigarettes Physical Abuse Screen: No Sexual Abuse: No Recent Foreign Travel: No Contact w/other who traveled: No Recent Hopitalizations: Yes Recent Infectious Disease Expo: No Immunizations Up To Date Tetanus Booster (TDap): Unknown Date of Pneumonia Vaccine: Jun 11, 2016 Seasonal Allergies Seasonal Allergies: No Surgeries Surgeries: CABG, Orthopedic Respiratory Hx Respiratory Disorders: No Cardiovascular Hx Cardiovascular Disorders: Yes Cardiac Disorders: Atrial Fibrillation, Heart Attack, Hypertension, Irregular Heartbeat Neurological Hx Neurological Disorders: No Reproductive System Hx Reproductive Disorders: No Sexually Transmitted Disease: No HIV/AIDS: No Genitourinary Hx Genitourinary Disorders: No Genitourinary Disorders: Kidney Stones Gastrointestinal Hx Gastrointestinal Disorders: No Gastrointestinal Disorders: Gastroesophageal Reflux Musculoskeletal Hx Musculoskeletal Disorders: No Musculoskeletal Disorders: Amputee Endocrine Hx Endocrine Disorders: No HEENT HX ENT Disorders: No Loss of Vision: Bilateral Hearing Impairment: Hard of Hearing Cancer Hx Cancer: No Psychosocial Hx Psychiatric Problems: No Blood Transfusions Hx Blood Disorders: No Adverse Reaction to a Blood Tr: No Reviewed Nursing Assessment Reviewed/Agree w Nursing PMH: Yes Family Medical History Family Hx: Patient reports no known family medical history. Constitutional: weakness, other (fall risk) EENTM: no symptoms reported, other (diplopia) Respiratory: no symptoms reported Cardiovascular: other (irregular heart) Gastrointestinal: no symptoms reported Genitourinary: no symptoms reported Physical Exam Vital Signs Vital Sign - Last 12Hours 06/11/17 06/11/17 16:32 18:21 Temp 97.2 Pulse 68 Resp 16 B/P (MAP) 139/83 Pulse Ox 98 O2 Delivery Room Air Capillary Refill : Less Than 3 Seconds General Appearance: No Apparent Distress, WD/WN, Other (bone removal from cranium) Eyes: Bilateral Eye Other (diplopia) HEENT: Normal ENT Inspection Neck: Full Range of Motion, Normal Inspection Respiratory: Chest Non Tender, No Accessory Muscle Use, No Respiratory Distress Cardiovascular: Regular Rate, Rhythm, No Murmur Gastrointestinal: Non Tender, Soft, Other (to) Assessment/Plan Assessment and Plan hypertension. Irregular heartbeats. PVCs. CVA. Subdural. PEG tube. Coronary artery disease. Diplopia. Fall risk. Patient noncompliance with assistance to avoid fall. Hyperlipidemia Problems: Clinical Quality Measures DVT/VTE Risk/Contraindication: Risk Factor Score Per Nursin RFS Level Per Nursing on Admit: 2=Moderate BARNEY FUENTES DO Jun 12, 2017 09:11
[2017-06-12] MEDS: MULTIVIT W/MINERALS TAB (THERAGRAN M) PO SCH (09:46)
[2017-06-12] MEDS: LACTOBACILLUS Acidoph/Bulgar (LACTINEX/FLORANEX) TAB PO SCH ×2 (09:46→20:25)
[2017-06-12] MEDS: amLODIPine 5 MG (NORVASC) TAB PO SCH (09:46)
[2017-06-12] MEDS: BETAMETHASONE/CLOTRIM CREAM (LOTRISONE) 45 GM TP SCH ×2 (09:46→20:25)
[2017-06-12] MEDS: ARTIFICIAL TEARS OINT (LACRI-LUBE) 3.5 GM TUBE OU SCH ×3 (09:46→20:23)
[2017-06-12] MEDS: VITAMIN D3 1,000 UNITS (CHOLECALCIFEROL) TABLET PO SCH (09:47)
[2017-06-12] MEDS: FAMOTIDINE 20 MG (PEPCID) TABLET PO SCH ×2 (09:47→20:24)
[2017-06-12] MEDS: cloNIDine 0.1 MG (CATAPRES) TAB PO SCH ×3 (09:47→20:24)
[2017-06-12] MEDS: FUROSEMIDE 40 MG (LASIX) TAB PO SCH (09:47)
[2017-06-12] MEDS: hydrALAZINE (APRESOLINE) 25 MG TAB PO SCH ×3 (09:48→20:24)
[2017-06-12] MEDS: LEVETIRACETAM 500 MG (KEPPRA) TAB PO SCH ×2 (09:48→20:24)
[2017-06-12 12:00] VITALS: BP 121/74
--- NOTE | 2017-06-12 12:01 | Consultation-Cardiology ---
HPI-Cardiology Cardiology Consultation: Date of Consultation 06/12/17 Date of Admission Attending Physician Barney Dowling DO Admitting Physician Barney Dowling DO Consulting Physician Barry MELGAR MD HPI: Time Seen by Provider: 11:58 Chief Complaint: High blood pressure This is a 76-year-old gentleman with history of recent subdural hematoma status post neurosurgery. He has history of CABG and high blood pressure. He was in our hospital for inpatient rehabilitation. Presented with elevated blood pressure and possible palpitations. He was sent to the ER where there were some PVCs noted. He denies any chest pain or shortness of breath. Review of Systems-Cardiology Review of Systems Constitutional: No As described under HPI, No no symptoms reported, No chills, No fever, No lightheadedness, No malaise, No tiredness, No weight loss, No weight gain, No other Eyes: No As described under HPI, No no symptoms reported, No blindness, No blurred vision, No contact lenses, No drainage, No decreased acuity, No foreign body sensation, No glasses, No inflammation, No pain, No photophobia, No previous injury, No shadows, No tunnel vision, No other, No vision change Ears/Nose/Throat: No As described under HPI, No no symptoms reported, No chronic hearing loss, No epistaxis, No ear discharge, No ear pain, No loose teeth, No mouth pain, No mouth swelling, No nasal drainage, No nose pain, No recent hearing loss, No throat pain, No throat swelling, No ulcerations, No other Respiratory: No no symptoms reported, No As described under HPI, No cough, No orthopnea, No shortness of breath, No SOB with excertion, No SOB at rest, No stridor, No wheezing, No other Cardiovascular: No no symptoms reported, No As described under HPI, No chest pain, No edema, No irregular heart rate, No lightheadedness, palpitations, No syncope, No other Gastrointestinal: No no symptoms reported, No As described under HPI, No abdomen distended, No abdominal pain, No blood streaked bowels, No constipation , No diarrhea, No difficulty swallowing, No nausea, No poor appetite, No poor fluid intake, No rectal bleeding, No vomiting, No other, No nausea/vomiting/ diarrhea, No stool coloration changes Genitourinary: No no symptoms reported, No As described under HPI, No burning, No dysuria, No discharge, No frequency, No flank pain, No hematuria, No incontinence, No pain, No urgency, No other, No urine frequency changes, No urine coloration changes Musculoskeletal: No no symptoms reported, No As describe under HPI, No back pain, No gout, No joint pain, No joint swelling, No muscle pain, No muscle stiffness, No neck pain, No other Skin: No no symptoms reported, No As described under HPI, No change in color, No change in hair/nails, No dryness, No lesions, No lumps, No rash, No other, No skin related problems, No ulcerations, No rash on exposed areas, No ulcerations on exposed areas Psychiatric/Neurological: No As described under HPI, No anxiety, No depression , No emotional problems, No focal weakness, No headache, No no symptoms reported , No numbness, No other, No pre-existing deficit, No seizure, No syncope, No tingling, No tremors, No weakness Hematologic: No no symptoms reported, No As described under HPI, No anemia, No blood clots, No easy bleeding, No easy bruising, No swollen glands, No other, No bleeding abnormalities TXK-Aygsbo-Alpfor Hx Patient Social History Marrital Status: Employed/Student: unemployed Alcohol Use: Occasionally Uses Recreational Drug Use: No Smoking Status: Former Smoker Type Used: Cigarettes Recent Foreign Travel: No Recent Infectious Disease Expo: No Physical Abuse Screen: No Sexual Abuse: No Immunizations Up To Date Tetanus Booster (TDap): Unknown Date of Pneumonia Vaccine: Jun 11, 2016 Past Medical History PMH As described under Assessment. Family Medical History Family History: Patient reports no known family medical history. Allergies and Home Medications Allergies Coded Allergies: No Known Drug Allergies (Unverified , 03/30/15) Home Medications Alfuzosin HCl 10 Mg Tab.er.24h, 10 MG PO DAILY@1800 for 30 Days, #30 Prescribed by: SHAHZAD BARROW on 06/08/17 1620 Amlodipine Besylate 5 Mg Tablet, 10 MG PO DAILY for 30 Days, #30 Prescribed by: SHAHZAD BARROW on 06/08/17 1620 Cholecalciferol (Vitamin D3) 2,000 Unit Capsule, 2,000 UNIT PO DAILY, (Reported) Clonidine HCl 0.1 Mg Tablet, 0.1 MG PO TID for 30 Days, #90 Prescribed by: SHAHZAD BARROW on 06/08/17 1620 Clotrimazole/Betamethasone Dip 15 Gm Cream..g., 0 GM TP BID for 30 Days, #1 Prescribed by: SHAHZAD BARROW on 06/08/17 1620 Docusate Sodium 100 Mg Capsule, 100 MG PO BID PRN for CONSTIPATION-1ST LINE, ( Reported) Famotidine 20 Mg Tablet, 20 MG PO BID for 30 Days, #60 Prescribed by: SHAHZAD BARROW on 06/08/17 1620 Furosemide 40 Mg Tablet, 40 MG PO DAILY for 30 Days, #30 Prescribed by: SHAHZAD BARROW on 06/08/17 1620 Guaifenesin 600 Mg Tab.er.12h, 600 MG PO BID for 30 Days, #60 Prescribed by: SHAHZAD BARROW on 06/08/17 1620 Hydralazine HCl 25 Mg Tablet, 75 MG PO TID for 30 Days, #150 Prescribed by: SHAHZAD BARROW on 06/08/17 1620 L. Acidophilus/Bulgaricus 1 Each Tablet, 1 TAB.CHEW PO BID for 30 Days, #60 Prescribed by: SHAHZAD BARROW on 06/08/17 1620 Levetiracetam 500 Mg Tablet, 500 MG PO BID for 30 Days, #60 Prescribed by: SHAHZAD BARROW on 06/08/17 1620 Levothyroxine Sodium 125 Mcg Tablet, 250 MCG PO DAILY@0630 for 30 Days, #30 Prescribed by: SHAHZAD BARROW on 06/08/17 1620 Mineral Oil/Petrolatum,White 3.5 Gm Oint...g., 0 GM OU BID for 30 Days, #1 Prescribed by: SHAHZAD BARROW on 06/08/17 1620 Multivitamin 1 Each Tablet, 1 TAB PO DAILY, (Reported) Allen-3 Acid Ethyl Esters 1 Gm Capsule, 1 GM PO DAILY, (Reported) Potassium Chloride 10 Meq Tablet.er, 30 MEQ PO DAILY@0700 for 30 Days, #30 Prescribed by: SHAHZAD BARROW on 06/08/17 1620 Rosuvastatin Calcium 40 Mg Tablet, 40 MG PO HS, (Reported) Physical Exam-Cardiology Physical Exam Vital Signs/I&O Vital Sign - Last 12Hours 06/12/17 06/12/17 06/12/17 06/12/17 01:00 03:25 07:00 08:00 Temp 97.3 Pulse 7 84 61 Resp 20 B/P (MAP) 129/72 Pulse Ox 96 96 O2 Delivery Room Air Room Air 06/12/17 08:00 Temp 97.9 Pulse 70 Resp 20 B/P (MAP) 155/91 Pulse Ox 95 O2 Delivery Room Air Intake and Output 06/12/17 00:00 Intake Total 240 ml Output Total 175 ml Balance 65 ml Capillary Refill : Less Than 3 Seconds Constitutional: No appears stated age, No AAO x 3, No apparent distress, No PERRL, No well-developed, No well-nourished, No other HEENT: No PERRL, No normal ENT inspection, No TMs normal, No pharynx normal, No scleral icterus (R), No scleral icterus (L), No pale conjunctivae (R), No pale conjunctivae (L), No photophobia, No TM abnormal (R), No TM abnormal (L), No pharyngeal erythema, No tonsillar exudate, No other, No discharge, No EOMI, No hearing is well preserved, No hard of hearing, No oral hygience is good, No ulceration, No xanthelasmas are seen Neck: No non-tender, No full range of motion, No supple, No normal inspection, No carotid bruit, No limited range of motion, No lymphadenopathy (R), No lymphadenopathy (L), No tender lateral, No tender midline, No thyromegaly, No other, No carotid pulses are 2 + bilaterally, No with good upstrokes Respiratory: No accessory muscle use, No respiratory distress, No chest tender , chest expansion is symmetric, chest is bilaterally symmetric, lungs clear to percussion, lungs clear to auscultation, No crackles, No rhonchi, No rales, No stridor, No wheezing, No pleural rub, No other Cardiovascular: regular rate-rhythm, S1 and S2 Gastrointestinal: No tender, No soft, No round, No distended, No pulsatile mass , No organomegaly, No guarding, No rebound, No tenderness, No hernia, No mass, No audible bowel sounds, No abnormal bowel sounds, No abdominal bruits, No spleenomegaly, No other Rectal: deferred Extremities: No normal range of motion, No non-tender, No normal inspection, No pedal edema, No calf tenderness, No normal capillary refill, No pelvis stable , No calf tenderness, No inflammation, No pedal edema, No slow capillary refill , No swelling, No other, No abrasion, No clubbing, No cyanosis, No ecchymosis, No laceration, No no lower extremity edema bilateral, No significant edema, No tenderness, No wound Neurologic/Psychiatric: No concrete craftsman II-XII nml as tested, No no motor/sensory deficits, No alert, No normal mood/affect, No oriented x 3, No abnormal cerebellar tests, No abnormal concrete craftsman II-XII, No abnormal gait, No aphasia, No EOM palsy, No facial droop, No motor weakness, No sensory deficit, No depressed affect, No disoriented x 3, No other, No grossly intact, No power is 5/5 both on sides Skin: No normal color, No warm/dry, No cyanosis, No cool, No diaphoresis, No damp, No ecchymosis, No jaundice, No mottled, No pallor, No rash, No tattoos/ piercings, No ulcerations, No rash on exposed areas, No ulcerations on exposed areas, No other Data Review Labs Laboratory Tests 06/11/17 17:05: White Blood Count 4.7, Red Blood Count 4.81, Hemoglobin 14.3, Hematocrit 43, Mean Corpuscular Volume 89, Mean Corpuscular Hemoglobin 30, Mean Corpuscular Hemoglobin Concent 34, Red Cell Distribution Width 13.9, Platelet Count 281, Mean Platelet Volume 9.8, Neutrophils (%) (Auto) 52, Lymphocytes (%) (Auto) 26, Monocytes (%) (Auto) 18H, Eosinophils (%) (Auto) 4, Basophils (%) (Auto) 1, Neutrophils # (Auto) 2.5, Lymphocytes # (Auto) 1.2, Monocytes # (Auto) 0.8, Eosinophils # (Auto) 0.2, Basophils # (Auto) 0.0, Prothrombin Time 13.9, INR Comment 1.1, Activated Partial Thromboplast Time 27, D-Dimer 0.69H, Sodium Level 139, Potassium Level 3.8, Chloride Level 106, Carbon Dioxide Level 20L, Anion Gap 13, Blood Urea Nitrogen 11, Creatinine 0.73, Estimat Glomerular Filtration Rate > 60, BUN/Creatinine Ratio 15, Glucose Level 107H, Calcium Level 9.7, Magnesium Level 1.9, Total Bilirubin 0.6, Aspartate Amino Transf (AST /SGOT) 37H, Alanine Aminotransferase (ALT/SGPT) 98H, Alkaline Phosphatase 59, Myoglobin 22.6, Troponin I < 0.30, B-Type Natriuretic Peptide 16.0, Total Protein 7.1, Albumin 3.9, Thyroid Stimulating Hormone (TSH) 0.29L, Free Thyroxine 1.73H 06/11/17 23:10: Troponin I < 0.30 06/12/17 04:01: White Blood Count 4.5, Red Blood Count 4.50, Hemoglobin 13.3, Hematocrit 41, Mean Corpuscular Volume 90, Mean Corpuscular Hemoglobin 30, Mean Corpuscular Hemoglobin Concent 33, Red Cell Distribution Width 13.8, Platelet Count 253, Mean Platelet Volume 10.1, Neutrophils (%) (Auto) 42, Lymphocytes (%) (Auto) 33 , Monocytes (%) (Auto) 19H, Eosinophils (%) (Auto) 5, Basophils (%) (Auto) 1, Neutrophils # (Auto) 1.9, Lymphocytes # (Auto) 1.5, Monocytes # (Auto) 0.8, Eosinophils # (Auto) 0.2, Basophils # (Auto) 0.0, Sodium Level 141, Potassium Level 3.4L, Chloride Level 107, Carbon Dioxide Level 24, Anion Gap 10, Blood Urea Nitrogen 15, Creatinine 0.73, Estimat Glomerular Filtration Rate > 60, BUN/ Creatinine Ratio 21, Glucose Level 115H, Calcium Level 9.3, Total Bilirubin 0.4 , Aspartate Amino Transf (AST/SGOT) 30, Alanine Aminotransferase (ALT/SGPT) 87H , Alkaline Phosphatase 56, Troponin I < 0.30, Total Protein 6.4, Albumin 3.5, Triglycerides Level 97, Cholesterol Level 191, LDL Cholesterol Direct 148H, VLDL Cholesterol 19, HDL Cholesterol 29L A/P-Cardiology Assessment/Admission Diagnosis Recent subdural hematoma status post neurosurgery, History of coronary artery disease status post CABG. PVCs, Hypertension, Possible paroxysmal atrial fibrillation. Plan For blood pressure patient should continue amlodipine 10 mg, clonidine 0.1 mg 3 times a day, hydralazine 75 mg 3 times a day and Lasix. he Is currently on these medications inpatient and blood pressure is well controlled. History of coronary artery disease. No antiplatelet or anticoagulants due to subdural hematoma. PVCs will monitor. Okay to discharge as per cardiology and can follow-up as outpatient with medicine and cardiology. Thank you for your consultation. Please call me if you have any questions. Gisele Melgar MD, FACP, FACC, FSCAI, FHRS, CCDS Interventional Cardiology Cardiac Electrophysiology Vascular Medicine and Endovascular Interventions Clinical Quality Measures DVT/VTE Risk/Contraindication: Risk Factor Score Per Nursin RFS Level Per Nursing on Admit: 2=Moderate Barry MELGAR MD Jun 12, 2017 12:01 pm
[2017-06-12 16:17] VITALS: BP 123/77
[2017-06-12] MEDS ORDERED: ALFUZOSIN HCL 10 MG TAB (UROXATRAL) PO SCH (18:00)
[2017-06-12] MEDS: NS IV 1000 ML 1,000 ML IV SCH (18:39)
[2017-06-12 20:00] VITALS: BP 129/65
[2017-06-12] MEDS ORDERED: ATORVASTATIN 80 MG (LIPITOR) TABLET PO SCH (21:00)
[2017-06-13] VITALS: BP_SYST 120; BP_SYST 125; BP_DIAS 64; BP_DIAS 68
[2017-06-13] MEDS: KCL 10 MEQ TAB (MICRO K) PO SCH (06:20)
[2017-06-13] MEDS: OMEGA 3 (FISH OIL) 1000 MG CAP PO SCH (06:20)
[2017-06-13] MEDS: LEVOTHYROXINE 125 MCG (LEVOTHROID) TABLET PO SCH (06:21)
[2017-06-13 08:00] VITALS: BP 125/77
[2017-06-13] MEDS ORDERED: KCL 10 MEQ TAB (MICRO K) PO ONE (08:00)
--- NOTE | 2017-06-13 08:14 | Progress Note (SOAP) ---
Subjective Time Seen by Provider: 08:05 Subjective/Events-last exam patient feeling better today and wants to be discharged. Patient's blood pressure under control. Patient not having any PVCs. Patient not having any chest pain or chest discomfort. Patient states he will wear his helmet. Patient to be discharged today in seen in the office is at 1 p.m. Coronary artery disease post CABG. Patient a fall risk. Recent subdural hematoma post-neurosurgery Objective Exam Vital Signs Date Time Temp Pulse Resp B/P (MAP) Pulse Ox O2 Delivery O2 Flow Rate FiO2 06/13/17 01:00 81 06/13/17 00:00 98.0 75 20 120/64 93 Room Air 06/12/17 21:00 Room Air 06/12/17 20:00 98.0 60 20 129/65 95 Room Air 06/12/17 19:00 76 06/12/17 16:17 98.2 70 20 123/77 94 Room Air 06/12/17 13:00 61 06/12/17 12:00 97.7 70 20 121/74 95 Room Air I & O 06/13/17 07:00 Intake Total 1010 ml Output Total 2100 ml Balance -1090 ml Capillary Refill : Less Than 3 Seconds General Appearance: No Apparent Distress, WD/WN, Other (bone removed with surgery on right side) HEENT: Normal ENT Inspection Neck: Full Range of Motion, Normal Inspection Respiratory: Chest Non Tender, Lungs Clear, Normal Breath Sounds, No Accessory Muscle Use, No Respiratory Distress Cardiovascular: Regular Rate, Rhythm, No Murmur Gastrointestinal: non tender, soft, other (PEG tube) Neurologic/Psychiatric: Alert, Oriented x3 Results Radiology NAME: RAQUEL FREEMAN MED REC#: [id number] PT STATUS: ADM IN : 01/10/1929 PHYSICIAN: JR FUENTES DO ADMIT DATE: 06/11/17 Signed Date of Exam: 06/12/17 LUMBAR SPINE - 2-3 VIEWS INDICATION: Low back pain TECHNIQUE: AP, Lateral and Spot imaging of the lumbar spine CORRELATION STUDY: None FINDINGS: Straightening of the normal lumbar lordotic curvature. There is otherwise normal alignment. Lumbar vertebral body heights overall fairly well maintained. However, there is slight irregularity superior L3 and L2 endplates. Multilevel disc space narrowing and endplate lipping is noted most pronounced T12-L1, L1-L2 and to a lesser degree L2-L3, L4-5, and L5-S1 levels. SI joints without significant effusion or erosion. Degenerative changes bilateral hips. Cholecystectomy clips in the right upper quadrant. IMPRESSION: Multilevel degenerative changes. Disc space narrowing most severe at L5-S1 level. No definitive evidence for acute bony abnormality. Dictated by: Dictated on workstation # [id number] Assessment/Plan Assessment/Plan Assess & Plan/Chief Complaint PVCs. Irregular heartbeats. Hypertension. Coronary artery disease. Fall risk. Subdural hematoma with recent surgery. Hyperlipidemia. Patient feeling good today and wants to go home. Patient to be seen in the office at 1 p.m. Discharge today as his request Clinical Quality Measures DVT/VTE Risk/Contraindication: Risk Factor Score Per Nursin RFS Level Per Nursing on Admit: 2=Moderate JR FUENTES DO Jun 13, 2017 08:14
--- NOTE | 2017-06-13 08:27 | D/C HH Face to Face Order ---
D/C Face to Face Orders Instructions for Patient Patient Instructions/FollowUp: to check thyroid in 2 weeks. Always wear his helmet since a fall risk. Stop the Synthroid. Have somebody walk with him when he gets up at all times Physician to follow Patient: yes Discharge Diet for Home: Cardiac Diet Patient Problems: fall risk. Hypertension Patient Data-Allergies,Ht & Wt Patient Allergies: Coded Allergies: No Known Drug Allergies (Unverified , 03/30/15) Height (Feet): 6 Height (Inches): 1.00 Weight (Pounds): 180 Weight (Ounces): 0.0 Home Health Need/Face to Face Date of Face to Face: Jun 13, 2017 Clinical Findings: Instability, Other-list in note (hypertension and PVCs) I have seen Pt [id number]: Yes Discharged To: Home Diagnosis/Conditions: patient instability. Subdural hematoma. Coronary artery disease. Hypertension. Hyperlipidemia Problems/Diagnosis/Condition: Patient is Homebound due to: Yogesh fall risk due to instabilty hypertension Homebound Status Due to the above stated illness, injury or surgical procedure (medical condition or diagnosis) and associated clinical findings, the patient is homebound because of his/her inability to leave home except with aid of a supportive device and/or person AND leaving the home requires a considerable and taxing effort or is medically contraindicated. Pt req the following assistanc: Aid of another person, [facility] Start Date: Jun 11, 2017 Certify Stmt I certify that this patient is under my care and that I, a nurse practitioner or a physician; a digital sales assistant working with me, had a face to face encounter that - meets the physician face to face encounter requirements with this patient as dated. JR FUENTES DO Jun 13, 2017 08:27
[2017-06-13] MEDS: LEVETIRACETAM 500 MG (KEPPRA) TAB PO SCH (09:13)
[2017-06-13] MEDS: VITAMIN D3 1,000 UNITS (CHOLECALCIFEROL) TABLET PO SCH (09:13)
[2017-06-13] MEDS: LACTOBACILLUS Acidoph/Bulgar (LACTINEX/FLORANEX) TAB PO SCH (09:13)
[2017-06-13] MEDS: FUROSEMIDE 40 MG (LASIX) TAB PO SCH (09:13)
[2017-06-13] MEDS: cloNIDine 0.1 MG (CATAPRES) TAB PO SCH (09:13)
[2017-06-13] MEDS: MULTIVIT W/MINERALS TAB (THERAGRAN M) PO SCH (09:14)
[2017-06-13] MEDS: amLODIPine 5 MG (NORVASC) TAB PO SCH (09:14)
[2017-06-13] MEDS: hydrALAZINE (APRESOLINE) 25 MG TAB PO SCH (09:14)
[2017-06-13] MEDS: FAMOTIDINE 20 MG (PEPCID) TABLET PO SCH (09:14)
[2017-06-13] MEDS: ARTIFICIAL TEARS OINT (LACRI-LUBE) 3.5 GM TUBE OU SCH (09:33)
[2017-06-13] MEDS: BETAMETHASONE/CLOTRIM CREAM (LOTRISONE) 45 GM TP SCH (09:34)
[2017-06-13 10:00] VITALS: BP 125/77
--- NOTE | 2017-06-16 07:25 | Clinic Account Progress/Dx ---
Clinic Account Progress/Dx DIAGNOSIS: Time Seen by Provider: 07:10 Diagnosis hypertension. Irregular heartbeat. Chest pressure. Recent history of subdural hematoma with craniotomy. Recent history of diplopia. Coronary artery disease. Risk for fall. Hyperlipidemia. 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
== END 2017-06-13 07:58 | disposition home health service (06) ==
LOC: EDUNIT# 16:32 → ER 16:34 → UNDOADMOB 17:59 → 4TH 17:59 → UNDODISOB 06-13 10:00
PROVIDERS: ADMIT Family Medicine; ATTEND Family Medicine
DX: I10 Essential (primary) hypertension (principal); E78.5 Hyperlipidemia, unspecified; I51.7 Cardiomegaly; I25.10 Atherosclerotic heart disease of native coronary artery without angina pectoris; I25.2 Old myocardial infarction; Z79.899 Other long term (current) drug therapy; Z87.891 Personal history of nicotine dependence; Z95.1 Presence of aortocoronary bypass graft; Z86.73 Personal history of transient ischemic attack (TIA), and cerebral infarction without residual deficits; Z98.890 Other specified postprocedural states
CPT/HCPCS: 36415; 71010; 80053; 80061; 83735; 83874; 83880; 84439; 84443; 84481; 84484; 85025; 85379; 85610; 85730; 93005; 93041; G0378

== ENCOUNTER → 2017-06-29 | Outpatient (CLI) | payer MEDICARE, OTHER ==
[~2017-06-29] MED LIST changes: +DOCU-143 PO
== END ==
LOC: PREOP 05:40
PROVIDERS: ATTEND Surgery
DX: Z01.818 Encounter for other preprocedural examination (principal); R13.10 Dysphagia, unspecified

== ENCOUNTER → 2018-06-24 | Outpatient (CLI) | payer MEDICARE, OTHER ==
[~2018-06-24] MED LIST changes: +CATHETER FLUSH 10 ML SYR IV PRN; +IOHEXOL 350 MG/ML 100 ML (OMNIPAQUE 350) VIAL IV ONE; +NS 250 ML (IVPB) BAG IV ONE; +RECEIVED CONTRAST (Hold Metformin) IV SCH; -ROSU40TA20 PO; +ROSU40TA22 PO
--- NOTE | 2018-06-24 14:19 | Diagnostic Imaging Report ---
PROCEDURE: CT abdomen and pelvis with contrast. TECHNIQUE: Multiple contiguous axial images were obtained through the abdomen and pelvis after administration of intravenous contrast. INDICATION: Elevated liver function studies, hepatitis. FINDINGS: The liver appears normal. There is no liver mass. The gallbladder and bile ducts appear normal. Spleen, adrenals, and pancreas are normal. There is no ascites. There is a simple left renal cortical cyst. The unobstructed kidneys appear normal. Reported surgical history of previous appendectomy, this does not appear to be the case. There is an air-containing nondilated normal-appearing appendix oriented inferiorly. There is no appendicitis or diverticulitis. There is no bowel, biliary or urinary tract obstruction. There is aortoiliac atherosclerotic disease, right common iliac is ectatic measuring 2.0 cm. No abdominopelvic ascites, abscess, hematoma, or fluid collection. No acute-appearing finding. IMPRESSION: No hepatobiliary abnormality. No ascites. Simple renal cortical cyst. Aortoiliac atherosclerotic ectasia. Normal appendix. No acute finding. Dictated by: Dictated on workstation # [id number]
== END ==
LOC: RAD 12:04
PROVIDERS: ATTEND Family Medicine
DX: N28.1 Cyst of kidney, acquired (principal); I77.819 Aortic ectasia, unspecified site; K75.9 Inflammatory liver disease, unspecified
CPT/HCPCS: 74177

== ENCOUNTER → 2018-11-10 | Outpatient (CLI) | payer MEDICARE, OTHER ==
[~2018-11-10] MED LIST changes: -AMLO5TAB2 PO; +AMLO5TAB7 PO; -CATHETER FLUSH 10 ML SYR IV PRN; -IOHEXOL 350 MG/ML 100 ML (OMNIPAQUE 350) VIAL IV ONE; -NS 250 ML (IVPB) BAG IV ONE; -RAMI5CAP PO; +RAMI5CAP65 PO; -RECEIVED CONTRAST (Hold Metformin) IV SCH
--- NOTE | 2018-11-10 11:35 | Diagnostic Imaging Report ---
PROCEDURE: CT head without contrast. TECHNIQUE: Multiple contiguous axial images were obtained through the brain without the use of intravenous contrast. INDICATION: Remote head injury, now with worsening dizziness. COMPARISON: Study compared with most recent exam from 05/24/2017. FINDINGS: Since the previous exam, there has been filling of the craniectomy defect with a calvarial flap which is nondisplaced. There is resolution of the previous decompressive external herniation. There is some hyperdense likely thickening of the dura deep to the replaced craniotomy flap; however, I do not have other prior postoperative exams to assess stability. Low-density extra-axial fluid bilaterally has decreased in the interim. There is resolution of the previous mild shift. There is atrophy and mild ventriculomegaly, stable. There are some old lacunar infarcts in the basal ganglia and chronic white matter disease. Orbits and sinuses are nonacute. The mastoid air cells and middle ear cavities are clear. IMPRESSION: Replacement of craniectomy defect with presumed autologous flap which shows no displacement. Resolution of previous decompressive external herniation and resolution of previous shift. No convincing evidence for intracranial hemorrhage. There is some likely hyperdense dural thickening along the right convexity deep to the operative bed. Dictated by: Dictated on workstation # [id number]
== END ==
LOC: RAD 10:40
PROVIDERS: ATTEND Family Medicine
DX: R42 Dizziness and giddiness (principal); Z98.890 Other specified postprocedural states
CPT/HCPCS: 70450

== ENCOUNTER 2020-11-18 15:00 | Outpatient (CLI) | payer MEDICARE, OTHER ==
[~2020-11-18 15:00] MED LIST changes: -ALFU10TA11 PO; +ALFU10TA12 PO; +AMLO-250 PO; -AMLO5TAB7 PO; +CLN.1T PO; -CLON0.1T PO; +MULT-567 PO; -MULT1TAB69 PO; -ROSU40TA22 PO; +ROSU40TA23 PO
== END 2020-11-18 15:30 | disposition home or self-care (01) ==
LOC: SLEEP 15:00
PROVIDERS: ATTEND Otolaryngology Otolaryngology/Facial Plastic Surgery
DX: G47.33 Obstructive sleep apnea (adult) (pediatric) (principal)